=== PATIENT | male | born 1945 | race African-American/Black ===

== ENCOUNTER 2017-06-04 23:36 | Emergency (ER) | payer OTHER ==
[2017-06-04 23:49] VITALS: BP 114/83; PULSE 78; TEMP 97.5; BMI 23.3
--- NOTE | 2017-06-04 23:53 | PDOC ---
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 Hurts with certain movements especially lying down. No associated symptoms whatsoever. No Injury or trauma. Timing/Duration: intermittent, other (over the past week) Severity: moderate Modifying Factors: improves with: other (has not taken anything for pain) Past History - Past Medical History Allergies/Adverse Reactions: Allergies Allergy/AdvReac Type Severity Reaction Status Date / Time No Known Allergies Allergy Verified 06/04/17 23:38 Home Medications: Ambulatory Orders Aspirin 81 mg PO DAILY 09/02/13 Atorvastatin Ca [Lipitor] 20 mg PO HS 09/02/13 Methylprednisolone [Medrol Dose Jose] 4 mg PO ASDIR #21 tablet 06/05/17 Tramadol HCl 50 mg PO QID #40 tablet MDD 4 06/05/17 Cancer: Yes (prostate) Cardiac Disorders: Yes (stent placement X 1) Hypercholesterolemia: Yes Kidney Stones: Yes - Immunization History Immunization Up to Date: Yes - Psycho/Social/Smoking Cessation Hx Anxiety: No Suicidal Ideation: No Smoking History: Former smoker Have you smoked in the past 12 months: Yes Number of Cigarettes Smoked Daily: 0 If you are a former smoker, when did you quit?: 6MTHS 'Breaking Loose' booklet given: 03/11/16 Hx Alcohol Use: Yes Drug/Substance Use Hx: No Substance Use Type: Alcohol Hx Substance Use Treatment: No Review of Systems - Review of Systems Able to Perform ROS?: Yes Is the patient limited Monegasque proficient: No Constitutional: No: Symptoms Reported HEENTM: No: Symptoms Reported Respiratory: No: Symptoms reported Cardiac (ROS): No: Symptoms Reported ABD/GI: No: Symptoms Reported : No: Symptoms Reported Musculoskeletal: Yes: See HPI Integumentary: No: Symptoms Reported Neurological: No: Symptoms reported Psychiatric: No: Anxiety, Depression Endocrine: No: Symptoms Reported Hematologic/Lymphatic: No: Symptoms Reported All Other Systems: Reviewed and Negative *Physical Exam - Physical Exam General Appearance: Yes: Nourished, Appropriately Dressed. No: Apparent Distress HEENT: positive: EOMI, JOLYNN, Normal ENT Inspection, Normal Voice Neck: positive: Trachea midline, Normal Thyroid, Supple Respiratory/Chest: positive: Lungs Clear, Normal Breath Sounds. negative: Chest Tender Cardiovascular: positive: Regular Rhythm, Regular Rate. negative: Murmur Gastrointestinal/Abdominal: positive: Normal Bowel Sounds, Flat, Soft. negative : Tender Lymphatic: negative: Adenopathy, Tenderness Musculoskeletal: positive: Other (tender at siatic notch, neg stright leg raising bilaterally, femoral pulses equal side to side no pulsitile mass in abdomen, no abdominal bruits, distal pulses equal side to side.). negative: Vertebral Tenderness Extremity: positive: Normal Capillary Refill Integumentary: positive: Normal Color, Dry, Warm Neurologic: positive: inside sales executive II-XII NML intact, Fully Oriented, Alert, Normal Mood/ Affect ED Treatment Course - RADIOLOGY Radiology Studies Ordered: Category Date Time Status LUMBAR SPINE CT W/O CONTRAST [CT] Stat CT Scan 06/04/17 23:38 Ordered *DC/Admit/Observation/Transfer Diagnosis at time of Disposition: Lumbar radicular syndrome - Discharge Dispostion Disposition: HOME Condition at time of disposition: Improved Admit: No - Prescriptions Prescriptions: Methylprednisolone [Medrol Dose Jose] 4 mg PO ASDIR #21 tablet Tramadol HCl 50 mg PO QID #40 tablet MDD 4 - Referrals Referrals: Frantz De La Cruz MD, FAANS [Staff Physician] - - Patient Instructions Printed Discharge Instructions: DI for Lumbar Radiculopathy Additional Instructions: Mr Anna - You have several ruptured discs in your low back and you need to follow up with Dr. Figueroa (Neurosurgery). Take the medrol dose pack as prescribed and use the tramadol for pain. You may need surgery. Best- Dr. Alex Morales - Post Discharge Activity Work/School Note: Back to Work Activity Comments: 06/05/17 00:43 No Heavy Lifting
== END 2017-06-05 01:00 | disposition home or self-care (01) ==
LOC: FER 23:36
DX: M54.16 Radiculopathy, lumbar region (principal); E78.5 Hyperlipidemia, unspecified; I25.10 Atherosclerotic heart disease of native coronary artery without angina pectoris; Z95.5 Presence of coronary angioplasty implant and graft; Z79.82 Long term (current) use of aspirin; Z85.46 Personal history of malignant neoplasm of prostate; Z87.442 Personal history of urinary calculi
CPT/HCPCS: 72131-TC; 99281-25

== ENCOUNTER 2017-06-18 04:57 | Emergency (ER) | payer OTHER ==
[2017-06-18 05:09] VITALS: TEMP 98; BMI 22.8
--- NOTE | 2017-06-18 05:21 | PDOC ---
History of Present Illness - General Chief Complaint: Respiratory Stated Complaint: CONGESTION, I HAVE PNUEMONIA Time Seen by Provider: 06/18/17 05:14 History Source: Patient Exam Limitations: No Limitations - History of Present Illness Initial Comments: 06/18/17 05:29 This is a 71-year-old male who comes in complaining of cough congestion and feeling very poorly. Patient said that he is short of breath and saw his primary care doctor and was diagnosed with pneumonia left side. Patient was started on an antibiotic but he doesn't remember the name. Since this started on the antibiotic patient said he has not gotten better and is getting worse. Patient said his chest feels very tight. Patient denies any nausea and is noted to be slightly diaphoretic here in the emergency room. Patient O2 sat on arrival was 94%. Patient is unable to recall the antibiotic that he is on. PAST MEDICAL HISTORY: no significant history PAST SURGICAL HISTORY: no significant history FAMILY HISTORY: no pertinant history SOCIAL HISTORY: Pt lives with family and is employed. MEDICATIONS: reviewed ALLERGIES: As per nursing notes Review of Systems General: No fevers or chills, no weakness, no weight loss HEENT: No change in vision. No sore throat,. No ear pain CardioVascular: No chest pain or shortness of breath Respiratory:No cough, or wheezing. Gastrointestinal: no nausea, vomitting, diarrhea or constipation, No rectal bleeding Genitourinary: No dysuria, hematuria, or frequency Musculoskeletal: No joint or muscle pain or swelling Neurologic: No headache, vertigo, dizziness or loss of consciousness Psychiatric: nor depression Skin: No rashes or easy bruising Endocrine: no increased thirst or abnormal weight change Allergic: no skin or latex allergy All other systems reviewed and normal Exam: General: Well-nourished well-developed individual, no acute distress HEENT: Throat: Normal, tonsils normal, no erythema or exudate Neck: Supple, no meningeal signs, no lymphadenopathy Eyes::Pupils equal reactive and round, extraocular motion intact Chest: Nontender to palpation Cardiac: S1-S2 normal, regular rate and rhythm, no murmurs rubs or gallops Respiratory: There is some decreased breath sounds on the left upper area with a few coarse breath sounds. Abdomen: Soft, nondistended, normal bowel sounds, nontender to palpation diffusely Extremities: Warm, dry, no cyanosis, clubbing, or edema Skin: No rashes Neuro: Alert and oriented x3, nonfocal exam, grossly intact, normal gait Psych: Normal mood and affect Chest x-ray large left upper lobe mass. 07:00 Care of this patient was transferred to Dr. Beckman at 7 AM. Patient had a CT of his chest that is still pending otherwise rest of his lab work shows a mildly elevated white count but no left shift. Otherwise is initially normal. EKG shows normal sinus rhythm at a rate of 70, normal intervals no acute ST-T wave changes normal EKG Case discussed in detail with oncoming Emergency Physician including history, physical exam and ancillary studies. [facility] care for the patient and will complete the evaluation and treatment. Patient is aware of the plan. Pt is clinically unchanged and stable. Past History - Past Medical History Allergies/Adverse Reactions: Allergies Allergy/AdvReac Type Severity Reaction Status Date / Time No Known Allergies Allergy Verified 06/18/17 05:00 Home Medications: Ambulatory Orders Unobtainable [Unobtainable] 06/18/17 Cancer: Yes (prostate) Cardiac Disorders: Yes (stent placement X 1) Hypercholesterolemia: Yes Kidney Stones: Yes Other medical history: STATES HE HAS PNUEMONIA - Immunization History Immunization Up to Date: Yes - Suicide/Smoking/Psychosocial Hx Smoking History: Former smoker Have you smoked in the past 12 months: Yes Number of Cigarettes Smoked Daily: 0 If you are a former smoker, when did you quit?: 6MTHS Information on smoking cessation initiated: No 'Breaking Loose' booklet given: 03/11/16 Hx Alcohol Use: No Drug/Substance Use Hx: No Substance Use Type: Alcohol Hx Substance Use Treatment: No *Physical Exam - Vital Signs Last Vital Signs Temp Pulse Resp BP Pulse Ox 98 F 80 18 128/93 94 L 06/18/17 05:05 06/18/17 05:05 06/18/17 05:05 06/18/17 05:05 06/18/17 05:05 ED Treatment Course - LABORATORY CBC & Chemistry Diagram: 06/18/17 05:40 06/18/17 05:40 *DC/Admit/Observation/Transfer Diagnosis at time of Disposition: Sensation of chest tightness - Discharge Dispostion Condition at time of disposition: Stable
[2017-06-18] MEDS ORDERED: PIPERACILLIN/TAZOB 4.5 GM/100 ML PRE-DOCKED IVPB ONE (05:48)
[2017-06-18 06:10] LABS: BASOPHIL 0.7 % (0-2.0); EOSINOPHIL 2.1 % (0-4.5); MCH 29.3 pg (25.7-33.7); MCHC 32.8 g/dl (32.0-35.9); MEAN CELL VOLUME 89.2 fl (80-96); MEAN PLT VOLUME 8.6 fl (7.5-11.1); PLATELET COUNT 197 K/MM3 (134-434); RDW 14.6 % (11.9-15.9); WHITE BLOOD COUNT 10.4 K/mm3 (4.0-10.0)
[2017-06-18 06:33] LABS: ALBUMIN 3.4 g/dl (3.4-5.0); ALK PHOS 84 U/L (45-117); ANION GAP 9 (8-16); BILIRUBIN,TOTAL 0.3 mg/dL (0.2-1.0); CALCIUM 9.1 mg/dL (8.5-10.1); CO2 27 mmol/L (21-32); CREATININE 1.1 mg/dL (0.7-1.3); GLUCOSE,RANDOM 98 mg/dL (74-106); SGOT/AST 21 U/L (15-37); SGPT/ALT 25 U/L (12-78); TOT PROT 6.8 g/dl (6.4-8.2)
[2017-06-18 06:35] LABS: TROPONIN I < 0.02 ng/ml (0.00-0.05)
[2017-06-18 07:58] LABS: CPK 68 IU/L (39-308)
--- NOTE | 2017-06-18 08:06 | PDOC ---
*Physical Exam - Vital Signs Last Vital Signs Temp Pulse Resp BP Pulse Ox 98 F 80 18 128/93 94 L 06/18/17 05:05 06/18/17 05:05 06/18/17 05:05 06/18/17 05:05 06/18/17 05:05 ED Treatment Course - LABORATORY CBC & Chemistry Diagram: 06/18/17 05:40 06/18/17 05:40 - ADDITIONAL ORDERS Additional order review: Laboratory Results 06/18/17 06/18/17 06/18/17 06:25 05:40 05:40 Sodium Potassium Chloride Carbon Dioxide Anion Gap BUN Creatinine Creat Clearance w eGFR Random Glucose Lactic Acid 0.8 Calcium Total Bilirubin AST ALT Alkaline Phosphatase Creatine Kinase 68 Troponin I < 0.02 B-Natriuretic Peptide 22.19 Total Protein Albumin 06/18/17 05:40 Sodium 140 Potassium 4.1 Chloride 104 Carbon Dioxide 27 Anion Gap 9 BUN 16 Creatinine 1.1 Creat Clearance w eGFR > 60 Random Glucose 98 D Lactic Acid Calcium 9.1 Total Bilirubin 0.3 AST 21 D ALT 25 Alkaline Phosphatase 84 D Creatine Kinase Troponin I B-Natriuretic Peptide Total Protein 6.8 Albumin 3.4 06/18/17 05:40 RBC 4.82 MCV 89.2 MCHC 32.8 RDW 14.6 MPV 8.6 Neutrophils % 69.0 Lymphocytes % 16.7 D Monocytes % 11.5 H Eosinophils % 2.1 Basophils % 0.7 - Medications Given in the ED: ED Medications Discontinued Medications Generic Name Dose Route Start Last Admin Trade Name Freq PRN Reason Stop Dose Admin Piperacillin Sod/Tazobactam Sod 4.5 gm 06/18/17 05:48 06/18/17 06:30 Zosyn 4.5gm Ivpb (Pre-Docked) IVPB 06/18/17 05:49 Not Given ONCE ONE Medical Decision Making - Medical Decision Making 06/18/17 08:[address] concerning for new lung mass. I spoke with pt's PMD, Dr. Bella, who states that pt had XR and CT chest 2 weeks ago, which revealed similar results. Pt has seen pulmonology and was started on Augmentin and Levaquin for presumed PNA. Pt was to f/u with Dr. Bella to have PET CT scheduled. I informed Dr. Bella of persistent lung mass on today's imaging. We agreed that pt needs immediate follow up and PET CT as soon as possible for malignancy work up. Dr. Bella will see pt in clinic today. Results discussed with patient, who understands need for immediate f/u. Pt is awake, alert, resting comfortably. No acute distress. Pt has normal vitals and is clinically stable for DC at this time. Pt to be DC'ed and will go straight to Dr. Bella's office. *DC/Admit/Observation/Transfer Diagnosis at time of Disposition: Feeling of chest tightness - Discharge Dispostion Disposition: HOME Condition at time of disposition: Stable - Referrals Referrals: Markell Bella MD [Primary Care Provider] - - Patient Instructions Additional Instructions: Please follow up with Dr. Bella TODAY. He is expecting you in clinic. Your X ray and CAT scan results show a mass that may represent pneumonia, but there is a chance it could also be cancer. You will need a special study called a PET CT to further evaluate the mass. Continue taking your antibiotics as prescribed. If you experience any chest pain, shortness of breath, or any other concerning symptoms, return to the ER immediately. - Post Discharge Activity - Attestations Physician Attestion: 06/18/17 08:08 I, Dr. Mane Beckman MD, attest that this document has been prepared under my direction and personally reviewed by me in its entirety. I further attest, that it accurately reflects all work, treatment, procedures and medical decision -making performed by me.
[2017-06-18 08:18] VITALS: BP 124/86; PULSE 82
--- NOTE | 2017-06-19 20:42 | EKG ---
Test Reason : Blood Pressure : / mmHG Vent. Rate : 070 BPM Atrial Rate : 070 BPM P-R Int : 130 ms QRS Dur : 084 ms QT Int : 384 ms P-R-T Axes : 071 056 058 degrees QTc Int : 414 ms NORMAL SINUS RHYTHM RSR' IN V1-V2 WHEN COMPARED WITH ECG OF 03-SEP-2013 01:46, PREMATURE VENTRICULAR COMPLEXES ARE NO LONGER PRESENT APPEARANCE OF INCOMPLETE RBBB NO CLINICAL INFORMATION IS AVAILABLE REPEAT EKG IF CLINICALLY INDICATED Confirmed by TOVA PETIT MD ([id number]) on 06/19/2017 8:42:08 PM Referred By: MD WHITE Confirmed By:TOVA PETIT MD
== END 2017-06-18 08:32 | disposition home or self-care (01) ==
LOC: FER 04:57
DX: R07.89 Other chest pain (principal); Z87.891 Personal history of nicotine dependence; Z95.5 Presence of coronary angioplasty implant and graft; Z85.46 Personal history of malignant neoplasm of prostate
CPT/HCPCS: 36415; 71010-TC; 71250-TC; 80053; 83605; 83880; 84484; 85025; 87040; 93005; 99281-25

== ENCOUNTER 2017-06-20 11:31 | Inpatient (IN) | payer OTHER ==
[2017-06-20] MEDS ORDERED: SODIUM CHLORIDE 0.9% 1000 ML INFUS.BAG IV ONE (11:38)
[2017-06-20] MEDS ORDERED: LIDOCAINE VISCOUS 2% ORAL/TOP 20 ML UNIT-DOSE CUP MM ONE (11:59)
[2017-06-20] MEDS ORDERED: ALBUTEROL SO4 2.5/IPRATROPIUM 0.5 INH SOL 3 ML VIAL.NEB. NEB ONE ×2 (11:59→12:16)
[2017-06-20 12:01] LABS: MCH 29.3 pg (25.7-33.7); MCHC 33.2 g/dl (32.0-35.9); MEAN CELL VOLUME 88.1 fl (80-96); MEAN PLT VOLUME 8.7 fl (7.5-11.1); PLATELET COUNT 205 K/MM3 (134-434); RDW 13.7 % (11.9-15.9); WHITE BLOOD COUNT 10.6 K/mm3 (4.0-10.8)
[2017-06-20 12:16] LABS: ALBUMIN 3.6 g/dl (3.5-5.0); ALK PHOS 63 U/L (32-92); ANION GAP 5 (8-16); BILIRUBIN,TOTAL 1.5 mg/dl (0.2-1.0); CALCIUM 9.1 mg/dl (8.4-10.2); CO2 23 mmol/L (22-28); CREATININE 1.2 mg/dl (0.6-1.3); GLUCOSE,RANDOM 118 mg/dl (74-106); SGOT/AST 51 U/L (10-42); SGPT/ALT 20 U/L (10-40); TOT PROT 6.6 g/dl (6.4-8.3)
[2017-06-20] MEDS ORDERED: NYSTATIN 500,000 UNITS/5 ML SUSPENSION PO ONE (12:18)
--- NOTE | 2017-06-20 12:18 | PDOC ---
History of Present Illness <Breanna Michael - Last Filed: 06/20/17 15:11> - General History Source: Patient Exam Limitations: No Limitations, Other (hoarseness) - History of Present Illness Initial Comments: 06/20/17 12:12 71 o male with h/o CAD, HLD, ( stents ) recently diagnosed lung mass left upper lobe, seen in ED one week ago, here today c/o feeling worsening sore throat, hoarseness. unable to tolerate po. no f/c does get sob. has lost weight 4 - 5 lbs in a week. was scheduled for a pet scan next week and followup with technical services rep he can not remember the name [facility] next week also. no f/c no oxygen at home. 06/20/17 12:13 <Arina Bah - Last Filed: 06/20/17 16:16> - General Chief Complaint: Sore Throat Stated Complaint: SORE THROAT Time Seen by Provider: 06/20/17 11:33 Past History <Breanna Michael - Last Filed: 06/20/17 15:11> - Past Medical History Cancer: Yes (prostate) Cardiac Disorders: Yes (stent placement X 1) Hypercholesterolemia: Yes Kidney Stones: Yes - Immunization History Immunization Up to Date: Yes - Suicide/Smoking/Psychosocial Hx Smoking History: Former smoker Have you smoked in the past 12 months: Yes Number of Cigarettes Smoked Daily: 0 If you are a former smoker, when did you quit?: 2YRSW Information on smoking cessation initiated: No 'Breaking Loose' booklet given: 03/11/16 Hx Alcohol Use: Yes Drug/Substance Use Hx: No Substance Use Type: Alcohol Hx Substance Use Treatment: No <Arina Bah - Last Filed: 06/20/17 16:16> - Past Medical History Allergies/Adverse Reactions: Allergies Allergy/AdvReac Type Severity Reaction Status Date / Time No Known Allergies Allergy Verified 06/20/17 11:33 Home Medications: Ambulatory Orders Amox-Tr/K Cl [Augmentin - 875Mg Tablet] 1 tab PO BID 06/18/17 Levofloxacin [Levaquin] 750 mg PO DAILY 06/18/17 Tramadol HCl 50 mg PO DAILY 06/18/17 Review of Systems - Review of Systems Constitutional: No: Chills, Diaphoresis HEENTM: Yes: Throat Pain, Difficulty Swallowing Respiratory: Yes: Shortness of Breath. No: Cough Cardiac (ROS): No: Chest Pain ABD/GI: Yes: Nausea, Poor Fluid Intake. No: Blood Streaked Bowels Musculoskeletal: Yes: Muscle Weakness Integumentary: No: Bruising Neurological: No: Headache Psychiatric: Yes: Frequent Crying All Other Systems: Reviewed and Negative <Arina Bah - Last Filed: 06/20/17 16:16> *Physical Exam - Vital Signs Last Vital Signs Temp Pulse Resp BP Pulse Ox 99.3 F 66 18 129/81 93 L 06/20/17 11:32 06/20/17 11:32 06/20/17 11:32 06/20/17 11:49 06/20/17 11:32 <Breanna Michael - Last Filed: 06/20/17 15:11> - Vital Signs Last Vital Signs Temp Pulse Resp BP Pulse Ox 99.3 F 66 18 129/81 93 L 06/20/17 11:32 06/20/17 11:32 06/20/17 11:32 06/20/17 11:49 06/20/17 11:32 - Physical Exam HEENT: positive: Thrush, Other (no stridor). negative: Pharyngeal Erythema, Tonsillar Exudate Respiratory/Chest: positive: Lungs Clear, Normal Breath Sounds Cardiovascular: positive: Regular Rhythm, Regular Rate, S1, S2 Gastrointestinal/Abdominal: positive: Normal Bowel Sounds, Flat, Soft Musculoskeletal: positive: Normal Inspection Extremity: positive: Normal Capillary Refill, Normal Inspection Integumentary: positive: Normal Color, Dry, Warm Neurologic: positive: Fully Oriented, Alert, Normal Mood/Affect <Arina Bah - Last Filed: 06/20/17 16:16> Heart Score/ECG Review #1 ECG reviewed & interpreted by me at: 12:33 General ECG Interpretation: Sinus Rhythm, Normal Rate (61), Normal Intervals, No acute ischemic changes <Arina Bah - Last Filed: 06/20/17 16:16> ED Treatment Course - LABORATORY CBC & Chemistry Diagram: 06/20/17 11:44 06/20/17 11:44 - ADDITIONAL ORDERS Additional order review: Laboratory Results 06/20/17 06/20/17 12:18 11:44 Sodium 130 L Potassium 5.3 H D Chloride 102 Carbon Dioxide 23 Anion Gap 5 L BUN 13 D Creatinine 1.2 Creat Clearance w eGFR 59.68 Random Glucose 118 H Calcium 9.1 Total Bilirubin 1.5 H D AST 51 H D ALT 20 D Alkaline Phosphatase 63 Total Protein 6.6 Albumin 3.6 Urine Color Yellow Urine Appearance Clear Urine pH 7.0 Ur Specific Cadet 1.020 Urine Protein Negative Urine Glucose (UA) Negative Urine Ketones Negative Urine Blood Negative Urine Nitrite Negative Urine Bilirubin Negative Urine Urobilinogen 0.2 06/20/17 11:44 RBC 4.78 MCV 88.1 MCHC 33.2 RDW 13.7 MPV 8.7 Neutrophils % 75.0 Lymphocytes % 13.5 D Monocytes % 7.5 Eosinophils % 1.0 Basophils % 3.0 H D - Medications Given in the ED: ED Medications Discontinued Medications Generic Name Dose Route Start Last Admin Trade Name Freq PRN Reason Stop Dose Admin Albuterol/Ipratropium 1 amp 06/20/17 11:59 06/20/17 12:42 Duoneb - NEB 06/20/17 12:00 1 amp ONCE ONE Administration Lidocaine HCl 20 ml 06/20/17 11:59 06/20/17 12:52 Xylocaine 2% Viscous Oral - MM 06/20/17 12:00 20 ml ONCE ONE Administration Nystatin 500,000 units 06/20/17 12:18 06/20/17 12:52 Nystatin Oral Suspension - PO 06/20/17 12:19 500,000 units ONCE ONE Administration Sodium Chloride 1,000 ml 06/20/17 11:38 06/20/17 11:49 Normal Saline - IV 06/20/17 11:39 1,000 ml ONCE ONE Administration <Breanna Michael - Last Filed: 06/20/17 15:11> - LABORATORY CBC & Chemistry Diagram: 06/20/17 11:44 06/20/17 11:44 - ADDITIONAL ORDERS Additional order review: 06/20/17 11:44 RBC 4.78 MCV 88.1 MCHC 33.2 RDW 13.7 MPV 8.7 Neutrophils % 75.0 Lymphocytes % 13.5 D Monocytes % 7.5 Eosinophils % 1.0 Basophils % 3.0 H D - RADIOLOGY Radiology Studies Ordered: Category Date Time Status SOFT TISSUE NECK CT W/O CONTR [CT] Stat CT Scan 06/20/17 11:58 Ordered CHEST PA & LAT [RAD] Stat Radiology 06/20/17 12:00 Ordered - Medications Given in the ED: ED Medications Discontinued Medications Generic Name Dose Route Start Last Admin Trade Name Kurt PRN Reason Stop Dose Admin Sodium Chloride 1,000 ml 06/20/17 11:38 06/20/17 11:49 Normal Saline - IV 06/20/17 11:39 1,000 ml ONCE ONE Administration <Arina Bah - Last Filed: 06/20/17 16:16> Medical Decision Making - Medical Decision Making 06/20/17 14:35 Dr. Catherine Aguilera was paged at the office requesting a call back for doctor to doctor consult. At 15:11, Dr. Catherine Aguilera was paged a second time at the office requesting a call back to discuss admission of this patient to [facility]. <Breanna Michael - Last Filed: 06/20/17 15:11> - Medical Decision Making 06/20/17 12:16 71 yo male with h/o CAD HLD, here with c/o inability to swallow throat pain. on exam appearance of thrush, hypoxic when resting at room air 89. plan to admit for ftt, dehydration thrush and hypoxia. d/w dr aguilera ( covers for dr farr) would like pt to be admitted to oncall/ hospitalist as does not come to [facility]. plan labs ct neck. cxr neb, visous lidocaine with nystatin, and admit. 06/20/17 16:15 pt thuan require ENT consult, therefore will be transferred to [facility]. d/w dr. araujo. and phlebotomist medical lab assistant. d/w dr aguilera, would like pt to stay under hospitalist service despite transfer to [facility]. <Arina Bah - Last Filed: 06/20/17 16:16> *DC/Admit/Observation/Transfer <Breanna Michael - Last Filed: 06/20/17 15:11> - Discharge Dispostion Admit: Yes <Arina Bah - Last Filed: 06/20/17 16:16> Diagnosis at time of Disposition: Thrush, Lung mass, Hypoxia - Discharge Dispostion Condition at time of disposition: Stable
[2017-06-20 13:47] LABS: URINE APPEARANCE Clear; URINE BILIRUBIN Negative (NEGATIVE); URINE BLOOD Negative (NEGATIVE); URINE COLOR YELLOW; URINE GLUCOSE (UA) Negative (NEGATIVE); URINE KETONE Negative (NEGATIVE); URINE LEUK ESTERASE Negative (NEGATIVE); URINE NITRITE Negative (NEGATIVE); URINE PROTEIN Negative (NEGATIVE); URINE UROBILINOGEN 0.2 (0.2-1.0)
[2017-06-20] MEDS ORDERED: KETOROLAC TROMETHAMINE 30 MG/1 ML VIAL ONE (15:09)
[2017-06-20] MEDS ORDERED: morphine CARPU-JECT 2 MG/1 ML DISP.SYRIN ONE (17:05)
[2017-06-20] MEDS ORDERED: ONDANSETRON 4 MG/2 ML VIAL ONE (17:07)
[2017-06-20] MEDS ORDERED: morphine CARPU-JECT 2 MG/1 ML DISP.SYRIN IVPUSH ONE (17:13)
[2017-06-20] MEDS ORDERED: ONDANSETRON 4 MG/2 ML VIAL IVPUSH ONE (17:13)
--- NOTE | 2017-06-20 19:36 | EKG ---
Test Reason : Blood Pressure : / mmHG Vent. Rate : 061 BPM Atrial Rate : 061 BPM P-R Int : 136 ms QRS Dur : 080 ms QT Int : 392 ms P-R-T Axes : 069 061 055 degrees QTc Int : 394 ms SINUS RHYTHM RSR' OR QR PATTERN IN V1 SUGGESTS RIGHT VENTRICULAR CONDUCTION DELAY BORDERLINE ECG WHEN COMPARED WITH ECG OF 18-JUN-2017 05:45, NO SIGNIFICANT CHANGE WAS FOUND Confirmed by STEVE ARIAS, AMEE ([id number]) on 06/20/2017 7:36:27 PM Referred By: BENJAMIN HAQUE Confirmed By:AMEE WILSON MD
[2017-06-20] MEDS ORDERED: morphine CARPU-JECT 2 MG/1 ML DISP.SYRIN IVPUSH PRN (19:54)
[2017-06-20] MEDS ORDERED: cefTRIAXone SODIUM 1 GM VIAL ONE (20:40)
[2017-06-20] MEDS ORDERED: DEXTROSE 5%-WATER - 50 ML IVPB ONE (20:40)
[2017-06-20] MEDS: DEXTROSE 5%-0.45% SALINE 1,000 ML IV SCH (21:05)
[2017-06-20] MEDS: CEFTRIAXONE 1 GM in DEXTROSE 5%-WATER - 50 ML IVPB SCH (21:06)
[2017-06-20] MEDS: methylPREDNISolone NA SUCC 40 MG/1 ML VIAL IVPB SCH (21:07)
[2017-06-20] MEDS: HEPARIN NA (PORCINE) 5,000 UNITS/ML 1ML VIAL SQ SCH (21:09)
--- NOTE | 2017-06-20 22:08 | HP ---
Admitting History and Physical - Admission History of Present Illness: Pt is a 71 y/o male w/ PMH significant for HTN, HLD, CAD(s/p cardiac stents), GERD, nephroliathisis and prostate cancer. Pt recently dx'ed in the past few weeks w/ MARICARMEN lung mass wc he was scheduled to have PET scan. However pt not presented to the ER bc of sore throat x 2 weeks associated w/ hoarseness. Pt states that he has been unable to tolerate PO bc of pain. Pt has some SOB but denies any fever/chills. In the ER pt had ct scan throat wc showed suprglottic soft tissue thickening w/ ? narrowing of airway and consolidative masslike opacity of MARICARMEN. Pt is not in any respiratory distress. 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[employer] History of Recent Travel: No Home Medications - Allergies Allergies/Adverse Reactions: Allergies Allergy/AdvReac Type Severity Reaction Status Date / Time No Known Allergies Allergy Verified 06/20/17 11:33 - Home Medications Home Medications: Ambulatory Orders Amox-Tr/K Cl [Augmentin - 875Mg Tablet] 1 tab PO BID 06/18/17 Levofloxacin [Levaquin] 750 mg PO DAILY 06/18/17 Tramadol HCl 50 mg PO DAILY 06/18/17 Family Disease History - Family Disease History Family History: Unremarkable Family Disease History: Other: Mother (stroke) Review of Systems - Review of Systems HENT: reports: Difficult Swallowing, Throat Pain Cardiovascular: reports: Shortness of Breath Respiratory: reports: Cough, SOB Gastrointestinal: reports: No Symptoms Genitourinary: reports: No Symptoms Physical Examination Vital Signs: Vital Signs Temperature 98.1 F 06/20/17 18:53 Pulse Rate 61 06/20/17 18:53 Respiratory Rate 20 06/20/17 18:53 Blood Pressure 125/66 06/20/17 18:53 O2 Sat by Pulse Oximetry (%) 97 06/20/17 17:30 Constitutional: Yes: No Distress HENT: Yes: WNL, Atraumatic Neck: Yes: WNL, Supple Cardiovascular: Yes: WNL, Regular Rate and Rhythm Respiratory: Yes: WNL, Regular, CTA Bilaterally Gastrointestinal: Yes: WNL, Normal Bowel Sounds, Soft Musculoskeletal: Yes: WNL Extremities: Yes: WNL Edema: No Neurological: Yes: WNL, Alert, Oriented ...Motor Strength: WNL Problem List - Problems (1) Dysphagia Assessment/Plan: Will start IV steroids/IV ceftriaxone ENT consult Puree diet ?Thrush Nystatin oral suspension Code(s): R13.10 - DYSPHAGIA, UNSPECIFIED (2) Lung mass Assessment/Plan: Pulmonary/onco consult Duoneb nebulizer Code(s): R91.8 - OTHER NONSPECIFIC ABNORMAL FINDING OF LUNG FIELD (3) CAD (coronary artery disease) Code(s): I25.10 - ATHSCL HEART DISEASE OF [place] CORONARY ARTERY W/O ANG PCTRS Qualifiers: Coronary Disease-Associated Artery/Lesion type: [place] artery [place] vs. transplanted heart: [place] heart Associated angina: without angina Qualified Code(s): I25.10 - Atherosclerotic heart disease of [place] coronary artery without angina pectoris (4) Lipidemia Code(s): E78.5 - HYPERLIPIDEMIA, UNSPECIFIED Qualifiers: Hyperlipidemia type: unspecified Qualified Code(s): E78.5 - Hyperlipidemia, unspecified
[2017-06-20 23:53] VITALS: BMI 22.4
[2017-06-21] MEDS: ARFORMOTEROL TARTRATE 15 MCG/2 ML VIAL NEB SCH ×2 (01:20→22:25)
[2017-06-21] MEDS ORDERED: ALBUTEROL SO4 2.5/IPRATROPIUM 0.5 INH SOL 3 ML VIAL.NEB. NEB PRN (01:53)
[2017-06-21] MEDS: methylPREDNISolone NA SUCC 40 MG/1 ML VIAL IVPB SCH ×4 (03:26→21:54)
[2017-06-21] MEDS ORDERED: traMADol HCL 50 MG TABLET PO PRN (05:47)
[2017-06-21] MEDS: MAG HYDROX/AL HYDROX/SIMETH 30 ML UNIT-DOSE CUP PO SCH (06:03)
[2017-06-21] MEDS: NYSTATIN 500,000 UNITS/5 ML SUSPENSION PO SCH ×3 (06:03→17:10)
[2017-06-21 08:32] LABS: BASOPHIL 0.1 % (0-2.0); MCHC 32.5 g/dl (32.0-35.9); MEAN CELL VOLUME 89.3 fl (80-96); MEAN PLT VOLUME 8.9 fl (7.5-11.1); NEUTROPHILS 89.5 % (42.8-82.8); PLATELET COUNT 169 K/MM3 (134-434); RDW 14.7 % (11.9-15.9)
[2017-06-21 09:14] LABS: ALBUMIN 3.2 g/dl (3.4-5.0); ALK PHOS 73 U/L (45-117); ANION GAP 10 (8-16); BILIRUBIN,TOTAL 0.3 mg/dL (0.2-1.0); CALCIUM 8.6 mg/dL (8.5-10.1); CO2 25 mmol/L (21-32); CREATININE 0.9 mg/dL (0.7-1.3); GLUCOSE,RANDOM 156 mg/dL (74-106); SGOT/AST 21 U/L (15-37); SGPT/ALT 21 U/L (12-78); TOT PROT 6.6 g/dl (6.4-8.2)
[2017-06-21] MEDS ORDERED: cefTRIAXone SODIUM 1 GM VIAL ONE (10:11)
[2017-06-21] MEDS ORDERED: DEXTROSE 5%-WATER - 50 ML IVPB ONE (10:11)
[2017-06-21] MEDS: CEFTRIAXONE 1 GM in DEXTROSE 5%-WATER - 50 ML IVPB SCH (10:17)
[2017-06-21] MEDS: HEPARIN NA (PORCINE) 5,000 UNITS/ML 1ML VIAL SQ SCH ×2 (10:18→21:52)
[2017-06-21] MEDS: PANTOPRAZOLE 40 MG TABLET (FP) PO SCH (10:18)
--- NOTE | 2017-06-21 10:41 | CONSULT ---
Consultation: PULMONARY CONSULT REQUESTING PROVIDER: Dr Aguilera CONSULT REQUEST: We have been asked to medically evaluate this patient for ( LUNG MASS) HISTORY OF PRESENT ILLNESS: Mr. Castillo is a 71yo M with PMhx of Prostate CA (s/p radiation 10 years ago), and +50 pack year smoking history who presented to the ER w/ gradual onset hoarseness and dysphagia over the past 2 weeks. His dysphagia lead to decreased PO intake, was only able to tolerate soft foods + liquids, had associated 4-5lb wt loss. He denies any difficulty breathing. Denies fevers, chills, CP. Denies sick contacts. Pt has been seen recently by PCP who obtained CT chest which revealed Left Upper Lobe biopsy w/ concern for malignancy. He was scheduled for PET/CT tomorrow. Currently, patient states his dysphagia and hoarseness have improved since he received treatment. States he has new onset productive cough w/ brown colored sputum. Still no complaints of CP, SOB. 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 , was in [employer] (no war, thus no exposure) REVIEW OF SYSTEMS: CONSTITUTIONAL: Absent: fever, chills, diaphoresis, generalized weakness, malaise, loss of appetite, weight change HEENT: Absent: rhinorrhea, nasal congestion, throat pain, mouth swelling, ear pain, eye pain, visual changes Present: hoarseness, difficulty swallowing CARDIOVASCULAR: Absent: chest pain, syncope, palpitations, irregular heart rate, lightheadedness , peripheral edema RESPIRATORY: Absent: cough, shortness of breath, dyspnea with exertion, orthopnea, wheezing, stridor, hemoptysis GASTROINTESTINAL: Absent: abdominal pain, abdominal distension, nausea, vomiting, diarrhea, constipation, melena, hematochezia GENITOURINARY: Absent: dysuria, frequency, urgency, hesitancy, hematuria, flank pain, genital pain MUSCULOSKELETAL: Absent: myalgia, arthralgia, joint swelling, back pain, neck pain SKIN: Absent: rash, itching, pallor HEMATOLOGIC/IMMUNOLOGIC: Absent: easy bleeding, easy bruising, lymphadenopathy, frequent infections ENDOCRINE: Absent: unexplained weight gain, unexplained weight loss, heat intolerance, cold intolerance NEUROLOGIC: Absent: headache, focal weakness or paresthesias, dizziness, unsteady gait, seizure, mental status changes, bladder or bowel incontinence PSYCHIATRIC: Absent: anxiety, depression, suicidal or homicidal ideation, hallucinations. PHYSICAL EXAMINATION Vital Signs Temperature 98.0 F 06/21/17 05:56 Pulse Rate 64 06/21/17 05:56 Respiratory Rate 18 06/21/17 05:56 Blood Pressure 107/68 06/21/17 05:56 O2 Sat by Pulse Oximetry (%) 93 L 06/20/17 21:00 GEN: AAOx3, NAD, Lying comfortably, sounds hoarse, no audible stridor HEENT: PERRLA, EOMI, Thrush along tongue CV: S1, S2, RRR LUNG: Minimal bibasilar crackles, otherwise clear to auscultation ABD: Soft, NT, ND, normoactive BS MSK: NO edema, no erythema NEURO: CN 2-12 intact, no sensation or MSK deficits. Laboratory Last Values WBC 7.0 K/mm3 (4.0-10.0) D 06/21/17 06:45 RBC 4.66 M/mm3 (4.00-5.60) 06/21/17 06:45 Hgb 13.5 GM/dL (11.7-16.9) 06/21/17 06:45 Hct 41.6 % (35.4-49) 06/21/17 06:45 MCV 89.3 fl (80-96) 06/21/17 06:45 MCH 29.0 pg (25.7-33.7) 06/21/17 06:45 MCHC 32.5 g/dl (32.0-35.9) 06/21/17 06:45 RDW 14.7 % (11.9-15.9) 06/21/17 06:45 Plt Count 169 K/MM3 (134-434) 06/21/17 06:45 MPV 8.9 fl (7.5-11.1) 06/21/17 06:45 Neutrophils % 89.5 % (42.8-82.8) H D 06/21/17 06:45 Lymphocytes % 9.1 % (8-40) D 06/21/17 06:45 Monocytes % 1.3 % (3.8-10.2) L D 06/21/17 06:45 Eosinophils % 0.0 % (0-4.5) D 06/21/17 06:45 Basophils % 0.1 % (0-2.0) 06/21/17 06:45 Sodium 136 mmol/L (136-145) 06/21/17 06:45 Potassium 5.0 mmol/L (3.5-5.1) D 06/21/17 06:45 Chloride 101 mmol/L (98-107) 06/21/17 06:45 Carbon Dioxide 25 mmol/L (21-32) 06/21/17 06:45 Anion Gap 10 (8-16) 06/21/17 06:45 BUN 15 mg/dL (7-18) 06/21/17 06:45 Creatinine 0.9 mg/dL (0.7-1.3) 06/21/17 06:45 Creat Clearance w eGFR > 60 (>60) 06/21/17 06:45 Random Glucose 156 mg/dL (74-106) H D 06/21/17 06:45 Calcium 8.6 mg/dL (8.5-10.1) 06/21/17 06:45 Total Bilirubin 0.3 mg/dL (0.2-1.0) 06/21/17 06:45 AST 21 U/L (15-37) 06/21/17 06:45 ALT 21 U/L (12-78) 06/21/17 06:45 Alkaline Phosphatase 73 U/L (45-117) 06/21/17 06:45 Total Protein 6.6 g/dl (6.4-8.2) 06/21/17 06:45 Albumin 3.2 g/dl (3.4-5.0) L 06/21/17 06:45 Urine Color Yellow 06/20/17 12:18 Urine Appearance Clear 06/20/17 12:18 Urine pH 7.0 (4.5-8) 06/20/17 12:18 Ur Specific [place] 1.020 (1.005-1.025) 06/20/17 12:18 Urine Protein Negative (NEGATIVE) 06/20/17 12:18 Urine Glucose (UA) Negative (NEGATIVE) 06/20/17 12:18 Urine Ketones Negative (NEGATIVE) 06/20/17 12:18 Urine Blood Negative (NEGATIVE) 06/20/17 12:18 Urine Nitrite Negative (NEGATIVE) 06/20/17 12:18 Urine Bilirubin Negative (NEGATIVE) 06/20/17 12:18 Urine Urobilinogen 0.2 (0.2-1.0) 06/20/17 12:18 Active Medications Generic Name Dose Route Start Last Admin Trade Name Freq PRN Reason Stop Dose Admin Al Hydroxide/Mg Hydroxide 30 ml 06/21/17 06:00 06/21/17 06:03 Mylanta Oral Suspension - PO 30 ml DAILY JAYDON Administration Albuterol/Ipratropium 1 amp 06/21/17 01:53 Duoneb - NEB Q6H PRN SHORTNESS OF BREATH Heparin Sodium (Porcine) 5,000 unit 06/20/17 22:00 06/21/17 10:18 Heparin - SQ 5,000 unit BID JAYDON Administration Ceftriaxone Sodium 1 gm/ 50 mls @ 100 mls/hr 06/20/17 20:00 06/21/17 10:17 Dextrose IVPB 100 mls/hr DAILY JAYDON Administration Dextrose/Sodium Chloride 1,000 mls @ 75 mls/hr 06/20/17 20:00 06/20/17 21:05 D5-1/2ns - IV 75 mls/hr ASDIR JAYDON Administration Methylprednisolone Sodium Succinate 40 mg 06/20/17 21:00 06/21/17 09:25 Solu-Medrol - IVPB 40 mg Q6H-IV JAYDON Administration Nystatin 500,000 units 06/21/17 06:00 06/21/17 06:03 Nystatin Oral Suspension - PO 500,000 units Q6HPO JAYDON Administration Pantoprazole Sodium 40 mg 06/21/17 10:00 06/21/17 10:18 Protonix - PO 40 mg DAILY JAYDON Administration Tramadol HCl 50 mg 06/21/17 05:47 Ultram - PO Q6H PRN PAIN IMAGING: CT Soft Tissue Neck - Limited evaluation w/o IV contrast. Circumferential soft tissue thickening surrounding supraglottic larynx resulting in severe narrowing of the airway, leading to vocal cord abduction. Trachea WNL. CT Chest - Large central MARICARMEN mass (2.0 x 1.6 x 1.7cm) + Adjacent peripheral opacity (5.0 x 4.3 x 4.0cm) + Mediastinal LAD + Left liver lobe lesion. 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/ soft tissue mass, no respiratory compromise - DDx: Malignancy, Edema from mediastinal LAD compression and denervation of RLN, Inflammatory, Vascular ring - No respiratory compromise, monitor closely - Hoarseness + Dysphagia is improving slowly - Continue IV Solumedrol Q6H - Await ENT eval, scope # Left Liver Lobe Lesion - 3.3cm isolated hypodense mass in L liver lobe - No elevation in liver enzymes - Consider triple phase scan # Thrush - Was recently on antibiotics, not on chemotx, no H&N radiation, unknown HIV status - If malignancy is proven, could be 2/2 immunocompromised state - Patient initially agreed to HIV testing, but told another provider he would discuss with family first - Continue Nystatin We will continue to follow the patient. Thank you. Mariel Cancino MD - PGY1 Visit type - Emergency Visit Emergency Visit: No - New Patient This patient is new to me today: Yes Date on this admission: 06/21/17 - Critical Care Critical Care patient: No
--- NOTE | 2017-06-21 12:31 | PN ---
Teaching Attending Note Name of Resident: Mariel Cancino ATTENDING PHYSICIAN STATEMENT I saw and evaluated the patient. I reviewed the resident's note and discussed the case with the resident. I agree with the resident's findings and plan as documented. SUBJECTIVE: 71 M, Prostate CA (s/p radiation 10 years ago), greater 50 pack year smoking history, CAD, HPL. Admitted via the ER due to gradual onset hoarseness and dysphagia over the past 2 weeks. (+) decreased PO intake, hoarseness, and dysphagia. PMD obtained a CT chest which revealed a Left Upper Lobe Mass. He was also placed on ABX by his PMD. He was scheduled for outpatient PET/CT tomorrow. No travel history or sick contacts. No hemoptysis. Intake & Output 06/18/17 06/19/17 06/20/17 06/21/17 23:59 23:59 23:59 23:59 Intake Total 0 450 Output Total 400 Balance 0 50 Weight 139 lb 3.2 oz Last Vital Signs Temp Pulse Resp BP Pulse Ox 98.3 F 76 18 119/75 93 L 06/21/17 09:00 06/21/17 11:45 06/21/17 09:00 06/21/17 09:00 06/21/17 11:45 Active Medications Al Hydroxide/Mg Hydroxide (Mylanta Oral Suspension -) 30 ml PO DAILY JAYDON Last Admin: 06/21/17 06:03 Dose: 30 ml Albuterol/Ipratropium (Duoneb -) 1 amp NEB Q6H PRN PRN Reason: SHORTNESS OF BREATH Heparin Sodium (Porcine) (Heparin -) 5,000 unit SQ BID JAYDON Last Admin: 06/21/17 10:18 Dose: 5,000 unit Ceftriaxone Sodium 1 gm/ (Dextrose) 50 mls @ 100 mls/hr IVPB DAILY JAYDON Last Admin: 06/21/17 10:17 Dose: 100 mls/hr Dextrose/Sodium Chloride (D5-1/2ns -) 1,000 mls @ 75 mls/hr IV ASDIR JAYDON Last Admin: 06/20/17 21:05 Dose: 75 mls/hr Methylprednisolone Sodium Succinate (Solu-Medrol -) 40 mg IVPB Q6H-IV JAYDON Last Admin: 06/21/17 09:25 Dose: 40 mg Nystatin (Nystatin Oral Suspension -) 500,000 units PO Q6HPO JAYDON Last Admin: 06/21/17 06:03 Dose: 500,000 units Pantoprazole Sodium (Protonix -) 40 mg PO DAILY [facility] Last Admin: 06/21/17 10:18 Dose: 40 mg Tramadol HCl (Ultram -) 50 mg PO Q6H PRN PRN Reason: PAIN GEN: AAOx3, NAD, hoarseness of voice, no audible stridor HEENT: PERRLA, EOMI, Thrush along tongue CV: S1, S2, RRR LUNG: Minimal bibasilar crackles, otherwise clear to auscultation ABD: Soft, NT, ND, normoactive BS MSK: No edema, no erythema NEURO: Non-focal Laboratory Last Values WBC 7.0 K/mm3 (4.0-10.0) D 06/21/17 06:45 RBC 4.66 M/mm3 (4.00-5.60) 06/21/17 06:45 Hgb 13.5 GM/dL (11.7-16.9) 06/21/17 06:45 Hct 41.6 % (35.4-49) 06/21/17 06:45 MCV 89.3 fl (80-96) 06/21/17 06:45 MCH 29.0 pg (25.7-33.7) 06/21/17 06:45 MCHC 32.5 g/dl (32.0-35.9) 06/21/17 06:45 RDW 14.7 % (11.9-15.9) 06/21/17 06:45 Plt Count 169 K/MM3 (134-434) 06/21/17 06:45 MPV 8.9 fl (7.5-11.1) 06/21/17 06:45 Neutrophils % 89.5 % (42.8-82.8) H D 06/21/17 06:45 Lymphocytes % 9.1 % (8-40) D 06/21/17 06:45 Monocytes % 1.3 % (3.8-10.2) L D 06/21/17 06:45 Eosinophils % 0.0 % (0-4.5) D 06/21/17 06:45 Basophils % 0.1 % (0-2.0) 06/21/17 06:45 Sodium 136 mmol/L (136-145) 06/21/17 06:45 Potassium 5.0 mmol/L (3.5-5.1) D 06/21/17 06:45 Chloride 101 mmol/L (98-107) 06/21/17 06:45 Carbon Dioxide 25 mmol/L (21-32) 06/21/17 06:45 Anion Gap 10 (8-16) 06/21/17 06:45 BUN 15 mg/dL (7-18) 06/21/17 06:45 Creatinine 0.9 mg/dL (0.7-1.3) 06/21/17 06:45 Creat Clearance w eGFR > 60 (>60) 06/21/17 06:45 Random Glucose 156 mg/dL (74-106) H D 06/21/17 06:45 Calcium 8.6 mg/dL (8.5-10.1) 06/21/17 06:45 Total Bilirubin 0.3 mg/dL (0.2-1.0) 06/21/17 06:45 AST 21 U/L (15-37) 06/21/17 06:45 ALT 21 U/L (12-78) 06/21/17 06:45 Alkaline Phosphatase 73 U/L (45-117) 06/21/17 06:45 Total Protein 6.6 g/dl (6.4-8.2) 06/21/17 06:45 Albumin 3.2 g/dl (3.4-5.0) L 06/21/17 06:45 Urine Color Yellow 06/20/17 12:18 Urine Appearance Clear 06/20/17 12:18 Urine pH 7.0 (4.5-8) 06/20/17 12:18 Ur Specific [place] 1.020 (1.005-1.025) 06/20/17 12:18 Urine Protein Negative (NEGATIVE) 06/20/17 12:18 Urine Glucose (UA) Negative (NEGATIVE) 06/20/17 12:18 Urine Ketones Negative (NEGATIVE) 06/20/17 12:18 Urine Blood Negative (NEGATIVE) 06/20/17 12:18 Urine Nitrite Negative (NEGATIVE) 06/20/17 12:18 Urine Bilirubin Negative (NEGATIVE) 06/20/17 12:18 Urine Urobilinogen 0.2 (0.2-1.0) 06/20/17 12:18 IMAGING: CT Soft Tissue Neck - Limited evaluation w/o IV contrast. Circumferential soft tissue thickening surrounding supraglottic larynx resulting in severe narrowing of the airway, leading to vocal cord abduction. Trachea WNL. CT Chest - Large central MARICARMEN mass (2.0 x 1.6 x 1.7cm) + Adjacent peripheral opacity (5.0 x 4.3 x 4.0cm) + Mediastinal LAD + Left liver lobe lesion. ASSESSMENT/PLAN: MARICARMEN mass suspicious for Malignancy Possible post-obstructive PNA Previous significant smoking history Laryngeal stenosis : (?) Inflammatory versus Malignancy Liver lesion (?) Thrush ABX ENT evaluation has been called as there is significant narrowing on CT O2 needed Check sputum ID evaluation Medrol BD TX Check HIV status Will Follow Thank you. Dr Zheng
[2017-06-21] MEDS: DEXTROSE 5%-0.45% SALINE 1,000 ML IV SCH ×2 (13:19→21:53)
--- NOTE | 2017-06-21 14:08 | CONSULT ---
Consult Consult Specialty:: Oncology - History of Present Illness History of Present Illness: Mr. Castillo is a 71yo M with PMhx of Prostate CA (s/p radiation 10 years ago), and +50 pack year smoking history who presented to the ER w/ gradual onset hoarseness and dysphagia over the past 2 weeks. His dysphagia lead to decreased PO intake, was only able to tolerate soft foods + liquids, had associated 4-5lb wt loss. He denies any difficulty breathing. Denies fevers, chills, CP. Denies sick contacts. Pt has been seen recently by PCP who obtained CT chest which revealed Left Upper Lobe biopsy w/ concern for malignancy. He was scheduled for PET/CT tomorrow. Currently, patient states his dysphagia and hoarseness have improved since he received treatment. States he has new onset productive cough w/ brown colored sputum. Still no complaints of CP, SOB. - History Source History Provided By: Patient, Medical Record Limitations to Obtaining History: No Limitations 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[employer] History of Recent Travel: No Home Medications - Allergies Allergies/Adverse Reactions: Allergies Allergy/AdvReac Type Severity Reaction Status Date / Time No Known Allergies Allergy Verified 06/20/17 11:33 - Home Medications Home Medications: Ambulatory Orders Amox-Tr/K Cl [Augmentin - 875Mg Tablet] 1 tab PO BID 06/18/17 Levofloxacin [Levaquin] 750 mg PO DAILY 06/18/17 Tramadol HCl 50 mg PO DAILY 06/18/17 Family Disease History - Family Disease History Family History: Denies Family Disease History: Other: Mother (stroke) Review of Systems - Review of Systems Constitutional: reports: Unintentional Wgt. Loss HENT: reports: Difficult Swallowing Physical Exam Vital Signs: Vital Signs Temperature 98.3 F 06/21/17 09:00 Pulse Rate 76 06/21/17 11:45 Respiratory Rate 18 06/21/17 09:00 Blood Pressure 119/75 06/21/17 09:00 O2 Sat by Pulse Oximetry (%) 93 L 06/21/17 11:45 Constitutional: Yes: Well Nourished, No Distress, Calm HENT: Yes: Atraumatic, Normocephalic Neck: Yes: Supple Cardiovascular: Yes: Regular Rate and Rhythm Respiratory: Yes: Regular, CTA Bilaterally Gastrointestinal: Yes: WNL Extremities: Yes: WNL Labs: CBC, BMP 06/21/17 06:45 06/21/17 06:45 Imaging - Results Cat Scan: Report Reviewed Problem List - Problems (1) Dysphagia Code(s): R13.10 - DYSPHAGIA, UNSPECIFIED Qualifiers: Dysphagia type: pharyngoesophageal phase Qualified Code(s): R13.14 - Dysphagia, pharyngoesophageal phase (2) Lung mass Code(s): R91.8 - OTHER NONSPECIFIC ABNORMAL FINDING OF LUNG FIELD (3) Thrush Code(s): B37.0 - CANDIDAL STOMATITIS Assessment/Plan Likely a Primary lung malignancy in a ex-smoker ( 55pack year) 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 -ENT consult noted -Pulm consult noted, d/w -Complete staging w/u, CT a/p ordered ?liver met -PET CT as an out patient -would need definitive pathology , would need to be off asa/plavix -will follow -discussed with pt.
--- NOTE | 2017-06-21 16:02 | PN ---
Teaching Attending Note Name of Resident: Kvng Vigil ATTENDING PHYSICIAN STATEMENT I saw and evaluated the patient. I reviewed the resident's note and discussed the case with the resident. I agree with the resident's findings and plan as documented. SUBJECTIVE: hoarseness for 3 weeks, worsening dysphagia no fever augmentin for 10 days, then levaquin for 10 days OBJECTIVE: well appearing +thrush, ?left axillary node CBC, BMP 06/21/17 06:45 06/21/17 06:45 ASSESSMENT AND PLAN: lung mass with mediastinal adenopathy- ?postobstructive pneumonia-on rocephin laryngeal narrowing or unclear etiology- no fevers to suggest infection-ENT evaluation pending thrush- probably secondary to the prior antibioitcs he declines hiv and hep c testing at this time
--- NOTE | 2017-06-21 16:46 | CON.ID ---
Consult Consult Specialty:: Infectious Disease Reason for Consultation:: Possible epiglottitis - History of Present Illness History of Present Illness: 71yo M with significant history of prior prostate cancer (10 years ago), known recent history of a left upper lobe lung mass who initially presented to the ED due to 3 weeks worsening of hoarseness and inability to eat solid foods. Pt states he was seen twice prior and was given Augmentin for 10 days followed by Levaquin for 10 days upon re-evaluation. At this time, pt was also found to have his L Upper lobe mass on CT and a post-obstructive consolidiation. Pt reports being worried about not being able to eat food and came back to get re- evaluated. Pt denies any fever/chills, diarrhea, abdominal pain, rhinorrhea, and SOB. He states he hasn't been taking any steroids prior to this admission. He denies any use of chemotherapy. Denies any recent travel SoHx: 50pack year smoker; quit 2 years ago Lives with renetta in [place]; originally from [facility] PCP: Dr. Leoncio CRAFT - History Source History Provided By: Patient Limitations to Obtaining History: No Limitations 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 Travel: No Home Medications - Allergies Allergies/Adverse Reactions: Allergies Allergy/AdvReac Type Severity Reaction Status Date / Time No Known Allergies Allergy Verified 06/20/17 11:33 - Home Medications Home Medications: Ambulatory Orders Amox-Tr/K Cl [Augmentin - 875Mg Tablet] 1 tab PO BID 06/18/17 Levofloxacin [Levaquin] 750 mg PO DAILY 06/18/17 Tramadol HCl 50 mg PO DAILY 06/18/17 Family Disease History - Family Disease History Family Disease History: Other: Mother (stroke) Physical Exam Vital Signs: Vital Signs Temperature 98.5 F 06/21/17 14:16 Pulse Rate 90 06/21/17 14:16 Respiratory Rate 18 06/21/17 09:00 Blood Pressure 127/77 06/21/17 14:16 O2 Sat by Pulse Oximetry (%) 93 L 06/21/17 11:45 Constitutional: Yes: No Distress, Calm Eyes: Yes: Conjunctiva Clear, EOM Intact Neck: No: Lymphadenopathy Cardiovascular: Yes: Regular Rate and Rhythm Respiratory: Yes: Regular, Other (Decreased air entry in L upper lobe, No wheezes noted. no rhonchi noted) Gastrointestinal: Yes: Normal Bowel Sounds, Soft. No: Tenderness Extremities: Yes: Other (Slight left axillary lymph node enlargement; no lymphadenopathy in right axillary region appreciated) Edema: No Neurological: Yes: Alert, Oriented Psychiatric: Yes: Alert, Oriented Labs: CBC, BMP 06/21/17 06:45 06/21/17 06:45 Imaging - Results X-ray: Report Reviewed, Image Reviewed Cat Scan: Report Reviewed (CT Soft Tissue Neck - Limited evaluation w/o IV contrast. Circumferential soft tissue thickening surrounding supraglottic larynx resulting in severe narrowing of the airway, leading to vocal cord abduction. CT Chest - Large central MARICARMEN mass (2.0 x 1.6 x 1.7cm)l; Adjacent peripheral opacity (5.0 x 4.3 x 4.0cm); Mediastinal LAD; Left liver lobe lesion) , Image Reviewed Assessment/Plan Assessment: Differential for soft tissue swelling is infectious v inflammatory v compression and dennervation of recurrent laryngeal nerves due to mediastinal lymph node enlarged Left upper lobe mass Oral Thrush Plan: --Pt has been referred to ENT for visualization for better diagnosis --Pt currently on Rocephin, agree with medication for now to cover for possibility of infectious etiology --Nystatin swish and swallow for patient's oral thrush --HIV testing offered to patient to which patient initially agreed; Currently patient would like to delay testing until discussion with family --HIV order cancelled for this reason
--- NOTE | 2017-06-21 19:00 | CON.ENT ---
Consult Consult Specialty:: ENT Referred by:: Dr. Aguilera Reason for Consultation:: supraglottic swelling - History of Present Illness Chief Complaint: throat pain and trouble swallowing, hoarseness History of Present Illness: 71 yo M with long hx smokign, recently dx left upper lobe lung mass, workup in progress had progressive throat pain hoarseness and trouble swallowing for the past one week presented to ER because he could not longer swallow solids able to drink fluids, states lost 9 pounds in the past 1-2 weeks. denies prior throat problems of any type including recurrent infections on oxygen by nasal cannulae, reports some nasal irritation, no bleeding - History Source History Provided By: Patient, Family Member, Medical Record 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[employer] History of Recent Travel: No Home Medications - Allergies Allergies/Adverse Reactions: Allergies Allergy/AdvReac Type Severity Reaction Status Date / Time No Known Allergies Allergy Verified 06/20/17 11:33 - Home Medications Home Medications: Ambulatory Orders Amox-Tr/K Cl [Augmentin - 875Mg Tablet] 1 tab PO BID 06/18/17 Levofloxacin [Levaquin] 750 mg PO DAILY 06/18/17 Tramadol HCl 50 mg PO DAILY 06/18/17 Family Disease History - Family Disease History Family Disease History: Other: Mother (stroke) Physical Exam-ENT Vital Signs: Vital Signs Temperature 98.5 F 06/21/17 14:16 Pulse Rate 90 06/21/17 14:16 Respiratory Rate 18 06/21/17 09:00 Blood Pressure 127/77 06/21/17 14:16 O2 Sat by Pulse Oximetry (%) 93 L 06/21/17 11:45 Constitutional: Yes: Well Nourished, No Distress Head: Yes: WNL Face: Yes: WNL Eyes: Yes: WNL Nose: Yes: Other (mild turbinate swelling, no pus or polyp, no bleeding, nasopharynx WNL) Nasal Passage: Yes: WNL Oral/Pharynx: Yes: Other (mouth no lesions tongue slight white coat, position 3 , small varix right tonsil fossa, uvula elongated. Flexible laryngoscopy performed: base of tongue WNL, no visible lesion, vallecula normal, epiglottis normal, aryepiglottic folds normal arytenoids mild edema, mild postcricoid edema false vocal cords normal, ventricles WNL, vocal cords no lesions, right vocal cord normal mobility, left vocal cord PARALYSIS, sl paramedian position voice sl hoarse, no stridor or respiratory distress NO supraglottic lesion or swelling, supraglottic airway patent no obstruction) Outer Ear: Yes: WNL Ear Canal: Yes: WNL Tympanic Membrane: Yes: WNL Neck: Yes: WNL Imaging - Results X-ray: Report Reviewed, Image Reviewed (MARICARMEN mass) Cat Scan: Report Reviewed, Image Reviewed (supraglottic airway narrowed) Problem List - Problems (1) Dysphagia Assessment/Plan: hypopharynx and larynx normal on exam except for left vocal cord paralysis no obstruction rule out esohageal pathology Recommend: modified barium swallow consider GI evaluaiton Code(s): R13.10 - DYSPHAGIA, UNSPECIFIED Qualifiers: Dysphagia type: pharyngoesophageal phase Qualified Code(s): R13.14 - Dysphagia, pharyngoesophageal phase (2) Throat swelling Assessment/Plan: progressive throat pain, hoarseness and dysphagia for one week unable to swalllow solids CT scan of neck showed significant narrowing of supraglottic airway, though patient had no respiratory distress per progress notew flexible laryngoscopy shows good hypopharyngeal and laryngeal airway NO swelling visible and NO mass or lesion of hypopharynx or larynx BUT left laryngeal paralysis present suspect left upper lobe mass/neoplasm is affecting left recurrent laryngeal nerve function voice is hoarse but there is no stridor or respiratory distress speech pathology consultation for swallowing and voice Further pulmonary evaluation for evaluation and management of left upper lobe mass. Thank you for consultation, Kvng Curtis MD FACS Code(s): R22.1 - LOCALIZED SWELLING, MASS AND LUMP, NECK
--- NOTE | 2017-06-21 23:27 | PN ---
Progress Note, Physician History of Present Illness: No new complaints - Current Medication List Current Medications: Active Medications Al Hydroxide/Mg Hydroxide (Mylanta Oral Suspension -) 30 ml PO DAILY [facility] Last Admin: 06/21/17 06:03 Dose: 30 ml Albuterol/Ipratropium (Duoneb -) 1 amp NEB Q6H PRN PRN Reason: SHORTNESS OF BREATH Arformoterol Tartrate (Brovana (Restricted To Pulmonology/Resp) -) 1 amp NEB BID [facility] Last Admin: 06/21/17 22:25 Dose: 1 amp Heparin Sodium (Porcine) (Heparin -) 5,000 unit SQ BID [facility] Last Admin: 06/21/17 21:52 Dose: 5,000 unit Ceftriaxone Sodium 1 gm/ (Dextrose) 50 mls @ 100 mls/hr IVPB DAILY [facility] Last Admin: 06/21/17 10:17 Dose: 100 mls/hr Dextrose/Sodium Chloride (D5-1/2ns -) 1,000 mls @ 75 mls/hr IV ASDIR [facility] Last Admin: 06/21/17 21:53 Dose: 75 mls/hr Methylprednisolone Sodium Succinate (Solu-Medrol -) 40 mg IVPB Q6H-IV [facility] Last Admin: 06/21/17 21:54 Dose: 40 mg Nystatin (Nystatin Oral Suspension -) 500,000 units PO Q6HPO [facility] Last Admin: 06/21/17 17:10 Dose: 500,000 units Pantoprazole Sodium (Protonix -) 40 mg PO DAILY [facility] Last Admin: 06/21/17 10:18 Dose: 40 mg Tramadol HCl (Ultram -) 50 mg PO Q6H PRN PRN Reason: PAIN Last Admin: 06/21/17 19:47 Dose: 50 mg - Objective Vital Signs: Vital Signs Temperature 98.5 F 06/21/17 14:16 Pulse Rate 90 06/21/17 14:16 Respiratory Rate 18 06/21/17 09:00 Blood Pressure 127/77 06/21/17 14:16 O2 Sat by Pulse Oximetry (%) 93 L 06/21/17 11:45 Constitutional: Yes: No Distress HENT: Yes: WNL Neck: Yes: WNL, Supple Cardiovascular: Yes: WNL, Regular Rate and Rhythm Respiratory: Yes: WNL, Regular, CTA Bilaterally Gastrointestinal: Yes: WNL, Normal Bowel Sounds, Soft Labs: CBC, BMP 06/21/17 06:45 06/21/17 06:45 Problem List - Problems (1) Dysphagia Assessment/Plan: Cont IV steroids/IV ceftriaxone ENT consult/pulmonary/ID consults noted ?Lt laryngeal paralysis Puree diet ?Thrush Nystatin oral suspension Barium swallow Code(s): R13.10 - DYSPHAGIA, UNSPECIFIED Qualifiers: Dysphagia type: pharyngoesophageal phase Qualified Code(s): R13.14 - Dysphagia, pharyngoesophageal phase (2) Lung mass Assessment/Plan: Pulmonary/onco consult Duoneb nebulizer Code(s): R91.8 - OTHER NONSPECIFIC ABNORMAL FINDING OF LUNG FIELD (3) CAD (coronary artery disease) Code(s): I25.10 - ATHSCL HEART DISEASE OF [place] CORONARY ARTERY W/O ANG PCTRS Qualifiers: Coronary Disease-Associated Artery/Lesion type: [place] artery [place] vs. transplanted heart: [place] heart Associated angina: without angina Qualified Code(s): I25.10 - Atherosclerotic heart disease of [place] coronary artery without angina pectoris (4) Lipidemia Code(s): E78.5 - HYPERLIPIDEMIA, UNSPECIFIED Qualifiers: Hyperlipidemia type: unspecified Qualified Code(s): E78.5 - Hyperlipidemia, unspecified
[2017-06-22] MEDS: methylPREDNISolone NA SUCC 40 MG/1 ML VIAL IVPB SCH ×4 (02:50→21:57)
[2017-06-22] MEDS: NYSTATIN 500,000 UNITS/5 ML SUSPENSION PO SCH ×4 (06:30→17:02)
[2017-06-22] MEDS ORDERED: DEXTROSE 5%-WATER - 50 ML IVPB ONE (09:27)
[2017-06-22] MEDS ORDERED: cefTRIAXone SODIUM 1 GM VIAL ONE (09:27)
[2017-06-22] MEDS: PANTOPRAZOLE 40 MG TABLET (FP) PO SCH (09:42)
[2017-06-22] MEDS: HEPARIN NA (PORCINE) 5,000 UNITS/ML 1ML VIAL SQ SCH ×2 (09:42→21:58)
[2017-06-22] MEDS: MAG HYDROX/AL HYDROX/SIMETH 30 ML UNIT-DOSE CUP PO SCH (09:42)
[2017-06-22] MEDS: ARFORMOTEROL TARTRATE 15 MCG/2 ML VIAL NEB SCH ×2 (10:22→22:18)
[2017-06-22] MEDS: CEFTRIAXONE 1 GM in DEXTROSE 5%-WATER - 50 ML IVPB SCH (10:56)
--- NOTE | 2017-06-22 11:37 | PN ---
Physical Exam: Consulting Specialty: Infectious Disease SUBJECTIVE: Pt resting comfortably in bed. Pt reports laryngoscopy being performed last night by Dr. Curtis. He states that it was explained to him that his left vocal cord is paralyzed and may be due to his lung mass. Pt denies any SOB. Pt has no new complaints He states he had talked with his fiancee and is okay with receiving his HIV and and Hep C testing previously discussed OBJECTIVE: Vital Signs Period Temp Pulse Resp BP Sys/Rogers Pulse Ox Last 24 Hr 97.6 F-98.5 F 72-97 18-18 122-127/58-80 92-93 GENERAL: The patient is awake, alert, and fully oriented, in no acute distress. HEENT: Moist mucosa, white plaques still present, however less are apparent at base of tongue. LUNGS: CTA bilaterally, no wheezes, no crackles, no accessory muscle use. HEART: RRR, S1, S2 without murmur, rub or gallop. ABDOMEN: Soft, nontender, nondistended, normoactive bowel sounds EXTREMITIES: No edema. Left axillary enlarged LN still appreciated; none on right axillary NEUROLOGICAL: Alert and oriented PSYCH: Normal mood, normal affect. SKIN: No rashes noted Active Medications Generic Name Dose Route Start Last Admin Trade Name Freq PRN Reason Stop Dose Admin Al Hydroxide/Mg Hydroxide 30 ml 06/21/17 06:00 06/22/17 09:42 Mylanta Oral Suspension - PO 30 ml DAILY JAYDON Administration Albuterol/Ipratropium 1 amp 06/21/17 01:53 Duoneb - NEB Q6H PRN SHORTNESS OF BREATH Arformoterol Tartrate 1 amp 06/21/17 12:45 06/22/17 10:22 Brovana (Restricted To Pulmonology/Resp) - NEB 1 amp BID JAYDON Administration Heparin Sodium (Porcine) 5,000 unit 06/20/17 22:00 06/22/17 09:42 Heparin - SQ 5,000 unit BID JAYDON Administration Ceftriaxone Sodium 1 gm/ 50 mls @ 100 mls/hr 06/20/17 20:00 06/22/17 10:56 Dextrose IVPB 100 mls/hr DAILY [facility]AYDON Administration Dextrose/Sodium Chloride 1,000 mls @ 75 mls/hr 06/20/17 20:00 06/21/17 21:53 D5-1/2ns - IV 75 mls/hr ASDIR JAYDON Administration Methylprednisolone Sodium Succinate 40 mg 06/20/17 21:00 06/22/17 09:42 Solu-Medrol - IVPB 40 mg Q6H-IV JAYDON Administration Nystatin 500,000 units 06/21/17 06:00 06/22/17 06:30 Nystatin Oral Suspension - PO 500,000 units Q6HPO JAYDON Administration Pantoprazole Sodium 40 mg 06/21/17 10:00 06/22/17 09:42 Protonix - PO 40 mg DAILY [facility]DON Administration Tramadol HCl 50 mg 06/21/17 05:47 06/21/17 19:47 Ultram - PO 50 mg Q6H PRN Administration PAIN ASSESSMENT Left Lung mass Oral Thrush PLAN: D/C Ceftriaxone; pt's situation most likely due to left recurrent laryngeal nerve compression from mediastinal lymphadenopathy --Will follow ENT and Pulm Patient discussed with renetta: is okay with HIV 4th gen test and HCV test; ordered for today Continue oral Nystatin for thrush Visit type - Emergency Visit Emergency Visit: No - New Patient This patient is new to me today: No - Critical Care Critical Care patient: No
--- NOTE | 2017-06-22 11:45 | EKG ---
Test Reason : Blood Pressure : / mmHG Vent. Rate : 061 BPM Atrial Rate : 061 BPM P-R Int : 140 ms QRS Dur : 084 ms QT Int : 402 ms P-R-T Axes : 066 058 051 degrees QTc Int : 404 ms SINUS RHYTHM VOLTAGE CRITERIA FOR LEFT VENTRICULAR HYPERTROPHY ABNORMAL ECG WHEN COMPARED WITH ECG OF 20-JUN-2017 12:31, Criteria for LVH is now present Confirmed by AMEE WILSON MD ([id number]) on 06/22/2017 11:45:44 AM Referred By: DR HAQUE Confirmed By:AMEE WILSON MD
--- NOTE | 2017-06-22 12:00 | PN ---
Teaching Attending Note Name of Resident: Kvng Vigil ATTENDING PHYSICIAN STATEMENT I saw and evaluated the patient. I reviewed the resident's note and discussed the case with the resident. I agree with the resident's findings and plan as documented. 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
--- NOTE | 2017-06-22 12:03 | CONSULT ---
Admitting History and Physical - Primary Care Physician PCP: Catherine Aguilera - Admission History of Present Illness: Per ENT:"progressive throat pain, hoarseness and dysphagia for one week unable to swalllow solids CT scan of neck showed significant narrowing of supraglottic airway, though patient had no respiratory distress per progress noted flexible laryngoscopy shows good hypopharyngeal and laryngeal airway NO swelling visible and NO mass or lesion of hypopharynx or larynx BUT left laryngeal paralysis present suspect left upper lobe mass/neoplasm is affecting left recurrent laryngeal nerve function voice is hoarse but there is no stridor or respiratory distress" Pt reports vocal deficits started 3 weeks ago with difficulty with solids a week ago. He denies difficulty with puree/chopped and thin liquids. History Source: Patient Limitations to Obtaining History: No Limitations 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 Circumferential soft tissue thickening surrounding supraglottic larynx resulting in severe narrowing of the airway, leading to vocal cord abduction. CT Chest - Large central MARICARMEN mass (2.0 x 1.6 x 1.7cm)l; Adjacent peripheral opacity (5.0 x 4.3 x 4.0cm); Mediastinal LAD; Left liver lobe lesion)) - General Mental Status: Alert and Oriented, Awake and Alert, Able to Follow Commands Attention: Intact Ability to Follow Directions: Excellent Head/Neck Control: WFL - Hearing Hearing: Normal, Both Speech Evaluation - Communication Primary Language: TURKISH - Speech Production Able to Make Needs Known: Yes: WNL Intelligibility: Yes: Mildly Impaired - Speech Characteristics Voice Loudness: Mildly Soft/Quiet Voice Pitch: Yes: Moderately High Voice Phonatory-based Quality: Yes: Breathy, Weak, Dysphonia Speech Pattern: Impaired Speech Clarity: < 75% Nasal Resonance: Normal Articulation: Yes: Precise - Language/Auditory Comprehension Follows: Yes: 2 Stage Simple Commands - Language/Verbal Expression Able to Respond to Simple Queries: Yes: WNL Able to Communicate Wants and Needs: Yes: WNL Functional Communication Status: Yes: WNL - 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 Nystatin ordered 06/21.) Dentition: Yes: Missing Teeth Facial Symmetry at Rest: Symmetrical Facial Symmetry on Retraction: Symmetrical Facial Movement: Controlled Against Resistance Opening: Normal Against Resistance Closing: Normal Pucker Lips: Normal Smile: Normal Lingual Movement: Normal, Symmetric Lingual Speed of Movement: Normal Lingual Movement Strgth Against Opposition: Normal Lingual Movement Characteristics: Normal Velopharyngeal Movement: Normal Laryngeal Elevation: WFL Laryngeal Movement: Able to Palpate Rate of Intake: WFL Oral Prep Time: WFL A-P Transit: WFL Pocketing: None Timing of Swallow: WFL Coughing/Throat Clear: No Change in Voice: No Recommendations - Speech Evaluation, Impression/Plan Impression: Left vocal cord paralysis. Moderate to severe breathy vocal quality.c/o dysphagia with solids.Candidiasis. - Dysphagia Impressions/Plan Swallowing Skills: Impaired Dysphagia Impressions: Ongoing Evaluation *Silent aspiration: cannot be R/O at bedside Recommendations: ZOE Crane
--- NOTE | 2017-06-22 14:41 | PN ---
Physical Exam: PULMONARY CONSULT SUBJECTIVE: Patient seen and examined. States hoarseness is not getting worse or better. Still has no respiratory complaints: no CP, no SOB. OBJECTIVE: Vital Signs Period Temp Pulse Resp BP Sys/Rogers Pulse Ox Last 24 Hr 97.6 F-98.3 F 72-97 18-18 118-125/58-80 92-94 GEN: AAOx3, NAD, Lying comfortably HEENT: PERRLA, EOMi, +oral thrush CV: S1, S2, RRR LUNG: CTABL ABD: Soft, NT, ND, normoactive BS MSK: No edema, no erythema Active Medications Generic Name Dose Route Start Last Admin Trade Name Freq PRN Reason Stop Dose Admin Al Hydroxide/Mg Hydroxide 30 ml 06/21/17 06:00 06/22/17 09:42 Mylanta Oral Suspension - PO 30 ml DAILY JAYDON Administration Albuterol/Ipratropium 1 amp 06/21/17 01:53 Duoneb - NEB Q6H PRN SHORTNESS OF BREATH Arformoterol Tartrate 1 amp 06/21/17 12:45 06/22/17 10:22 Brovana (Restricted To Pulmonology/Resp) - NEB 1 amp BID JAYDON Administration Heparin Sodium (Porcine) 5,000 unit 06/20/17 22:00 06/22/17 09:42 Heparin - SQ 5,000 unit BID JAYDON Administration Dextrose/Sodium Chloride 1,000 mls @ 75 mls/hr 06/20/17 20:00 06/21/17 21:53 D5-1/2ns - IV 75 mls/hr ASDIR JAYDON Administration Methylprednisolone Sodium Succinate 40 mg 06/20/17 21:00 06/22/17 14:21 Solu-Medrol - IVPB 40 mg Q6H-IV JAYDON Administration Nystatin 500,000 units 06/21/17 06:00 06/22/17 11:53 Nystatin Oral Suspension - PO 500,000 units Q6HPO JAYDON Administration Pantoprazole Sodium 40 mg 06/21/17 10:00 06/22/17 09:42 Protonix - PO 40 mg DAILY JAYDON Administration Tramadol HCl 50 mg 06/21/17 05:47 06/21/17 19:47 Ultram - PO 50 mg Q6H PRN Administration PAIN IMAGING: CT Soft Tissue Neck - Limited evaluation w/o IV contrast. Circumferential soft tissue thickening surrounding supraglottic larynx resulting in severe narrowing of the airway, leading to vocal cord abduction. Trachea WNL. CT Chest - Large central MARICARMEN mass (2.0 x 1.6 x 1.7cm) + Adjacent peripheral opacity (5.0 x 4.3 x 4.0cm) + Mediastinal LAD + Left liver lobe lesion. CT Abd - At least three solid liver masses (about 2cm) which are most likely metastatic. Mildly enlarged aortocaval lymph node measuring 1.0 x 1.0 cm ( previously measured 0.5 x 0.5 cm on 03/11/2016 CT), may be metastatic. ASSESSMENT/PLAN: Pt is a 71yo M with PMhx of Prostate CA (s/p radiation 10 years ago), and +50 pack year smoking history who presented to the ER w/ gradual onset hoarseness and dysphagia over the past 2 weeks, incidental lung mass was found on CT scan. # MARICARMEN Central Lung Mass - DDx: Primary or metastatic malignancy, Inflammatory - Due to smoking hx, pt is high risk - Along with multiple liver lesions, ?mets, could be small oat cell CA, but would need biopsy confirmation - Adjacent peripheral lung lesion could be another mass vs post-obstructive process - Spoke to IR about biopsy consideration, who states that higher yield would likely be obtained by biopsying central lesion, would reccomend bronchscopy biopsy first, and if unable to do so, would move to IR guided peripheral biopsy (though difficult since lesion is central). 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 and denervation of RLN, no mass compression - S/p ENT eval, scope w/ results above - No respiratory compromise, monitor closely, minimal threshold to intubate if pt has respiratory complaints - Hoarseness + Dysphagia is stable - Continue IV Solumedrol 40mg Q6H # Left Liver Lobe Lesions - 3.3cm isolated hypodense mass in L liver lobe - 3 liver lobe lesions seen on new Abd CT with enlarging aortocaval LN 0.5cm --> 1.0cm within 1 year - Could be metastatic # Thrush - Was recently on antibiotics, not on chemotx, no H&N radiation, unknown HIV status - If malignancy is proven, could be 2/2 immunocompromised state - Patient initially agreed to HIV testing, but told another provider he would discuss with family first - Continue Nystatin Discussed w/ Dr Ochoa. Will continue to follow. Thank you. Mariel Cancino MD - PGY1 Visit type - Emergency Visit Emergency Visit: No - New Patient This patient is new to me today: No - Critical Care Critical Care patient: No - Discharge Referral Referred to [facility] Med P.C.: No
--- NOTE | 2017-06-22 14:56 | PN ---
Progress Note (short form) - Note Progress Note: PULMONARY HOARSENESS VOICE X 3 WEEKS/WEIGHT LOSS/DIFFICULTY SWALLOWING VSS/AFEBRILE ANICTERIC BIBASILAR CRACKLES S1S2 BS+ NO EDEMA LABS/MEDS/NOTES/IMAGING REVIEWED MARICARMEN MASS/LIVER LESIONS/VC PARALYSIS WILL NEED DIAGNOSTIC PROCEDURE/WILL SPEAK WITH IR TO DETERMINE FAVORABLE SITE HAVE ORDERED INR/ WILL FOLLOW CLOSELY Kj PLAZA MD
--- NOTE | 2017-06-22 16:06 | PN ---
Progress Note (short form) - Note Progress Note: Patient seen and examined. Feels better. O/E General; NAD no LAD heart-rrr lungs clear abd soft,nt ext no edema Current Medications Generic Name Dose Route Start Last Admin Trade Name Freq PRN Reason Stop Dose Admin Al Hydroxide/Mg Hydroxide 30 ml 06/21/17 06:00 06/22/17 09:42 Mylanta Oral Suspension - PO 30 ml DAILY JAYDON Administration Albuterol/Ipratropium 1 amp 06/21/17 01:53 Duoneb - NEB Q6H PRN SHORTNESS OF BREATH Arformoterol Tartrate 1 amp 06/21/17 12:45 06/22/17 10:22 Brovana (Restricted To Pulmonology/Resp) - NEB 1 amp BID JAYDON Administration Heparin Sodium (Porcine) 5,000 unit 06/20/17 22:00 06/22/17 09:42 Heparin - SQ 5,000 unit BID JAYDON Administration Dextrose/Sodium Chloride 1,000 mls @ 75 mls/hr 06/20/17 20:00 06/21/17 21:53 D5-1/2ns - IV 75 mls/hr ASDIR JAYDON Administration Methylprednisolone Sodium Succinate 40 mg 06/20/17 21:00 06/22/17 14:21 Solu-Medrol - IVPB 40 mg Q6H-IV JAYDON Administration Nystatin 500,000 units 06/21/17 06:00 06/22/17 11:53 Nystatin Oral Suspension - PO 500,000 units Q6HPO JAYDON Administration Pantoprazole Sodium 40 mg 06/21/17 10:00 06/22/17 09:42 Protonix - PO 40 mg DAILY JAYDON Administration Tramadol HCl 50 mg 06/21/17 05:47 06/21/17 19:47 Ultram - PO 50 mg Q6H PRN Administration PAIN Last Vital Signs Temp Pulse Resp BP Pulse Ox 98.2 F 83 20 108/68 92 L 06/22/17 15:20 06/22/17 15:20 06/22/17 15:20 06/22/17 15:20 06/22/17 10:21 CBC, BMP 06/21/17 06:45 06/21/17 06:45 Assessment/Plan: Likely a Primary lung malignancy in a ex-smoker ( 55pack year) Hoarseness of voice ( due to Laryngeal nerve palsy) Liver mets/Liver mass. Thrush Dysphagia in the above. -CT a/p with most likely mets in the liver. -would need definitive pathology , also would need liver mass biopsy too , to confirm metastatic deposit -pt mentioned that he is on asa/plavix at home , not receiving here. He says his last dose was on Sunday this week. 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 would need to be off of them prior to biopsy -PET CT as an out patient -will follow Problem List - Problems (1) Dysphagia Code(s): R13.10 - DYSPHAGIA, UNSPECIFIED Qualifiers: Dysphagia type: pharyngoesophageal phase Qualified Code(s): R13.14 - Dysphagia, pharyngoesophageal phase (2) Lung mass Code(s): R91.8 - OTHER NONSPECIFIC ABNORMAL FINDING OF LUNG FIELD (3) Thrush Code(s): B37.0 - CANDIDAL STOMATITIS
[2017-06-22 16:16] LABS: INR 0.97 (0.82-1.09); PROTHROMBIN TIME (PATIENT) 10.7 SEC (9.98-11.88)
[2017-06-22] MEDS: DEXTROSE 5%-0.45% SALINE 1,000 ML IV SCH (21:57)
--- NOTE | 2017-06-22 22:01 | PN ---
Progress Note, Physician History of Present Illness: No new complaints - Current Medication List Current Medications: Active Medications Al Hydroxide/Mg Hydroxide (Mylanta Oral Suspension -) 30 ml PO DAILY [facility] Last Admin: 06/22/17 09:42 Dose: 30 ml Albuterol/Ipratropium (Duoneb -) 1 amp NEB Q6H PRN PRN Reason: SHORTNESS OF BREATH Arformoterol Tartrate (Brovana (Restricted To Pulmonology/Resp) -) 1 amp NEB BID [facility] Last Admin: 06/22/17 10:22 Dose: 1 amp Heparin Sodium (Porcine) (Heparin -) 5,000 unit SQ BID [facility] Last Admin: 06/22/17 09:42 Dose: 5,000 unit Dextrose/Sodium Chloride (D5-1/2ns -) 1,000 mls @ 75 mls/hr IV ASDIR [facility] Last Admin: 06/21/17 21:53 Dose: 75 mls/hr Methylprednisolone Sodium Succinate (Solu-Medrol -) 40 mg IVPB Q6H-IV [facility] Last Admin: 06/22/17 14:21 Dose: 40 mg Nystatin (Nystatin Oral Suspension -) 500,000 units PO Q6HPO [facility] Last Admin: 06/22/17 17:02 Dose: 500,000 units Pantoprazole Sodium (Protonix -) 40 mg PO DAILY [facility] Last Admin: 06/22/17 09:42 Dose: 40 mg Tramadol HCl (Ultram -) 50 mg PO Q6H PRN PRN Reason: PAIN Last Admin: 06/21/17 19:47 Dose: 50 mg - Objective Vital Signs: Vital Signs Temperature 97.9 F 06/22/17 18:00 Pulse Rate 81 06/22/17 18:00 Respiratory Rate 18 06/22/17 18:00 Blood Pressure 127/91 06/22/17 18:00 O2 Sat by Pulse Oximetry (%) 92 L 06/22/17 10:21 Constitutional: Yes: No Distress Neck: Yes: WNL, Supple Cardiovascular: Yes: WNL, Regular Rate and Rhythm Respiratory: Yes: Diminished Gastrointestinal: Yes: WNL, Normal Bowel Sounds, Soft Labs: CBC, BMP 06/21/17 06:45 06/21/17 06:45 INR, PTT INR 0.97 (0.82-1.09) 06/22/17 15:00 Problem List - Problems (1) Dysphagia Assessment/Plan: Cont IV steroids Lt laryngeal paralysis Puree diet ?Thrush Nystatin oral suspension IR for lung bx Code(s): R13.10 - DYSPHAGIA, UNSPECIFIED Qualifiers: Dysphagia type: pharyngoesophageal phase Qualified Code(s): R13.14 - Dysphagia, pharyngoesophageal phase; R13.14 - Dysphagia, pharyngoesophageal phase (2) Lung mass Assessment/Plan: Will need bx by IR Cont duoneb nebulizer Code(s): R91.8 - OTHER NONSPECIFIC ABNORMAL FINDING OF LUNG FIELD (3) CAD (coronary artery disease) Assessment/Plan: Asa on hold for bx Code(s): I25.10 - ATHSCL HEART DISEASE OF [place] CORONARY ARTERY W/O ANG PCTRS Qualifiers: Coronary Disease-Associated Artery/Lesion type: [place] artery [place] vs. transplanted heart: [place] heart Associated angina: without angina Qualified Code(s): I25.10 - Atherosclerotic heart disease of [place] coronary artery without angina pectoris; I25.10 - Atherosclerotic heart disease of [place] coronary artery without angina pectoris; I25.10 - Atherosclerotic heart disease of [place] coronary artery without angina pectoris (4) Lipidemia Code(s): E78.5 - HYPERLIPIDEMIA, UNSPECIFIED Qualifiers: Hyperlipidemia type: unspecified Qualified Code(s): E78.5 - Hyperlipidemia, unspecified; E78.5 - Hyperlipidemia, unspecified; E78.5 - Hyperlipidemia, unspecified
[2017-06-23] MEDS: methylPREDNISolone NA SUCC 40 MG/1 ML VIAL IVPB SCH ×4 (02:38→21:59)
[2017-06-23] MEDS: NYSTATIN 500,000 UNITS/5 ML SUSPENSION PO SCH ×5 (06:34→23:20)
--- NOTE | 2017-06-23 08:37 | PN ---
Progress Note, Physician Chief Complaint: ID Afebrile off antibiotics NAD - Current Medication List Current Medications: Active Medications Al Hydroxide/Mg Hydroxide (Mylanta Oral Suspension -) 30 ml PO DAILY [facility] Last Admin: 06/22/17 09:42 Dose: 30 ml Albuterol/Ipratropium (Duoneb -) 1 amp NEB Q6H PRN PRN Reason: SHORTNESS OF BREATH Arformoterol Tartrate (Brovana (Restricted To Pulmonology/Resp) -) 1 amp NEB BID [facility] Last Admin: 06/22/17 22:18 Dose: 1 amp Atorvastatin Calcium (Lipitor -) 20 mg PO HS [facility] Heparin Sodium (Porcine) (Heparin -) 5,000 unit SQ BID [facility] Last Admin: 06/22/17 21:58 Dose: 5,000 unit Dextrose/Sodium Chloride (D5-1/2ns -) 1,000 mls @ 75 mls/hr IV ASDIR [facility] Last Admin: 06/22/17 21:57 Dose: 75 mls/hr Methylprednisolone Sodium Succinate (Solu-Medrol -) 40 mg IVPB Q6H-IV [facility] Last Admin: 06/23/17 02:38 Dose: 40 mg Nystatin (Nystatin Oral Suspension -) 500,000 units PO Q6HPO [facility] Last Admin: 06/23/17 06:34 Dose: 500,000 units Pantoprazole Sodium (Protonix -) 40 mg PO DAILY [facility] Last Admin: 06/22/17 09:42 Dose: 40 mg Tramadol HCl (Ultram -) 50 mg PO Q6H PRN PRN Reason: PAIN Last Admin: 06/21/17 19:47 Dose: 50 mg - Objective Vital Signs: Vital Signs Temperature 97.9 F 06/23/17 06:00 Pulse Rate 71 06/23/17 06:00 Respiratory Rate 18 06/23/17 06:00 Blood Pressure 144/83 06/23/17 06:00 O2 Sat by Pulse Oximetry (%) 93 L 06/22/17 21:00 Constitutional: Yes: Well Nourished, No Distress HENT: Yes: WNL, Atraumatic Neck: Yes: WNL, Supple Cardiovascular: Yes: Regular Rate and Rhythm, S1, S2. No: Murmur Respiratory: Yes: WNL, Regular, CTA Bilaterally Gastrointestinal: Yes: WNL, Normal Bowel Sounds, Soft. No: Tenderness, Tenderness, Epigastrium Labs: CBC, BMP 06/21/17 06:45 06/21/17 06:45 INR, PTT INR 0.97 (0.82-1.09) 06/22/17 15:00 Assessment/Plan Laboratory Tests 06/21/17 06:45 WBC 7.0 D Hgb 13.5 Plt Count 169 Assessment Work up for lung mass ? metastatic disease in progress Plan As per oncology & Pulmonary Sam ARIAS
[2017-06-23] MEDS: HEPARIN NA (PORCINE) 5,000 UNITS/ML 1ML VIAL SQ SCH ×2 (10:05→22:02)
[2017-06-23] MEDS: MAG HYDROX/AL HYDROX/SIMETH 30 ML UNIT-DOSE CUP PO SCH (10:05)
[2017-06-23] MEDS: PANTOPRAZOLE 40 MG TABLET (FP) PO SCH (10:05)
[2017-06-23] MEDS: ARFORMOTEROL TARTRATE 15 MCG/2 ML VIAL NEB SCH ×2 (11:17→22:58)
[2017-06-23] MEDS: DEXTROSE 5%-0.45% SALINE 1,000 ML IV SCH ×2 (15:27→23:19)
--- NOTE | 2017-06-23 21:38 | PN ---
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 Dysphagia -CT a/p with most likely mets in the liver --3lesions will cosider possible biopsy Last dose of ASA 06/19 will discuss with IR
[2017-06-23] MEDS: ATORVASTATIN CA 20 MG TABLET (FP) PO SCH (22:00)
--- NOTE | 2017-06-23 23:47 | PN ---
Progress Note, Physician History of Present Illness: No new complaints - Current Medication List Current Medications: Active Medications Al Hydroxide/Mg Hydroxide (Mylanta Oral Suspension -) 30 ml PO DAILY [facility] Last Admin: 06/23/17 10:05 Dose: 30 ml Albuterol/Ipratropium (Duoneb -) 1 amp NEB Q6H PRN PRN Reason: SHORTNESS OF BREATH Arformoterol Tartrate (Brovana (Restricted To Pulmonology/Resp) -) 1 amp NEB BID [facility] Last Admin: 06/23/17 22:58 Dose: 1 amp Atorvastatin Calcium (Lipitor -) 20 mg PO HS [facility] Last Admin: 06/23/17 22:00 Dose: 20 mg Heparin Sodium (Porcine) (Heparin -) 5,000 unit SQ BID [facility] Last Admin: 06/23/17 22:02 Dose: 5,000 unit Dextrose/Sodium Chloride (D5-1/2ns -) 1,000 mls @ 75 mls/hr IV ASDIR [facility] Last Admin: 06/23/17 23:19 Dose: Not Given Methylprednisolone Sodium Succinate (Solu-Medrol -) 40 mg IVPB Q6H-IV [facility] Last Admin: 06/23/17 21:59 Dose: 40 mg Nystatin (Nystatin Oral Suspension -) 500,000 units PO Q6HPO [facility] Last Admin: 06/23/17 23:20 Dose: 500,000 units Pantoprazole Sodium (Protonix -) 40 mg PO DAILY [facility] Last Admin: 06/23/17 10:05 Dose: 40 mg Tramadol HCl (Ultram -) 50 mg PO Q6H PRN PRN Reason: PAIN Last Admin: 06/21/17 19:47 Dose: 50 mg - Objective Vital Signs: Vital Signs Temperature 98.1 F 06/23/17 18:00 Pulse Rate 74 06/23/17 18:00 Respiratory Rate 18 06/23/17 18:00 Blood Pressure 126/76 06/23/17 18:00 O2 Sat by Pulse Oximetry (%) 94 L 06/23/17 09:00 Constitutional: Yes: No Distress Neck: Yes: WNL, Supple Cardiovascular: Yes: WNL, Regular Rate and Rhythm Respiratory: Yes: WNL, Regular, CTA Bilaterally Gastrointestinal: Yes: WNL, Normal Bowel Sounds, Soft Labs: CBC, BMP 06/21/17 06:45 06/21/17 06:45 INR, PTT INR 0.97 (0.82-1.09) 06/22/17 15:00 Problem List - Problems (1) Dysphagia Assessment/Plan: Cont IV steroids Lt laryngeal paralysis Puree diet ?Thrush Nystatin oral suspension Code(s): R13.10 - DYSPHAGIA, UNSPECIFIED Qualifiers: Dysphagia type: pharyngoesophageal phase Qualified Code(s): R13.14 - Dysphagia, pharyngoesophageal phase; R13.14 - Dysphagia, pharyngoesophageal phase (2) Lung mass Assessment/Plan: Will need bx by IR Cont duoneb nebulizer Code(s): R91.8 - OTHER NONSPECIFIC ABNORMAL FINDING OF LUNG FIELD (3) CAD (coronary artery disease) Code(s): I25.10 - ATHSCL HEART DISEASE OF [place] CORONARY ARTERY W/O ANG PCTRS Qualifiers: Coronary Disease-Associated Artery/Lesion type: [place] artery [place] vs. transplanted heart: [place] heart Associated angina: without angina Qualified Code(s): I25.10 - Atherosclerotic heart disease of [place] coronary artery without angina pectoris; I25.10 - Atherosclerotic heart disease of [place] coronary artery without angina pectoris; I25.10 - Atherosclerotic heart disease of [place] coronary artery without angina pectoris (4) Lipidemia Assessment/Plan: Cont lipitor Code(s): E78.5 - HYPERLIPIDEMIA, UNSPECIFIED Qualifiers: Hyperlipidemia type: unspecified Qualified Code(s): E78.5 - Hyperlipidemia, unspecified; E78.5 - Hyperlipidemia, unspecified; E78.5 - Hyperlipidemia, unspecified
[2017-06-24] MEDS: methylPREDNISolone NA SUCC 40 MG/1 ML VIAL IVPB SCH ×5 (02:42→23:39)
[2017-06-24] MEDS: NYSTATIN 500,000 UNITS/5 ML SUSPENSION PO SCH ×3 (06:19→18:02)
--- NOTE | 2017-06-24 07:01 | CON.CARD ---
Cardiology Consult (text) - Consultation Consultation Note: Cardiology Consult requested by Dr. Aguilera prior to biopsy, h/o CAD 71M w/ CAD s/p BMS LAD 2011, repeat cath '13 non-obstx, recently dxd w/ MARICARMEN mass and liver lesions on CT. Admitted for failure to thrive. Prior to admission, several weeks of cough and LOZANO. No CP or anginal sx, no edema or PND/orthopnea. IMP Echo done in office last week showed nl biV fxn and no sig valve disease. Denies fever, chills cough. He is scheduled for IR eval for biopsy of lesions for tissue diagnosis. PMH: As above, former smoker. HTN HL ALL: NKDA MEDS: reviewed in EMR -states he hasn't taken ASA since 06/19 -Plavix may have been given this admission, will need to review MEDEX FH: Non-contrib SH: Former smoker EXAM: Anicteric S1, 2. RRR. No murmurs Chest CTA, no wheezing. Slight decrease b/l breath sounds c/w COPD Abd soft, NT Ext no edema Selected Entries 06/23/17 06/24/17 21:00 06:00 Temperature 98.8 F Pulse Rate 67 Blood Pressure 138/72 O2 Sat by Pulse 95 Oximetry (%) Oxygen Delivery Room Air Method DATA: Scans reviewed in EMR ECG: NSR, LVH Recent office echo early May 2017: nl biV Fxn, no sig valve dz Recent office carotid US early May 207: intimal thickening, no stenosis Laboratory Tests 06/22/17 06/24/17 06/24/17 12:35 07:30 07:30 WBC 15.2 H D Hgb 12.3 Plt Count 163 INR 1.01 Sodium Potassium BUN Creatinine AST ALT Alkaline Phosphatase Total Protein Albumin Hepatitis C Antibody 0.1 06/24/17 07:30 WBC Hgb Plt Count INR Sodium 139 Potassium 4.2 BUN 19 H D Creatinine 0.9 AST 18 ALT 24 Alkaline Phosphatase 78 Total Protein 5.9 L Albumin 3.0 L Hepatitis C Antibody IMP: MARICARMEN Mass, liver lesions concerning for metastatic dz scheduled for IR biopsy. Former smoker CAD s/p PCI LAD 2011, BMS. Normal LV fxn with no valvular heart dz. REC: From CV perspective, the risk of holding antiplatelet therapy is extremely low now 5 years s/p BMS. Would resume single therapy with ASA 81mg daily as soon as feasible after biopsy. There are no CV contraindications to proceeding with no indication for further diagnostic testing.
[2017-06-24 08:06] LABS: BASOPHIL 0.1 % (0-2.0); MCHC 32.7 g/dl (32.0-35.9); MEAN CELL VOLUME 88.8 fl (80-96); MEAN PLT VOLUME 9.3 fl (7.5-11.1); NEUTROPHILS 88.5 % (42.8-82.8); PLATELET COUNT 163 K/MM3 (134-434); RDW 15.1 % (11.9-15.9); WHITE BLOOD COUNT 15.2 K/mm3 (4.0-10.0)
[2017-06-24 08:29] LABS: INR 1.01 (0.82-1.09); PROTHROMBIN TIME (PATIENT) 11.1 SEC (9.98-11.88)
[2017-06-24 08:32] LABS: ACTIVATED PTT 31.6 SECONDS (26.9-34.4)
[2017-06-24 08:40] LABS: ANION GAP 9 (8-16); BILIRUBIN,TOTAL 0.3 mg/dL (0.2-1.0); CALCIUM 8.5 mg/dL (8.5-10.1); CO2 27 mmol/L (21-32); CREATININE 0.9 mg/dL (0.7-1.3); GLUCOSE,RANDOM 128 mg/dL (74-106); SGOT/AST 18 U/L (15-37); SGPT/ALT 24 U/L (12-78); TOT PROT 5.9 g/dl (6.4-8.2)
[2017-06-24 08:41] LABS: ALK PHOS 78 U/L (45-117)
[2017-06-24] MEDS: DEXTROSE 5%-0.45% SALINE 1,000 ML IV SCH ×2 (09:18→21:28)
[2017-06-24] MEDS: MAG HYDROX/AL HYDROX/SIMETH 30 ML UNIT-DOSE CUP PO SCH (09:19)
[2017-06-24] MEDS: PANTOPRAZOLE 40 MG TABLET (FP) PO SCH (09:19)
[2017-06-24] MEDS: HEPARIN NA (PORCINE) 5,000 UNITS/ML 1ML VIAL SQ SCH ×2 (09:19→21:29)
[2017-06-24] MEDS: ARFORMOTEROL TARTRATE 15 MCG/2 ML VIAL NEB SCH ×2 (10:50→21:33)
--- NOTE | 2017-06-24 13:10 | PN ---
Progress Note (short form) - Note Progress Note: PULMONARY HOARSENESS VOICE X 3 WEEKS/WEIGHT LOSS/DIFFICULTY SWALLOWING NOW COMPLAINING OF NUMBNESS IN LOWER LEG VSS/AFEBRILE ANICTERIC BIBASILAR CRACKLES S1S2 BS+ NO EDEMA LABS/MEDS/NOTES/IMAGING REVIEWED MARICARMEN MASS/LIVER LESIONS/VC PARALYSIS WILL NEED DIAGNOSTIC PROCEDURE/WILL SPEAK WITH IR TO DETERMINE FAVORABLE SITE WILL FOLLOW CLOSELY Kj PLAZA MD
[2017-06-24] MEDS ORDERED: PT OWN MED DRAWER 7, Y5N ONE (21:20)
[2017-06-24] MEDS: ATORVASTATIN CA 20 MG TABLET (FP) PO SCH (21:29)
--- NOTE | 2017-06-24 21:36 | PN ---
Progress Note, Physician History of Present Illness: No new complaints - Current Medication List Current Medications: Active Medications Al Hydroxide/Mg Hydroxide (Mylanta Oral Suspension -) 30 ml PO DAILY [facility] Last Admin: 06/24/17 09:19 Dose: 30 ml Albuterol/Ipratropium (Duoneb -) 1 amp NEB Q6H PRN PRN Reason: SHORTNESS OF BREATH Arformoterol Tartrate (Brovana (Restricted To Pulmonology/Resp) -) 1 amp NEB BID [facility] Last Admin: 06/24/17 21:33 Dose: 1 amp Atorvastatin Calcium (Lipitor -) 20 mg PO HS [facility] Last Admin: 06/24/17 21:29 Dose: 20 mg Heparin Sodium (Porcine) (Heparin -) 5,000 unit SQ BID [facility] Last Admin: 06/24/17 21:29 Dose: 5,000 unit Dextrose/Sodium Chloride (D5-1/2ns -) 1,000 mls @ 75 mls/hr IV ASDIR [facility] Last Admin: 06/24/17 21:28 Dose: 75 mls/hr Methylprednisolone Sodium Succinate (Solu-Medrol -) 40 mg IVPB Q6H-IV [facility] Last Admin: 06/24/17 21:29 Dose: 40 mg Nystatin (Nystatin Oral Suspension -) 500,000 units PO Q6HPO [facility] Last Admin: 06/24/17 18:02 Dose: 500,000 units Pantoprazole Sodium (Protonix -) 40 mg PO DAILY [facility] Last Admin: 06/24/17 09:19 Dose: 40 mg - Objective Vital Signs: Vital Signs Temperature 98.2 F 06/24/17 18:00 Pulse Rate 80 06/24/17 18:00 Respiratory Rate 18 06/24/17 18:00 Blood Pressure 140/75 06/24/17 18:00 O2 Sat by Pulse Oximetry (%) 95 06/24/17 09:00 Constitutional: Yes: No Distress HENT: Yes: WNL Neck: Yes: WNL, Supple Cardiovascular: Yes: WNL, Regular Rate and Rhythm Respiratory: Yes: WNL, Regular, CTA Bilaterally Gastrointestinal: Yes: WNL, Normal Bowel Sounds, Soft Labs: CBC, BMP 06/24/17 07:30 06/24/17 07:30 INR, PTT INR 1.01 (0.82-1.09) 06/24/17 07:30 Fibrinogen 341.0 mg/dL (238-498) 06/24/17 07:30 Problem List - Problems (1) Dysphagia Assessment/Plan: Start to taper IV steroids Lt laryngeal paralysis Puree diet ?Thrush Nystatin oral suspension IR for lung bx Code(s): R13.10 - DYSPHAGIA, UNSPECIFIED Qualifiers: Dysphagia type: pharyngoesophageal phase Qualified Code(s): R13.14 - Dysphagia, pharyngoesophageal phase; R13.14 - Dysphagia, pharyngoesophageal phase (2) Lung mass Assessment/Plan: Will need bx by IR Cont duoneb nebulizer Code(s): R91.8 - OTHER NONSPECIFIC ABNORMAL FINDING OF LUNG FIELD (3) CAD (coronary artery disease) Assessment/Plan: Asa on hold for bx Code(s): I25.10 - ATHSCL HEART DISEASE OF [place] CORONARY ARTERY W/O ANG PCTRS Qualifiers: Coronary Disease-Associated Artery/Lesion type: [place] artery [place] vs. transplanted heart: [place] heart Associated angina: without angina Qualified Code(s): I25.10 - Atherosclerotic heart disease of [place] coronary artery without angina pectoris; I25.10 - Atherosclerotic heart disease of [place] coronary artery without angina pectoris; I25.10 - Atherosclerotic heart disease of [place] coronary artery without angina pectoris (4) Lipidemia Assessment/Plan: Cont lipitor Code(s): E78.5 - HYPERLIPIDEMIA, UNSPECIFIED Qualifiers: Hyperlipidemia type: unspecified Qualified Code(s): E78.5 - Hyperlipidemia, unspecified; E78.5 - Hyperlipidemia, unspecified; E78.5 - Hyperlipidemia, unspecified
--- NOTE | 2017-06-24 22:39 | PN ---
Progress Note (short form) - Note Progress Note: Patient seen and examined c/o rt. 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 Dysphagia -CT a/p with most likely mets in the liver --3lesions will cosider possible biopsy Last dose of ASA 06/19 will discuss with IR check bone scan
[2017-06-25] MEDS: NYSTATIN 500,000 UNITS/5 ML SUSPENSION PO SCH ×5 (00:34→23:06)
[2017-06-25] MEDS: methylPREDNISolone NA SUCC 40 MG/1 ML VIAL IVPB SCH ×2 (09:10→22:11)
[2017-06-25] MEDS: HEPARIN NA (PORCINE) 5,000 UNITS/ML 1ML VIAL SQ SCH ×2 (09:10→22:10)
[2017-06-25] MEDS: MAG HYDROX/AL HYDROX/SIMETH 30 ML UNIT-DOSE CUP PO SCH (09:11)
[2017-06-25] MEDS: PANTOPRAZOLE 40 MG TABLET (FP) PO SCH (09:11)
--- NOTE | 2017-06-25 10:05 | PN ---
Physical Exam: PULMONARY CONSULT SUBJECTIVE: Patient seen and examined. Only complains of MSK pain near L lateral lower ribs assoc with paresthesias down left leg. Endorses history of disc herniation. Aware of scheduled bone scan. No CP, no SOB. Hoarseness and dysphagia are stable. OBJECTIVE: Vital Signs Period Temp Pulse Resp BP Sys/Rogers Pulse Ox Last 24 Hr 97.9 F-98.2 F 73-89 18-18 124-140/72-88 98-98 GEN: AAOx3, NAD, Sitting comfortably in solarium with HEENT: PERRLA, EOMi, no oral thrush visible CV: S1, S2, RRR LUNG: CTABL ABD: Soft, NT, ND, normoactive BS MSK: No edema, no erythema, TTP near L lateral lower ribs NEURO: CN 2-12 intact, no sensation deficits, no MSK deficits Laboratory Last Values WBC 15.2 K/mm3 (4.0-10.0) H D 06/24/17 07:30 RBC 4.23 M/mm3 (4.00-5.60) 06/24/17 07:30 Hgb 12.3 GM/dL (11.7-16.9) 06/24/17 07:30 Hct 37.5 % (35.4-49) 06/24/17 07:30 MCV 88.8 fl (80-96) 06/24/17 07:30 MCH 29.0 pg (25.7-33.7) 06/24/17 07:30 MCHC 32.7 g/dl (32.0-35.9) 06/24/17 07:30 RDW 15.1 % (11.9-15.9) 06/24/17 07:30 Plt Count 163 K/MM3 (134-434) 06/24/17 07:30 MPV 9.3 fl (7.5-11.1) 06/24/17 07:30 Neutrophils % 88.5 % (42.8-82.8) H 06/24/17 07:30 Lymphocytes % 5.6 % (8-40) L D 06/24/17 07:30 Monocytes % 5.8 % (3.8-10.2) D 06/24/17 07:30 Eosinophils % 0.0 % (0-4.5) 06/24/17 07:30 Basophils % 0.1 % (0-2.0) 06/24/17 07:30 PT with INR 11.10 SEC (9.98-11.88) 06/24/17 07:30 INR 1.01 (0.82-1.09) 06/24/17 07:30 PTT (Actin FS) 31.6 SECONDS (26.9-34.4) 06/24/17 07:30 Fibrinogen 341.0 mg/dL (238-498) 06/24/17 07:30 Sodium 139 mmol/L (136-145) 06/24/17 07:30 Potassium 4.2 mmol/L (3.5-5.1) 06/24/17 07:30 Chloride 103 mmol/L (98-107) 06/24/17 07:30 Carbon Dioxide 27 mmol/L (21-32) 06/24/17 07:30 Anion Gap 9 (8-16) 06/24/17 07:30 BUN 19 mg/dL (7-18) H D 06/24/17 07:30 Creatinine 0.9 mg/dL (0.7-1.3) 06/24/17 07:30 Creat Clearance w eGFR > 60 (>60) 06/24/17 07:30 Random Glucose 128 mg/dL (74-106) H 06/24/17 07:30 Calcium 8.5 mg/dL (8.5-10.1) 06/24/17 07:30 Total Bilirubin 0.3 mg/dL (0.2-1.0) 06/24/17 07:30 AST 18 U/L (15-37) 06/24/17 07:30 ALT 24 U/L (12-78) 06/24/17 07:30 Alkaline Phosphatase 78 U/L (45-117) 06/24/17 07:30 Total Protein 5.9 g/dl (6.4-8.2) L 06/24/17 07:30 Albumin 3.0 g/dl (3.4-5.0) L 06/24/17 07:30 Urine Color Yellow 06/20/17 12:18 Urine Appearance Clear 06/20/17 12:18 Urine pH 7.0 (4.5-8) 06/20/17 12:18 Ur Specific [place] 1.020 (1.005-1.025) 06/20/17 12:18 Urine Protein Negative (NEGATIVE) 06/20/17 12:18 Urine Glucose (UA) Negative (NEGATIVE) 06/20/17 12:18 Urine Ketones Negative (NEGATIVE) 06/20/17 12:18 Urine Blood Negative (NEGATIVE) 06/20/17 12:18 Urine Nitrite Negative (NEGATIVE) 06/20/17 12:18 Urine Bilirubin Negative (NEGATIVE) 06/20/17 12:18 Urine Urobilinogen 0.2 (0.2-1.0) 06/20/17 12:18 Hepatitis C Antibody 0.1 s/co ratio (0.0-0.9) 06/22/17 12:35 HIV 1&2 Ag/Ab, 4th Gen Non reactive (Non Reactive) 06/22/17 12:35 Active Medications Generic Name Dose Route Start Last Admin Trade Name Freq PRN Reason Stop Dose Admin Al Hydroxide/Mg Hydroxide 30 ml 06/21/17 06:00 06/25/17 09:11 Mylanta Oral Suspension - PO 30 ml DAILY JAYDON Administration Albuterol/Ipratropium 1 amp 06/21/17 01:53 Duoneb - NEB Q6H PRN SHORTNESS OF BREATH Arformoterol Tartrate 1 amp 06/21/17 12:45 06/24/17 21:33 Brovana (Restricted To Pulmonology/Resp) - NEB 1 amp BID JAYDON Administration Atorvastatin Calcium 20 mg 06/23/17 22:00 06/24/17 21:29 Lipitor - PO 20 mg HS JAYDON Administration Heparin Sodium (Porcine) 5,000 unit 06/20/17 22:00 06/25/17 09:10 Heparin - SQ 5,000 unit BID JAYDON Administration Methylprednisolone Sodium Succinate 40 mg 06/24/17 22:00 06/25/17 09:10 Solu-Medrol - IVPB 40 mg BID JAYDON Administration Nystatin 500,000 units 06/21/17 06:00 06/25/17 06:36 Nystatin Oral Suspension - PO 500,000 units Q6HPO JAYDON Administration Pantoprazole Sodium 40 mg 06/21/17 10:00 06/25/17 09:11 Protonix - PO 40 mg DAILY JAYDON Administration ASSESSMENT/PLAN: Pt is a 71yo M with PMhx of Prostate CA (s/p radiation 10 years ago), and +50 pack year smoking history who presented to the ER w/ gradual onset hoarseness and dysphagia over the past 2 weeks, incidental lung mass was found on CT scan. 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, no local mass compression - S/p ENT eval + scope - No respiratory compromise, monitor closely, minimal threshold to intubate if pt has respiratory complaints - Hoarseness + Dysphagia is stable - Continue IV Solumedrol 40mg Q12H # Left Liver Lobe Lesions - Three lesions - 3 liver lobe lesions seen on new Abd CT with enlarging aortocaval LN 0.5cm --> 1.0cm within 1 year - Could be metastatic # Thrush - resolved - Was recently on antibiotics, not on chemotx, no H&N radiation, unknown HIV status - If malignancy is proven, could be 2/2 immunocompromised state - Recommend addressing HIV status testing again - Continue Nystatin Discussed w/ Dr Ochoa. Will continue to follow. Thank you. Mariel Cancino MD - PGY1 Visit type - Emergency Visit Emergency Visit: No - New Patient This patient is new to me today: No - Critical Care Critical Care patient: No - Discharge Referral Referred to [facility] Med P.C.: No
[2017-06-25] MEDS: ARFORMOTEROL TARTRATE 15 MCG/2 ML VIAL NEB SCH ×2 (10:15→22:29)
--- NOTE | 2017-06-25 10:36 | PN ---
Progress Note, Physician History of Present Illness: seen and examined today in [facility]. no overnight events. no new complaints. - Current Medication List Current Medications: Active Medications Al Hydroxide/Mg Hydroxide (Mylanta Oral Suspension -) 30 ml PO DAILY [facility] Last Admin: 06/25/17 09:11 Dose: 30 ml Albuterol/Ipratropium (Duoneb -) 1 amp NEB Q6H PRN PRN Reason: SHORTNESS OF BREATH Arformoterol Tartrate (Brovana (Restricted To Pulmonology/Resp) -) 1 amp NEB BID [facility] Last Admin: 06/24/17 21:33 Dose: 1 amp Atorvastatin Calcium (Lipitor -) 20 mg PO HS [facility] Last Admin: 06/24/17 21:29 Dose: 20 mg Heparin Sodium (Porcine) (Heparin -) 5,000 unit SQ BID [facility] Last Admin: 06/25/17 09:10 Dose: 5,000 unit Methylprednisolone Sodium Succinate (Solu-Medrol -) 40 mg IVPB BID [facility] Last Admin: 06/25/17 09:10 Dose: 40 mg Nystatin (Nystatin Oral Suspension -) 500,000 units PO Q6HPO [facility] Last Admin: 06/25/17 06:36 Dose: 500,000 units Pantoprazole Sodium (Protonix -) 40 mg PO DAILY [facility] Last Admin: 06/25/17 09:11 Dose: 40 mg - Objective Vital Signs: Vital Signs Temperature 98.2 F 06/25/17 06:00 Pulse Rate 73 06/25/17 06:00 Respiratory Rate 18 06/25/17 08:21 Blood Pressure 134/88 06/25/17 06:00 O2 Sat by Pulse Oximetry (%) 98 06/25/17 08:21 Constitutional: Yes: Well Nourished, No Distress, Calm Eyes: Yes: WNL, Conjunctiva Clear, EOM Intact, PERRL HENT: Yes: WNL, Atraumatic, Normocephalic Neck: Yes: WNL, Supple, Trachea Midline Cardiovascular: Yes: Regular Rate and Rhythm, S1, S2. No: Bradycardia, Tachycardia, Pulse Irregular, Bruit, JVD, Gallop, Murmur, Rub, S3, S4, Varicosities Respiratory: Yes: Regular, CTA Bilaterally. No: Rales, Rhonchi, Wheezes Gastrointestinal: Yes: Normal Bowel Sounds, Soft. No: Distention, Tenderness Extremities: Yes: WNL Edema: No Peripheral Pulses: Left Doralis Pedis: 2+, Right Dorsalis Pedis: 2+ Neurological: Yes: Alert, Oriented Psychiatric: Yes: Alert, Oriented Labs: CBC, BMP 06/24/17 07:30 06/24/17 07:30 INR, PTT INR 1.01 (0.82-1.09) 06/24/17 07:30 Fibrinogen 341.0 mg/dL (238-498) 06/24/17 07:30 - ....Imaging Chest X-ray: Report Reviewed, Image Reviewed EKG: Report Reviewed, Image Reviewed Other: Report Reviewed, Image Reviewed Assessment/Plan MARICARMEN Mass, liver lesions concerning for metastatic dz scheduled for IR biopsy. Former smoker CAD s/p PCI LAD 2011, BMS. Normal LV fxn with no valvular heart dz. REC: Holding ASA for biopsy, last dose reported as 06/19 Pt states he has never taken Plavix Would resume ASA 81mg daily (no plavix) when possible after procedure Cont statin Will follow
--- NOTE | 2017-06-25 11:39 | PN ---
Physical Exam: Consulting Specialty: Infectious Disease SUBJECTIVE: Patient seen OOB to chair eating breakfast. Pt states he had no problems over the weekend. Denies any SOB, dysphagia, fever/chills. Pt to have biopsy per IR and is states it might be performed tomorrow. Otherwise doing well with no new complaints. OBJECTIVE: Vital Signs Period Temp Pulse Resp BP Sys/Rogers Pulse Ox Last 24 Hr 97.8 F-98.2 F 73-96 18-18 124-140/72-88 93-98 GENERAL: The patient is awake, alert, and fully oriented, in no acute distress. HEENT: No plaques seen in mouth. Moist mucosa, no structural abnormalities appreciated LUNGS: Decreased air-entry on L upper lobe. All other lung hopkins with no wheezes, no crackles, no rhonchi. No accessory muscle use. HEART: RRR, S1, S2 without murmur, rub or gallop. ABDOMEN: Soft, nontender, nondistended, normoactive bowel sound EXTREMITIES: No edema. No rashes or skin lesions seen NEUROLOGICAL: Alert and oriented x3 PSYCH: Normal mood, normal affect. Active Medications Generic Name Dose Route Start Last Admin Trade Name Freq PRN Reason Stop Dose Admin Al Hydroxide/Mg Hydroxide 30 ml 06/21/17 06:00 06/25/17 09:11 Mylanta Oral Suspension - PO 30 ml DAILY JAYDON Administration Albuterol/Ipratropium 1 amp 06/21/17 01:53 Duoneb - NEB Q6H PRN SHORTNESS OF BREATH Arformoterol Tartrate 1 amp 06/21/17 12:45 06/25/17 10:15 Brovana (Restricted To Pulmonology/Resp) - NEB 1 amp BID JAYDON Administration Atorvastatin Calcium 20 mg 06/23/17 22:00 06/24/17 21:29 Lipitor - PO 20 mg HS JAYDON Administration Heparin Sodium (Porcine) 5,000 unit 06/20/17 22:00 06/25/17 09:10 Heparin - SQ 5,000 unit BID JAYDON Administration Methylprednisolone Sodium Succinate 40 mg 06/24/17 22:00 06/25/17 09:10 Solu-Medrol - IVPB 40 mg BID JAYDON Administration Nystatin 500,000 units 06/21/17 06:00 06/25/17 06:36 Nystatin Oral Suspension - PO 500,000 units Q6HPO JAYDON Administration Pantoprazole Sodium 40 mg 06/21/17 10:00 06/25/17 09:11 Protonix - PO 40 mg DAILY JAYDON Administration ASSESSMENT: L upper lobe mass Hoarseness Oral Thrush; resolved Mild Leukocytosis PLAN: HIV and Hep C tests non-reactive and <0.1 respectively Oral thrush has resolved on nystatin oral suspension Leukocytosis most likely related to steroids being used causing a false elevation --No antibiotics needed currently Rest per pulm and oncology Thanks Kvng Vigil, PGY-1 Visit type - Emergency Visit Emergency Visit: No - New Patient This patient is new to me today: No - Critical Care Critical Care patient: No
--- NOTE | 2017-06-25 12:41 | PN ---
Teaching Attending Note Name of Resident: Kvng Vigil ATTENDING PHYSICIAN STATEMENT I saw and evaluated the patient. I reviewed the resident's note and discussed the case with the resident. I agree with the resident's findings and plan as documented. SUBJECTIVE:Awake, alert No complaints No c/o chest pain/ dyspnea/ cough No fever/ chills WBC elevated today on steroids OBJECTIVE: Hoarse Cor S1S2 Lungs clear ASSESSMENT AND PLAN: Lung mass Leukocytosis ? steroid-induced For Bx Observe off antibiotics
--- NOTE | 2017-06-25 17:34 | PN ---
Teaching Attending Note Name of Resident: Mariel Cancino ATTENDING PHYSICIAN STATEMENT I saw and evaluated the patient. I reviewed the resident's note and discussed the case with the resident. I agree with the resident's findings and plan as documented. PULMONARY ALERT,NAD,-SOB SUBJECTIVE:ASSESSMENT/PLAN: MARICARMEN mass suspicious for Malignancy Possible post-obstructive PNA Previous significant smoking history Laryngeal stenosis : (?) Inflammatory versus Malignancy Liver lesion (?) Thrush O2 needed Medrol BD TX ? LIVER BX DR GUERRERO Problem List - Problems (1) Hypoxia Code(s): R09.02 - HYPOXEMIA (2) Lung mass Code(s): R91.8 - OTHER NONSPECIFIC ABNORMAL FINDING OF LUNG FIELD (3) CAD (coronary artery disease) Code(s): I25.10 - ATHSCL HEART DISEASE OF [place] CORONARY ARTERY W/O ANG PCTRS Qualifiers: Coronary Disease-Associated Artery/Lesion type: [place] artery [place] vs. transplanted heart: [place] heart Associated angina: without angina Qualified Code(s): I25.10 - Atherosclerotic heart disease of [place] coronary artery without angina pectoris; I25.10 - Atherosclerotic heart disease of [place] coronary artery without angina pectoris; I25.10 - Atherosclerotic heart disease of [place] coronary artery without angina pectoris
--- NOTE | 2017-06-25 19:59 | PN ---
Progress Note, Physician History of Present Illness: No new complaints - Current Medication List Current Medications: Active Medications Al Hydroxide/Mg Hydroxide (Mylanta Oral Suspension -) 30 ml PO DAILY [facility] Last Admin: 06/25/17 09:11 Dose: 30 ml Albuterol/Ipratropium (Duoneb -) 1 amp NEB Q6H PRN PRN Reason: SHORTNESS OF BREATH Arformoterol Tartrate (Brovana (Restricted To Pulmonology/Resp) -) 1 amp NEB BID [facility] Last Admin: 06/25/17 10:15 Dose: 1 amp Atorvastatin Calcium (Lipitor -) 20 mg PO HS [facility] Last Admin: 06/24/17 21:29 Dose: 20 mg Heparin Sodium (Porcine) (Heparin -) 5,000 unit SQ BID [facility] Last Admin: 06/25/17 09:10 Dose: 5,000 unit Methylprednisolone Sodium Succinate (Solu-Medrol -) 40 mg IVPB BID [facility] Last Admin: 06/25/17 09:10 Dose: 40 mg Nystatin (Nystatin Oral Suspension -) 500,000 units PO Q6HPO [facility] Last Admin: 06/25/17 17:18 Dose: 500,000 units Pantoprazole Sodium (Protonix -) 40 mg PO DAILY [facility] Last Admin: 06/25/17 09:11 Dose: 40 mg - Objective Vital Signs: Vital Signs Temperature 98.3 F 06/25/17 19:11 Pulse Rate 75 06/25/17 19:11 Respiratory Rate 20 06/25/17 19:11 Blood Pressure 134/81 06/25/17 19:11 O2 Sat by Pulse Oximetry (%) 93 L 06/25/17 10:15 Constitutional: Yes: No Distress Neck: Yes: WNL, Supple Cardiovascular: Yes: WNL, Regular Rate and Rhythm Respiratory: Yes: WNL, Regular, CTA Bilaterally Gastrointestinal: Yes: WNL, Normal Bowel Sounds, Soft Extremities: Yes: WNL Edema: No Labs: CBC, BMP 06/24/17 07:30 06/24/17 07:30 INR, PTT INR 1.01 (0.82-1.09) 06/24/17 07:30 Fibrinogen 341.0 mg/dL (238-498) 06/24/17 07:30 Problem List - Problems (1) Lung mass Assessment/Plan: Pt w/ liver masses/Lung mass on ct scan ?primary lung mass w/ mets to liver? Liver bx by IR in am Cont duoneb nebulizer Bone scan pending Code(s): R91.8 - OTHER NONSPECIFIC ABNORMAL FINDING OF LUNG FIELD (2) Dysphagia Assessment/Plan: Cont IV steroids Lt laryngeal paralysis Puree diet Code(s): R13.10 - DYSPHAGIA, UNSPECIFIED Qualifiers: Dysphagia type: pharyngoesophageal phase Qualified Code(s): R13.14 - Dysphagia, pharyngoesophageal phase; R13.14 - Dysphagia, pharyngoesophageal phase (3) CAD (coronary artery disease) Assessment/Plan: Asa on hold for bx Code(s): I25.10 - ATHSCL HEART DISEASE OF [place] CORONARY ARTERY W/O ANG PCTRS Qualifiers: Coronary Disease-Associated Artery/Lesion type: [place] artery [place] vs. transplanted heart: [place] heart Associated angina: without angina Qualified Code(s): I25.10 - Atherosclerotic heart disease of [place] coronary artery without angina pectoris; I25.10 - Atherosclerotic heart disease of [place] coronary artery without angina pectoris; I25.10 - Atherosclerotic heart disease of [place] coronary artery without angina pectoris (4) Lipidemia Assessment/Plan: Cont lipitor Code(s): E78.5 - HYPERLIPIDEMIA, UNSPECIFIED Qualifiers: Hyperlipidemia type: unspecified Qualified Code(s): E78.5 - Hyperlipidemia, unspecified; E78.5 - Hyperlipidemia, unspecified; E78.5 - Hyperlipidemia, unspecified
[2017-06-25] MEDS: ATORVASTATIN CA 20 MG TABLET (FP) PO SCH (22:11)
--- NOTE | 2017-06-25 22:18 | PN ---
Progress Note (short form) - Note Progress Note: Patient seen and examined c/o rt. 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 Dysphagia -CT a/p with most likely mets in the liver --3lesions will cosider possible biopsy Last dose of ASA 06/19 discussed with IR team f/u bone scan
[2017-06-26] MEDS: NYSTATIN 500,000 UNITS/5 ML SUSPENSION PO SCH ×4 (05:56→23:41)
--- NOTE | 2017-06-26 09:32 | PN ---
Progress Note, Physician Chief Complaint: denies chest pain or SOB beyond baseline for biopsy today History of Present Illness: c/o "tingling" of left leg for last two days - Current Medication List Current Medications: Active Medications Al Hydroxide/Mg Hydroxide (Mylanta Oral Suspension -) 30 ml PO DAILY [facility] Last Admin: 06/25/17 09:11 Dose: 30 ml Arformoterol Tartrate (Brovana (Restricted To Pulmonology/Resp) -) 1 amp NEB BID [facility] Last Admin: 06/25/17 22:29 Dose: 1 amp Atorvastatin Calcium (Lipitor -) 20 mg PO HS [facility] Last Admin: 06/25/17 22:11 Dose: 20 mg Heparin Sodium (Porcine) (Heparin -) 5,000 unit SQ BID [facility] Last Admin: 06/25/17 22:10 Dose: 5,000 unit Methylprednisolone Sodium Succinate (Solu-Medrol -) 40 mg IVPB BID [facility] Last Admin: 06/25/17 22:11 Dose: 40 mg Nystatin (Nystatin Oral Suspension -) 500,000 units PO Q6HPO [facility] Last Admin: 06/26/17 05:56 Dose: Not Given Pantoprazole Sodium (Protonix -) 40 mg PO DAILY [facility] Last Admin: 06/25/17 09:11 Dose: 40 mg - Objective Vital Signs: Vital Signs Temperature 98.9 F 06/26/17 06:00 Pulse Rate 72 06/26/17 06:00 Respiratory Rate 18 06/26/17 06:00 Blood Pressure 112/71 06/26/17 06:00 O2 Sat by Pulse Oximetry (%) 93 L 06/25/17 20:50 Constitutional: Yes: No Distress Cardiovascular: Yes: Regular Rate and Rhythm Respiratory: Yes: Other (bilateral rhoncho) Gastrointestinal: Yes: Soft Edema: No Neurological: Yes: Alert Labs: CBC, BMP 06/24/17 07:30 06/24/17 07:30 INR, PTT INR 1.01 (0.82-1.09) 06/24/17 07:30 Fibrinogen 341.0 mg/dL (238-498) 06/24/17 07:30 - ....Imaging EKG: Image Reviewed Assessment/Plan Assessment/Plan MARICARMEN Mass, liver lesions concerning for metastatic dz scheduled for IR biopsy. Former smoker CAD s/p PCI LAD 2011, BMS. Normal LV fxn with no valvular heart dz. REC: Holding ASA for biopsy, last dose reported as 06/19 Would resume ASA 81mg daily (no plavix) when possible after procedure Neuro consult for tingling/parasthesia left leg (for last 48 hours), check labs
[2017-06-26] MEDS: MAG HYDROX/AL HYDROX/SIMETH 30 ML UNIT-DOSE CUP PO SCH ×2 (09:37→11:52)
[2017-06-26] MEDS: PANTOPRAZOLE 40 MG TABLET (FP) PO SCH ×2 (09:37→11:53)
[2017-06-26] MEDS: HEPARIN NA (PORCINE) 5,000 UNITS/ML 1ML VIAL SQ SCH ×2 (09:37→21:44)
[2017-06-26] MEDS: methylPREDNISolone NA SUCC 40 MG/1 ML VIAL IVPB SCH ×3 (09:39→21:45)
--- NOTE | 2017-06-26 09:58 | PN ---
Physical Exam: PULMONARY CONSULT SUBJECTIVE: Patient seen and examined. No CP, no SOB. Continues to complain of MSK pain near L lateral lower ribs assoc with paresthesias down left leg. Endorses history of disc herniation. Neuro consult ordered. Going for liver biopsy today. NPO OBJECTIVE: Vital Signs Period Temp Pulse Resp BP Sys/Rogers Pulse Ox Last 24 Hr 97.8 F-99 F 69-96 18-20 103-138/60-83 93-93 N: AAOx3, NAD, lying comfortably in bed HEENT: PERRLA, EOMi, no oral thrush visible CV: S1, S2, RRR LUNG: CTABL ABD: Soft, NT, ND, normoactive BS MSK: No edema, no erythema, TTP near L lateral lower ribs NEURO: CN 2-12 intact, no sensation deficits, no MSK deficits Laboratory Last Values WBC 15.2 K/mm3 (4.0-10.0) H D 06/24/17 07:30 RBC 4.23 M/mm3 (4.00-5.60) 06/24/17 07:30 Hgb 12.3 GM/dL (11.7-16.9) 06/24/17 07:30 Hct 37.5 % (35.4-49) 06/24/17 07:30 MCV 88.8 fl (80-96) 06/24/17 07:30 MCH 29.0 pg (25.7-33.7) 06/24/17 07:30 MCHC 32.7 g/dl (32.0-35.9) 06/24/17 07:30 RDW 15.1 % (11.9-15.9) 06/24/17 07:30 Plt Count 163 K/MM3 (134-434) 06/24/17 07:30 MPV 9.3 fl (7.5-11.1) 06/24/17 07:30 Neutrophils % 88.5 % (42.8-82.8) H 06/24/17 07:30 Lymphocytes % 5.6 % (8-40) L D 06/24/17 07:30 Monocytes % 5.8 % (3.8-10.2) D 06/24/17 07:30 Eosinophils % 0.0 % (0-4.5) 06/24/17 07:30 Basophils % 0.1 % (0-2.0) 06/24/17 07:30 PT with INR 11.10 SEC (9.98-11.88) 06/24/17 07:30 INR 1.01 (0.82-1.09) 06/24/17 07:30 PTT (Actin FS) 31.6 SECONDS (26.9-34.4) 06/24/17 07:30 Fibrinogen 341.0 mg/dL (238-498) 06/24/17 07:30 Sodium 139 mmol/L (136-145) 06/24/17 07:30 Potassium 4.2 mmol/L (3.5-5.1) 06/24/17 07:30 Chloride 103 mmol/L (98-107) 06/24/17 07:30 Carbon Dioxide 27 mmol/L (21-32) 06/24/17 07:30 Anion Gap 9 (8-16) 06/24/17 07:30 BUN 19 mg/dL (7-18) H D 06/24/17 07:30 Creatinine 0.9 mg/dL (0.7-1.3) 06/24/17 07:30 Creat Clearance w eGFR > 60 (>60) 06/24/17 07:30 Random Glucose 128 mg/dL (74-106) H 06/24/17 07:30 Calcium 8.5 mg/dL (8.5-10.1) 06/24/17 07:30 Total Bilirubin 0.3 mg/dL (0.2-1.0) 06/24/17 07:30 AST 18 U/L (15-37) 06/24/17 07:30 ALT 24 U/L (12-78) 06/24/17 07:30 Alkaline Phosphatase 78 U/L (45-117) 06/24/17 07:30 Total Protein 5.9 g/dl (6.4-8.2) L 06/24/17 07:30 Albumin 3.0 g/dl (3.4-5.0) L 06/24/17 07:30 Urine Color Yellow 06/20/17 12:18 Urine Appearance Clear 06/20/17 12:18 Urine pH 7.0 (4.5-8) 06/20/17 12:18 Ur Specific [place] 1.020 (1.005-1.025) 06/20/17 12:18 Urine Protein Negative (NEGATIVE) 06/20/17 12:18 Urine Glucose (UA) Negative (NEGATIVE) 06/20/17 12:18 Urine Ketones Negative (NEGATIVE) 06/20/17 12:18 Urine Blood Negative (NEGATIVE) 06/20/17 12:18 Urine Nitrite Negative (NEGATIVE) 06/20/17 12:18 Urine Bilirubin Negative (NEGATIVE) 06/20/17 12:18 Urine Urobilinogen 0.2 (0.2-1.0) 06/20/17 12:18 Hepatitis C Antibody 0.1 s/co ratio (0.0-0.9) 06/22/17 12:35 HIV 1&2 Ag/Ab, 4th Gen Non reactive (Non Reactive) 06/22/17 12:35 Active Medications Generic Name Dose Route Start Last Admin Trade Name Freq PRN Reason Stop Dose Admin Al Hydroxide/Mg Hydroxide 30 ml 06/21/17 06:00 06/26/17 09:37 Mylanta Oral Suspension - PO Not Given DAILY JAYDON Arformoterol Tartrate 1 amp 06/21/17 12:45 06/25/17 22:29 Brovana (Restricted To Pulmonology/Resp) - NEB 1 amp BID JAYDON Administration Atorvastatin Calcium 20 mg 06/23/17 22:00 06/25/17 22:11 Lipitor - PO 20 mg HS JAYDON Administration Heparin Sodium (Porcine) 5,000 unit 06/20/17 22:00 06/26/17 09:37 Heparin - SQ Not Given BID JAYDON Methylprednisolone Sodium Succinate 40 mg 06/24/17 22:00 06/26/17 09:39 Solu-Medrol - IVPB Not Given BID JAYDON Nystatin 500,000 units 06/21/17 06:00 06/26/17 05:56 Nystatin Oral Suspension - PO Not Given Q6HPO JAYDON Pantoprazole Sodium 40 mg 06/21/17 10:00 06/26/17 09:37 Protonix - PO Not Given DAILY JAYDON ASSESSMENT/PLAN: Pt is a 71yo M with PMhx of Prostate CA (s/p radiation 10 years ago), and +50 pack year smoking history who presented to the ER w/ gradual onset hoarseness and dysphagia over the past 2 weeks, incidental lung mass was found on CT scan. 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 Will follow. Mariel Cancino MD - PGY1 Visit type - Emergency Visit Emergency Visit: No - New Patient This patient is new to me today: No - Critical Care Critical Care patient: No - Discharge Referral Referred to [facility] Med P.C.: No
[2017-06-26] MEDS: ARFORMOTEROL TARTRATE 15 MCG/2 ML VIAL NEB SCH ×3 (10:00→22:40)
--- NOTE | 2017-06-26 12:16 | PN ---
Progress Note (short form) - Note Progress Note: PULMONARY s/p liver biopsy today. Denies shortness of breath, cough or fevers. Wants to go home. Last Vital Signs Temp Pulse Resp BP Pulse Ox 98.6 F 62 20 127/74 94 L 06/26/17 12:04 06/26/17 12:04 06/26/17 12:04 06/26/17 12:04 06/26/17 11:28 Gen: NAD at rest Heart: RRR Lung: distant breath sounds, no wheezes Abd: soft, nontender Ext: no edema CBC, BMP 06/24/17 07:30 06/24/17 07:30 Active Medications Al Hydroxide/Mg Hydroxide (Mylanta Oral Suspension -) 30 ml PO DAILY [facility] Last Admin: 06/26/17 11:52 Dose: 30 ml Arformoterol Tartrate (Brovana (Restricted To Pulmonology/Resp) -) 1 amp NEB BID [facility] Last Admin: 06/26/17 12:02 Dose: 1 amp Atorvastatin Calcium (Lipitor -) 20 mg PO HS [facility] Last Admin: 06/25/17 22:11 Dose: 20 mg Heparin Sodium (Porcine) (Heparin -) 5,000 unit SQ BID [facility] Last Admin: 06/26/17 09:37 Dose: Not Given Methylprednisolone Sodium Succinate (Solu-Medrol -) 40 mg IVPB BID [facility] Last Admin: 06/26/17 11:53 Dose: 40 mg Nystatin (Nystatin Oral Suspension -) 500,000 units PO Q6HPO [facility] Last Admin: 06/26/17 11:52 Dose: 500,000 units Pantoprazole Sodium (Protonix -) 40 mg PO DAILY [facility] Last Admin: 06/26/17 11:53 Dose: 40 mg A/P MARICARMEN Mass suspicious for Malignancy Possible post-obstructive PNA Previous significant smoking history Laryngeal stenosis r/o COPD Liver lesion - can change steroids to PO and taper as outpt - inhaled bronchodilators - outpt PFTs - f/u pathology - can discharge from pulmonary standpoint with close outpt f/u
--- NOTE | 2017-06-26 14:59 | PN ---
Progress Note, SCOOP DRIVER - Note Progress Note: Thrush and swallowing difficulty resolved, tolerating 100 % SOFT/Thin liquids, Na controlled diet meals and Glucerna supplement Selected Entries 06/23/17 06/23/17 06/23/17 06:00 10:48 13:55 Breakfast 100% Lunch 100% Supper Temperature 97.9 F 98.2 F 06/23/17 06/24/17 06/24/17 18:00 06:00 10:00 Breakfast Lunch Supper Temperature 98.1 F 98.8 F 98.1 F 06/24/17 06/24/17 06/24/17 10:20 14:48 18:00 Breakfast 100% Lunch 100% Supper Temperature 98.2 F 98.2 F 06/24/17 06/24/17 06/25/17 22:40 23:59 06:00 Breakfast Lunch Supper 100% Temperature 97.9 F 98.2 F 06/25/17 06/25/17 06/25/17 10:00 11:27 14:12 Breakfast 100% Lunch 100% Supper Temperature 97.8 F 98.0 F 06/25/17 06/25/17 06/25/17 19:11 20:33 22:00 Breakfast Lunch Supper 100% Temperature 98.3 F 98.5 F 06/26/17 06/26/17 06/26/17 06:00 09:35 11:28 Breakfast Lunch Supper Temperature 98.9 F 99 F 98.5 F 06/26/17 06/26/17 06/26/17 11:45 12:04 12:22 Breakfast Lunch Supper Temperature 98.4 F 98.6 F 99.1 F 06/26/17 06/26/17 06/26/17 12:51 13:20 14:18 Breakfast Lunch 100% Supper Temperature 98.4 F 98.2 F 99.0 F Laboratory Tests 06/21/17 06/24/17 06:45 07:30 WBC 7.0 D 15.2 H D No overt signs of aspiration. Monitor tolerance. No further f/u indicated at this time.
--- NOTE | 2017-06-26 21:28 | PN ---
Progress Note (short form) - Note Progress Note: Patient seen and examined. Feels better. O/E General; NAD no LAD heart-rrr lungs clear abd soft,nt ext no edema Current Medications Generic Name Dose Route Start Last Admin Trade Name Freq PRN Reason Stop Dose Admin Al Hydroxide/Mg Hydroxide 30 ml 06/21/17 06:00 06/22/17 09:42 Mylanta Oral Suspension - PO 30 ml DAILY JAYDON Administration Albuterol/Ipratropium 1 amp 06/21/17 01:53 Duoneb - NEB Q6H PRN SHORTNESS OF BREATH Arformoterol Tartrate 1 amp 06/21/17 12:45 06/22/17 10:22 Brovana (Restricted To Pulmonology/Resp) - NEB 1 amp BID JAYDON Administration Heparin Sodium (Porcine) 5,000 unit 06/20/17 22:00 06/22/17 09:42 Heparin - SQ 5,000 unit BID JAYDON Administration Dextrose/Sodium Chloride 1,000 mls @ 75 mls/hr 06/20/17 20:00 06/21/17 21:53 D5-1/2ns - IV 75 mls/hr ASDIR JAYDON Administration Methylprednisolone Sodium Succinate 40 mg 06/20/17 21:00 06/22/17 14:21 Solu-Medrol - IVPB 40 mg Q6H-IV JAYDON Administration Nystatin 500,000 units 06/21/17 06:00 06/22/17 11:53 Nystatin Oral Suspension - PO 500,000 units Q6HPO JAYDON Administration Pantoprazole Sodium 40 mg 06/21/17 10:00 06/22/17 09:42 Protonix - PO 40 mg DAILY JAYDON Administration Tramadol HCl 50 mg 06/21/17 05:47 06/21/17 19:47 Ultram - PO 50 mg Q6H PRN Administration PAIN Last Vital Signs Temp Pulse Resp BP Pulse Ox 98.2 F 83 20 108/68 92 L 06/22/17 15:20 06/22/17 15:20 06/22/17 15:20 06/22/17 15:20 06/22/17 10:21 CBC, BMP 06/21/17 06:45 06/21/17 06:45 Assessment/Plan: likely lung ca w/ mets to liver -s/p liver biopsy -f.u as an out pt. information given to the pt. -PET CT as an out patient -will follow Problem List - Problems (1) Dysphagia Code(s): R13.10 - DYSPHAGIA, UNSPECIFIED Qualifiers: Qualified Code(s): R13.14 - Dysphagia, pharyngoesophageal phase; R13.14 - Dysphagia, pharyngoesophageal phase (2) Lung mass Code(s): R91.8 - OTHER NONSPECIFIC ABNORMAL FINDING OF LUNG FIELD (3) Thrush Code(s): B37.0 - CANDIDAL STOMATITIS
--- NOTE | 2017-06-26 21:28 | CON.NEURO ---
Consult Consult Specialty:: NEUROLOGY-DALI ARIAS Reason for Consultation:: Left leg tingling - History of Present Illness History of Present Illness: Pt is a 71 y/o male w/ PMH significant for HTN, HLD, CAD(s/p cardiac stents), GERD, nephroliathisis and prostate cancer. Pt recently dx'ed in the past few weeks w/ MARICARMEN lung mass wc he was scheduled to have PET scan. However pt not presented to the ER bc of sore throat x 2 weeks associated w/ hoarseness. Pt states that he has been unable to tolerate PO bc of pain. Pt has some SOB but denies any fever/chills. In the ER pt had ct scan throat wc showed suprglottic soft tissue thickening w/ ? narrowing of airway and consolidative masslike opacity of MARICARMEN. Pt is not in any respiratory distress. S/P liver bx. today., Pt. reports x 3 days has had tingling(paresthesias) in his left buttock/ post.thigh region that radiate along lat aspect of foreleg to ankle. He denies pain but reports"discomfort" when he lies on his left side, prefers to lie on his right side. Denies back pain/bladder/bowel symptoms/weakness and all other neurologic symptoms. 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[employer] History of Recent Travel: No Home Medications - Allergies Allergies/Adverse Reactions: Allergies Allergy/AdvReac Type Severity Reaction Status Date / Time No Known Allergies Allergy Verified 06/20/17 11:33 - Home Medications Home Medications: Ambulatory Orders Amox-Tr/K Cl [Augmentin - 875Mg Tablet] 1 tab PO BID 06/18/17 Levofloxacin [Levaquin] 750 mg PO DAILY 06/18/17 Tramadol HCl 50 mg PO DAILY 06/18/17 Aspirin [Aspirin EC] 81 mg PO DAILY 06/22/17 Atorvastatin Ca [Lipitor] 20 mg PO HS 06/22/17 Family Disease History - Family Disease History Family Disease History: Other: Mother (stroke) Physical Exam-Neuro Vital Signs: Vital Signs Temperature 98.8 F 06/26/17 18:00 Pulse Rate 89 06/26/17 18:00 Respiratory Rate 20 06/26/17 18:00 Blood Pressure 115/74 06/26/17 18:00 O2 Sat by Pulse Oximetry (%) 94 L 06/26/17 11:55 Labs: CBC, BMP 06/24/17 07:30 06/24/17 07:30 INR, PTT INR 1.01 (0.82-1.09) 06/24/17 07:30 Fibrinogen 341.0 mg/dL (238-498) 06/24/17 07:30 - Neuro Exam DTR's: 1+ Left Achilles, 2+ Left Bicep, 2+ Right Bicep, 2+ Left Tricep, 2+ Right Tricep, 2+ Left Brachioradialis, 2+ Right Brachioradialis, 2+ Right Achilles (Left knee jerk 1+, right 2+) Babinski: Absent Motor Strength: 5/5: Left Arm, Right Arm, Left Leg, Right Leg Assessment/Plan Pt. with paresthesias in left L5-S1 distribution. Given patients hax. of lung/ liver masses need to consider spinal metastases causing pure sensory symptoms and diminished reflexes in left leg. Suggest: MRI L/S spine Will follow. Thank you, Abdiaziz Perez MD
[2017-06-26] MEDS: ATORVASTATIN CA 20 MG TABLET (FP) PO SCH (21:45)
--- NOTE | 2017-06-26 23:24 | PN ---
Progress Note, Physician History of Present Illness: Pt tolerated liver bx Pt did c/o of some tingling down lt leg but is now feeling better - Current Medication List Current Medications: Active Medications Al Hydroxide/Mg Hydroxide (Mylanta Oral Suspension -) 30 ml PO DAILY [facility] Last Admin: 06/26/17 11:52 Dose: 30 ml Arformoterol Tartrate (Brovana (Restricted To Pulmonology/Resp) -) 1 amp NEB BID [facility] Last Admin: 06/26/17 22:40 Dose: 1 amp Atorvastatin Calcium (Lipitor -) 20 mg PO HS [facility] Last Admin: 06/26/17 21:45 Dose: 20 mg Heparin Sodium (Porcine) (Heparin -) 5,000 unit SQ BID [facility] Last Admin: 06/26/17 21:44 Dose: 5,000 unit Methylprednisolone Sodium Succinate (Solu-Medrol -) 40 mg IVPB BID [facility] Last Admin: 06/26/17 21:45 Dose: 40 mg Nystatin (Nystatin Oral Suspension -) 500,000 units PO Q6HPO [facility] Last Admin: 06/26/17 17:58 Dose: 500,000 units Pantoprazole Sodium (Protonix -) 40 mg PO DAILY [facility] Last Admin: 06/26/17 11:53 Dose: 40 mg - Objective Vital Signs: Vital Signs Temperature 98.8 F 06/26/17 18:00 Pulse Rate 89 06/26/17 18:00 Respiratory Rate 20 06/26/17 18:00 Blood Pressure 115/74 06/26/17 18:00 O2 Sat by Pulse Oximetry (%) 94 L 06/26/17 11:55 Constitutional: Yes: No Distress Neck: Yes: WNL, Supple Cardiovascular: Yes: WNL, Regular Rate and Rhythm Respiratory: Yes: WNL, Regular, CTA Bilaterally Gastrointestinal: Yes: WNL, Normal Bowel Sounds, Soft Extremities: Yes: WNL Edema: No Labs: CBC, BMP 06/24/17 07:30 06/24/17 07:30 INR, PTT INR 1.01 (0.82-1.09) 06/24/17 07:30 Fibrinogen 341.0 mg/dL (238-498) 06/24/17 07:30 Problem List - Problems (1) Lung mass Assessment/Plan: Pt w/ liver masses/Lung mass on ct scan ?primary lung mass w/ mets to liver? Liver bx by IR done today Spoke to pt at length and will need to f/u as outpt for path results DC planning in am Change to prednisone in am Code(s): R91.8 - OTHER NONSPECIFIC ABNORMAL FINDING OF LUNG FIELD (2) Dysphagia Assessment/Plan: Cont IV steroids Lt laryngeal paralysis Puree diet Speech therapy as outpt Code(s): R13.10 - DYSPHAGIA, UNSPECIFIED Qualifiers: Dysphagia type: pharyngoesophageal phase Qualified Code(s): R13.14 - Dysphagia, pharyngoesophageal phase; R13.14 - Dysphagia, pharyngoesophageal phase (3) CAD (coronary artery disease) Assessment/Plan: Restart asa in am Code(s): I25.10 - ATHSCL HEART DISEASE OF [place] CORONARY ARTERY W/O ANG PCTRS Qualifiers: Coronary Disease-Associated Artery/Lesion type: [place] artery [place] vs. transplanted heart: [place] heart Associated angina: without angina Qualified Code(s): I25.10 - Atherosclerotic heart disease of [place] coronary artery without angina pectoris; I25.10 - Atherosclerotic heart disease of [place] coronary artery without angina pectoris; I25.10 - Atherosclerotic heart disease of [place] coronary artery without angina pectoris (4) Lipidemia Assessment/Plan: Cont lipitor Code(s): E78.5 - HYPERLIPIDEMIA, UNSPECIFIED Qualifiers: Hyperlipidemia type: unspecified Qualified Code(s): E78.5 - Hyperlipidemia, unspecified; E78.5 - Hyperlipidemia, unspecified; E78.5 - Hyperlipidemia, unspecified
[2017-06-27] MEDS: NYSTATIN 500,000 UNITS/5 ML SUSPENSION PO SCH ×2 (06:13→13:02)
--- NOTE | 2017-06-27 07:17 | PN ---
Progress Note, Physician Chief Complaint: alert in no distress s/p bx Appreciate neuro consult, MRI LS spine planned - Current Medication List Current Medications: Active Medications Al Hydroxide/Mg Hydroxide (Mylanta Oral Suspension -) 30 ml PO DAILY [facility] Last Admin: 06/26/17 11:52 Dose: 30 ml Arformoterol Tartrate (Brovana (Restricted To Pulmonology/Resp) -) 1 amp NEB BID [facility] Last Admin: 06/26/17 22:40 Dose: 1 amp Aspirin (Ecotrin -) 81 mg PO DAILY [facility] Atorvastatin Calcium (Lipitor -) 20 mg PO HS [facility] Last Admin: 06/26/17 21:45 Dose: 20 mg Heparin Sodium (Porcine) (Heparin -) 5,000 unit SQ BID [facility] Last Admin: 06/26/17 21:44 Dose: 5,000 unit Nystatin (Nystatin Oral Suspension -) 500,000 units PO Q6HPO [facility] Last Admin: 06/27/17 06:13 Dose: 500,000 units Pantoprazole Sodium (Protonix -) 40 mg PO DAILY [facility] Last Admin: 06/26/17 11:53 Dose: 40 mg Prednisone (Deltasone -) 20 mg PO DAILY [facility] - Objective Vital Signs: Vital Signs Temperature 98.2 F 06/26/17 20:30 Pulse Rate 71 06/26/17 20:30 Respiratory Rate 20 06/26/17 20:30 Blood Pressure 106/68 06/26/17 20:30 O2 Sat by Pulse Oximetry (%) 94 L 06/26/17 21:00 Constitutional: Yes: No Distress Cardiovascular: Yes: Regular Rate and Rhythm Respiratory: Yes: CTA Bilaterally Gastrointestinal: Yes: Soft Edema: No Neurological: Yes: Alert, Oriented ...Motor Strength: WNL Labs: CBC, BMP 06/24/17 07:30 INR, PTT INR 1.01 (0.82-1.09) 06/24/17 07:30 Fibrinogen 341.0 mg/dL (238-498) 06/24/17 07:30 Assessment/Plan Assessment/Plan MARICARMEN Mass, liver lesions concerning for metastatic dz scheduled for IR biopsy. Former smoker CAD s/p PCI LAD 2011, BMS. Normal LV fxn with no valvular heart dz. REC: MRI L-S spine as per neuro to evaluate L. leg parasthesia, r/o met. dz to spine. F/u bx results. ASA resumed.
[2017-06-27 07:31] LABS: ANION GAP 12 (8-16); CALCIUM 8.6 mg/dL (8.5-10.1); CO2 24 mmol/L (21-32); GLUCOSE,RANDOM 132 mg/dL (74-106); MAGNESIUM 2.5 mg/dL (1.8-2.4)
--- NOTE | 2017-06-27 09:38 | PN ---
Progress Note (short form) - Note Progress Note: 71 y/o male w/ PMH significant for HTN, HLD, CAD(s/p cardiac stents), GERD, nephroliathisis and prostate cancer. Pt recently dx'ed in the past few weeks w / MARICARMEN lung mass wc he was scheduled to have PET scan. However pt not presented to the ER bc of sore throat x 2 weeks associated w/ hoarseness. Pt states that he has been unable to tolerate PO bc of pain. Pt has some SOB but denies any fever/chills. In the ER pt had ct scan throat wc showed suprglottic soft tissue thickening w/ ? narrowing of airway and consolidative masslike opacity of MARICARMEN. Pt is not in any respiratory distress. S/P liver bx. today., Pt. reports x 3 days has had tingling(paresthesias) in his left buttock/ post.thigh region that radiate along lat aspect of foreleg to ankle. He denies pain but reports"discomfort" when he lies on his left side, prefers to lie on his right side. Denies back pain/bladder/bowel symptoms/weakness and all other neurologic symptoms. 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[employer] History of Recent Travel: No Home Medications - Allergies Allergies/Adverse Reactions: Allergies Allergy/AdvReac Type Severity Reaction Status Date / Time No Known Allergies Allergy Verified 06/20/17 11:33 - Home Medications Home Medications: Ambulatory Orders Amox-Tr/K Cl [Augmentin - 875Mg Tablet] 1 tab PO BID 06/18/17 Levofloxacin [Levaquin] 750 mg PO DAILY 06/18/17 Tramadol HCl 50 mg PO DAILY 06/18/17 Aspirin [Aspirin EC] 81 mg PO DAILY 06/22/17 Atorvastatin Ca [Lipitor] 20 mg PO HS 06/22/17 Family Disease History - Family Disease History Family Disease History: Other: Mother (stroke) Physical Exam-Neuro Vital Signs: Vital Signs Period Temp Pulse Resp BP Sys/Rogers Pulse Ox Last 24 Hr 97.4 F-99.1 F 62-100 18-29 91-140/56-85 94-96 Labs: CBC, BMP 06/24/17 07:30 06/24/17 07:30 INR, PTT INR 1.01 (0.82-1.09) 06/24/17 07:30 Fibrinogen 341.0 mg/dL (238-498) 06/24/17 07:30 - Neuro Exam DTR's: 1+ Left Achilles, 2+ Left Bicep, 2+ Right Bicep, 2+ Left Tricep, 2+ Right Tricep, 2+ Left Brachioradialis, 2+ Right Brachioradialis, 2+ Right Achilles (Left knee jerk 1+, right 2+) Babinski: Absent Motor Strength: 5/5: Left Arm, Right Arm, Left Leg, Right Leg Assessment/Plan Pt. with paresthesias in left L5-S1 distribution. Given patients hax. of lung/ liver masses need to consider spinal metastases causing pure sensory symptoms and diminished reflexes in left leg. MRI L/S spine Dr Garay
[2017-06-27] MEDS: HEPARIN NA (PORCINE) 5,000 UNITS/ML 1ML VIAL SQ SCH (09:59)
[2017-06-27] MEDS: MAG HYDROX/AL HYDROX/SIMETH 30 ML UNIT-DOSE CUP PO SCH (09:59)
[2017-06-27] MEDS: PANTOPRAZOLE 40 MG TABLET (FP) PO SCH (09:59)
[2017-06-27] MEDS ORDERED: predniSONE 20 MG TABLET (UD) PO SCH (10:00)
[2017-06-27] MEDS ORDERED: ASPIRIN COATED 81 MG TABLET.EC PO SCH (10:00)
[2017-06-27] MEDS: ARFORMOTEROL TARTRATE 15 MCG/2 ML VIAL NEB SCH (10:16)
--- NOTE | 2017-06-27 14:06 | PN ---
Physical Exam: PULMONARY CONSULT SUBJECTIVE: Patient seen and examined. No CP, no SOB. Dysphagia and hoarsness have mildly improved. No fevers, no chills. LEYLA overnight. Going for MRI today. OBJECTIVE: Vital Signs Period Temp Pulse Resp BP Sys/Rogers Pulse Ox Last 24 Hr 97.4 F-99.0 F 64-89 18-22 102-128/59-85 94-98 GEN: AAOx3, NAD, lying comfortably in bed HEENT: PERRLA, EOMi, no oral thrush visible CV: S1, S2, RRR LUNG: CTABL ABD: Soft, NT, ND, normoactive BS MSK: No edema, no erythema, TTP near L lateral lower ribs NEURO: CN 2-12 intact, no sensation deficits, no MSK deficits Laboratory Results - last 24 hr 06/27/17 06:10 Sodium 135 L Potassium 4.7 Chloride 99 Carbon Dioxide 24 Anion Gap 12 BUN 22 H Creatinine 1.0 Random Glucose 132 H Calcium 8.6 Magnesium 2.5 H Active Medications Generic Name Dose Route Start Last Admin Trade Name Bowenq PRN Reason Stop Dose Admin Al Hydroxide/Mg Hydroxide 30 ml 06/21/17 06:00 06/27/17 09:59 Mylanta Oral Suspension - PO 30 ml DAILY JAYDON Administration Arformoterol Tartrate 1 amp 06/21/17 12:45 06/27/17 10:16 Brovana (Restricted To Pulmonology/Resp) - NEB 1 amp BID JAYDON Administration Aspirin 81 mg 06/27/17 10:00 06/27/17 09:59 Ecotrin - PO 81 mg DAILY JAYDON Administration Atorvastatin Calcium 20 mg 06/23/17 22:00 06/26/17 21:45 Lipitor - PO 20 mg HS JAYDON Administration Heparin Sodium (Porcine) 5,000 unit 06/20/17 22:00 06/27/17 09:59 Heparin - SQ 5,000 unit BID JAYDON Administration Nystatin 500,000 units 06/21/17 06:00 06/27/17 13:02 Nystatin Oral Suspension - PO 500,000 units Q6HPO JAYDON Administration Pantoprazole Sodium 40 mg 06/21/17 10:00 06/27/17 09:59 Protonix - PO 40 mg DAILY JAYDON Administration Prednisone 20 mg 06/27/17 10:00 06/27/17 09:59 Deltasone - PO 20 mg DAILY JAYDON Administration ASSESSMENT/PLAN: Pt is a 71yo M with PMhx of Prostate CA (s/p radiation 10 years ago), and +50 pack year smoking history who presented to the ER w/ gradual onset hoarseness and dysphagia over the past 2 weeks, incidental lung mass was found on CT scan. 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 Discussed w/ Dr. Ochoa. Will follow. Mariel Cancino MD - PGY1 Visit type - Emergency Visit Emergency Visit: No - New Patient This patient is new to me today: No - Critical Care Critical Care patient: No - Discharge Referral Referred to [facility] Med P.C.: No
--- NOTE | 2017-06-27 14:47 | DS ---
Physical Examination Vital Signs: Vital Signs Temperature 98.1 F 06/27/17 08:16 Pulse Rate 76 06/27/17 10:17 Respiratory Rate 18 06/27/17 08:16 Blood Pressure 107/85 06/27/17 08:16 O2 Sat by Pulse Oximetry (%) 96 06/27/17 12:05 Constitutional: Yes: No Distress Neck: Yes: WNL, Supple Cardiovascular: Yes: WNL, Regular Rate and Rhythm Respiratory: Yes: WNL, Regular, CTA Bilaterally Gastrointestinal: Yes: WNL, Normal Bowel Sounds, Soft Labs: CBC, BMP 06/24/17 07:30 06/27/17 06:10 Discharge Summary Reason For Visit: THUSH LUNG MASS,HYPOXIA Current Active Problems Dysphagia (Acute) Hypoxia (Acute) Lung mass (Acute) Throat swelling (Acute) Thrush (Acute) Small Cell Lung Hospital Course: Pt is a 71 y/o male w/ PMH significant for HTN, HLD, CAD(s/p cardiac stents), GERD, nephroliathisis and prostate cancer. Pt recently dx'ed in the past few weeks w/ MARICARMEN lung mass. Pt not presented to the ER bc of sore throat x 2 weeks associated w/ hoarseness. In the ER pt had ct scan throat wc showed suprglottic soft tissue thickening w/ ? narrowing of airway and consolidative masslike opacity of MARICARMEN. Pt followed by pulmonary/ENT and onco. t started on IV ceftriaxone/steroids. Pt found to have laryngeal paralysis. Pt also subseguently underwent liver bx by IR and pathology showed small cell CA lung Condition: Good - Instructions Diet, Activity, Other Instructions: 2 gram sodium diet See Dr Bella in 1 week to follow up on pathology results and further management Disposition: HOME - Home Medications Comprehensive Discharge Medication List: Ambulatory Orders Tramadol HCl 50 mg PO DAILY 06/18/17 Aspirin [Aspirin EC] 81 mg PO DAILY 06/22/17 Atorvastatin Ca [Lipitor] 20 mg PO HS 06/22/17 Arformoterol Tartrate [Brovana -] 1 amp NEB BID #1 amp 06/27/17 Atorvastatin Ca [Lipitor] 20 mg PO HS #30 tablet 06/27/17 Pantoprazole Sodium [Protonix -] 40 mg PO DAILY #30 tab 06/27/17 Prednisone [Deltasone -] 20 mg PO DAILY #20 tablet 06/27/17
[2017-06-27 15:39] VITALS: BP 121/66; PULSE 107; TEMP 97.9
--- NOTE | 2017-06-28 12:20 | PN ---
Progress Note (short form) - Note Progress Note: Oncology Brief Event Note: This am, reviewed the MRI report. The report stated " highly suspicious for leptomeningeal disease". Called pt/ advised him to come back to the ER. He continues to have symptoms he says. -he would need MRI spine/brain with Contrast as early as we could (the prior one was done with out contrast) -Will f/u with pathology -neurology consult -radiation oncology consult -will likely need dexame -I called 's office, gave my information for a call back Patient verbalized understanding. Problem List - Problems (1) Dysphagia Code(s): R13.10 - DYSPHAGIA, UNSPECIFIED Qualifiers: Dysphagia type: pharyngoesophageal phase Qualified Code(s): R13.14 - Dysphagia, pharyngoesophageal phase; R13.14 - Dysphagia, pharyngoesophageal phase (2) Lung mass Code(s): R91.8 - OTHER NONSPECIFIC ABNORMAL FINDING OF LUNG FIELD (3) Thrush Code(s): B37.0 - CANDIDAL STOMATITIS
--- NOTE | 2017-06-28 14:01 | PATH ---
Surgical Pathology Report Patient Name: SERGE RENDON [facility]. Rec. #: [id number] /Age/Gender: 1945 (Age: 71) / M Account: [id number] Location: [address] [place] [address] Taken: 06/26/2017 Received: 06/26/2017 Reported: 06/28/2017 Physicians: Martin Cavanaugh M.D. Amara Nandikolla, M.D. 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 Comment: The biopsy shows involvement of liver by a high grade malignant neoplasm composed of intermediate size cells with irregular hyperchromatic nuclei with moderate chromatin and inconspicuous nucleoli, and a very small amount of amphophilic cytoplasm. Nuclear molding is present. Frequent mitotic and apoptotic figures are present. Immunohistochemical stains performed and interpreted at [facility] show the tumor cells are positive for Ae1/Ae3 keratin, negative for CK7, CK20, TTF1, chromogranin, and synaptophysin immunostains; p63 shows weak background staining. Additional immunohistochemical stains performed at [place], [place] ([id number]) and interpreted at [facility] shows that tumor cells are positive for CD56 immunostain, and are negative for CDX2 and p40 immunostains. Ki67 proliferation index is >40% (high). Overall, the morphologic findings and the immunoprofile are of involvement by high-grade neuroendocrine carcinoma most consistent small carcinoma. Clinical and imaging correlations are suggested to establish the site of this tumor origin. The case was discussed with Dr. Waddell on 06/28/17. Electronically Signed Joaquin Crouch M.D. Gross Description Received in formalin labeled "liver biopsy" are 8 nickerson, cylindrical soft tissue fragments ranging from 0.2-1.0 cm in length and averaging 0.1 cm in diameter. The specimens are submitted in toto in one cassette. /06/26/201706/26/2017
== END 2017-06-27 17:07 | disposition home or self-care (01) | DRG 181 ==
LOC: FER 11:31 → J5S 18:00
PROVIDERS: ADMIT Internal Medicine; ATTEND Internal Medicine
PROC: 0FB23ZX Excision of Left Lobe Liver, Percutaneous Approach, Diagnostic (ICD-10-PCS; principal; 2017-06-26)
DX: C34.90 Malignant neoplasm of unspecified part of unspecified bronchus or lung (principal); B37.0 Candidal stomatitis; G12.23 Primary lateral sclerosis; C78.7 Secondary malignant neoplasm of liver and intrahepatic bile duct; R13.10 Dysphagia, unspecified; I25.10 Atherosclerotic heart disease of native coronary artery without angina pectoris; E78.5 Hyperlipidemia, unspecified; R62.7 Adult failure to thrive; E86.0 Dehydration; R09.02 Hypoxemia; K21.9 Gastro-esophageal reflux disease without esophagitis; C61 Malignant neoplasm of prostate; Z87.891 Personal history of nicotine dependence; J38.6 Stenosis of larynx; R91.8 Other nonspecific abnormal finding of lung field; K76.9 Liver disease, unspecified; R59.0 Localized enlarged lymph nodes; J38.00 Paralysis of vocal cords and larynx, unspecified; Z98.61 Coronary angioplasty status; R20.2 Paresthesia of skin
CPT/HCPCS: 36415; 47000; 70490-TC; 71020-TC; 72148-TC; 74178-TC; 74230-TC; 76098-TC; 76998-TC; 78306-TC; 80048; 80053; 81003; 83735; 85025; 85384; 85610; 85730; 86803; 87899; 88307-TC; 88341-TC; 92611-GN; 93005; 93010; 94640; 99283-25; A9503; J1644

== ENCOUNTER 2017-06-28 13:23 | Inpatient (IN) | payer OTHER ==
--- NOTE | 2017-06-28 15:17 | PDOC ---
History of Present Illness - General Chief Complaint: Revisit,Radiology Variance Stated Complaint: Abnormal Ct scan results Time Seen by Provider: 06/28/17 15:16 - History of Present Illness Initial Comments: 06/28/17 15:17 Mr. Foy is a 71 yo male with a significant past medical history of CAD, HLD ( stents) recently diagnosed left upper lobe lung mass, discharged yesterday after workup for sore throat and hoarseness which revealed supraglottic soft tissue thickening and narrowing of airway. 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 Patient was then told to represent to the ER. Mr. Foy currently endorses hoarseness and pelvic pain with left leg parasthesias. He denies chest pain, shortness of breath, headache and dizziness. Denies fever, chills, nausea, vomit, diarrhea and constipation. Denies dysuria, frequency, urgency and hematuria. Past History - Past Medical History Allergies/Adverse Reactions: Allergies Allergy/AdvReac Type Severity Reaction Status Date / Time No Known Allergies Allergy Verified 06/28/17 13:28 Home Medications: Ambulatory Orders Tramadol HCl 50 mg PO DAILY 06/18/17 Aspirin [Aspirin EC] 81 mg PO DAILY 06/22/17 Arformoterol Tartrate [Brovana -] 1 amp NEB BID #1 amp 06/27/17 Atorvastatin Ca [Lipitor] 20 mg PO HS #30 tablet 06/27/17 Pantoprazole Sodium [Protonix -] 40 mg PO DAILY #30 tab 06/27/17 Prednisone [Deltasone -] 20 mg PO DAILY #20 tablet 06/27/17 Cancer: Yes (prostate) Cardiac Disorders: Yes (stent placement X 1) Hypercholesterolemia: Yes Kidney Stones: Yes - Immunization History Immunization Up to Date: Yes - Suicide/Smoking/Psychosocial Hx Smoking History: Former smoker Have you smoked in the past 12 months: No Number of Cigarettes Smoked Daily: 0 If you are a former smoker, when did you quit?: unk Information on smoking cessation initiated: No 'Breaking Loose' booklet given: 03/11/16 Hx Alcohol Use: No Drug/Substance Use Hx: No Substance Use Type: None Hx Substance Use Treatment: No Review of Systems - Review of Systems Comments:: 06/28/17 15:17 GENERAL/CONSTITUTIONAL: No fever or chills. HEAD, EYES, EARS, NOSE AND THROAT: +Hoarseness when speaking. No change in vision. No ear pain or discharge. No sore throat. CARDIOVASCULAR: No chest pain or shortness of breath RESPIRATORY: No cough, wheezing, or hemoptysis. GASTROINTESTINAL: No nausea, vomiting, diarrhea or constipation. GENITOURINARY: No dysuria, frequency, or change in urination. MUSCULOSKELETAL: +Pelvic numbness with tingling down left leg and perceived weakness. No joint or muscle swelling or pain. No neck or back pain. SKIN: No rash NEUROLOGIC: No headache, vertigo, loss of consciousness, or change in strength/ sensation. ENDOCRINE: No increased thirst. No abnormal weight change HEMATOLOGIC/LYMPHATIC: No anemia, easy bleeding, or history of blood clots. ALLERGIC/IMMUNOLOGIC: No hives or skin allergy. *Physical Exam - Vital Signs Last Vital Signs Temp Pulse Resp BP Pulse Ox 97.9 F 97 H 18 134/64 97 06/28/17 13:26 06/28/17 13:26 06/28/17 13:26 06/28/17 13:26 06/28/17 13:26 - Physical Exam Comments: 06/28/17 15:17 GENERAL: Awake, alert, and fully oriented, in no acute distress HEAD: No signs of trauma, normocephalic, atraumatic EYES: PERRLA, EOMI, sclera anicteric, conjunctiva clear ENT: +Voice is hoarse. Auricles normal inspection, hearing grossly normal, nares patent, oropharynx clear without exudates. Moist mucosa NECK: Normal ROM, supple, no lymphadenopathy, JVD, or masses LUNGS: No distress, speaks full sentences, clear to auscultation bilaterally HEART: Regular rate and rhythm, normal S1 and S2, no murmurs, rubs or gallops, peripheral pulses normal and equal bilaterally. ABDOMEN: Soft, nontender, normoactive bowel sounds. No guarding, no rebound. No masses EXTREMITIES: Normal inspection, Normal range of motion, no edema. No clubbing or cyanosis. NEUROLOGICAL: Cranial nerves II through XII grossly intact. Normal speech, normal gait, no focal sensorimotor deficits SKIN: Warm, Dry, normal turgor, no rashes or lesions noted. ED Treatment Course - LABORATORY CBC & Chemistry Diagram: 06/28/17 16:04 06/28/17 16:04 Medical Decision Making - Medical Decision Making 06/28/17 16:00 Patient represents after callback as instructed for evaluation. Upon reviewing chart and speaking with Dr. Aguilera, patient able to be seen outpatient tomorrow in clinic for follow-up. *DC/Admit/Observation/Transfer Diagnosis at time of Disposition: Mass of left lung - Discharge Dispostion Admit: Yes - Referrals Referrals: Markell Bella MD [Primary Care Provider] -
--- NOTE | 2017-06-28 15:52 | PDOC ---
Attending Attestation - Resident Resident Name: Abhishek Lieberman - ED Attending Attestation I have performed the following: I have examined & evaluated the patient, The case was reviewed & discussed with the resident, I agree w/resident's findings & plan, Exceptions are as noted - HPI HPI: 06/28/17 15:52 71yo M recently admitted for hoarseness, found to have lung mass presents to the ED after a call back from the oncologist. Pt was called by Dr. Davenport to return to the ED for admission due to possible leptomeningeal disease. Pt reports continued LLE numbness that he has had for a week. Denies fevers, chills, chest pain, shortness of breath, focal weakness. Denies headache. Denies dizziness, rashes. - Physicial Exam PE: 06/28/17 16:18 GENERAL: Awake, alert, and fully oriented, in no acute distress HEAD: No signs of trauma EYES: PERRLA, EOMI, sclera anicteric, conjunctiva clear ENT: Auricles normal inspection, hearing grossly normal, nares patent, oropharynx clear without exudates. Moist mucosa NECK: Normal ROM, supple, no lymphadenopathy, JVD, or masses LUNGS: Breath sounds equal, clear to auscultation bilaterally. No wheezes, and no crackles HEART: Regular rate and rhythm, normal S1 and S2, no murmurs, rubs or gallops ABDOMEN: Soft, nontender, normoactive bowel sounds. No guarding, no rebound. No masses EXTREMITIES: Normal range of motion, no edema. No clubbing or cyanosis. No cords, erythema, or tenderness NEUROLOGICAL: Normal speech, cranial nerves intact, negative pronator drift, 5/ 5 strength in all 4 extremities, decreased sensation to light touch of LLE, normal sensation to light touch in remainder of extremities, normal cerebellar exam, normal gait, normal reflexes and tone SKIN: Warm, Dry, normal turgor, no rashes or lesions noted. - Medical Decision Making 06/28/17 16:18 71-year-old male presents for readmission for workup of leptomeningeal disease given left lower extremity numbness. I spoke with Dr. Davenport who recommends 10mg of dexamethasone IV and MRI brain, cervical, lumbar, and thoracic spine with and without contrast. Dex and MRIs ordered. Will admit patient to Dr. Aguilera. Case discussed in detail with admitting physician including history, physical exam and ancillary studies. Admitting physician has assumed care for the patient, will follow all pending diagnostics and will complete the evaluation and treatment.
[2017-06-28 16:17] LABS: BASOPHIL 0.3 % (0-2.0); EOSINOPHIL 1.6 % (0-4.5); MCH 30.1 pg (25.7-33.7); MEAN CELL VOLUME 88.4 fl (80-96); MEAN PLT VOLUME 8.4 fl (7.5-11.1); NEUTROPHILS 73.7 % (42.8-82.8); PLATELET COUNT 172 K/MM3 (134-434); RDW 14.7 % (11.9-15.9); WHITE BLOOD COUNT 11.7 K/mm3 (4.0-10.0)
[2017-06-28] MEDS ORDERED: DEXAMETHASONE SOD PHOSPHATE 10 MG/1 ML VIAL IVPUSH ONE (16:17)
[2017-06-28] MEDS ORDERED: DEXAMETHASONE SOD PHOSPHATE 10 MG/1 ML VIAL ONE (16:20)
[2017-06-28 17:32] LABS: ALBUMIN 2.9 g/dl (3.4-5.0); ANION GAP 5 (8-16); CALCIUM 8.3 mg/dL (8.5-10.1); CO2 28 mmol/L (21-32); CREATININE 1.1 mg/dL (0.7-1.3); GLUCOSE,RANDOM 88 mg/dL (74-106); SGOT/AST 34 U/L (15-37); SGPT/ALT 49 U/L (12-78)
[2017-06-28 17:34] LABS: ALK PHOS 101 U/L (45-117); BILIRUBIN,TOTAL 0.6 mg/dL (0.2-1.0); TOT PROT 5.9 g/dl (6.4-8.2)
[2017-06-28] MEDS ORDERED: ALPRAZolam 0.25 MG TABLET PO ONE (18:15)
[2017-06-28 20:27] VITALS: BMI 21.9
[2017-06-28] MEDS ORDERED: ARFORMOTEROL TARTRATE 15 MCG/2 ML VIAL NEB SCH (22:00)
[2017-06-28] MEDS: ATORVASTATIN CA 20 MG TABLET (FP) PO SCH (22:18)
--- NOTE | 2017-06-29 08:05 | CON.NEURO ---
Consult - History of Present Illness History of Present Illness: 71 yo male with a significant past medical history of CAD, HLD (stents) recently diagnosed left upper lobe lung mass, discharged yesterday after workup for sore throat and hoarseness which revealed supraglottic soft tissue thickening and narrowing of airway. 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 MRI IMPRESSION: 1. Intradural nodularity at the level of the T12 inferior endplate measuring 0.5 cm in AP dimension and 1.2 cm in craniocaudal length, which contacts and flattens the ventral surface of the conus. This is extremely suspicious for leptomeningeal metastasis. Further evaluation with contrast- enhanced MRI is recommended. A 1.2 x 1.1 cm osseous lesion in the right half of the L1 vertebral body as described above, highly suspicious for osteoblastic metastasis. No evidence of epidural extension. Please note that lack of uptake on the bone scan without SPECT does not exclude an osteoblastic metastasis. This will be reassessed on the follow-up contrast-enhanced MRI. 3. Chronic L5 spondylolysis with grade 1 anterolisthesis of L5 on S1. 4. Degenerative changes in the lumbar spine as described above with mild canal stenosis at L2-L3 and L3- L4, and moderate narrowing of the left L3-L4 neural foramen. 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[employer] History of Recent Travel: No Home Medications - Allergies Allergies/Adverse Reactions: Allergies Allergy/AdvReac Type Severity Reaction Status Date / Time No Known Allergies Allergy Verified 06/28/17 13:28 - Home Medications Home Medications: Ambulatory Orders Tramadol HCl 50 mg PO DAILY 06/18/17 Aspirin [Aspirin EC] 81 mg PO DAILY 06/22/17 Arformoterol Tartrate [Brovana -] 1 amp NEB BID #1 amp 06/27/17 Atorvastatin Ca [Lipitor] 20 mg PO HS #30 tablet 06/27/17 Pantoprazole Sodium [Protonix -] 40 mg PO DAILY #30 tab 06/27/17 Prednisone [Deltasone -] 20 mg PO DAILY #20 tablet 06/27/17 Family Disease History - Family Disease History Family Disease History: Other: Mother (stroke) Physical Exam-Neuro Vital Signs: Vital Signs Temperature 98 F 06/28/17 16:04 Pulse Rate 70 06/28/17 22:17 Respiratory Rate 18 06/29/17 04:08 Blood Pressure 100/54 06/28/17 22:17 O2 Sat by Pulse Oximetry (%) 95 06/29/17 04:08 Labs: CBC, BMP 06/28/17 16:40 - Neuro Exam Level Of Consciousness: Yes: Alert, Oriented to Person (awake and alert, hoarse voice, EOMI, ? tongue deviation to R, no focal weakness UE, though EHL weakness on L, absnet L patellar , achilles and R 1+ , plantars down ) Imaging - Results MRI: Report Reviewed, Image Reviewed Problem List - Problems (1) Mass of left lung Code(s): R91.8 - OTHER NONSPECIFIC ABNORMAL FINDING OF LUNG FIELD (2) Leptomeningeal metastases Code(s): C79.49 - SECONDARY MALIGNANT NEOPLASM OF OTH PARTS OF NERVOUS SYSTEM (3) Lung cancer Code(s): C34.90 - MALIGNANT NEOPLASM OF UNSP PART OF UNSP BRONCHUS OR LUNG Assessment/Plan 71 yo male with a significant past medical history of CAD, HLD (stents) recently diagnosed left upper lobe lung mass, discharged yesterday after workup for sore throat and hoarseness which revealed supraglottic soft tissue thickening and narrowing of airway. 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 exam shows weakness and involvement of the left L4/5 and S1 nerve roots and possible skull base cranial nerve involvement FU MRI BRAIN and will discuss utility of LP with ONC team Dr Garay [phone]
[2017-06-29] MEDS: PANTOPRAZOLE 40 MG TABLET (FP) PO SCH (09:25)
[2017-06-29] MEDS: predniSONE 20 MG TABLET (UD) PO SCH (09:25)
[2017-06-29] MEDS: ASPIRIN COATED 81 MG TABLET.EC PO SCH (09:25)
[2017-06-29] MEDS: traMADol HCL 50 MG TABLET PO SCH (09:58)
--- NOTE | 2017-06-29 11:20 | HP ---
Admitting History and Physical - Admission History of Present Illness: Pt is a 71 y/o male exsmoker w/ PMH significant for HTN, HLD, CAD (s/p cardiac stents), GERD and prostate cancer. Pt was recently dc'ed from [facility] after having a liver bx(due to Lung mass and liver dz) and was dc'ed w/ small cell lung cancer. Pt has been having lower extremity radiculopathy and had MRI LS spine and found to have leptomenigealm dz and was sent to the ER. 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 Prostate cancer), Renal Calculi - Past Surgical History Past Surgical History: Yes: Hernia Repair, Stent Additional Past Surgical History: Liver bx - Smoking History Smoking history: Former smoker Have you smoked in the past 12 months: No Aproximately how many cigarettes per day: 0 If you are a former smoker, when did you quit?: unk - Alcohol/Substance Use Hx Alcohol Use: No History of Substance Use: reports: None - Social History ADL: Independent 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[employer] 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 of 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 Travel: No Home Medications - Allergies Allergies/Adverse Reactions: Allergies Allergy/AdvReac Type Severity Reaction Status Date / Time No Known Allergies Allergy Verified 06/28/17 13:28 - Home Medications Home Medications: Ambulatory Orders Tramadol HCl 50 mg PO DAILY 06/18/17 Aspirin [Aspirin EC] 81 mg PO DAILY 06/22/17 Arformoterol Tartrate [Brovana -] 1 amp NEB BID #1 amp 06/27/17 Atorvastatin Ca [Lipitor] 20 mg PO HS #30 tablet 06/27/17 Pantoprazole Sodium [Protonix -] 40 mg PO DAILY #30 tab 06/27/17 Prednisone [Deltasone -] 20 mg PO DAILY #20 tablet 06/27/17 Family Disease History - Family Disease History Family History: Unremarkable Family Disease History: Other: Mother (stroke) Review of Systems - Review of Systems Constitutional: reports: Loss of Appetite, Unintentional Wgt. Loss, Weakness Eyes: reports: No Symptoms HENT: reports: Other (Hoarseness) Cardiovascular: reports: No Symptoms Respiratory: reports: No Symptoms Gastrointestinal: reports: No Symptoms Musculoskeletal: reports: Other (lower extremity tingling) Physical Examination Vital Signs: Vital Signs Temperature 98 F 06/28/17 16:04 Pulse Rate 70 06/28/17 22:17 Respiratory Rate 18 06/29/17 04:08 Blood Pressure 100/54 06/28/17 22:17 O2 Sat by Pulse Oximetry (%) 95 06/29/17 04:08 Constitutional: Yes: No Distress Eyes: Yes: WNL HENT: Yes: WNL Neck: Yes: WNL, Supple Cardiovascular: Yes: WNL, Regular Rate and Rhythm Respiratory: Yes: WNL, Regular, CTA Bilaterally Gastrointestinal: Yes: WNL, Normal Bowel Sounds, Soft Musculoskeletal: Yes: WNL Extremities: Yes: WNL Neurological: Yes: WNL, Alert, Oriented ...Motor Strength: WNL Labs: CBC, BMP 06/28/17 16:40 Problem List - Problems (1) Leptomeningeal metastases Assessment/Plan: Onco/neuro consults Cont steroids Will need MRI thoracic spine Code(s): C79.49 - SECONDARY MALIGNANT NEOPLASM OF OTH PARTS OF NERVOUS SYSTEM (2) Lung cancer Assessment/Plan: Small cell CA w/ mets Code(s): C34.90 - MALIGNANT NEOPLASM OF UNSP PART OF UNSP BRONCHUS OR LUNG (3) Lipidemia Assessment/Plan: Cont lipitor Code(s): E78.5 - HYPERLIPIDEMIA, UNSPECIFIED Qualifiers: Hyperlipidemia type: unspecified Qualified Code(s): E78.5 - Hyperlipidemia, unspecified; E78.5 - Hyperlipidemia, unspecified; E78.5 - Hyperlipidemia, unspecified
--- NOTE | 2017-06-29 12:55 | PN ---
Progress Note (short form) - Note Progress Note: Radiation Oncology (full consult dictated) Pt seen this AM. He is ambulating but has focal sensory deficit in RLE and difficulty moving bowels. Agree with continuing steroids and will follow up MRI (+) spine to confirm LMD and/or cord compression. Will likely benefit from palliative RT to symptomatic areas of the spine/cord. Bowel regimen. Neuology and Oncology f/u.
--- NOTE | 2017-06-29 15:53 | PN ---
Progress Note (short form) - Note Progress Note: PULMONARY CONSULTATION DICTATED 06/29/17 IMP METASTATIC LUNG CA SMALL CELL LEPTOMENINGEAL METS ASHD DM PLAN RT/CHEMO BRAIN MRI O2 PRN DECADRON DR GUERRERO Problem List - Problems (1) Leptomeningeal metastases Code(s): C79.49 - SECONDARY MALIGNANT NEOPLASM OF OTH PARTS OF NERVOUS SYSTEM (2) Lung cancer Code(s): C34.90 - MALIGNANT NEOPLASM OF UNSP PART OF UNSP BRONCHUS OR LUNG (3) Mass of left lung Code(s): R91.8 - OTHER NONSPECIFIC ABNORMAL FINDING OF LUNG FIELD (4) CAD (coronary artery disease) Code(s): I25.10 - ATHSCL HEART DISEASE OF [place] CORONARY ARTERY W/O ANG PCTRS Qualifiers: Coronary Disease-Associated Artery/Lesion type: [place] artery [place] vs. transplanted heart: [place] heart Associated angina: without angina Qualified Code(s): I25.10 - Atherosclerotic heart disease of [place] coronary artery without angina pectoris; I25.10 - Atherosclerotic heart disease of [place] coronary artery without angina pectoris; I25.10 - Atherosclerotic heart disease of [place] coronary artery without angina pectoris (5) Hyperglycemia due to type 2 diabetes mellitus Code(s): E11.65 - TYPE 2 DIABETES MELLITUS WITH HYPERGLYCEMIA Qualifiers: Diabetes mellitus jail insulin use: without jail use Qualified Code(s): E11.65 - Type 2 diabetes mellitus with hyperglycemia; E11.65 - Type 2 diabetes mellitus with hyperglycemia; E11.65 - Type 2 diabetes mellitus with hyperglycemia; E11.65 - Type 2 diabetes mellitus with hyperglycemia
[2017-06-29] MEDS ORDERED: ALPRAZolam 0.25 MG TABLET PO ONE ×2 (15:55→20:00)
[2017-06-29] MEDS ORDERED: ALBUTEROL SO4 2.5/IPRATROPIUM 0.5 INH SOL 3 ML VIAL.NEB. NEB PRN (15:58)
--- NOTE | 2017-06-29 15:59 | CONSULT ---
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 During the prior hospitalization, the patient had a lung mass with 3 liver lesions. Biopsy was taken from one of the lesions which demonstrated High Grade Small Cell CA. Prior to discharge the patient also complained of LLE paresthesias and was seen by Neurology. A Lumbar spine MRI noted an oseous metastasis along with signs of leptomeningeal metastasis. The patient was called back to the ER because of the findings. The patient continues to have hoarseness but denies CP, SOB, difficulty breathing. The discomfort in his LLE has improved after IV decadron given in the ER. He is being followed by Oncology, Rad Onc, and Neurology. REVIEW OF SYSTEMS: CONSTITUTIONAL: Absent: fever, chills, diaphoresis, generalized weakness, malaise, loss of appetite, weight change HEENT: Absent: rhinorrhea, nasal congestion, throat pain, throat swelling, difficulty swallowing, mouth swelling, ear pain, eye pain, visual changes Present: hoarseness CARDIOVASCULAR: Absent: chest pain, syncope, palpitations, irregular heart rate, lightheadedness , peripheral edema RESPIRATORY: Absent: cough, shortness of breath, dyspnea with exertion, orthopnea, wheezing, stridor, hemoptysis GASTROINTESTINAL: Absent: abdominal pain, abdominal distension, nausea, vomiting, diarrhea, constipation, melena, hematochezia GENITOURINARY: Absent: dysuria, frequency, urgency, hesitancy, hematuria, flank pain, genital pain MUSCULOSKELETAL: Absent: myalgia, arthralgia, joint swelling, back pain, neck pain SKIN: Absent: rash, itching, pallor HEMATOLOGIC/IMMUNOLOGIC: Absent: easy bleeding, easy bruising, lymphadenopathy, frequent infections ENDOCRINE: Absent: unexplained weight gain, unexplained weight loss, heat intolerance, cold intolerance NEUROLOGIC: Absent: headache, focal weakness or paresthesias, dizziness, unsteady gait, seizure, mental status changes, bladder or bowel incontinence PSYCHIATRIC: Absent: anxiety, depression, suicidal or homicidal ideation, hallucinations. PHYSICAL EXAMINATION Vital Signs Temperature 98.1 F 06/29/17 14:50 Pulse Rate 91 H 06/29/17 14:50 Respiratory Rate 18 06/29/17 14:50 Blood Pressure 134/83 06/29/17 14:50 O2 Sat by Pulse Oximetry (%) 95 06/29/17 12:00 GEN: AAOx3, NAD, Lying comfortably, audibly hoarse HEENT: PERRLA, EOMi CV: S1, S2, RRR LUNG: CTABL ABD: Soft, NT, ND NEURO: CN 2-12 intact, decreased sensation in LLE, 1+ patellar reflexes in LLE, 2+ reflexes in RLE Laboratory Results - last 24 hr 06/28/17 16:40 Sodium 137 Potassium 4.3 Chloride 104 Carbon Dioxide 28 Anion Gap 5 L BUN 29 H D Creatinine 1.1 Creat Clearance w eGFR > 60 Random Glucose 88 D Calcium 8.3 L Total Bilirubin 0.6 D AST 34 D ALT 49 D Alkaline Phosphatase 101 D Total Protein 5.9 L Albumin 2.9 L Active Medications Generic Name Dose Route Start Last Admin Trade Name Freq PRN Reason Stop Dose Admin Aspirin 81 mg 06/29/17 10:00 06/29/17 09:25 Ecotrin - PO 81 mg DAILY JAYDON Administration Atorvastatin Calcium 20 mg 06/28/17 22:00 06/28/17 22:18 Lipitor - PO 20 mg HS JAYDON Administration Pantoprazole Sodium 40 mg 06/29/17 10:00 06/29/17 09:25 Protonix - PO 40 mg DAILY JAYDON Administration Prednisone 20 mg 06/29/17 10:00 06/29/17 09:25 Deltasone - PO 20 mg DAILY JAYDON Administration Tramadol HCl 50 mg 06/29/17 10:00 06/29/17 09:58 Ultram - PO Not Given DAILY JAYDON ASSESSMENT/PLAN: Mr Foy is a 71yo M with a PMHx of Prostate CA (s/p radiation 10 years ago), + 50 pack year smoking, newly diagnosed with high grade small cell lung CA with mets to the liver, and likely leptomeninges. # High Grade Small Cell Lung CA - w/ mets to liver and likely leptomeninges - No respiratory compromise at the moment - Inhaled bronchodilators PRN - O2 PRN - F/u Brain MRI to check for brain mets - Continue steroids Discussed w/ Dr Ochoa. Will follow. Thank you Mariel Cancino MD - PGY1 Visit type - Emergency Visit Emergency Visit: No - New Patient This patient is new to me today: Yes Date on this admission: 06/29/17 - Critical Care Critical Care patient: No
--- NOTE | 2017-06-29 16:07 | PN ---
Teaching Attending Note Name of Resident: Mariel Cancino ATTENDING PHYSICIAN STATEMENT I saw and evaluated the patient. I reviewed the resident's note and discussed the case with the resident. I agree with the resident's findings and plan as documented. DR GUERRERO Problem List - Problems (1) Leptomeningeal metastases Code(s): C79.49 - SECONDARY MALIGNANT NEOPLASM OF OTH PARTS OF NERVOUS SYSTEM (2) Lung cancer Code(s): C34.90 - MALIGNANT NEOPLASM OF UNSP PART OF UNSP BRONCHUS OR LUNG (3) Mass of left lung Code(s): R91.8 - OTHER NONSPECIFIC ABNORMAL FINDING OF LUNG FIELD (4) CAD (coronary artery disease) Code(s): I25.10 - ATHSCL HEART DISEASE OF [place] CORONARY ARTERY W/O ANG PCTRS Qualifiers: Coronary Disease-Associated Artery/Lesion type: [place] artery [place] vs. transplanted heart: [place] heart Associated angina: without angina Qualified Code(s): I25.10 - Atherosclerotic heart disease of [place] coronary artery without angina pectoris; I25.10 - Atherosclerotic heart disease of [place] coronary artery without angina pectoris; I25.10 - Atherosclerotic heart disease of [place] coronary artery without angina pectoris (5) Hyperglycemia due to type 2 diabetes mellitus Code(s): E11.65 - TYPE 2 DIABETES MELLITUS WITH HYPERGLYCEMIA Qualifiers: Diabetes mellitus care home insulin use: without care home use Qualified Code(s): E11.65 - Type 2 diabetes mellitus with hyperglycemia; E11.65 - Type 2 diabetes mellitus with hyperglycemia; E11.65 - Type 2 diabetes mellitus with hyperglycemia; E11.65 - Type 2 diabetes mellitus with hyperglycemia
--- NOTE | 2017-06-29 16:30 | PN ---
Progress Note (short form) - Note Progress Note: Recalled pt to come back to the ER for the MRI non-con results. Patient seen and examined. Family at bedside. General: sitting in chair, anxious HEENT: No LAD Cardiac: RRR Lungs: CTA b/l LE: no CCE Neuro: AAOX3. Imaging : MRI reports ( Thoracic/lumbar) reviewed. Last Vital Signs Temp Pulse Resp BP Pulse Ox 98.1 F 91 H 18 134/83 95 06/29/17 14:50 06/29/17 14:50 06/29/17 14:50 06/29/17 14:50 06/29/17 12:00 CBC, BMP 06/28/17 16:04 06/28/17 16:40 Current Medications Generic Name Dose Route Start Last Admin Trade Name Freq PRN Reason Stop Dose Admin Albuterol/Ipratropium 1 amp 06/29/17 15:58 Duoneb - NEB Q4H PRN SHORTNESS OF BREATH Aspirin 81 mg 06/29/17 10:00 06/29/17 09:25 Ecotrin - PO 81 mg DAILY JAYDON Administration Atorvastatin Calcium 20 mg 06/28/17 22:00 06/28/17 22:18 Lipitor - PO 20 mg HS JAYDON Administration Sodium Chloride 1,000 mls @ 83 mls/hr 06/29/17 16:00 Normal Saline - IV ASDIR JAYDON Pantoprazole Sodium 40 mg 06/29/17 10:00 06/29/17 09:25 Protonix - PO 40 mg DAILY JAYDON Administration Prednisone 20 mg 06/29/17 10:00 06/29/17 09:25 Deltasone - PO 20 mg DAILY JAYDON Administration Tramadol HCl 50 mg 06/29/17 10:00 06/29/17 09:58 Ultram - PO Not Given DAILY JAYDON 71 year old pat (55 pack year smoking hx) now with new diagnosis of Extensive stage small cell lung ( liver mets, liver biopsy consistent with high grade neuro-endocrine tumor small cell ca, Leptomeningeal disease, intra-medullary lesion/mets at the level of T7-T8). -completed the rest of the imaging, MR brain and MR cervical -Pre-hydration -c/w steroids -No CSF for cytology needed after reviewing the MR imaging results available thus far, do not think he would benefit from IT chemotherapy. Would need XRT/ systemic chemo eg: Carbo/etoposide. -Radonc/Neuro consults appreciated -dispo to be determined IP vs OP Tx. I have discussed the pathology, stage , treatment options, prognosis, involved areas of disease and have written the information as per family's (son and daughter's) request. I have spent 45minutes in going over the above. All questions answered. communicated w/ RN. will follow closely
--- NOTE | 2017-06-29 17:16 | CONS ---
DATE OF CONSULTATION: 06/29/2017 REFERRING PHYSICIAN: Stacie Waddell M.D. REASON FOR CONSULTATION: Suspicion of leptomeningeal disease secondary to lung cancer. HISTORY OF PRESENT ILLNESS: The patient is a 71-year-old gentleman who was recently admitted for swallowing difficulty and throat pain. 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 CT scans showed a 2-cm left upper lobe mass, 5-cm opacity probably post obstructive consolidation/atelectasis, mediastinal lymphadenopathy up to 2.2 cm including the AP window, and multiple liver lesions up to 3.3 cm as well as aortocaval lymph nodes. Bone scan was negative. Liver biopsy showed high-grade neuroendocrine carcinoma consistent with small cell carcinoma. Prior to discharge he was complaining of pelvic pain and right leg numbness. An MRI of the lumbar spine without contrast suggested leptomeningeal metastases at T12. He was readmitted for further evaluation and management. He has undergone a contrast MRI of the thoracic and lumbar spine and results are pending. MRI brain and cervical spine are pending. He is being seen by the neurology service. He reports numbness primarily in the right thigh, increasing difficulty moving his bowels and band-like pain across the suprapubic abdominal region. He denies history of radiation therapy, collagen vascular disease, or inflammatory bowel disease. He has no urinary incontinence or weakness in the legs or arms. PAST MEDICAL HISTORY: Coronary artery disease status post stent. GERD. Hyperlipidemia. Nephrolithiasis. Hernia repair. ALLERGIES; No known drug allergies. CURRENT MEDICATIONS: Status post dexamethasone 10 mg, prednisone, Lipitor, Ecotrin 81 mg, Ultram, Protonix. SOCIAL HISTORY: He lives with his fiance. He is an ex-smoker, 50 pack-year history and quit a few years ago. He worked for a [employer]. He lives in [place]. He was born in [facility]. FAMILY HISTORY: Denies. REVIEW OF SYSTEMS: He states that his pelvic pain and numbness have improved since he received the Decadron. No recent weight loss or change in appetite, headaches, fevers, chills, chest pain, cough, shortness of breath, or hemoptysis. PHYSICAL EXAMINATION: General: Well appearing, in no acute distress. His son and daughter are at the bedside. Vital Signs: Temperature 97.6, blood pressure 123/62, pulse 75, respiratory rate 18, Sao2 95% room air. HEENT: Normocephalic. Atraumatic. Clear oral cavity. Neck: No thyromegaly or adenopathy. . Chest: Diminished breath sounds in the left lung. No wheezing, rhonchi, rales. Cardiovascular: Regular. Abdomen: Soft, nontender. Nondistended. Extremities: No edema. Musculoskeletal: No spine or CVA tenderness. Neurologic: Alert and oriented. Cranial nerves 2-12 are intact. Sensation to light touch is decreased in the proximal right lower extremity. Motor, no pronator drift, 5/5 x4. Coordination and gait are normal. PATHOLOGIC DATA: See HPI. RADIOLOGIC DATA: See HPI. LABORATORY DATA: WBC 11.7, hemoglobin 12.8, platelets 172,000. Electrolytes within normal limits. BUN 29, creatinine 1.1. 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 We will await the contrast MRI for further evaluation and to identify areas to target with palliative radiation therapy, which was discussed with the patient and his children. We discussed the palliative role of radiation to prevent further neurologic injury that could cause more pain, numbness, bowel or bladder incontinence or urinary retention. Depending on the level involved, there could be compromise of the spinal cord and neurologic function resulting in weakness, and even paralysis. I recommend continuing Decadron and we will await the results of the contast MRI studies. I would prefer to start therapy while he is inpatient on steroids, so that he can be closely monitored neurologically. I have discussed the plan with Dr. Waddell. I appreciate the opportunity to participate in the care of this patient. MARIA FERNANDA GREY M.D. [id number] MTDD
[2017-06-29] MEDS: SODIUM CHLORIDE 1,000 ML IV SCH (17:48)
[2017-06-29] MEDS: ATORVASTATIN CA 20 MG TABLET (FP) PO SCH (21:45)
[2017-06-30] MEDS: SODIUM CHLORIDE 1,000 ML IV SCH ×3 (05:15→18:32)
[2017-06-30] MEDS: traMADol HCL 50 MG TABLET PO SCH (09:59)
[2017-06-30] MEDS: ASPIRIN COATED 81 MG TABLET.EC PO SCH (09:59)
[2017-06-30] MEDS: predniSONE 20 MG TABLET (UD) PO SCH (09:59)
[2017-06-30] MEDS: PANTOPRAZOLE 40 MG TABLET (FP) PO SCH (10:01)
--- NOTE | 2017-06-30 11:39 | PN ---
Progress Note, Physician History of Present Illness: 71 yo male with a significant past medical history of CAD, HLD (stents) recently diagnosed left upper lobe lung mass, recently discharged after workup for sore throat and hoarseness which revealed supraglottic soft tissue thickening and narrowing of airway. 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 The symptoms have been going on for about 3-4 weeks and have also included perineal numbness , involving his penus and anus, though bowel and bladder function are intact. MRI IMPRESSION: 1. Intradural nodularity at the level of the T12 inferior endplate measuring 0.5 cm in AP dimension and 1.2 cm in craniocaudal length, which contacts and flattens the ventral surface of the conus. This is extremely suspicious for leptomeningeal metastasis. Further evaluation with contrast- enhanced MRI is recommended. A 1.2 x 1.1 cm osseous lesion in the right half of the L1 vertebral body as described above, highly suspicious for osteoblastic metastasis. No evidence of epidural extension. Please note that lack of uptake on the bone scan without SPECT does not exclude an osteoblastic metastasis. This will be reassessed on the follow-up contrast-enhanced MRI. 3. Chronic L5 spondylolysis with grade 1 anterolisthesis of L5 on S1. 4. Degenerative changes in the lumbar spine as described above with mild canal stenosis at L2-L3 and L3- L4, and moderate narrowing of the left L3-L4 neural foramen. - Current Medication List Current Medications: Active Medications Albuterol/Ipratropium (Duoneb -) 1 amp NEB Q4H PRN PRN Reason: SHORTNESS OF BREATH Aspirin (Ecotrin -) 81 mg PO DAILY [facility] Last Admin: 06/30/17 09:59 Dose: 81 mg Atorvastatin Calcium (Lipitor -) 20 mg PO HS [facility] Last Admin: 06/29/17 21:45 Dose: 20 mg Dexamethasone (Decadron -) 8 mg PO Q6H [facility] Sodium Chloride (Normal Saline -) 1,000 mls @ 83 mls/hr IV ASDIR [facility] Last Admin: 06/30/17 05:15 Dose: 83 mls/hr Pantoprazole Sodium (Protonix -) 40 mg PO DAILY [facility] Last Admin: 06/30/17 10:01 Dose: 40 mg Tramadol HCl (Ultram -) 50 mg PO DAILY [facility] Last Admin: 06/30/17 09:59 Dose: 50 mg - Objective Vital Signs: Vital Signs Temperature 98.1 F 06/30/17 10:00 Pulse Rate 94 H 06/30/17 10:00 Respiratory Rate 18 06/30/17 10:00 Blood Pressure 112/46 06/30/17 10:00 O2 Sat by Pulse Oximetry (%) 98 06/30/17 11:23 Neurological: Yes: Other (Level Of Consciousness: Yes: Alert, Oriented to Person (awake and alert, hoarse voice, EOMI, ? 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 Depending on oncology plan, may need LP to confirm cytology for intrathecal administration of chemo if that is the route to be pursued. Thanks.
--- NOTE | 2017-06-30 12:22 | PN ---
Progress Note (short form) - Note Progress Note: Patient seen and examined. Walking in the [place] way Had a BM General: sitting in chair, anxious HEENT: No LAD Cardiac: RRR Lungs: CTA b/l LE: no CCE Neuro: AAOX3. Imaging : MRI reports ( Thoracic/lumbar) reviewed. Last Vital Signs Temp Pulse Resp BP Pulse Ox 98.1 F 91 H 18 134/83 95 06/29/17 14:50 06/29/17 14:50 06/29/17 14:50 06/29/17 14:50 06/29/17 12:00 CBC, BMP 06/28/17 16:04 06/28/17 16:40 Current Medications Generic Name Dose Route Start Last Admin Trade Name Freq PRN Reason Stop Dose Admin Albuterol/Ipratropium 1 amp 06/29/17 15:58 Duoneb - NEB Q4H PRN SHORTNESS OF BREATH Aspirin 81 mg 06/29/17 10:00 06/29/17 09:25 Ecotrin - PO 81 mg DAILY JAYDON Administration Atorvastatin Calcium 20 mg 06/28/17 22:00 06/28/17 22:18 Lipitor - PO 20 mg HS JAYDON Administration Sodium Chloride 1,000 mls @ 83 mls/hr 06/29/17 16:00 Normal Saline - IV ASDIR JAYDON Pantoprazole Sodium 40 mg 06/29/17 10:00 06/29/17 09:25 Protonix - PO 40 mg DAILY JAYDON Administration Prednisone 20 mg 06/29/17 10:00 06/29/17 09:25 Deltasone - PO 20 mg DAILY JAYDON Administration Tramadol HCl 50 mg 06/29/17 10:00 06/29/17 09:58 Ultram - PO Not Given DAILY JAYDON 71 year old pat (55 pack year smoking hx) now with new diagnosis of Extensive stage small cell lung origin ( liver mets, 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
[2017-06-30] MEDS: DEXAMETHASONE 4 MG TABLET (FP) PO SCH ×3 (13:01→23:24)
--- NOTE | 2017-06-30 13:19 | PN ---
Progress Note, Physician History of Present Illness: pulmonary alert,-resp distress,-cp - Current Medication List Current Medications: Active Medications Albuterol/Ipratropium (Duoneb -) 1 amp NEB Q4H PRN PRN Reason: SHORTNESS OF BREATH Aspirin (Ecotrin -) 81 mg PO DAILY [facility] Last Admin: 06/30/17 09:59 Dose: 81 mg Atorvastatin Calcium (Lipitor -) 20 mg PO HS [facility] Last Admin: 06/29/17 21:45 Dose: 20 mg Dexamethasone (Decadron -) 8 mg PO Q6H [facility] Last Admin: 06/30/17 13:01 Dose: 8 mg Sodium Chloride (Normal Saline -) 1,000 mls @ 83 mls/hr IV ASDIR [facility] Last Admin: 06/30/17 05:15 Dose: 83 mls/hr Pantoprazole Sodium (Protonix -) 40 mg PO DAILY [facility] Last Admin: 06/30/17 10:01 Dose: 40 mg Tramadol HCl (Ultram -) 50 mg PO DAILY [facility] Last Admin: 06/30/17 09:59 Dose: 50 mg - Objective Vital Signs: Vital Signs Temperature 98.1 F 06/30/17 10:00 Pulse Rate 94 H 06/30/17 10:00 Respiratory Rate 18 06/30/17 10:00 Blood Pressure 112/46 06/30/17 10:00 O2 Sat by Pulse Oximetry (%) 98 06/30/17 11:23 Constitutional: Yes: Well Nourished, Calm Eyes: Yes: WNL HENT: Yes: WNL Neck: Yes: WNL Cardiovascular: Yes: Regular Rate and Rhythm, S1, S2 Respiratory: Yes: CTA Bilaterally Gastrointestinal: Yes: Normal Bowel Sounds, Soft Extremities: Yes: WNL Edema: No Labs: CBC, BMP Problem List - Problems (1) Leptomeningeal metastases Code(s): 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 transplanted heart: [place] heart Associated angina: without angina Qualified Code(s): I25.10 - Atherosclerotic heart disease of [place] coronary artery without angina pectoris; I25.10 - Atherosclerotic heart disease of [place] coronary artery without angina pectoris; I25.10 - Atherosclerotic heart disease of [place] coronary artery without angina pectoris (5) Hyperglycemia due to type 2 diabetes mellitus Code(s): E11.65 - TYPE 2 DIABETES MELLITUS WITH HYPERGLYCEMIA Qualifiers: Diabetes mellitus terminal block assembler insulin use: without penitentiary use Qualified Code(s): E11.65 - Type 2 diabetes mellitus with hyperglycemia; E11.65 - Type 2 diabetes mellitus with hyperglycemia; E11.65 - Type 2 diabetes mellitus with hyperglycemia; E11.65 - Type 2 diabetes mellitus with hyperglycemia Assessment/Plan IMP METASTATIC LUNG CA SMALL CELL, LEPTOMENINGEAL METS/ BRAIN METS ASHD DM PLAN RT/CHEMO O2 PRN DEC[address]RON [address] GUERRERO Problem List - Problems (1) Leptomeningeal metastases Code(s): 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 transplanted heart: [place] heart Associated angina: without angina Qualified Code(s): I25.10 - Atherosclerotic heart disease of [place] coronary artery without angina pectoris; I25.10 - Atherosclerotic heart disease of [place] coronary artery without angina pectoris; I25.10 - Atherosclerotic heart disease of [place] coronary artery without angina pectoris (5) Hyperglycemia due to type 2 diabetes mellitus Code(s): E11.65 - TYPE 2 DIABETES MELLITUS WITH HYPERGLYCEMIA Qualifiers: Diabetes mellitus penitentiary insulin use: without penitentiary use Qualified Code(s): E11.65 - Type 2 diabetes mellitus with hyperglycemia; E11.65 - Type 2 diabetes mellitus with hyperglycemia; E11.65 - Type 2 diabetes mellitus with hyperglycemia; E11.65 - Type 2 diabetes mellitus with hyperglycemia
--- NOTE | 2017-06-30 15:04 | PN ---
Progress Note (short form) - Note Progress Note: Radiation Oncology Clinically stable on decadron. MRI (+) C-T-L spine and brain reviewed. Numerous bilateral supra and infratentorial brain mets w edema, intramedullary cord met w edema @ T7-8, LMD @ L4-5 nerve roots. Will need WBRT and RT to T-L spine. Discussed with pt and family. Systemic tx to follow as per med onc. Cont decadron and neuro monitoring. Will plan to start on Sunday pending approval.
--- NOTE | 2017-06-30 18:16 | PN ---
Progress Note, Physician History of Present Illness: No new complaints - Current Medication List Current Medications: Active Medications Albuterol/Ipratropium (Duoneb -) 1 amp NEB Q4H PRN PRN Reason: SHORTNESS OF BREATH Aspirin (Ecotrin -) 81 mg PO DAILY [facility] Last Admin: 06/30/17 09:59 Dose: 81 mg Atorvastatin Calcium (Lipitor -) 20 mg PO HS [facility] Last Admin: 06/29/17 21:45 Dose: 20 mg Dexamethasone (Decadron -) 8 mg PO Q6H [facility] Last Admin: 06/30/17 16:58 Dose: 8 mg Sodium Chloride (Normal Saline -) 1,000 mls @ 83 mls/hr IV ASDIR [facility] Last Admin: 06/30/17 17:47 Dose: Not Given Pantoprazole Sodium (Protonix -) 40 mg PO DAILY [facility] Last Admin: 06/30/17 10:01 Dose: 40 mg Tramadol HCl (Ultram -) 50 mg PO DAILY [facility] Last Admin: 06/30/17 09:59 Dose: 50 mg - Objective Vital Signs: Vital Signs Temperature 97.8 F 06/30/17 17:46 Pulse Rate 71 06/30/17 17:46 Respiratory Rate 18 06/30/17 17:46 Blood Pressure 117/71 06/30/17 17:46 O2 Sat by Pulse Oximetry (%) 98 06/30/17 11:23 Constitutional: Yes: No Distress Neck: Yes: WNL, Supple Cardiovascular: Yes: WNL, Regular Rate and Rhythm Respiratory: Yes: WNL, Regular, CTA Bilaterally Gastrointestinal: Yes: WNL, Normal Bowel Sounds, Soft Labs: CBC, BMP 06/28/17 16:40 Problem List - Problems (1) Lung cancer Assessment/Plan: Small cell CA w/ mets MRI brain showed extensive metastatic dz w/ edema MRI spine: intramedullary cord met/edema and Code(s): C34.90 - MALIGNANT NEOPLASM OF UNSP PART OF UNSP BRONCHUS OR LUNG (2) Leptomeningeal metastases Assessment/Plan: Pt scheduled for radiation Cont decadron Code(s): C79.49 - SECONDARY MALIG[place] NEOPLASM OF OTH PARTS OF NERVOUS SYSTEM (3) Lipidemia Assessment/Plan: Cont lipitor Code(s): E78.5 - HYPERLIPIDEMIA, UNSPECIFIED Qualifiers: Hyperlipidemia type: unspecified Qualified Code(s): E78.5 - Hyperlipidemia, unspecified; E78.5 - Hyperlipidemia, unspecified; E78.5 - Hyperlipidemia, unspecified
[2017-06-30] MEDS: ATORVASTATIN CA 20 MG TABLET (FP) PO SCH (21:00)
[2017-07-01] MEDS: DEXAMETHASONE 4 MG TABLET (FP) PO SCH ×4 (06:09→22:56)
[2017-07-01] MEDS: PANTOPRAZOLE 40 MG TABLET (FP) PO SCH (09:02)
[2017-07-01] MEDS: ASPIRIN COATED 81 MG TABLET.EC PO SCH (09:03)
[2017-07-01] MEDS: traMADol HCL 50 MG TABLET PO SCH (09:03)
--- NOTE | 2017-07-01 12:59 | PN ---
Progress Note (short form) - Note Progress Note: Patient seen and examined. condition unchanged, no change in symptoms [place] neurologically as per pt. General: sitting in chair, anxious HEENT: No LAD Cardiac: RRR Lungs: CTA b/l LE: no CCE Neuro: AAOX3. Imaging : MRI reports ( Thoracic/lumbar) reviewed, MR brain and cervical reports reviewed Last Vital Signs Temp Pulse Resp BP Pulse Ox 98.0 F 82 18 147/4 90 L 07/01/17 08:42 07/01/17 11:20 07/01/17 08:42 07/01/17 08:42 07/01/17 11:20 CBC, BMP 06/28/17 16:04 06/28/17 16:40 Current Medications Generic Name Dose Route Start Last Admin Trade Name Freq PRN Reason Stop Dose Admin Albuterol/Ipratropium 1 amp 06/29/17 15:58 Duoneb - NEB Q4H PRN SHORTNESS OF BREATH Aspirin 81 mg 06/29/17 10:00 07/01/17 09:03 Ecotrin - PO 81 mg DAILY [facility]DON Administration Atorvastatin Calcium 20 mg 06/28/17 22:00 06/30/17 21:00 Lipitor - PO 20 mg HS JAYDON Administration Dexamethasone 8 mg 06/30/17 11:30 07/01/17 12:08 Decadron - PO 8 mg Q6H [facility]DON Administration Sodium Chloride 1,000 mls @ 83 mls/hr 06/29/17 16:00 06/30/17 18:32 Normal Saline - IV 83 mls/hr ASDIR JAYDON Administration Pantoprazole Sodium 40 mg 06/29/17 10:00 07/01/17 09:02 Protonix - PO 40 mg DAILY [facility]DON Administration Tramadol HCl 50 mg 06/29/17 10:00 07/01/17 09:03 Ultram - PO Not Given DAILY JAYDON 71 year old pat (55 pack year smoking hx) now with new diagnosis of Extensive stage small cell lung origin ( liver mets, 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
--- NOTE | 2017-07-01 19:53 | PN ---
Progress Note, Physician History of Present Illness: No new complaints - Current Medication List Current Medications: Active Medications Albuterol/Ipratropium (Duoneb -) 1 amp NEB Q4H PRN PRN Reason: SHORTNESS OF BREATH Aspirin (Ecotrin -) 81 mg PO DAILY [facility] Last Admin: 07/01/17 09:03 Dose: 81 mg Atorvastatin Calcium (Lipitor -) 20 mg PO HS [facility] Last Admin: 06/30/17 21:00 Dose: 20 mg Dexamethasone (Decadron -) 8 mg PO Q6H [facility] Last Admin: 07/01/17 16:52 Dose: 8 mg Sodium Chloride (Normal Saline -) 1,000 mls @ 83 mls/hr IV ASDIR [facility] Last Admin: 06/30/17 18:32 Dose: 83 mls/hr Pantoprazole Sodium (Protonix -) 40 mg PO DAILY [facility] Last Admin: 07/01/17 09:02 Dose: 40 mg Tramadol HCl (Ultram -) 50 mg PO DAILY [facility] Last Admin: 07/01/17 09:03 Dose: Not Given - Objective Vital Signs: Vital Signs Temperature 98.3 F 07/01/17 19:37 Pulse Rate 68 07/01/17 19:37 Respiratory Rate 20 07/01/17 19:37 Blood Pressure 130/63 07/01/17 19:37 O2 Sat by Pulse Oximetry (%) 90 L 07/01/17 11:20 Constitutional: Yes: No Distress HENT: Yes: WNL Neck: Yes: WNL, Supple Cardiovascular: Yes: WNL, Regular Rate and Rhythm Respiratory: Yes: WNL, Regular, CTA Bilaterally Gastrointestinal: Yes: WNL, Normal Bowel Sounds, Soft Musculoskeletal: Yes: WNL Extremities: Yes: WNL Edema: No Labs: CBC, BMP 06/28/17 16:40 Problem List - Problems (1) Lung cancer Code(s): C34.90 - MALIGNANT NEOPLASM OF UNSP PART OF UNSP BRONCHUS OR LUNG (2) 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 Leptomenigeal dz/mets Pt scheduled for radiation 2. Small cell lung cancer As per onco 3. HLD Cont lipitor
[2017-07-01] MEDS: ATORVASTATIN CA 20 MG TABLET (FP) PO SCH (22:56)
[2017-07-01] MEDS: SODIUM CHLORIDE 1,000 ML IV SCH (22:56)
[2017-07-02] MEDS: DEXAMETHASONE 4 MG TABLET (FP) PO SCH ×4 (05:08→22:34)
[2017-07-02] MEDS ORDERED: PT OWN MED DRAWER 7, Y5N ONE (09:10)
[2017-07-02] MEDS: ASPIRIN COATED 81 MG TABLET.EC PO SCH (09:40)
[2017-07-02] MEDS: traMADol HCL 50 MG TABLET PO SCH (09:40)
[2017-07-02] MEDS: PANTOPRAZOLE 40 MG TABLET (FP) PO SCH (09:40)
[2017-07-02] MEDS: SODIUM CHLORIDE 1,000 ML IV SCH ×2 (12:34→18:57)
--- NOTE | 2017-07-02 12:35 | PN ---
Progress Note (short form) - Note Progress Note: Resting in NAD. No acute events overnight. No CP or SOB. Intake & Output 06/29/17 06/30/17 07/01/17 07/02/17 23:59 23:59 23:59 23:59 Intake Total 900 2645 2426 881 Output Total 1700 800 Balance 900 2645 726 81 Last Vital Signs Temp Pulse Resp BP Pulse Ox 98.9 F 94 H 18 126/94 96 07/02/17 09:44 07/02/17 09:44 07/02/17 12:00 07/02/17 09:44 07/02/17 04:00 Active Medications Albuterol/Ipratropium (Duoneb -) 1 amp NEB Q4H PRN PRN Reason: SHORTNESS OF BREATH Aspirin (Ecotrin -) 81 mg PO DAILY [facility] Last Admin: 07/02/17 09:40 Dose: 81 mg Atorvastatin Calcium (Lipitor -) 20 mg PO HS [facility] Last Admin: 07/01/17 22:56 Dose: 20 mg Dexamethasone (Decadron -) 8 mg PO Q6H [facility] Last Admin: 07/02/17 12:30 Dose: 8 mg Sodium Chloride (Normal Saline -) 1,000 mls @ 83 mls/hr IV ASDIR [facility] Last Admin: 07/02/17 12:34 Dose: Not Given Pantoprazole Sodium (Protonix -) 40 mg PO DAILY [facility] Last Admin: 07/02/17 09:40 Dose: 40 mg Tramadol HCl (Ultram -) 50 mg PO DAILY [facility] Last Admin: 07/02/17 09:40 Dose: 50 mg Constitutional: Yes: Well Nourished, Calm Eyes: Yes: WNL HENT: Yes: WNL Neck: Yes: WNL Cardiovascular: Yes: Regular Rate and Rhythm, S1, S2 Respiratory: Yes: CTA Bilaterally Gastrointestinal: Yes: Normal Bowel Sounds, Soft Extremities: Yes: WNL Edema: No Labs: Problem List - Problems (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 transplanted heart: [place] heart Associated angina: without angina Qualified Code(s): I25.10 - Atherosclerotic heart disease of [place] coronary artery without angina pectoris; I25.10 - Atherosclerotic heart disease of [place] coronary artery without angina pectoris; I25.10 - Atherosclerotic heart disease of [place] coronary artery without angina pectoris (5) Hyperglycemia due to type 2 diabetes mellitus Code(s): E11.65 - TYPE 2 DIABETES MELLITUS WITH HYPERGLYCEMIA Qualifiers: Diabetes mellitus alf insulin use: without terminal press operator use Qualified Code(s): E11.65 - Type 2 diabetes mellitus with hyperglycemia; E11.65 - Type 2 diabetes mellitus with hyperglycemia; E11.65 - Type 2 diabetes mellitus with hyperglycemia; E11.65 - Type 2 diabetes mellitus with hyperglycemia Assessment/Plan IMP METASTATIC LUNG CA SMALL CELL, LEPTOMENINGEAL METS/ BRAIN METS ASHD DM PLAN RT/CHEMO O2 NEEDED JASVIR Zheng
--- NOTE | 2017-07-02 14:41 | PN ---
Progress Note (short form) - Note Progress Note: Patient getting RT at this time. He is found to have mets to both spine and brain. LP deferred. Will follow up with you. 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
--- NOTE | 2017-07-02 17:37 | PN ---
Progress Note, Physician History of Present Illness: No new complaints - Current Medication List Current Medications: Active Medications Albuterol/Ipratropium (Duoneb -) 1 amp NEB Q4H PRN PRN Reason: SHORTNESS OF BREATH Aspirin (Ecotrin -) 81 mg PO DAILY [facility] Last Admin: 07/02/17 09:40 Dose: 81 mg Atorvastatin Calcium (Lipitor -) 20 mg PO HS [facility] Last Admin: 07/01/17 22:56 Dose: 20 mg Dexamethasone (Decadron -) 8 mg PO Q6H [facility] Last Admin: 07/02/17 17:31 Dose: 8 mg Sodium Chloride (Normal Saline -) 1,000 mls @ 83 mls/hr IV ASDIR [facility] Last Admin: 07/02/17 12:34 Dose: Not Given Pantoprazole Sodium (Protonix -) 40 mg PO DAILY [facility] Last Admin: 07/02/17 09:40 Dose: 40 mg Tramadol HCl (Ultram -) 50 mg PO DAILY [facility] Last Admin: 07/02/17 09:40 Dose: 50 mg - Objective Vital Signs: Vital Signs Temperature 98.9 F 07/02/17 09:44 Pulse Rate 94 H 07/02/17 09:44 Respiratory Rate 18 07/02/17 12:00 Blood Pressure 126/94 07/02/17 09:44 O2 Sat by Pulse Oximetry (%) 96 07/02/17 04:00 HENT: Yes: WNL Neck: Yes: WNL, Supple Cardiovascular: Yes: WNL, Regular Rate and Rhythm Respiratory: Yes: WNL, Regular, CTA Bilaterally Gastrointestinal: Yes: WNL, Normal Bowel Sounds, Soft Labs: CBC, BMP 06/28/17 16:40 Problem List - Problems (1) Leptomeningeal metastases Assessment/Plan: Pt scheduled for radiation Cont decadron Code(s): C79.49 - SECONDARY MALIGNANT NEOPLASM OF OTH PARTS OF NERVOUS SYSTEM (2) Lung cancer Assessment/Plan: Small cell CA w/ mets to liver/spine/brain MRI brain showed extensive metastatic dz w/ edema MRI spine: intramedullary cord met/edema Cont decadron Pt getting radiation Code(s): C34.90 - MALIGNANT NEOPLASM OF UNSP PART OF UNSP BRONCHUS OR LUNG (3) Lipidemia Assessment/Plan: Cont lipitor Code(s): E78.5 - HYPERLIPIDEMIA, UNSPECIFIED Qualifiers: Hyperlipidemia type: unspecified Qualified Code(s): E78.5 - Hyperlipidemia, unspecified; E78.5 - Hyperlipidemia, unspecified; E78.5 - Hyperlipidemia, unspecified
--- NOTE | 2017-07-02 19:48 | PN ---
Progress Note (short form) - Note Progress Note: Radiation Oncology Commenced WBRT today. Simulated for T and L spine RT to begin tomorrow. Cont RT and decadron. Monitor neurologic function closely.
[2017-07-02] MEDS ORDERED: ZOLPIDEM TARTRATE 5 MG TABLET PO PRN ×2 (21:55→22:28)
[2017-07-02] MEDS: ATORVASTATIN CA 20 MG TABLET (FP) PO SCH (22:34)
--- NOTE | 2017-07-02 23:19 | PN ---
Progress Note (short form) - Note Progress Note: PAtient seen and examined still with nimo pain/leg tingling' c/o insomnia Last Vital Signs Temp Pulse Resp BP Pulse Ox 97.7 F 80 18 137/75 96 07/02/17 18:30 07/02/17 18:30 07/02/17 18:30 07/02/17 18:30 07/02/17 04:00 Cor: RSR, No murmurs, No gallops Lungs: Clear to P&A Abd: Soft, Normal bowel sounds, No organomegaly Ext:No significant edema Skin: No rashes, Integument intact Labs/Meds reviewed A/P 71 y/o patient with back pain/leg tingling , high grade neuroendocrine cancer with mets to liver, spinal cord, brain getting RT to brain/cord on decadron ambien prn for sleep
[2017-07-03] MEDS: DEXAMETHASONE 4 MG TABLET (FP) PO SCH ×5 (01:14→22:33)
[2017-07-03] MEDS: SODIUM CHLORIDE 1,000 ML IV SCH ×2 (05:42→23:01)
[2017-07-03 07:30] LABS: BASOPHIL 0.1 % (0-2.0); MCH 29.2 pg (25.7-33.7); MCHC 32.5 g/dl (32.0-35.9); MEAN CELL VOLUME 89.7 fl (80-96); MEAN PLT VOLUME 8.4 fl (7.5-11.1); NEUTROPHILS 90.8 % (42.8-82.8); PLATELET COUNT 197 K/MM3 (134-434); RDW 15.1 % (11.9-15.9); WHITE BLOOD COUNT 17.1 K/mm3 (4.0-10.0)
[2017-07-03 07:51] LABS: ALBUMIN 2.6 g/dl (3.4-5.0); ANION GAP 8 (8-16); BILIRUBIN,TOTAL 0.5 mg/dL (0.2-1.0); CALCIUM 8.6 mg/dL (8.5-10.1); CO2 29 mmol/L (21-32); CREATININE 0.9 mg/dL (0.7-1.3); GLUCOSE,RANDOM 106 mg/dL (74-106); SGOT/AST 24 U/L (15-37); SGPT/ALT 45 U/L (12-78); TOT PROT 5.6 g/dl (6.4-8.2)
[2017-07-03 07:52] LABS: ALK PHOS 103 U/L (45-117)
[2017-07-03] MEDS: traMADol HCL 50 MG TABLET PO SCH (09:07)
[2017-07-03] MEDS: PANTOPRAZOLE 40 MG TABLET (FP) PO SCH (09:07)
[2017-07-03] MEDS: ASPIRIN COATED 81 MG TABLET.EC PO SCH (09:07)
--- NOTE | 2017-07-03 11:14 | PN ---
Progress Note (short form) - Note Progress Note: Patient seen and examined. condition unchanged, Continues to have the tingling numbness/back pain, no changes from before He tolerated the first session of WBRT on 07/02. General: sitting in chair HEENT: No LAD Cardiac: RRR Lungs: CTA b/l LE: no CCE Neuro: AAOX3. Imaging : MRI reports ( Thoracic/lumbar) reviewed, MR brain and cervical reports reviewed CBC, BMP 07/03/17 06:00 07/03/17 06:00 Current Medications Generic Name Dose Route Start Last Admin Trade Name Freq PRN Reason Stop Dose Admin Albuterol/Ipratropium 1 amp 06/29/17 15:58 Duoneb - NEB Q4H PRN SHORTNESS OF BREATH Aspirin 81 mg 06/29/17 10:00 07/03/17 09:07 Ecotrin - PO 81 mg DAILY [facility] Administration Atorvastatin Calcium 20 mg 06/28/17 22:00 07/02/17 22:34 Lipitor - PO 20 mg HS [facility] Administration Dexamethasone 6 mg 07/02/17 23:19 07/03/17 05:40 Decadron - PO 6 mg Q6H [facility] Administration Sodium Chloride 1,000 mls @ 83 mls/hr 06/29/17 16:00 07/03/17 05:42 Normal Saline - IV 83 mls/hr ASDIR [facility] Administration Pantoprazole Sodium 40 mg 06/29/17 10:00 07/03/17 09:07 Protonix - PO 40 mg DAILY [facility] Administration Tramadol HCl 50 mg 06/29/17 10:00 07/03/17 09:07 Ultram - PO 50 mg DAILY [facility] Administration Zolpidem Tartrate 5 mg 07/02/17 22:28 Ambien - PO HS PRN INSOMNIA Last Vital Signs Temp Pulse Resp BP Pulse Ox 97.9 F 99 H 18 108/70 96 07/03/17 09:44 07/03/17 09:44 07/03/17 09:44 07/03/17 09:44 07/03/17 04:00 71 year old pat (55 pack year smoking hx) now with new diagnosis of Extensive stage small cell lung origin ( liver mets, 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
--- NOTE | 2017-07-03 11:22 | PN ---
Progress Note (short form) - Note Progress Note: 71 yo male with a significant past medical history of CAD, HLD (stents) recently diagnosed left upper lobe lung mass, discharged yesterday after workup for sore throat and hoarseness which revealed supraglottic soft tissue thickening and narrowing of airway. 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 I saw and examined the pt , no new complaints ; LP is deferred. Pt comfortably sitting at the bedside , no new complaints ; denies headache, visual symptoms. 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 C/w decadron iv neuro check q4 hours fall precautions Health maintenance per primary physician. Thank you for allowing us to participate in the care of this patient. ROSSANA Lema MD [phone]
--- NOTE | 2017-07-03 12:07 | PN ---
Progress Note (short form) - Note Progress Note: Resting in NAD. Still with tingling/numbness. No acute events overnight. No CP or SOB. Intake & Output 06/30/17 07/01/17 07/02/17 07/03/17 23:59 23:59 23:59 23:59 Intake Total 2645 2426 1513 731 Output Total 1700 800 Balance 2645 726 713 731 Last Vital Signs Temp Pulse Resp BP Pulse Ox 97.9 F 99 H 18 108/70 94 L 07/03/17 09:44 07/03/17 09:44 07/03/17 09:44 07/03/17 09:44 07/03/17 09:13 Active Medications Albuterol/Ipratropium (Duoneb -) 1 amp NEB Q4H PRN PRN Reason: SHORTNESS OF BREATH Aspirin (Ecotrin -) 81 mg PO DAILY [facility] Last Admin: 07/03/17 09:07 Dose: 81 mg Atorvastatin Calcium (Lipitor -) 20 mg PO HS [facility] Last Admin: 07/02/17 22:34 Dose: 20 mg Dexamethasone (Decadron -) 6 mg PO Q6H [facility] Last Admin: 07/03/17 05:40 Dose: 6 mg Sodium Chloride (Normal Saline -) 1,000 mls @ 83 mls/hr IV ASDIR [facility] Last Admin: 07/03/17 05:42 Dose: 83 mls/hr Pantoprazole Sodium (Protonix -) 40 mg PO DAILY [facility] Last Admin: 07/03/17 09:07 Dose: 40 mg Tramadol HCl (Ultram -) 50 mg PO DAILY [facility] Last Admin: 07/03/17 09:07 Dose: 50 mg Zolpidem Tartrate (Ambien -) 5 mg PO HS PRN PRN Reason: INSOMNIA Constitutional: Yes: thin, NAD Eyes: Yes: WNL HENT: Yes: WNL Neck: Yes: WNL Cardiovascular: Yes: Regular Rate and Rhythm, S1, S2 Respiratory: Yes: CTA Bilaterally Gastrointestinal: Yes: Normal Bowel Sounds, Soft Extremities: Yes: WNL Edema: No Labs: Laboratory Results - last 24 hr 07/03/17 07/03/17 06:00 06:00 WBC 17.1 H D RBC 4.16 Hgb 12.1 Hct 37.3 MCV 89.7 MCH 29.2 MCHC 32.5 RDW 15.1 Plt Count 197 MPV 8.4 Neutrophils % 90.8 H D Lymphocytes % 3.5 L D Monocytes % 5.6 Eosinophils % 0.0 D Basophils % 0.1 Sodium 137 Potassium 4.5 Chloride 100 Carbon Dioxide 29 Anion Gap 8 BUN 25 H Creatinine 0.9 Creat Clearance w eGFR > 60 Random Glucose 106 D Calcium 8.6 Total Bilirubin 0.5 AST 24 D ALT 45 Alkaline Phosphatase 103 Total Protein 5.6 L Albumin 2.6 L Problem List - Problems (1) Leptomeningeal metastases Code(s): C79.49 - SECONDARY MALIGNANT NEOPLASM OF OTH PARTS OF NERVOUS SYSTEM (2) Lung cancer Code(s): C34.90 - MALIGNANT NEOPLASM OF UNSP PART OF UNSP BRONCHUS OR LUNG (3) Mass of left lung Code(s): R91.8 - OTHER NONSPECIFIC ABNORMAL FINDING OF LUNG FIELD (4) CAD (coronary artery disease) Code(s): I25.10 - ATHSCL HEART DISEASE OF [place] CORONARY ARTERY W/O ANG PCTRS Qualifiers: Coronary Disease-Associated Artery/Lesion type: [place] artery [place] vs. transplanted heart: [place] heart Associated angina: without angina Qualified Code(s): I25.10 - Atherosclerotic heart disease of [place] coronary artery without angina pectoris; I25.10 - Atherosclerotic heart disease of [place] coronary artery without angina pectoris; I25.10 - Atherosclerotic heart disease of [place] coronary artery without angina pectoris (5) Hyperglycemia due to type 2 diabetes mellitus Code(s): E11.65 - TYPE 2 DIABETES MELLITUS WITH HYPERGLYCEMIA Qualifiers: Diabetes mellitus [facility] insulin use: without [facility] use Qualified Code(s): E11.65 - Type 2 diabetes mellitus with hyperglycemia; E11.65 - Type 2 diabetes mellitus with hyperglycemia; E11.65 - Type 2 diabetes mellitus with hyperglycemia; E11.65 - Type 2 diabetes mellitus with hyperglycemia Assessment/Plan IMP METASTATIC LUNG CA SMALL CELL, LEPTOMENINGEAL METS/ BRAIN METS ASHD DM PLAN RT/CHEMO O2 NEEDED JASVIR Zheng
--- NOTE | 2017-07-03 16:01 | PN ---
Progress Note (short form) - Note Progress Note: Radiation Oncology RT to T-L spine started today. WBRT continued today. Tolerated both well. Cont decadron. Monitor CBC as he is receiving multiple RT hopkins which can be associated with cytopenias. Monitor neurologic function closely. Will cont RT as tolerated.
--- NOTE | 2017-07-03 20:18 | PN ---
Progress Note, Physician History of Present Illness: Pt c/o intermittent numbness on penis - Current Medication List Current Medications: Active Medications Albuterol/Ipratropium (Duoneb -) 1 amp NEB Q4H PRN PRN Reason: SHORTNESS OF BREATH Aspirin (Ecotrin -) 81 mg PO DAILY [facility] Last Admin: 07/03/17 09:07 Dose: 81 mg Atorvastatin Calcium (Lipitor -) 20 mg PO HS [facility] Last Admin: 07/02/17 22:34 Dose: 20 mg Dexamethasone (Decadron -) 6 mg PO Q6H [facility] Last Admin: 07/03/17 17:02 Dose: 6 mg Sodium Chloride (Normal Saline -) 1,000 mls @ 83 mls/hr IV ASDIR [facility] Last Admin: 07/03/17 05:42 Dose: 83 mls/hr Pantoprazole Sodium (Protonix -) 40 mg PO DAILY [facility] Last Admin: 07/03/17 09:07 Dose: 40 mg Tramadol HCl (Ultram -) 50 mg PO DAILY [facility] Last Admin: 07/03/17 09:07 Dose: 50 mg Zolpidem Tartrate (Ambien -) 5 mg PO HS PRN PRN Reason: INSOMNIA - Objective Vital Signs: Vital Signs Temperature 97.2 F L 07/03/17 19:50 Pulse Rate 77 07/03/17 19:50 Respiratory Rate 20 07/03/17 19:50 Blood Pressure 128/72 07/03/17 19:50 O2 Sat by Pulse Oximetry (%) 94 L 07/03/17 09:13 Constitutional: Yes: No Distress Neck: Yes: WNL, Supple Cardiovascular: Yes: WNL, Regular Rate and Rhythm Respiratory: Yes: WNL, Regular, CTA Bilaterally Gastrointestinal: Yes: WNL, Normal Bowel Sounds, Soft Labs: CBC, BMP 07/03/17 06:00 07/03/17 06:00 Problem List - Problems (1) Lung cancer Assessment/Plan: Small cell CA w/ mets to liver/spine/brain MRI brain showed extensive metastatic dz w/ edema MRI spine: intramedullary cord met/edema/leptomenigeal mets Cont decadron Elevated WBC due to steroids Pt receiving radiation Chemotx as per onco Code(s): C34.90 - MALIGNANT NEOPLASM OF UNSP PART OF UNSP BRONCHUS OR LUNG (2) Leptomeningeal metastases Assessment/Plan: RT Cont decadron Code(s): C79.49 - SECONDARY MALIGNANT NEOPLASM OF OTH PARTS OF NERVOUS SYSTEM (3) Lipidemia Assessment/Plan: Cont lipitor Code(s): E78.5 - HYPERLIPIDEMIA, UNSPECIFIED Qualifiers: Hyperlipidemia type: unspecified Qualified Code(s): E78.5 - Hyperlipidemia, unspecified; E78.5 - Hyperlipidemia, unspecified; E78.5 - Hyperlipidemia, unspecified
[2017-07-03] MEDS: traMADol HCL 50 MG TABLET PO PRN (22:28)
[2017-07-03] MEDS: ATORVASTATIN CA 20 MG TABLET (FP) PO SCH (22:33)
[2017-07-04] MEDS: DEXAMETHASONE 4 MG TABLET (FP) PO SCH ×4 (06:20→22:25)
[2017-07-04 07:15] LABS: MCH 28.8 pg (25.7-33.7); MCHC 32.4 g/dl (32.0-35.9); MEAN PLT VOLUME 7.8 fl (7.5-11.1); PLATELET COUNT 190 K/MM3 (134-434); RDW 15.1 % (11.9-15.9); WHITE BLOOD COUNT 15.8 K/mm3 (4.0-10.0)
[2017-07-04 08:21] LABS: ALBUMIN 2.5 g/dl (3.4-5.0); ANION GAP 8 (8-16); CALCIUM 8.3 mg/dL (8.5-10.1); CO2 28 mmol/L (21-32); GLUCOSE,RANDOM 103 mg/dL (74-106)
[2017-07-04 08:27] LABS: ALK PHOS 100 U/L (45-117); BILIRUBIN,TOTAL 0.5 mg/dL (0.2-1.0); CREATININE 0.9 mg/dL (0.7-1.3); SGOT/AST 25 U/L (15-37); SGPT/ALT 43 U/L (12-78); TOT PROT 5.2 g/dl (6.4-8.2)
[2017-07-04] MEDS: PANTOPRAZOLE 40 MG TABLET (FP) PO SCH (11:04)
[2017-07-04] MEDS: ASPIRIN COATED 81 MG TABLET.EC PO SCH (11:04)
--- NOTE | 2017-07-04 11:40 | PN ---
Progress Note (short form) - Note Progress Note: Patient seen and examined. condition unchanged, neurologically stable , feels that his voice is ?better. Tolerated the spine RT well yesterday General: sitting in chair HEENT: No LAD Cardiac: RRR Lungs: CTA b/l LE: no CCE Neuro: AAOX3. Imaging : MRI reports ( Thoracic/lumbar) reviewed, MR brain and cervical reports reviewed CBC, BMP 07/03/17 06:00 07/03/17 06:00 Current Medications Generic Name Dose Route Start Last Admin Trade Name Freq PRN Reason Stop Dose Admin Albuterol/Ipratropium 1 amp 06/29/17 15:58 Duoneb - NEB Q4H PRN SHORTNESS OF BREATH Aspirin 81 mg 06/29/17 10:00 07/03/17 09:07 Ecotrin - PO 81 mg DAILY [facility] Administration Atorvastatin Calcium 20 mg 06/28/17 22:00 07/02/17 22:34 Lipitor - PO 20 mg HS [facility] Administration Dexamethasone 6 mg 07/02/17 23:19 07/03/17 05:40 Decadron - PO 6 mg Q6H [facility] Administration Sodium Chloride 1,000 mls @ 83 mls/hr 06/29/17 16:00 07/03/17 05:42 Normal Saline - IV 83 mls/hr ASDIR [facility] Administration Pantoprazole Sodium 40 mg 06/29/17 10:00 07/03/17 09:07 Protonix - PO 40 mg DAILY [facility] Administration Tramadol HCl 50 mg 06/29/17 10:00 07/03/17 09:07 Ultram - PO 50 mg DAILY [facility] Administration Zolpidem Tartrate 5 mg 07/02/17 22:28 Ambien - PO HS PRN INSOMNIA Last Vital Signs Temp Pulse Resp BP Pulse Ox 97.9 F 99 H 18 108/70 96 07/03/17 09:44 07/03/17 09:44 07/03/17 09:44 07/03/17 09:44 07/03/17 04:00 71 year old pat (55 pack year smoking hx) now with new diagnosis of Extensive stage small cell lung origin ( liver mets, 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
--- NOTE | 2017-07-04 12:19 | PN ---
Progress Note (short form) - Note Progress Note: PULMONARY VSS/AFEBRILE LESS BACK PAIN ANICTERIC DIMINISHED BREATH SOUNDS S1S2 BS+ NO EDEMA LABS/MEDS/NOTES/IMAGES REVIEWED Assessment/Plan IMP METASTATIC LUNG CA SMALL CELL, LEPTOMENINGEAL METS/ BRAIN METS ASHD DM PLAN RT/CHEMO O2 NEEDED JASVIR PLAZA MD
--- NOTE | 2017-07-04 14:18 | PN ---
Progress Note (short form) - Note Progress Note: Radiation Oncology RT to T-L spine and whole brain received today, 8 and 7 fx remaining respectively. Tolerating RT. Cont decadron. Monitor CBC. Monitor neurologic function closely. Will cont RT as tolerated.
[2017-07-04] MEDS: traMADol HCL 50 MG TABLET PO PRN (18:46)
[2017-07-04] MEDS: ATORVASTATIN CA 20 MG TABLET (FP) PO SCH (21:00)
--- NOTE | 2017-07-04 22:42 | PN ---
Progress Note, Physician - Current Medication List Current Medications: Active Medications Aspirin (Ecotrin -) 81 mg PO DAILY [facility] Last Admin: 07/04/17 11:04 Dose: 81 mg Atorvastatin Calcium (Lipitor -) 20 mg PO HS [facility] Last Admin: 07/04/17 21:00 Dose: 20 mg Dexamethasone (Decadron -) 6 mg PO Q6H [facility] Last Admin: 07/04/17 22:25 Dose: 6 mg Pantoprazole Sodium (Protonix -) 40 mg PO DAILY [facility] Last Admin: 07/04/17 11:04 Dose: 40 mg Tramadol HCl (Ultram -) 50 mg PO Q12H [facility] Last Admin: 07/04/17 18:46 Dose: 50 mg Zolpidem Tartrate (Ambien -) 5 mg PO HS PRN PRN Reason: INSOMNIA Last Admin: 07/04/17 20:57 Dose: 5 mg - Objective Vital Signs: Vital Signs Temperature 98 F 07/04/17 17:00 Pulse Rate 64 07/04/17 17:00 Respiratory Rate 20 07/04/17 17:00 Blood Pressure 115/64 07/04/17 17:00 O2 Sat by Pulse Oximetry (%) 96 07/04/17 11:37 HENT: Yes: WNL Neck: Yes: WNL, Supple Cardiovascular: Yes: WNL, Regular Rate and Rhythm Respiratory: Yes: WNL, Regular, CTA Bilaterally Labs: CBC, BMP 07/04/17 06:00 07/04/17 06:00 Problem List - Problems (1) Lung cancer Assessment/Plan: Small cell CA w/ mets to liver/spine/brain MRI brain showed extensive metastatic dz w/ edema MRI spine: intramedullary cord met/edema/leptomenigeal mets Cont decadron Elevated WBC due to steroids Pt receiving radiation Chemotx as per onco Code(s): C34.90 - MALIGNANT NEOPLASM OF UNSP PART OF UNSP BRONCHUS OR LUNG (2) Leptomeningeal metastases Assessment/Plan: RT Cont decadron Code(s): C79.49 - SECONDARY MALIGNANT NEOPLASM OF OTH PARTS OF NERVOUS SYSTEM (3) Lipidemia Assessment/Plan: Cont lipitor Code(s): E78.5 - HYPERLIPIDEMIA, UNSPECIFIED Qualifiers: Hyperlipidemia type: unspecified Qualified Code(s): E78.5 - Hyperlipidemia, unspecified; E78.5 - Hyperlipidemia, unspecified; E78.5 - Hyperlipidemia, unspecified
[2017-07-05] MEDS: DEXAMETHASONE 4 MG TABLET (FP) PO SCH ×3 (05:39→18:06)
[2017-07-05 07:31] LABS: BASOPHIL 0.2 % (0-2.0); MCH 28.8 pg (25.7-33.7); MCHC 32.4 g/dl (32.0-35.9); MEAN CELL VOLUME 88.8 fl (80-96); MEAN PLT VOLUME 7.7 fl (7.5-11.1); NEUTROPHILS 93.2 % (42.8-82.8); PLATELET COUNT 202 K/MM3 (134-434); RDW 14.9 % (11.9-15.9); WHITE BLOOD COUNT 15.6 K/mm3 (4.0-10.0)
[2017-07-05 07:53] LABS: ALBUMIN 2.7 g/dl (3.4-5.0); ANION GAP 10 (8-16); CALCIUM 8.4 mg/dL (8.5-10.1); CO2 27 mmol/L (21-32); CREATININE 0.9 mg/dL (0.7-1.3); GLUCOSE,RANDOM 99 mg/dL (74-106); SGOT/AST 30 U/L (15-37); SGPT/ALT 48 U/L (12-78)
[2017-07-05 07:55] LABS: ALK PHOS 105 U/L (45-117); BILIRUBIN,TOTAL 0.5 mg/dL (0.2-1.0); TOT PROT 5.7 g/dl (6.4-8.2)
[2017-07-05] MEDS: ASPIRIN COATED 81 MG TABLET.EC PO SCH (09:19)
[2017-07-05] MEDS: PANTOPRAZOLE 40 MG TABLET (FP) PO SCH (09:19)
--- NOTE | 2017-07-05 09:32 | PN ---
Progress Note (short form) - Note Progress Note: Tolerating RT. No acute events overnight. No CP or SOB. Intake & Output 07/02/17 07/03/17 07/04/17 07/05/17 23:59 23:59 23:59 23:59 Intake Total 1513 1396 2032 400 Output Total 800 1400 Balance 713 1396 632 400 Last Vital Signs Temp Pulse Resp BP Pulse Ox 97.8 F 87 20 122/69 96 07/05/17 09:05 07/05/17 09:05 07/05/17 09:05 07/05/17 09:05 07/05/17 04:00 Active Medications Aspirin (Ecotrin -) 81 mg PO DAILY JAYDON Last Admin: 07/05/17 09:19 Dose: 81 mg Atorvastatin Calcium (Lipitor -) 20 mg PO HS [facility] Last Admin: 07/04/17 21:00 Dose: 20 mg Dexamethasone (Decadron -) 6 mg PO Q6H JAYDON Last Admin: 07/05/17 05:39 Dose: 6 mg Pantoprazole Sodium (Protonix -) 40 mg PO DAILY JAYDON Last Admin: 07/05/17 09:19 Dose: 40 mg Tramadol HCl (Ultram -) 50 mg PO Q12H PRN Last Admin: 07/04/17 18:46 Dose: 50 mg Zolpidem Tartrate (Ambien -) 5 mg PO HS PRN PRN Reason: INSOMNIA Last Admin: 07/04/17 20:57 Dose: 5 mg Constitutional: Yes: thin, NAD Eyes: Yes: WNL HENT: Yes: WNL Neck: Yes: WNL Cardiovascular: Yes: Regular Rate and Rhythm, S1, S2 Respiratory: Yes: CTA Bilaterally Gastrointestinal: Yes: Normal Bowel Sounds, Soft Extremities: Yes: WNL Edema: No Labs: Laboratory Results - last 24 hr 07/05/17 07/05/17 06:00 06:00 WBC 15.6 H RBC 4.45 Hgb 12.8 Hct 39.5 MCV 88.8 MCH 28.8 MCHC 32.4 RDW 14.9 Plt Count 202 MPV 7.7 Neutrophils % 93.2 H Lymphocytes % 1.7 L D Monocytes % 4.9 Eosinophils % 0.0 Basophils % 0.2 Sodium 134 L Potassium 4.3 Chloride 97 L Carbon Dioxide 27 Anion Gap 10 BUN 25 H D Creatinine 0.9 Creat Clearance w eGFR > 60 Random Glucose 99 Calcium 8.4 L Total Bilirubin 0.5 AST 30 ALT 48 Alkaline Phosphatase 105 Total Protein 5.7 L Albumin 2.7 L Problem List - Problems (1) Leptomeningeal metastases Code(s): C79.49 - SECONDARY MALIGNANT NEOPLASM OF OTH PARTS OF NERVOUS SYSTEM (2) Lung cancer Code(s): C34.90 - MALIGNANT NEOPLASM OF UNSP PART OF UNSP BRONCHUS OR LUNG (3) Mass of left lung Code(s): R91.8 - OTHER NONSPECIFIC ABNORMAL FINDING OF LUNG FIELD (4) CAD (coronary artery disease) Code(s): I25.10 - ATHSCL HEART DISEASE OF [place] CORONARY ARTERY W/O ANG PCTRS Qualifiers: Coronary Disease-Associated Artery/Lesion type: [place] artery [place] vs. 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
--- NOTE | 2017-07-05 13:05 | PN ---
Progress Note (short form) - Note Progress Note: Patient seen and examined. condition unchanged, neurologically stable , feels well. Denies any complains About to leave for RT General: sitting in chair HEENT: No LAD Cardiac: RRR Lungs: CTA b/l LE: no CCE Neuro: AAOX3. Imaging : MRI reports ( Thoracic/lumbar) reviewed, MR brain and cervical reports reviewed CBC, BMP 07/03/17 06:00 07/03/17 06:00 Current Medications Generic Name Dose Route Start Last Admin Trade Name Freq PRN Reason Stop Dose Admin Albuterol/Ipratropium 1 amp 06/29/17 15:58 Duoneb - NEB Q4H PRN SHORTNESS OF BREATH Aspirin 81 mg 06/29/17 10:00 07/03/17 09:07 Ecotrin - PO 81 mg DAILY JAYDON Administration Atorvastatin Calcium 20 mg 06/28/17 22:00 07/02/17 22:34 Lipitor - PO 20 mg HS JAYDON Administration Dexamethasone 6 mg 07/02/17 23:19 07/03/17 05:40 Decadron - PO 6 mg Q6H JAYDON Administration Sodium Chloride 1,000 mls @ 83 mls/hr 06/29/17 16:00 07/03/17 05:42 Normal Saline - IV 83 mls/hr ASDIR JAYDON Administration Pantoprazole Sodium 40 mg 06/29/17 10:00 07/03/17 09:07 Protonix - PO 40 mg DAILY JAYDON Administration Tramadol HCl 50 mg 06/29/17 10:00 07/03/17 09:07 Ultram - PO 50 mg DAILY JAYDON Administration Zolpidem Tartrate 5 mg 07/02/17 22:28 Ambien - PO HS PRN INSOMNIA Last Vital Signs Temp Pulse Resp BP Pulse Ox 97.9 F 99 H 18 108/70 96 07/03/17 09:44 07/03/17 09:44 07/03/17 09:44 07/03/17 09:44 07/03/17 04:00 71 year old pat (55 pack year smoking hx) now with new diagnosis of Extensive stage small cell lung origin ( liver mets, 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
--- NOTE | 2017-07-05 13:14 | PN ---
Progress Note (short form) - Note Progress Note: Radiation Oncology Denies h/a, nausea, GI or changes. Tolerating RT to T-L spine and whole brain, 7 and 6 fx remaining respectively. CBC stable. Cont decadron. Will cont RT.
[2017-07-05 14:07] VITALS: BP 109/69; PULSE 70; TEMP 97.5
== END 2017-07-05 18:59 | disposition home or self-care (01) | DRG 54 ==
LOC: JER 13:23 → INTOOBSV 16:04 → JERBED 16:04 → J7W 17:04 → OBSVTOIN 07-03 03:11
PROVIDERS: ADMIT Internal Medicine; ATTEND Internal Medicine
DX: C79.49 Secondary malignant neoplasm of other parts of nervous system (principal); G93.6 Cerebral edema; G95.19 Other vascular myelopathies; C34.92 Malignant neoplasm of unspecified part of left bronchus or lung; C79.31 Secondary malignant neoplasm of brain; C78.7 Secondary malignant neoplasm of liver and intrahepatic bile duct; C79.51 Secondary malignant neoplasm of bone; I25.10 Atherosclerotic heart disease of native coronary artery without angina pectoris; E78.5 Hyperlipidemia, unspecified; Z95.5 Presence of coronary angioplasty implant and graft; Z85.46 Personal history of malignant neoplasm of prostate; Z87.891 Personal history of nicotine dependence; R63.4 Abnormal weight loss; Z68.21 Body mass index [BMI] 21.0-21.9, adult; R13.19 Other dysphagia; G47.00 Insomnia, unspecified
CPT/HCPCS: 36415; 70553-TC; 72156-TC; 72157-TC; 72158-TC; 80053; 84153; 85025; 85027; 99283-25; G0378

== ENCOUNTER 2017-07-16 23:39 | Emergency (ER) | payer OTHER ==
[2017-07-17 01:04] VITALS: BP 111/65; PULSE 79; TEMP 98.7; BMI 26.6
[2017-07-17] MEDS ORDERED: SODIUM CHLORIDE 1,000 ML IV STA (01:43)
[2017-07-17] MEDS ORDERED: PANTOPRAZOLE SODIUM 40 MG VIAL IVPB ONE (01:43)
--- NOTE | 2017-07-17 01:43 | PDOC ---
History of Present Illness - General History Source: Patient Exam Limitations: No Limitations - History of Present Illness Initial Comments: 07/17/17 01:56 The patient is a 71 year old male, with a significant past medical history of HTN, HLD, CAD (s/p cardiac stents), GERD and prostate cancer, Small Cell CA lung w/ metastasis to liver prostate cancer, Kidney stones who presents to the emergency department with generalized weakness. Patient reports radiation therapy today and since then has been feeling increasingly weak. Patient also reports burning, epigastric discomfort. Patient was sent into the ED by his Oncologist for further evaluation. He denies headache or dizziness. He denies fever, chills, nausea, vomit, diarrhea or constipation. He denies dysuria, frequency, urgency or hematuria. Patient denies sick contacts or recent travel. <Xochitl Alonzo - Last Filed: 07/17/17 02:06> <Esthela Live - Last Filed: 07/18/17 01:45> - General Chief Complaint: Weakness Stated Complaint: WEAKNESS Time Seen by Provider: 07/16/17 23:54 Past History <Xochitl Alonzo - Last Filed: 07/17/17 02:06> - Past Medical History Cancer: Yes (prostate) Cardiac Disorders: Yes (stent placement X 1) Hypercholesterolemia: Yes Kidney Stones: Yes - Immunization History Immunization Up to Date: Yes - Suicide/Smoking/Psychosocial Hx Smoking History: Unknown if ever smoked Have you smoked in the past 12 months: No Number of Cigarettes Smoked Daily: 0 If you are a former smoker, when did you quit?: unk Information on smoking cessation initiated: No 'Breaking Loose' booklet given: 03/11/16 Hx Alcohol Use: No Drug/Substance Use Hx: No Substance Use Type: None Hx Substance Use Treatment: No <Esthela Live - Last Filed: 07/18/17 01:45> - Past Medical History Allergies/Adverse Reactions: Allergies Allergy/AdvReac Type Severity Reaction Status Date / Time No Known Allergies Allergy Verified 07/17/17 01:01 Home Medications: Ambulatory Orders Tramadol HCl 50 mg PO Q8H PRN 06/18/17 Aspirin [Aspirin EC] 81 mg PO DAILY 06/22/17 Pantoprazole Sodium [Protonix -] 40 mg PO DAILY #30 tab 06/27/17 Dexamethasone [Decadron -] 4 mg PO Q6H 07/17/17 Fluconazole [Diflucan -] 10 mg PO DAILY 07/17/17 Review of Systems - Review of Systems Able to Perform ROS?: Yes Comments:: 07/17/17 01:56 CONSTITUTIONAL: +generalized weakness. Absent: fever, chills, diaphoresis, malaise, loss of appetite HEENT: Absent: rhinorrhea, nasal congestion, throat pain, throat swelling, difficulty swallowing, mouth swelling, ear pain, eye pain, visual Changes CARDIOVASCULAR: Absent: chest pain, syncope, palpitations, irregular heart rate, lightheadedness , peripheral edema RESPIRATORY: Absent: cough, shortness of breath, dyspnea with exertion, orthopnea, wheezing, stridor, hemoptysis GASTROINTESTINAL: +epigastric abdominal pain. Absent: abdominal distension, nausea, vomiting, diarrhea, constipation, melena, hematochezia GENITOURINARY: Absent: dysuria, frequency, urgency, hesitancy, hematuria, flank pain, genital pain MUSCULOSKELETAL: Absent: myalgia, arthralgia, joint swelling SKIN: Absent: rash, itching, pallor HEMATOLOGIC/IMMUNOLOGIC: Absent: easy bleeding, easy bruising, lymphadenopathy, frequent infections ENDOCRINE: Absent: unexplained weight gain, unexplained weight loss, heat intolerance, cold intolerance NEUROLOGIC: Absent: headache, focal weakness or paresthesias, dizziness, unsteady gait, seizure, mental status changes, bladder or bowel incontinence PSYCHIATRIC: Absent: anxiety, depression, suicidal or homicidal ideation, hallucinations. <Xochitl Alonzo - Last Filed: 07/17/17 02:06> *Physical Exam - Vital Signs Last Vital Signs Temp Pulse Resp BP Pulse Ox 98.7 F 79 16 111/65 92 L 07/17/17 01:01 07/17/17 01:01 07/17/17 01:01 07/17/17 01:01 07/17/17 01:01 - Physical Exam Comments: 07/17/17 01:56 GENERAL: Well developed, well nourished. Awake and alert. No acute distress. +slightly anxious. +Hyperventilating upon evaluation. HEENT: Normocephalic, atraumatic. PERRLA, EOMI. No conjunctival pallor. Sclera are non- icteric. +Dry mucous membranes. Oropharynx is clear. NECK: Supple. Full ROM. No JVD. Carotid pulses 2+ and symmetric, without bruits. No thyromegaly. No lymphadenopathy. CARDIOVASCULAR: Regular rate and rhythm. No murmurs, rubs, or gallops. Distal pulses are 2+ and symmetric. PULMONARY: No evidence of respiratory distress. Lungs clear to auscultation bilaterally. No wheezing, rales or rhonchi. ABDOMINAL: Soft. Non-tender. Non-distended. No rebound or guarding. No organomegaly. Normoactive bowel sounds. MUSCULOSKELETAL Normal range of motion at all joints. No bony deformities or tenderness. No CVA tenderness. EXTREMITIES: No cyanosis. No clubbing. No edema. No calf tenderness. SKIN: Warm and dry. Normal capillary refill. No rashes. No jaundice. NEUROLOGICAL: Alert, awake, appropriate. Cranial nerves 2-12 intact. No deficits to light touch and temperature in face, upper extremities and lower extremities. No motor deficits in the in face, upper extremities and lower extremities. Normoreflexic in the upper and lower extremities. Normal speech. Toes are down-going bilaterally. Gait deferred. PSYCHIATRIC: Cooperative. Good eye contact. Appropriate mood and affect. <Xochitl Alonzo - Last Filed: 07/17/17 02:06> - Vital Signs Last Vital Signs Temp Pulse Resp BP Pulse Ox 98.7 F 79 16 111/65 92 L 07/17/17 01:01 07/17/17 01:01 07/17/17 01:01 07/17/17 01:01 07/17/17 01:01 <Esthela Live - Last Filed: 07/18/17 01:45> ED Treatment Course - LABORATORY CBC & Chemistry Diagram: 07/17/17 01:56 07/17/17 01:56 <Xochitl Alonzo - Last Filed: 07/17/17 02:06> - LABORATORY CBC & Chemistry Diagram: 07/17/17 03:55 07/17/17 01:56 <Esthela Live - Last Filed: 07/18/17 01:45> *DC/Admit/Observation/Transfer - Attestations Scribe Attestion: 07/17/17 01:56 Documentation prepared by Xochitl Alonzo, acting as medical cost consultant for Esthela Live MD. <Xochitl Alonzo - Last Filed: 07/17/17 02:06> <Esthela Live - Last Filed: 07/18/17 01:45> Diagnosis at time of Disposition: Epigastric abdominal pain - Discharge Dispostion Disposition: HOME Condition at time of disposition: Stable - Referrals Referrals: Markell Bella MD [Primary Care Provider] - - Patient Instructions Printed Discharge Instructions: DI for Epigastric Pain Additional Instructions: Please see Dr. Aguilera within 1 week. Return to the emergency department immediately for any new or concerning symptoms or if your symptoms get worse. Thank you for coming to the Emergency Department today for your care. It was a pleasure to see you today. Please note that your evaluation is INCOMPLETE until you follow-up with your doctor.
[2017-07-17] MEDS ORDERED: MAG HYDROX/AL HYDROX/SIMETH 355 ML ORAL.SUSP PO ONE (02:03)
[2017-07-17] MEDS ORDERED: MAG HYDROX/AL HYDROX/SIMETH 30 ML UNIT-DOSE CUP ONE (02:10)
[2017-07-17] MEDS ORDERED: PANTOPRAZOLE SODIUM 100 ML IVPB ONE (02:10)
[2017-07-17 02:28] LABS: ALBUMIN 2.5 g/dl (3.4-5.0); ALK PHOS 69 U/L (45-117); ANION GAP 13 (8-16); BILIRUBIN,TOTAL 0.8 mg/dL (0.2-1.0); CALCIUM 7.8 mg/dL (8.5-10.1); CO2 20 mmol/L (21-32); CREATININE 0.7 mg/dL (0.7-1.3); GLUCOSE,RANDOM 124 mg/dL (74-106); SGOT/AST 24 U/L (15-37); SGPT/ALT 38 U/L (12-78); TOT PROT 5.3 g/dl (6.4-8.2)
[2017-07-17 02:37] LABS: TROPONIN I 0.04 ng/ml (0.00-0.05)
[2017-07-17 04:07] LABS: BASOPHIL 0.7 % (0-2.0); EOSINOPHIL 0.1 % (0-4.5); MCH 29.7 pg (25.7-33.7); MCHC 34.2 g/dl (32.0-35.9); MEAN CELL VOLUME 86.8 fl (80-96); WHITE BLOOD COUNT 3.7 K/mm3 (4.0-10.0)
[2017-07-17 05:19] LABS: MEAN PLT VOLUME 7.3 fl (7.5-11.1)
[2017-07-17 05:20] LABS: PLATELET COUNT 78 K/MM3 (134-434)
--- NOTE | 2017-07-17 06:01 | PDOC ---
*Physical Exam - Vital Signs Last Vital Signs Temp Pulse Resp BP Pulse Ox 98.7 F 79 16 111/65 92 L 07/17/17 01:01 07/17/17 01:01 07/17/17 01:01 07/17/17 01:01 07/17/17 01:01 ED Treatment Course - LABORATORY CBC & Chemistry Diagram: 07/17/17 03:55 07/17/17 01:56 - ADDITIONAL ORDERS Additional order review: Laboratory Results 07/17/17 07/17/17 01:56 01:56 Sodium 131 L Potassium 4.4 Chloride 98 Carbon Dioxide 20 L D Anion Gap 13 BUN 22 H Creatinine 0.7 D Creat Clearance w eGFR > 60 Random Glucose 124 H D Calcium 7.8 L Total Bilirubin 0.8 D AST 24 ALT 38 D Alkaline Phosphatase 69 D Creatine Kinase 72 Troponin I 0.04 D Total Protein 5.3 L Albumin 2.5 L Lipase 123 07/17/17 07/17/17 03:55 01:56 RBC 4.37 Cancelled MCV 86.8 Cancelled MCHC 34.2 Cancelled RDW 15.0 Cancelled MPV 7.3 L Cancelled Neutrophils % 98.0 H Cancelled Lymphocytes % 0.9 L Cancelled Monocytes % 0.3 L D Cancelled Eosinophils % 0.1 D Cancelled Basophils % 0.7 D Cancelled - Medications Given in the ED: ED Medications Discontinued Medications Generic Name Dose Route Start Last Admin Trade Name Freq PRN Reason Stop Dose Admin Al Hydroxide/Mg Hydroxide 30 ml 07/17/17 02:03 07/17/17 02:18 Mylanta Suspension - PO 07/17/17 02:04 30 ml ONCE ONE Administration Sodium Chloride 1,000 mls @ 1,000 mls/hr 07/17/17 01:43 07/17/17 02:18 Normal Saline - IV 07/17/17 02:42 1,000 mls/hr ASDIR STA Administration Pantoprazole Sodium 40 mg 07/17/17 01:43 07/17/17 02:18 Protonix Iv IVPB 07/17/17 01:44 40 mg ONCE ONE Administration Medical Decision Making - Medical Decision Making 07/17/17 06:00 Patient signed out to me by Dr. Live, pending follow-up of labs and UA to evaluate for generalized weakness. Labs and UA unremarkable. Pt feels improved, requests to go home. Partner will call Dr. Aguilera today for follow up. I discussed the physical exam findings, ancillary test results and final diagnoses with the patient. I answered all of the patient's questions. The patient was satisfied with the care received and felt comfortable with the discharge plan and treatment plan. The patient will call their primary care physician within 24 hours to arrange follow-up and will return to the Emergency Department with any new, persistent or worsening symptoms. *DC/Admit/Observation/Transfer Diagnosis at time of Disposition: Epigastric pain - Discharge Dispostion Disposition: HOME Condition at time of disposition: Stable Admit: No - Referrals Referrals: Markell Bella MD [Primary Care Provider] - - Patient Instructions - Post Discharge Activity - Attestations Physician Attestion: 07/17/17 06:20 I, Dr. Lisa Pantoja MD, attest that this document has been prepared under my direction and personally reviewed by me in its entirety. I further attest, that it accurately reflects all work, treatment, procedures and medical decision -making performed by me.
[2017-07-17 06:23] LABS: URINE APPEARANCE CLEAR; URINE BILIRUBIN NEGATIVE (NEGATIVE); URINE BLOOD NEGATIVE (NEGATIVE); URINE COLOR LTYELLOW; URINE GLUCOSE (UA) NEGATIVE (NEGATIVE); URINE KETONE NEGATIVE (NEGATIVE); URINE NITRITE NEGATIVE (NEGATIVE); URINE PROTEIN NEGATIVE (NEGATIVE); URINE UROBILINOGEN NEGATIVE mg/dL (0.2-1.0)
[2017-07-17 11:47] LABS: URINE LEUK ESTERASE Negative (NEGATIVE)
--- NOTE | 2017-07-17 20:05 | EKG ---
Test Reason : Blood Pressure : / mmHG Vent. Rate : 077 BPM Atrial Rate : 077 BPM P-R Int : 108 ms QRS Dur : 088 ms QT Int : 360 ms P-R-T Axes : 061 058 065 degrees QTc Int : 407 ms SINUS RHYTHM WITH SHORT MS WITH SINUS ARRTHYMIA AND RARE APCS ATRIAL ABNORMALITY MODERATE VOLTAGE CRITERIA FOR LVH, MAY BE NORMAL VARIANT BORDERLINE ECG WHEN COMPARED WITH ECG OF 20-JUN-2017 16:23, PREMATURE ATRIAL COMPLEXES ARE NOW PRESENT MS INTERVAL HAS DECREASED REPEAT EKG IF CLINICALLY INDICATED Confirmed by TOVA PETIT MD ([id number]) on 07/17/2017 8:04:48 PM Referred By: Confirmed By:TOVA PETIT MD
== END 2017-07-17 06:59 | disposition home or self-care (01) ==
LOC: JER 23:39
PROC: 3E033GC Introduction of Other Therapeutic Substance into Peripheral Vein, Percutaneous Approach (ICD-10-PCS; principal; 2017-07-16)
DX: R10.13 Epigastric pain (principal); I25.10 Atherosclerotic heart disease of native coronary artery without angina pectoris; I10 Essential (primary) hypertension; Z95.5 Presence of coronary angioplasty implant and graft; K21.9 Gastro-esophageal reflux disease without esophagitis; Z85.46 Personal history of malignant neoplasm of prostate; Z85.110 Personal history of malignant carcinoid tumor of bronchus and lung; Z85.05 Personal history of malignant neoplasm of liver; Z87.442 Personal history of urinary calculi
CPT/HCPCS: 36415; 71010-TC; 80053; 81003; 82550; 83690; 84484; 85025; 93005; 93010; 96374; 99283-25

== ENCOUNTER 2017-07-29 22:41 | Inpatient (IN) | payer OTHER ==
[2017-07-29 23:34] LABS: VENOUS PH 7.41 (7.32-7.42)
[2017-07-29 23:35] LABS: VENOUS BLOOD GAS HCO3 22.2 meq/L (19-25)
[2017-07-29 23:45] LABS: INR 1.12 (0.82-1.09); MCH 29.5 pg (25.7-33.7); MCHC 33.6 g/dl (32.0-35.9); MEAN CELL VOLUME 87.9 fl (80-96); MEAN PLT VOLUME 8.8 fl (7.5-11.1); PLATELET COUNT 103 K/MM3 (134-434); PROTHROMBIN TIME (PATIENT) 12.7 SEC (9.98-11.88); RDW 16.2 % (11.9-15.9)
[2017-07-29 23:56] LABS: WHITE BLOOD COUNT 0.6 K/mm3 (4.0-10.0)
[2017-07-30 00:14] LABS: ALBUMIN 2.1 g/dl (3.4-5.0); ANION GAP 16 (8-16); BILIRUBIN,TOTAL 0.4 mg/dL (0.2-1.0); CALCIUM 7.9 mg/dL (8.5-10.1); CO2 19 mmol/L (21-32); GLUCOSE,RANDOM 206 mg/dL (74-106); SGPT/ALT 44 U/L (12-78)
--- NOTE | 2017-07-30 00:15 | PDOC ---
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 She denies any fever at home but does report that he has chills and that he did lose a lot of weight starting after "the first half of his radiation therapy." PAST MEDICAL HISTORY: as per HPI FAMILY HISTORY: mother-stroke SOCIAL HISTORY: 1 pack daily smoking hx x 50+ years SURGICAL HISTORY: hernia repair, cardiac stents ALLERGIES: No known drug allergies REVIEW OF SYSTEMS (per girlfriend @ bedside) General/Constitutional: Chills, denies fever. Significant weight loss over the past month. HEENT: Denies change in vision. Denies ear pain or discharge. Denies sore throat. Cardiovascular: Denies chest pain. Respiratory: Cough x "a few days", shortness of breath. Gastrointestinal: Denies nausea, vomiting, diarrhea or constipation. Denies rectal bleeding. Genitourinary: Denies dysuria, frequency, or change in urination. Musculoskeletal: Denies joint or muscle swelling or pain. Denies neck or back pain. Skin: "He has this redness to his lower back." Neurologic: Denies headache, vertigo, loss of consciousness, or loss of sensation. PHYSICAL EXAM General Appearance: Cachectic, pale, weak-appearing. HEENT: EOMI, PERRLA. Neck: Supple. Trachea midline. No tenderness, rigidity, carotid bruit, stridor , lymphadenopathy, or thyromegaly. Respiratory/Chest: Crackles to R upper lobe, diminished lung sounds to left lobe. Shortness of breath, increased work of breathing. Cardiovascular: Tachycardic to 150s. RRR. S1, S2. Gastrointestinal/Abdominal: Normal bowel sounds. Abdomen soft, non-distended. No tenderness or rebound tenderness. No organomegaly, pulsatile mass, guarding, hernia, hepatomegaly, splenomegaly. Musculoskeletal/Extremities: Normal inspection. FROM of all extremities, normal capillary refill. Pelvis Stable. No CVA tenderness. No tenderness to extremities, pedal edema, swelling, erythema or deformity. Integumentary: Erythematous patches of desquamation secondary to radiation to lower back/sacrum. Neurologic: Alert and oriented but verbally unresponsive secondary to resp distress. Appropriate mood/affect. Decreased strength to upper and lower extremities. No appreciable EOM palsy, facial droop or sensory deficit. Past History - Past Medical History Allergies/Adverse Reactions: Allergies Allergy/AdvReac Type Severity Reaction Status Date / Time No Known Allergies Allergy Verified 07/29/17 22:50 Home Medications: Ambulatory Orders Tramadol HCl 50 mg PO Q8H PRN 06/18/17 Dexamethasone [Decadron -] 4 mg PO Q6H 07/17/17 Lorazepam 0.5 mg PO DAILY 07/30/17 Cancer: Yes (prostate) Cardiac Disorders: Yes (stent placement X 1) COPD: No Hypercholesterolemia: Yes Kidney Stones: Yes - Immunization History Immunization Up to Date: Yes - Suicide/Smoking/Psychosocial Hx Smoking History: Unknown if ever smoked Have you smoked in the past 12 months: No Number of Cigarettes Smoked Daily: 0 If you are a former smoker, when did you quit?: unk Information on smoking cessation initiated: No 'Breaking Loose' booklet given: 03/11/16 Hx Alcohol Use: No Drug/Substance Use Hx: No Substance Use Type: None Hx Substance Use Treatment: No *Physical Exam - Vital Signs Last Vital Signs Temp Pulse Resp BP Pulse Ox 102.0 F H 153 H 26 H 155/61 89 L 07/29/17 23:52 07/30/17 00:03 07/29/17 23:52 07/29/17 23:52 07/29/17 23:52 ED Treatment Course - LABORATORY CBC & Chemistry Diagram: 07/30/17 07:56 07/30/17 20:00 - ADDITIONAL ORDERS Additional order review: Laboratory Results 07/29/17 07/29/17 07/29/17 23:25 23:25 23:12 WBC 0.6 L* D RBC 4.51 Hgb 13.3 Hct 39.7 MCV 87.9 MCH 29.5 MCHC 33.6 RDW 16.2 H Plt Count 103 L D MPV 8.8 D Neutrophils % No Result Required. Lymphocytes % No Result Required. VBG pH 7.41 POC VBG pCO2 35.9 L POC VBG pO2 38.9 Mixed VBG HCO3 22.2 Creatine Kinase Cancelled Troponin I Cancelled 07/29/17 23:12 RBC 4.51 MCV 87.9 MCHC 33.6 RDW 16.2 H MPV 8.8 D Neutrophils % No Result Required. Lymphocytes % No Result Required. - RADIOLOGY Radiology Studies Ordered: Category Date Time Status CHEST - PA [RAD] Stat Radiology 07/29/17 22:57 Taken Medical Decision Making - Medical Decision Making 07/30/17 00:21 72 yo M with significant PMH of HTN, HLD, CAD (s/p cardiac stents), GERD and prostate cancer, kidney stones, and recently diagnosed small cell lung cancer w / metastasis to liver, who presents to the emergency department with cough x "a few days" and shortness of breath since "around 4-5 hours ago, this evening." VS on arrival remarkable for pulse of 152, O2 sat 77%, RR 26. O2 with NC placed on arrival. -CBC, CMP, lactic acid, PT/INR, blood cx, BNP, card profile, T&S -UA, Ucx -CXR -Tylenol IVPB Patient O2 sat still 80% after 6L O2 on NC, placed on non rebreather. Patient O2 sat unable to improve past mid-80s on nonrebreather. Bipap ordered. Rectal temp 102.2F, patient continues to be tach to 150s. CXR unchanged from prior of 07/17/17, left upper lobe mass unchanged. 07/30/17 01:18 Laboratory Tests 07/29/17 07/29/17 07/29/17 23:12 23:12 23:15 WBC 0.6 L* D RDW 16.2 H Plt Count 103 L D PT with INR 12.70 H POC VBG pCO2 Sodium Chloride Carbon Dioxide Lactic Acid 4.6 H* B-Natriuretic Peptide 07/29/17 07/29/17 07/29/17 23:25 23:25 23:25 WBC RDW Plt Count PT with INR POC VBG pCO2 35.9 L Sodium 132 L Chloride 97 L Carbon Dioxide 19 L Lactic Acid B-Natriuretic Peptide 521.88 H Patient septic with WBC of 0.6, lactic acid 4.6. Will order IVF, Vanc + Zosyn for broad spectrum coverage. Patient still febrile to 101.8F s/p administration of Tylenol. Ibuprofen IV ordered. Ulcers to sacrum redressed with allevyn and Telfa dressing. Discussed case with admitting PCP Willy who agrees to admit patient to ICU for for inpatient services. Consults placed for pulm, radiation onc. Patient is full code. Discussed case with ICU OUTPATIENT INTERVIEWING CLERK Rafat, who accepts patient to ICU admission. *DC/Admit/Observation/Transfer Diagnosis at time of Disposition: Leptomeningeal metastases, Sepsis, Lung cancer - Discharge Dispostion Admit: Yes
[2017-07-30 00:17] LABS: ALK PHOS 81 U/L (45-117); TOT PROT 6.1 g/dl (6.4-8.2); TROPONIN I 0.04 ng/ml (0.00-0.05)
[2017-07-30 00:19] LABS: CPK 157 IU/L (39-308); SGOT/AST 46 U/L (15-37)
[2017-07-30] MEDS ORDERED: ACETAMINOPHEN 1000 MG/100 ML VIAL (NON FORMULARY) IVPB ONE (00:25)
[2017-07-30 00:55] LABS: ACTIVATED PTT 17.6 SECONDS (26.9-34.4)
[2017-07-30 00:57] LABS: URINE APPEARANCE CLEAR; URINE BILIRUBIN NEGATIVE (NEGATIVE); URINE BLOOD NEGATIVE (NEGATIVE); URINE COLOR AMBER; URINE GLUCOSE (UA) NEGATIVE (NEGATIVE); URINE KETONE NEGATIVE (NEGATIVE); URINE NITRITE NEGATIVE (NEGATIVE); URINE PROTEIN NEGATIVE (NEGATIVE); URINE UROBILINOGEN 4.0 E.U/dl mg/dL (0.2-1.0)
[2017-07-30] MEDS ORDERED: VANCOMYCIN 1,000 MG in DEXTROSE 5%-WATER - 250 ML IVPB ONE (01:12)
[2017-07-30] MEDS ORDERED: PIPERACILLIN/TAZOB 3.375 GM/50 ML PRE-DOCKED IVPB ONE (01:14)
[2017-07-30] MEDS ORDERED: VANCOMYCIN 1 GRAM (PRE-DOCKED) 250 ML IVPB ONE (01:17)
[2017-07-30] MEDS ORDERED: PIPERACILLIN/TAZOB 3.375 GM 50 ML IVPB ONE (01:18)
[2017-07-30] MEDS ORDERED: SODIUM CHLORIDE 0.9% 1000 ML INFUS.BAG IV ONE ×2 (01:34→20:26)
[2017-07-30] MEDS ORDERED: IBUPROFEN 800 MG/8 ML IJ IVPB ONE ×2 (01:52→02:51)
[2017-07-30 02:45] LABS: METAMYELOCYTE 5 % (0-2); NUCLEATED RED BLOOD CELL 9 % (0-0); PLATELET COMMENT2 NO CLOTTING DETECTED; PLATELET COMMENT3 FEW LARGE PLTS; PLATELET ESTIMATE DECREASED (NORMAL)
[2017-07-30 02:47] LABS: TOXIC GRANULATION 1+
[2017-07-30] MEDS ORDERED: traMADol HCL 50 MG TABLET PO PRN (04:41)
[2017-07-30] MEDS ORDERED: DEXTROSE 5%-0.45% SALINE 1,000 ML IV SCH (04:45)
[2017-07-30] MEDS ORDERED: ALBUTEROL SO4 2.5/IPRATROPIUM 0.5 INH SOL 3 ML VIAL.NEB. NEB PRN (04:47)
[2017-07-30] MEDS: DEXAMETHASONE 4 MG TABLET (FP) PO SCH ×3 (06:11→20:41)
[2017-07-30] MEDS ORDERED: DEXAMETHASONE SOD PHOSPHATE 4 MG/1 ML VIAL IVPUSH ONE (06:11)
[2017-07-30] MEDS ORDERED: DEXAMETHASONE SOD PHOSPHATE 4 MG/1 ML VIAL ONE ×2 (06:12→12:26)
[2017-07-30 08:26] LABS: MCH 29.4 pg (25.7-33.7); MCHC 33.2 g/dl (32.0-35.9); MEAN CELL VOLUME 88.5 fl (80-96); MEAN PLT VOLUME 7.9 fl (7.5-11.1); PLATELET COUNT 65 K/MM3 (134-434); RDW 15.9 % (11.9-15.9)
[2017-07-30] MEDS ORDERED: ALPRAZolam 0.25 MG TABLET PO ONE (08:44)
[2017-07-30] MEDS ORDERED: LORazepam 0.5 MG TABLET PO ONE (08:59)
[2017-07-30] MEDS ORDERED: LORazepam 0.5 MG TABLET ONE (09:00)
[2017-07-30 09:30] LABS: ALBUMIN 1.8 g/dl (3.4-5.0); ANION GAP 11 (8-16); CALCIUM 7.6 mg/dL (8.5-10.1); CO2 22 mmol/L (21-32); GLUCOSE,RANDOM 164 mg/dL (74-106)
[2017-07-30 09:31] LABS: SGPT/ALT 38 U/L (12-78)
[2017-07-30 09:34] LABS: ALK PHOS 70 U/L (45-117); BILIRUBIN,TOTAL 0.3 mg/dL (0.2-1.0); SGOT/AST 41 U/L (15-37); TOT PROT 5.1 g/dl (6.4-8.2)
[2017-07-30] MEDS ORDERED: PIPERACILLIN/TAZOB 3.375 GM 3.375 GM in DEXTROSE 5%-WATER - 50 ML IVPB ONE (10:00)
[2017-07-30] MEDS ORDERED: PANTOPRAZOLE 40 MG TABLET (FP) ONE (10:17)
[2017-07-30] MEDS ORDERED: ASPIRIN COATED 81 MG TABLET.EC ONE (10:18)
[2017-07-30] MEDS: PANTOPRAZOLE 40 MG TABLET (FP) PO SCH (10:23)
[2017-07-30] MEDS: ASPIRIN COATED 81 MG TABLET.EC PO SCH (10:23)
--- NOTE | 2017-07-30 10:45 | CONSULT ---
Consultation: REQUESTING PROVIDER: CONSULT REQUEST: We have been asked to medically evaluate this patient for ( specify). HISTORY OF PRESENT ILLNESS: 72 yo M with significant PMH of HTN, HLD, CAD (s/p cardiac stents), GERD and prostate cancer, kidney stones, and recently diagnosed small cell lung cancer w / metastasis to liver,bone and brain who presents to the emergency department with cough for "a few days" and shortness of breath since "around 4-5 hours ago , this evening." Patient's girlfriend is at bedside and states that his last radiation therapy was "two weeks ago tomorrow." Girlfriend reports that patient was prescribed "some medicine to make him cough up stuff, and his coughing has gotten worse since." Patient is alert and awake but not answering questions secondary to shortness of breath and weakness; girlfriend is answering questions for him. She denies any fever at home but does report that he has chills and that he did lose a lot of weight starting after "the first half of his radiation therapy." Patient denies any N/V/D/C, he denies abdominal pain or urinary symptoms. Patient has a history of smoking one Pack/55 years. he denies alcohol or illicit drug use. He has been to [facility] 2 months ago. he denies sick contact. 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 REVIEW OF SYSTEMS: CONSTITUTIONAL: Absent: fever, +chills, diaphoresis, generalized weakness Lower Ext > upper ext , malaise, loss of appetite, weight change HEENT: Absent: rhinorrhea, nasal congestion, throat pain, throat swelling, difficulty swallowing, mouth swelling, ear pain, eye pain, visual changes CARDIOVASCULAR: Absent: chest pain, syncope, palpitations, irregular heart rate, lightheadedness , peripheral edema RESPIRATORY: Absent: +Cough,shortness of breath , dyspnea with exertion, orthopnea, wheezing , stridor, hemoptysis GASTROINTESTINAL: Absent: abdominal pain, abdominal distension, nausea, vomiting, diarrhea, constipation, melena, hematochezia GENITOURINARY: Absent: dysuria, frequency, urgency, hesitancy, hematuria, flank pain, genital pain MUSCULOSKELETAL: Absent: myalgia, arthralgia, joint swelling, back pain, neck pain SKIN: Absent: rash, itching, pallor HEMATOLOGIC/IMMUNOLOGIC: Absent: easy bleeding, easy bruising, lymphadenopathy, frequent infections ENDOCRINE: Absent: unexplained weight gain, +unexplained weight loss, heat intolerance, cold intolerance NEUROLOGIC: Absent: headache, focal weakness or paresthesias, dizziness, unsteady gait, seizure, mental status changes, bladder or bowel incontinence PSYCHIATRIC: Absent: anxiety, depression, suicidal or homicidal ideation, hallucinations. PHYSICAL EXAMINATION Vital Signs - 24 hr 07/30/17 07/30/17 07/30/17 01:30 02:49 03:30 Temperature 101.8 F H Pulse Rate [ 137 H 122 H 83 Left Radial] Respiratory 34 H 32 H 32 H Rate Blood Pressure 85/66 109/69 109/69 [Left Arm] O2 Sat by Pulse 98 94 L 98 Oximetry (%) 07/30/17 07/30/17 07/30/17 04:05 05:00 06:17 Temperature Pulse Rate [ 127 H 79 117 H Left Radial] Respiratory 30 H 34 H 34 H Rate Blood Pressure 102/73 92/71 89/77 [Left Arm] O2 Sat by Pulse 95 92 L 94 L Oximetry (%) 07/30/17 07/30/17 07/30/17 06:52 07:00 07:05 Temperature 99.2 F Pulse Rate [ 125 H Left Radial] Respiratory 32 H Rate Blood Pressure 93/72 [Left Arm] O2 Sat by Pulse 92 L 92 L Oximetry (%) 07/30/17 07/30/17 08:37 09:57 Temperature 99.0 F Pulse Rate [ 130 H 135 H Left Radial] Respiratory 40 H 40 H Rate Blood Pressure 99/84 118/82 [Left Arm] O2 Sat by Pulse 91 L 85 L Oximetry (%) GENERAL: Awake, alert, and fully oriented, in sever respiratory distress, catchetic, poor appearing. HEAD: Normal with no signs of trauma. EYES: conjunctiva clear. EARS, NOSE, THROAT: dry mucous membranes. LUNGS: Diminished breath. No wheezes, and no crackles. No accessory muscle use. HEART:Distant heart sound, without murmur, rub or gallop. ABDOMEN: Soft, nontender, not distended, normoactive bowel sounds, LOWER EXTREMITIES: warm, well-perfused. No calf tenderness. No peripheral edema. NEUROLOGICAL: No focal deficit, Normal speech. gait not observed. Laboratory Results - last 24 hr 07/30/17 07/30/1707/30/17 03:50 07:56 07:56 WBC 0.2 L* D RBC 4.37 Hgb 12.9 Hct 38.7 MCV 88.5 MCH 29.4 MCHC 33.2 RDW 15.9 Plt Count 65 L D MPV 7.9 D Neutrophils % No Result Required. Lymphocytes % No Result Required. Sodium 135 L Potassium 3.7 D Chloride 102 Carbon Dioxide 22 Anion Gap 11 BUN 20 H Creatinine 1.0 Creat Clearance w eGFR > 60 Random Glucose 164 H D Lactic Acid 3.3 H* Calcium 7.6 L Total Bilirubin 0.3 D AST 41 H ALT 38 Alkaline Phosphatase 70 Total Protein 5.1 L Albumin 1.8 L 07/30/17 07:56 WBC RBC Hgb Hct MCV MCH MCHC RDW Plt Count MPV Neutrophils % Lymphocytes % Sodium Potassium Chloride Carbon Dioxide Anion Gap BUN Creatinine Creat Clearance w eGFR Random Glucose Lactic Acid 3.8 H* Calcium Total Bilirubin AST ALT Alkaline Phosphatase Total Protein Albumin Active Medications Generic Name Dose Route Start Last Admin Trade Name Freq PRN Reason Stop Dose Admin Acetaminophen 650 mg 07/30/17 04:43 Tylenol - PO Q6H PRN FEVER OR PAIN Albuterol/Ipratropium 1 amp 07/30/17 04:47 Duoneb - NEB Q6H PRN SHORTNESS OF BREATH Aspirin 81 mg 07/30/17 10:00 07/30/17 10:23 Ecotrin - PO 81 mg DAILY JAYDON Administration Dexamethasone 4 mg 07/30/17 06:00 07/30/17 06:11 Decadron - PO Not Given Q6HPO JAYDON Fluconazole 10 mg 07/30/17 10:00 Diflucan - PO DAILY JAYDON Dextrose/Sodium Chloride 1,000 mls @ 75 mls/hr 07/30/17 04:45 07/30/17 05:26 D5-1/2ns - IV 75 mls/hr ASDIR JAYDON Administration Vancomycin HCl 1,000 mg/ 250 mls @ 166.667 mls/hr 07/30/17 13:00 Dextrose IVPB Q12H JAYDON Protocol Piperacillin Sod/Tazobactam 50 mls @ 100 mls/hr 07/30/17 18:00 Sod 3.375 gm/ Dextrose IVPB Q8H-IV JAYDON Protocol Pantoprazole Sodium 40 mg 07/30/17 10:00 07/30/17 10:23 Protonix - PO 40 mg DAILY JAYDON Administration Tramadol HCl 50 mg 07/30/17 04:41 Ultram - PO Q8H PRN PAIN CBC, BMP 07/30/17 07:56 07/30/17 07:56 ASSESSMENT/PLAN: # Acute Hypoxic hypercabniec respiratory failure # Metastatic small cell lung Cancer Left upper lob S/P RT , spread to liver, bone # possible obstructive Pneumonia LLL # Sepsis with leukopenia and neutropenia likely 2/2 obstructive pneumonia # HTN # HLD Plan : * ABx Cefepime per ID * O2 on BIPAP * Admit to ICU * Intubate if patient develop sever respiratory distress * IV fluids * F/U ABGs * Repeat Chest x-ray * F/u blood cx and Urine cx * Repeat CBC, BMP * Very poor prognosis * Abdominal X ray to R/O colitis * Duoneb Dispo: We will continue to follow the patient. Thank you for this consultative opportunity. Visit type - Emergency Visit Emergency Visit: Yes ED Registration Date: 07/30/17 Care time: The patient presented to the Emergency Department on the above date and was hospitalized for further evaluation of their emergent condition. - New Patient This patient is new to me today: Yes Date on this admission: 07/30/17 - Critical Care Critical Care patient: Yes Total Critical Care Time (in minutes): 40 Critical Care Statement: The care of this patient involved high complexity decision making to prevent further life threatening deterioration of the patient 's condition and/or to evaluate & treat vital organ system(s) failure or risk of failure.
[2017-07-30 11:33] LABS: URINE LEUK ESTERASE Negative (NEGATIVE)
[2017-07-30 12:32] LABS: ARTERIAL BLD GAS O2 SATURATION 86.4 % (90-98.9); ARTERIAL BLOOD GAS BASE EXCESS -4.6 meq/l (-2-2); ARTERIAL BLOOD GAS HCO3 19.3 meq/L (22-26); ARTERIAL BLOOD GAS PO2 55.2 mmHg (70-100); ARTERIAL BLOOD GAS pH 7.37 (7.35-7.45)
[2017-07-30 12:34] LABS: ALLENS TEST POSITIVE; ART PUNCT SITE LEFT RADIAL; LPM/O2% 45%; PT. ON O2? YES; TYPE OF O2 BIPAP
[2017-07-30 12:35] LABS: MECH. VENT. BIPAP
[2017-07-30 12:36] LABS: VENT RATE 14; VT/PRESS IPAP16/EPAP6
[2017-07-30 12:44] LABS: PLATELET ESTIMATE DECREASED (NORMAL); TOTAL CELLS COUNTED 20; WHITE BLOOD COUNT 0.3 K/mm3 (4.0-10.0)
[2017-07-30 12:45] LABS: METAMYELOCYTE 15 % (0-2); NUCLEATED RED BLOOD CELL 30 % (0-0)
[2017-07-30] MEDS ORDERED: VANCOMYCIN 1,000 MG in DEXTROSE 5%-WATER - 250 ML IVPB SCH (13:00)
--- NOTE | 2017-07-30 14:11 | CON.ID ---
Consult Consult Specialty:: infectious diseases Reason for Consultation:: sepsis,sob,lethargy,neutropenia - History of Present Illness Chief Complaint: lethargy History of Present Illness: 72 yo M with significant PMH of HTN, HLD, CAD (s/p cardiac stents), GERD and prostate cancer, kidney stones, and recently diagnosed small cell lung cancer w / metastasis to liver, who presents to the emergency department with cough x "a few days" and shortness of breath since "around 4-5 hours ago, this evening." Patient's girlfriend is at bedside and states that his last radiation therapy was "two weeks ago tomorrow." Girlfriend reports that patient was prescribed "some medicine to make him cough up stuff, and his coughing has gotten worse since." Patient is alert and awake but not answering questions secondary to shortness of breath and weakness; girlfriend is answering questions for him. She denies any fever at home but does report that he has chills and that he did lose a lot of weight starting after "the first half of his radiation therapy." the above history was taken from the charts and the the girlfriend aa the patient is on bipap patients is lethargic but awake and according to him and his girlfreind last 3 days have been bad after coming to the er patient spiked a fever and patient is neutropenic also of note patient has discomfort in his abdomen currently he is on bipap - History Source History Provided By: Family Member (julee), Medical Record - Past Medical History Cardio/Vascular: Yes: CAD (s/p stenting), HTN, Hyperlipdemia Gastrointestinal: Yes: GERD Renal/: Yes: Cancer (Small Cell CA lung w/ mets to liver Prostate cancer), Renal Calculi - Past Surgical History Past Surgical History: Yes: Hernia Repair, Stent - Alcohol/Substance Use Hx Alcohol Use: No History of Substance Use: reports: None - Smoking History Smoking history: Unknown if ever smoked Have you smoked in the past 12 months: No Aproximately how many cigarettes per day: 0 If you are a former smoker, when did you quit?: unk - Social History ADL: Independent 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[employer] History of Recent Travel: No Home Medications - Allergies Allergies/Adverse Reactions: Allergies Allergy/AdvReac Type Severity Reaction Status Date / Time No Known Allergies Allergy Verified 07/29/17 22:50 - Home Medications Home Medications: Ambulatory Orders Tramadol HCl 50 mg PO Q8H PRN 06/18/17 Dexamethasone [Decadron -] 4 mg PO Q6H 07/17/17 Lorazepam 0.5 mg PO DAILY 07/30/17 Family Disease History - Family Disease History Family Disease History: Other: Mother (stroke) Review of Systems - Review of Systems Constitutional: reports: Fever Eyes: reports: No Symptoms HENT: reports: No Symptoms Neck: reports: No Symptoms Cardiovascular: reports: No Symptoms Respiratory: reports: SOB, SOB on Exertion Gastrointestinal: reports: Other (abd discomfort) Genitourinary: reports: No Symptoms Musculoskeletal: reports: No Symptoms Integumentary: reports: No Symptoms Neurological: reports: No Symptoms, Other Endocrine: reports: No Symptoms Hematology/Lymphatic: reports: No Symptoms Psychiatric: reports: No Symptoms Physical Exam Vital Signs: Vital Signs Temperature 99.3 F 07/30/17 12:09 Pulse Rate 125 H 07/30/17 12:09 Respiratory Rate 44 H 07/30/17 12:09 Blood Pressure 94/62 07/30/17 12:09 O2 Sat by Pulse Oximetry (%) 90 L 07/30/17 12:09 Constitutional: Yes: Calm, Mild Distress Eyes: Yes: Conjunctiva Clear HENT: Yes: Atraumatic Neck: Yes: Supple, Trachea Midline Cardiovascular: Yes: Regular Rate and Rhythm, Other Respiratory: Yes: On BiPap, Poor Air Entry Gastrointestinal: Yes: Distention, Hypoactive Bowel Sounds, Tenderness Musculoskeletal: Yes: WNL Extremities: Yes: WNL Neurological: Yes: Alert, Lethargy Psychiatric: Yes: Other Labs: CBC, BMP 07/30/17 07:56 07/30/17 07:56 Imaging - Results Chest X-ray: Report Reviewed, Image Reviewed Assessment/Plan 72 yo M with significant PMH of HTN, HLD, CAD (s/p cardiac stents), GERD and prostate cancer, kidney stones, and recently diagnosed small cell lung cancer w / metastasis to liver, who presents to the emergency department with cough x "a few days" and shortness of breath since "around 4-5 hours ago, this evening." after looking at the patient the patient is septic and lethargic,very close watch on the patient worried about his belly if he has colitis r/o colitis lethargy abd distension resp failure plan will start patient on cefepime ordered a abd xray--will see what it shows continue resp support if patient detoriates icu rest as per primary cc time 40 min
[2017-07-30] MEDS ORDERED: CEFEPIME HCL 1 GM VIAL (RESTRICTED TO ID) IVPB SCH (14:15)
[2017-07-30] MEDS ORDERED: CEFEPIME 100 ML IVPB ONE (14:41)
--- NOTE | 2017-07-30 16:03 | PN ---
Teaching Attending Note Name of Resident: Christopher August ATTENDING PHYSICIAN STATEMENT I saw and evaluated the patient. I reviewed the resident's note and discussed the case with the resident. I agree with the resident's findings and plan as documented. PULMONARY IMP ACUTE HYPOXEMIC RESPIRATORY FAILURE LEUKOPENIA/NEUTROPENIA SECONDARY TO SEPSIS , LIKELY PNEUMONIA LLL METASTATIC SMALL CELL CA S/P RT. PT HAS NOT RECEIVED CHEMOTHERAPY ASHD S/P STENTS PROSTATE CA HLD PLAN BROAD SPECTRUM ANTIBIOTICS O2,NIPPV INTUBATE IF PTS DEVELOPES INCREASING RESPIRATORY DISTRESS ANTIBIOTICS IVF NEUPOGEN MONITOR LYTES, CBC F/U CHEST X-RAYS CULTURES F/U ABGS PROGNOSIS POOR DR GUERRERO Problem List - Problems (1) Leptomeningeal metastases Code(s): C79.49 - SECONDARY MALIGNANT NEOPLASM OF OTH PARTS OF NERVOUS SYSTEM (2) Lung cancer Code(s): C34.90 - MALIGNANT NEOPLASM OF UNSP PART OF UNSP BRONCHUS OR LUNG (3) Mass of left lung Code(s): R91.8 - OTHER NONSPECIFIC ABNORMAL FINDING OF LUNG FIELD (4) Sepsis Code(s): A41.9 - SEPSIS, UNSPECIFIED ORGANISM (5) CAD (coronary artery disease) Code(s): I25.10 - ATHSCL HEART DISEASE OF [place] CORONARY ARTERY W/O ANG PCTRS Qualifiers: Coronary Disease-Associated Artery/Lesion type: [place] artery [place] vs. transplanted heart: [place] heart Associated angina: without angina Qualified Code(s): I25.10 - Atherosclerotic heart disease of [place] coronary artery without angina pectoris; I25.10 - Atherosclerotic heart disease of [place] coronary artery without angina pectoris; I25.10 - Atherosclerotic heart disease of [place] coronary artery without angina pectoris (6) Acute hypoxemic respiratory failure Code(s): J96.01 - ACUTE RESPIRATORY FAILURE WITH HYPOXIA (7) Pneumonia Code(s): J18.9 - PNEUMONIA, UNSPECIFIED ORGANISM
[2017-07-30] MEDS ORDERED: traMADol HCL 50 MG TABLET ONE (16:31)
[2017-07-30] MEDS ORDERED: RAPID SEQUENCE INTUBATION KIT NR ONE (17:40)
[2017-07-30] MEDS ORDERED: PIPERACILLIN/TAZOB 3.375 GM 3.375 GM in DEXTROSE 5%-WATER - 50 ML IVPB SCH (18:00)
[2017-07-30] MEDS ORDERED: TBO-FILGRASTIM 300 MCG/0.5 ML DISP.SYRINGE SQ ONE (18:03)
[2017-07-30] MEDS ORDERED: ETOMIDATE 40 MG/20 ML VIAL IVPUSH STA (18:30)
[2017-07-30] MEDS ORDERED: SUCCINYLCHOLINE CHLORIDE 200 MG/10 ML VIAL IVPUSH STA (18:31)
--- NOTE | 2017-07-30 19:26 | CONSULT ---
Consultation: REQUESTING PROVIDER: CONSULT REQUEST: We have been asked to medically evaluate this patient for ICU. HISTORY OF PRESENT ILLNESS: Pt is intubated and sedated. Hx from chart. 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 Pt was in respiratory distress in ED and unable to give hist so hist was taken from pt's girlfriend. Pt was placed on NIPPV, which helped but did not resolve resp distress, so pt was intubated in ED and admitted to ICU. In ICU, pt is intubated and sedated. Pt is in sinus tachycardia at 125 w/ PVCs. BP 96/58. REVIEW OF SYSTEMS: CONSTITUTIONAL: chills, weight loss Absent: fever, , diaphoresis, generalized weakness, malaise, loss of appetite, HEENT: Absent: rhinorrhea, nasal congestion, throat pain, throat swelling, difficulty swallowing, mouth swelling, ear pain, eye pain, visual changes CARDIOVASCULAR: Absent: chest pain, syncope, palpitations, irregular heart rate, lightheadedness , peripheral edema RESPIRATORY: cough, shortness of breath Absent: , dyspnea with exertion, orthopnea, wheezing, stridor, hemoptysis GASTROINTESTINAL: Absent: abdominal pain, abdominal distension, nausea, vomiting, diarrhea, constipation, melena, hematochezia GENITOURINARY: Absent: dysuria, frequency, urgency, hesitancy, hematuria, flank pain, genital pain MUSCULOSKELETAL: Absent: myalgia, arthralgia, joint swelling, back pain, neck pain SKIN: Absent: rash, itching, pallor HEMATOLOGIC/IMMUNOLOGIC: Absent: easy bleeding, easy bruising, lymphadenopathy, frequent infections ENDOCRINE: Absent: unexplained weight gain, unexplained weight loss, heat intolerance, cold intolerance NEUROLOGIC: Absent: headache, focal weakness or paresthesias, dizziness, unsteady gait, seizure, mental status changes, bladder or bowel incontinence PSYCHIATRIC: Absent: anxiety, depression, suicidal or homicidal ideation, hallucinations. PHYSICAL EXAMINATION Vital Signs - 24 hr 07/30/17 07/30/17 07/30/17 01:30 02:49 03:30 Temperature 101.8 F H Pulse Rate Pulse Rate [ 137 H 122 H 83 Left Radial] Respiratory 34 H 32 H 32 H Rate Blood Pressure Blood Pressure 85/66 109/69 109/69 [Left Arm] O2 Sat by Pulse 98 94 L 98 Oximetry (%) 07/30/17 07/30/17 07/30/17 04:05 05:00 06:17 Temperature Pulse Rate Pulse Rate [ 127 H 79 117 H Left Radial] Respiratory 30 H 34 H 34 H Rate Blood Pressure Blood Pressure 102/73 92/71 89/77 [Left Arm] O2 Sat by Pulse 95 92 L 94 L Oximetry (%) 07/30/17 07/30/17 07/30/17 06:52 07:00 07:05 Temperature 99.2 F Pulse Rate Pulse Rate [ 125 H Left Radial] Respiratory 32 H Rate Blood Pressure Blood Pressure 93/72 [Left Arm] O2 Sat by Pulse 92 L 92 L Oximetry (%) 07/30/17 07/30/17 07/30/17 08:37 09:10 09:57 Temperature 99.0 F Pulse Rate 131 H Pulse Rate [ 130 H 135 H Left Radial] Respiratory 40 H 40 H Rate Blood Pressure Blood Pressure 99/84 118/82 [Left Arm] O2 Sat by Pulse 91 L 91 L 85 L Oximetry (%) 07/30/17 07/30/17 07/30/17 10:54 12:09 14:17 Temperature 99.3 F 99.3 F Pulse Rate Pulse Rate [ 135 H 125 H Left Radial] Respiratory 40 H 44 H Rate Blood Pressure Blood Pressure 89/70 94/62 [Left Arm] O2 Sat by Pulse 89 L 90 L 89 L Oximetry (%) 07/30/17 07/30/17 07/30/17 14:52 16:28 17:57 Temperature 98.9 F Pulse Rate Pulse Rate [ 130 H 135 H 128 H Left Radial] Respiratory 40 H 45 H 40 H Rate Blood Pressure Blood Pressure 90/74 116/65 83/42 [Left Arm] O2 Sat by Pulse 91 L 89 L 77 L Oximetry (%) 07/30/17 07/30/17 07/30/17 18:00 18:10 18:19 Temperature Pulse Rate Pulse Rate [ 122 H Left Radial] Respiratory 14 14 14 Rate Blood Pressure Blood Pressure 112/88 [Left Arm] O2 Sat by Pulse 98 Oximetry (%) 07/30/17 18:57 Temperature 98.7 F Pulse Rate 125 H Pulse Rate [ Left Radial] Respiratory 22 Rate Blood Pressure 88/58 Blood Pressure [Left Arm] O2 Sat by Pulse Oximetry (%) GENERAL: Intubated, sedated in no apparent distress. HEAD: Normal with no signs of trauma. EYES: Pupils equal, round and poorly reactive to light, sclera anicteric, conjunctiva clear. EARS, NOSE, THROAT: Moist mucous membranes. NECK: Normal range of motion, supple without lymphadenopathy, JVD, or masses. LUNGS:Intubated. Good air entry bilaterally HEART: distant heart sounds. tachycardic, mostly regular rhythm with irregular beats, normal S1 and S2 without murmur, rub or gallop. ABDOMEN: Soft, not distended, decreased bowel sounds, no guarding, no rebound, no masses. No hepatomegaly or splenomegaly. superficial sacral ulceration extending to lumbar region UPPER EXTREMITIES: 2+ pulses, warm, well-perfused. No cyanosis. No clubbing. Cap refill <2 seconds. No peripheral edema. LOWER EXTREMITIES: 2+ pulses, warm, well-perfused. No calf tenderness. No peripheral edema. NEUROLOGICAL: Intubated sedated PSYCHIATRIC: Intubated sedated SKIN: Warm, dry, normal turgor, no rashes or lesions noted. Laboratory Results - last 24 hr 07/30/17 07/30/17 07/30/17 03:50 07:56 07:56 WBC 0.3 L* D Corrected WBC (auto) 0.23 RBC 4.37 Hgb 12.9 Hct 38.7 MCV 88.5 MCH 29.4 MCHC 33.2 RDW 15.9 Plt Count 65 L D MPV 7.9 D Total Counted 20 Neutrophils % No Result Required. Neutrophils % (Manual) 35 L D Band Neuts % (Manual) 10 D Lymphocytes % No Result Required. Lymphocytes % (Manual) 20 D Monocytes % (Manual) 20 H* D Nucleated RBC % 30 H* D Platelet Estimate Decreased Puncture Site ABG pH ABG pCO2 at Pt Temp ABG pO2 at Pt Temp ABG HCO3 ABG O2 Sat (Measured) ABG O2 Content ABG Base Excess Richard Test O2 Delivery Device Oxygen Flow Rate Vent Mode Vent Rate Mechanical Rate PEEP Pressure Support Vent Sodium 135 L Potassium 3.7 D Chloride 102 Carbon Dioxide 22 Anion Gap 11 BUN 20 H Creatinine 1.0 Creat Clearance w eGFR > 60 Random Glucose 164 H D Lactic Acid 3.3 H* Calcium 7.6 L Total Bilirubin 0.3 D AST 41 H ALT 38 Alkaline Phosphatase 70 Total Protein 5.1 L Albumin 1.8 L 07/30/17 07/30/17 07:56 10:21 WBC Corrected WBC (auto) RBC Hgb Hct MCV MCH MCHC RDW Plt Count MPV Total Counted Neutrophils % Neutrophils % (Manual) Band Neuts % (Manual) Lymphocytes % Lymphocytes % (Manual) Monocytes % (Manual) Nucleated RBC % Platelet Estimate Puncture Site Left radial ABG pH 7.37 ABG pCO2 at Pt Temp 33.9 L ABG pO2 at Pt Temp 55.2 L ABG HCO3 19.3 L ABG O2 Sat (Measured) 86.4 L ABG O2 Content 17.3 ABG Base Excess -4.6 L Richard Test Positive O2 Delivery Device Bipap Oxygen Flow Rate 45% Vent Mode S/t Vent Rate 14 Mechanical Rate Bipap PEEP 0.0 Pressure Support Vent [id number] Sodium Potassium Chloride Carbon Dioxide Anion Gap BUN Creatinine Creat Clearance w eGFR Random Glucose Lactic Acid 3.8 H* Calcium Total Bilirubin AST ALT Alkaline Phosphatase Total Protein Albumin Active Medications Generic Name Dose Route Start Last Admin Trade Name Freq PRN Reason Stop Dose Admin Acetaminophen 650 mg 07/30/17 04:43 Tylenol - PO Q6H PRN FEVER OR PAIN Albuterol/Ipratropium 1 amp 07/30/17 04:47 Duoneb - NEB Q6H PRN SHORTNESS OF BREATH Aspirin 81 mg 07/30/17 10:00 07/30/17 10:23 Ecotrin - PO 81 mg DAILY JAYDON Administration Cefepime HCl 1 gm 07/31/17 02:00 Maxipime 1gm Ivpb Pre-Docked IVPB Q8H-IV JAYDON Chlorhexidine Gluconate 1 applic 07/30/17 22:00 Hibiclens For Decolonization - TP HS JAYDON Dexamethasone 4 mg 07/30/17 06:00 07/30/17 12:29 Decadron - PO 4 mg Q6HPO JAYDON Administration Fluconazole 10 mg 07/30/17 10:00 Diflucan - PO DAILY JAYDON Heparin Sodium (Porcine) 5,000 unit 07/30/17 19:00 Heparin - SQ Q8H-IV JAYDON Hydrocortisone Sodium Succinate 100 mg 07/30/17 18:00 Solu-Cortef - IVPB Q8H-IV JAYDON Dextrose/Sodium Chloride 1,000 mls @ 75 mls/hr 07/30/17 04:45 07/30/17 05:26 D5-1/2ns - IV 75 mls/hr ASDIR JAYDON Administration Propofol 100 mls @ 1.647 mls/hr 07/30/17 19:00 Diprivan - IVPB TITR JAYDON Protocol 5 MCG/KG/MIN Mupirocin 1 applic 07/30/17 22:00 Bactroban Ointment (For Decolonization) - NS 08/04/17 21:59 BID JAYDON Pantoprazole Sodium 40 mg 07/30/17 10:00 07/30/17 10:23 Protonix - PO 40 mg DAILY JAYDON Administration Tramadol HCl 50 mg 07/30/17 04:41 07/30/17 16:36 Ultram - PO 50 mg Q8H PRN Administration PAIN ASSESSMENT/PLAN: Pt is a 72 M w/ PMH SCLC (w/ mets to brain, bone, liver not on chemo, last Radiation 2 weeks ago), Prostate CA, HTN, HLD, CAD (s/p stents) #Acute hypoxemic resp failure -Pt was in resp distress in ED. Placed on NIPPV, then intubated. -NS -Cefepime -Dexamethasone -Duonebs -Pulm on board -ID on board -cardio consult placed #SCLC w/ mult mets -0.3 WBCs today -Absolute Neutrophil count 0. Pt placed on isolation -Granix per Heme/onc -Heme/Onc on board #HTN -hold meds for now #HLD -hold meds for now #CAD s/p stents -hold meds for now #Prostate CA -f/u out pt #Sacral lesions -frequent turns -dressing changes -wound culture -wound care #FEN -NS @ 83 -mild hyponatremia -NPO while intubated #PPx -Heparin Sub Q -Protonix Dispo: We will continue to follow the patient. Thank you for this consultative opportunity. Nadir Madsen MD PGY-1 ICU Visit type - Emergency Visit Emergency Visit: No - New Patient This patient is new to me today: Yes Date on this admission: 07/30/17 - Critical Care Critical Care patient: Yes Total Critical Care Time (in minutes): 35 Critical Care Statement: The care of this patient involved high complexity decision making to prevent further life threatening deterioration of the patient 's condition and/or to evaluate & treat vital organ system(s) failure or risk of failure.
[2017-07-30] MEDS: PROPOFOL 100 ML IVPB SCH (19:45)
[2017-07-30] MEDS: HYDROCORTISONE SOD SUCCINATE 100 MG/2 ML VIAL IVPB SCH (20:38)
[2017-07-30 20:39] LABS: MAGNESIUM 1.9 mg/dL (1.8-2.4)
[2017-07-30] MEDS: SODIUM CHLORIDE 1,000 ML IV SCH (20:39)
--- NOTE | 2017-07-30 20:39 | CONSULT ---
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 Briefly, Mr. Castillo has a recent diagnosis of small cell lung CA with known metastases to his brain, bone and liver. Per his girlfriend who is at his bedside he has had progressive decline over the past several weeks but most notably over the past several days. He has been undergoing radiation therapy with his last treatment two weeks ago. He has had poor appetite at home (on an appetite stimulant) and has had weight loss. He has had several hospital admissions per his family for shortness of breath but has never required intubation in the past and is not on home O2. He had a worsening cough over the past several days but family denies any sick contacts. He developed shortness of breath over last night and presented to the ED. In the ED he was febrile per report to 102, tachycardic to 130s (sinus), BP 99/ 84 though RR 40 with SpO2 91%. Initial labs were notable for neutropenia with WBC 0.6, Platelets 103, Lactate 4.6, BNP 521, and Albumin 2.1. CXR showed MARICARMEN mass as well as possible opacity at the left base. While in the ED his hypoxia was progressive and he failed NRB, NIV and ultiamtely required intubation. ID was consulted and he empirically is receiving Vanc/Cefepime and PO Fluc. Post intubation he is now being transferred to ICU for management of acute respiratory failure. In ICU he is sedated on Propofol with BP 80s/50s and HR ST 120s. Vent settings adjusted to 24/450/100/8 with ABG pending. Family updated regarding his condition. Aware of his poor prognosis but would like aggressive measures and will assess his response to ABX and vent support in the coming days. Sputum culture ordered. - History Source History Provided By: Significant Other, Medical Record Limitations to Obtaining History: Intubated - Past Medical History Cardio/Vascular: Yes: CAD (s/p stenting), HTN, Hyperlipdemia Gastrointestinal: Yes: GERD Renal/: Yes: Cancer (Small Cell CA lung w/ mets to liver Prostate cancer), Renal Calculi - Past Surgical History Past Surgical History: Yes: Hernia Repair, Stent - Alcohol/Substance Use Hx Alcohol Use: No History of Substance Use: reports: None - Smoking History Smoking history: Former smoker (55 years, 1 PPD (per chart review)) Have you smoked in the past 12 months: No Aproximately how many cigarettes per day: 0 If you are a former smoker, when did you quit?: unk - Social History Usual Living Arrangement: With Significant Other ADL: Independent 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[employer] History of Recent Travel: No Home Medications - Allergies Allergies/Adverse Reactions: Allergies Allergy/AdvReac Type Severity Reaction Status Date / Time No Known Allergies Allergy Verified 07/29/17 22:50 - Home Medications Home Medications: Ambulatory Orders Tramadol HCl 50 mg PO Q8H PRN 06/18/17 Dexamethasone [Decadron -] 4 mg PO Q6H 07/17/17 Lorazepam 0.5 mg PO DAILY 07/30/17 Family Disease History - Family Disease History Family History: Unable to Obtain (intubated and sedated) Family Disease History: Other: Mother (stroke) Review of Systems Unable to obtain ROS, reason: intubated and sedated Physical Exam Vital Signs: Vital Signs Temperature 98.7 F 07/30/17 18:57 Pulse Rate 125 H 07/30/17 18:57 Respiratory Rate 22 07/30/17 18:57 Blood Pressure 88/58 07/30/17 18:57 O2 Sat by Pulse Oximetry (%) 98 07/30/17 18:10 Constitutional: Yes: Cachectic, Pallor, Thin Eyes: Yes: Conjunctiva Clear, EOM Intact HENT: Yes: Atraumatic, Normocephalic, Other (MM dry) Neck: Yes: Trachea Midline Cardiovascular: Yes: Regular Rate and Rhythm, Tachycardia, S1, S2 Respiratory: Yes: Diminished (Left base with fine rales.), Intubated, Mechanically Ventilated, Tachypnea Gastrointestinal: Yes: Normal Bowel Sounds, Soft, Distention Extremities: Yes: Cool Edema: LLE: Trace, RLE: Trace Peripheral Pulses WNL: Yes Integumentary: Yes: Pressure Ulcer (saccral pressure ulcer), Venous Stasis Changes Neurological: Yes: Other (Sedated. RASS -2.) Labs: CBC, BMP 07/30/17 07:56 07/30/17 07:56 Hepatic Panel Total Bilirubin 0.3 mg/dL (0.2-1.0) D 07/30/17 07:56 AST 41 U/L (15-37) H 07/30/17 07:56 ALT 38 U/L (12-78) 07/30/17 07:56 Alkaline Phosphatase 70 U/L (45-117) 07/30/17 07:56 Albumin 1.8 g/dl (3.4-5.0) L 07/30/17 07:56 Home Medication List Medication Instructions Recorded Confirmed Type Tramadol HCl 50 mg PO Q8H PRN 06/18/17 07/30/17 History Dexamethasone [Decadron -] 4 mg PO Q6H 07/17/17 07/30/17 History Lorazepam 0.5 mg PO DAILY 07/30/17 07/30/17 History Active Medications Generic Name Dose Route Start Last Admin Trade Name Freq PRN Reason Stop Dose Admin Acetaminophen 650 mg 07/30/17 04:43 Tylenol - PO Q6H PRN FEVER OR PAIN Albuterol/Ipratropium 1 amp 07/30/17 04:47 Duoneb - NEB Q6H PRN SHORTNESS OF BREATH Aspirin 81 mg 07/30/17 10:00 07/30/17 10:23 Ecotrin - PO 81 mg DAILY JAYDON Administration Cefepime HCl 1 gm 07/31/17 02:00 Maxipime 1gm Ivpb Pre-Docked IVPB Q8H-IV JAYDON Chlorhexidine Gluconate 1 applic 07/30/17 22:00 07/30/17 21:01 Hibiclens For Decolonization - TP 1 applic HS JAYDON Administration Dexamethasone 4 mg 07/30/17 06:00 07/30/17 20:41 Decadron - PO Not Given Q6HPO JAYDON Fluconazole 10 mg 07/30/17 10:00 Diflucan - PO DAILY JAYDON Heparin Sodium (Porcine) 5,000 unit 07/30/17 19:00 07/30/17 20:59 Heparin - SQ 5,000 unit TID JAYDON Administration Hydrocortisone Sodium Succinate 100 mg 07/30/17 18:00 11/06/17 20:38 Solu-Cortef - IVPB 100 mg Q8H-IV JAYDON Administration Propofol 100 mls @ 1.647 mls/hr 07/30/17 19:00 07/30/17 19:45 Diprivan - IVPB 1.647 mls/hr TITR JAYDON Administration Protocol 5 MCG/KG/MIN Sodium Chloride 1,000 mls @ 83 mls/hr 07/30/17 19:30 07/30/17 20:39 Normal Saline - IV Not Given ASDIR JAYDON Mupirocin 1 applic 07/30/17 22:00 07/30/17 21:00 Bactroban Ointment (For Decolonization) - NS 08/04/17 21:59 1 applic BID JAYDON Administration Pantoprazole Sodium 40 mg 07/30/17 10:00 07/30/17 10:23 Protonix - PO 40 mg DAILY JAYDON Administration Tramadol HCl 50 mg 07/30/17 04:41 07/30/17 16:36 Ultram - PO 50 mg Q8H PRN Administration PAIN MICRO Data Blood 07/29: pending Urine 07/30: pending Sputum 07/30: ordered No Prior MICRO Data in chart Imaging - Results Chest X-ray: Report Reviewed, Image Reviewed EKG: Pending Problem List - Problems (1) Acute hypoxemic respiratory failure Code(s): J96.01 - ACUTE RESPIRATORY FAILURE WITH HYPOXIA (2) Sepsis Code(s): A41.9 - SEPSIS, UNSPECIFIED ORGANISM Assessment/Plan This is a 72-year-old gentleman with PMH HTN, HLD, CAD (s/p stent), GERD, prostate CA and recently diagnosed metastatic small cell lung CA who presents to the ED with cough and SOB with progressive hypoxemic respiratory failure requiring intubation found to be neutropenic presumably in the setting of HCAP vs. progression of underlying disease. Pulm: Hypoxemic respiratory failure requiring intubation c/f HCAP given recent increased cough and SOB +/- progression of underlying metastatic small cell lung CA vs. PE -Continue Vent support -LTVV as able, IBW: 65 kg -ABG and CXR PRN -Propofol and Fent PRN for sedation for vent synchrony/SOB -ABX as below -LE duplex ID: Neutropenic sepsis presumably in the setting of HCAP with report of cough and SOB -ID consulted and following, appreciate -Vanc, Cefepime Fluc -Sputum sample -Trend fever and WBC curve CV: Hypotension presumably vasodialtory in the setting of sedation as well as hypovolemia given poor PO intake prior to admission with elevated lactate 4.6; Hx HTN, HLD, CAD s/p stents -Continuous telemetry -1L NS now -Hold home anti-HTNs -Hydrocort 100 q 8 (on decadron at home?) -Continue ASA -ECG -Trend lactate Renal: Cr 1 (unkown baseline) likely mildly elevated in the setting of sepsis and dehydration with elevated lactate -Marquez for strict Is and Os -IVF resuscitation -Trend Cr and BUN -If Cr continues to rise will check renal US and urine lytes GI: NPO for now, Hx of GERD -NPO while still quite hypoxic -Nutrition when able -Continue Protonix Heme: Thrombocytopenia (unknown baseline) and neutropenia likely in the setting of metastatic small cell lung CA -Trend CBC and coags -If platelets fall below 50 hold DVT ppx and ASA -[facility] Endo: No active issues -FS -AISS as needed PPX: Protonix Hep sq for DVT ppx Venodynes Total CC Time Spent: 35 mins AURELIA Murphy
--- NOTE | 2017-07-30 20:57 | CONSULT ---
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, leptomeningeal, spinal cord, who presents to the emergency department with cough x "a few days" and shortness of breath since "around 4-5 hours ago, this evening." Patient's girlfriend is at bedside and states that his last radiation therapy was "two weeks ago" .Girlfriend reports that patient was prescribed "some medicine to make him cough up stuff, and his coughing has gotten worse since." Patient is alert and awake but not answering questions secondary to shortness of breath and weakness; PAST MEDICAL HISTORY: CAD HTN HLD Prostate cancer kidney stones FAMILY HISTORY: mother-stroke SOCIAL HISTORY: 1 pack daily smoking hx x 50+ years SURGICAL HISTORY: hernia repair, cardiac stents ALLERGIES: No known drug allergies Past History - Past Medical History Allergies/Adverse Reactions: Allergies Allergy/AdvReac Type Severity Reaction Status Date / Time No Known Allergies Allergy Verified 07/29/17 22:50 Home Medications: Ambulatory Orders Tramadol HCl 50 mg PO Q8H PRN 06/18/17 Dexamethasone [Decadron -] 4 mg PO Q6H 07/17/17 Lorazepam 0.5 mg PO DAILY 07/30/17 - Vital Signs Febrile, hypotensive,resp. distress onBIPAP Cor: RSR, No murmurs, No gallops Lungs: Clear to P&A Abd: Soft, Normal bowel sounds, Ext:No significant edema Labs/Meds reviewed A/P 72 y/o male with extensive stage high grade neuroendocrine cancer, with leptomeningeal mets, brain, spinal cord mets,liver mets. S/P RT to brain/spinal cord--completed on 07/16. On steroids.Patient comes in with pneumonia/severe sepsis. Seen in the ER. discussed with his fiance and daughter . discussed with Dr. [place]coa. Broad spectrum antibiotics. Natacha rojas. ICU management Family aware of poor prognosis
[2017-07-30] MEDS: HEPARIN NA (PORCINE) 5,000 UNITS/ML 1ML VIAL SQ SCH (20:59)
[2017-07-30] MEDS: MUPIROCIN 2% TOPICAL OINTMENT FOR DECOLONIZATION NS SCH (21:00)
[2017-07-30] MEDS: CHLORHEXIDINE GLUCONATE 4% CLEANSER FOR DECOLONIZATION TP SCH (21:01)
[2017-07-30 21:24] LABS: ANION GAP 10 (8-16); CO2 21 mmol/L (21-32); CREATININE 0.7 mg/dL (0.7-1.3); GLUCOSE,RANDOM 133 mg/dL (74-106)
[2017-07-30 21:35] LABS: CALCIUM 6.8 mg/dL (8.5-10.1)
[2017-07-30] MEDS ORDERED: CALCIUM GLUCONATE 10% - 1,000 MG/10 ML VIAL IVPB ONE (21:46)
--- NOTE | 2017-07-30 22:14 | CONS ---
DATE OF CONSULTATION: 07/30/2017 REASON FOR CONSULTATION: Metastatic small cell lung cancer with hypoxemic respiratory failure and sepsis. HISTORY OF PRESENT ILLNESS: The patient is a 72-year-old gentleman with a history of extensive high-grade neuroendocrine, small cell carcinoma of the left upper lobe with metastases to the bone, lymph nodes, liver, brain, spinal cord, and associated leptomeningeal involvement, who completed palliative radiation therapy to the brain and spine almost 2 weeks ago. He tolerated the treatment with a mild esophagitis that was managed with Magic Mouthwash and Diflucan. He also had a dermatitis that was managed with topical emollient. He was placed on a Decadron taper and has not had a followup with Medical Oncology for chemotherapy as yet. His recent history is notable for a productive cough for 2-3 days and shortness of breath with chills for less than 1 day. He had no hemoptysis or chest pain. In the emergency room, he was noted to be hypoxemic, neutropenic, and febrile. He was begun on IV antibiotics and is receiving oxygen on BiPAP, awaiting ICU admission. History is obtained from the chart and his family. PAST MEDICAL HISTORY: Coronary artery disease status post stent, GERD, hyperlipidemia, hypertension, nephrolithiasis, hernia repair. ALLERGIES: No known drug allergies. CURRENT MEDICATIONS: Decadron, cefepime, Zosyn, vancomycin, Ativan. SOCIAL HISTORY: He lives with his fiance in [place]. He has a 18-[id number]-pfvt smoking history, having quit a few years ago. He was born in [facility]. 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 FAMILY HISTORY: Denies. REVIEW OF SYSTEMS: As noted above. PHYSICAL EXAMINATION: He is evaluated in the emergency department. General: Acutely ill [facility] gentleman in moderate respiratory distress. His sons and daughter are present. Vital Signs: Temperature 98.9, blood pressure 116/65, pulse 135, respiratory rate 40, SaO2 of 89% on BiPAP. HEENT: Radiation associated alopecia. Dry mucous membranes. Anicteric sclerae. BiPAP mask in place. Unable to speak more than a few words, and in fact, communicates with his family by writing on a notepad. Neck: No JVD. Chest: Decreased breath sounds on the left. Uses accessory muscles. Abdomen: Distended but soft, nontender Extremities: No edema. Skin: Radiation dermatitis, erythema, hyperpigmentation, and dry desquamation in the lower back. RADIOLOGIC DATA: Chest x-ray: Left upper lobe, possible infiltrate in the left base. LABORATORY DATA: WBC is 0.3, hemoglobin 12.9, platelets 65,000. IMPRESSION: 1. Extensive stage small cell lung cancer with diffuse metastatic disease involving the bone, liver, brain, spinal cord, leptomeningeal spread status post palliative whole-brain radiation therapy and spine radiotherapy completed 2 weeks ago. 2. Hypoxemic respiratory failure secondary to pneumonia, possibly post obstructive versus malignancy. 3. Sepsis/neutropenia. 4. 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 RECOMMENDATION: 1. Continue wound care to the lower back radiation dermatitis. 2. Would decrease Decadron to 4 mg every 8 hours to facilitate management of infection. 3. Continue ICU management, antibiotics, and pulmonary/supportive care. 4. He may need intubation in the near future. 5. Pulmonary and ID followup. 6. CT of the chest when stable. Thank you for asking me to see this patient. MARIA FERNANDA GREY M.D. [id number] MTDD
[2017-07-30 22:20] LABS: ARTERIAL BLD GAS O2 SATURATION 95.7 % (90-98.9); ARTERIAL BLOOD GAS BASE EXCESS -5.9 meq/l (-2-2); ARTERIAL BLOOD GAS HCO3 19.9 meq/L (22-26); ARTERIAL BLOOD GAS PO2 87.1 mmHg (70-100); ARTERIAL BLOOD GAS pH 7.29 (7.35-7.45)
[2017-07-30 22:22] LABS: ALLENS TEST POSITIVE; ART PUNCT SITE RIGHT RADIAL; LPM/O2% 100; PT. ON O2? YES; TYPE OF O2 VENT
[2017-07-30 22:23] LABS: VENT RATE 24; VT/PRESS 450
[2017-07-30] MEDS: FENTANYL INJECTION 500 MCG in DEXTROSE 5%-WATER - 90 ML IJ SCH (23:05)
--- NOTE | 2017-07-30 23:15 | HP ---
Admitting History and Physical - Admission History of Present Illness: Pt is a 72 y/o male w/ resp distress on BIPAP and cannot give history. Pt has a PMH significant for HTN, HLD, CAD (s/p stent), GERD, prostate CA, kidney stones m. 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 Pt subsequently underwent RT. Pt presented to the ER w/ dry nonproductive cough for a few days associated w/ fever. In the ER pt found to be hypoxic and was put on BIPAP. He was also found to be pancytopenic and elevated lactic acid and was given IV antibxs. Pt subsequently continued to have resp failure and was intubated. History Source: Medical Record 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/lung/bone Prostate cancer), Renal Calculi Musculoskeletal: Yes: Other (Cord compression) - Past Surgical History Past Surgical History: Yes: Hernia Repair, Stent - Smoking History Smoking history: Former smoker (55 years, 1 PPD (per chart review)) Have you smoked in the past 12 months: No Aproximately how many cigarettes per day: 0 If you are a former smoker, when did you quit?: unk - Alcohol/Substance Use Hx Alcohol Use: No History of Substance Use: reports: None - Social History ADL: Independent 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[employer] History of Recent Travel: No Home Medications - Allergies Allergies/Adverse Reactions: Allergies Allergy/AdvReac Type Severity Reaction Status Date / Time No Known Allergies Allergy Verified 07/29/17 22:50 - Home Medications Home Medications: Ambulatory Orders Tramadol HCl 50 mg PO Q8H PRN 06/18/17 Dexamethasone [Decadron -] 4 mg PO Q6H 07/17/17 Lorazepam 0.5 mg PO DAILY 07/30/17 Family Disease History - Family Disease History Family History: Unremarkable Family Disease History: Other: Mother (stroke) Review of Systems Unable to obtain ROS, reason: Resp distress Physical Examination Vital Signs: Vital Signs Temperature 98.7 F 07/30/17 18:57 Pulse Rate 125 H 07/30/17 18:57 Respiratory Rate 30 H 07/30/17 21:30 Blood Pressure 88/58 07/30/17 18:57 O2 Sat by Pulse Oximetry (%) 98 07/30/17 18:10 HENT: Yes: WNL Neck: Yes: WNL, Supple Cardiovascular: Yes: Tachycardia Respiratory: Yes: Diminished Gastrointestinal: Yes: WNL, Normal Bowel Sounds, Soft Musculoskeletal: Yes: WNL Extremities: Yes: WNL Edema: No ...Motor Strength: WNL Labs: CBC, BMP 07/30/17 07:56 07/30/17 20:00 Problem List - Problems (1) Sepsis Assessment/Plan: Cont IV antibxs ID consult Follow cultures Code(s): A41.9 - SEPSIS, UNSPECIFIED ORGANISM (2) Febrile neutropenia Assessment/Plan: Heme consult called Broad spectrum IV antibxs Follow cbc Code(s): D70.9 - NEUTROPENIA, UNSPECIFIED R50.81 - FEVER PRESENTING WITH CONDITIONS CLASSIFIED ELSEWHERE (3) Acute hypoxemic respiratory failure Assessment/Plan: Pt intubated As per pulmonary Cont nebulizers/IV antibxs ?pneumonia Code(s): J96.01 - ACUTE RESPIRATORY FAILURE WITH HYPOXIA (4) Leptomeningeal metastases Code(s): C79.49 - SECONDARY MALIGNANT NEOPLASM OF OTH PARTS OF NERVOUS SYSTEM (5) Lung cancer Code(s): C34.90 - MALIGNANT NEOPLASM OF UNSP PART OF UNSP BRONCHUS OR LUNG (6) CAD (coronary artery disease) Code(s): I25.10 - ATHSCL HEART DISEASE OF [place] CORONARY ARTERY W/O ANG PCTRS Qualifiers: Coronary Disease-Associated Artery/Lesion type: [place] artery [place] vs. transplanted heart: [place] heart Associated angina: without angina Qualified Code(s): I25.10 - Atherosclerotic heart disease of [place] coronary artery without angina pectoris; I25.10 - Atherosclerotic heart disease of [place] coronary artery without angina pectoris; I25.10 - Atherosclerotic heart disease of [place] coronary artery without angina pectoris
[2017-07-30] MEDS ORDERED: PHENYLEPHRINE HCL 10 MG/1 ML SINGLE DOSE VIAL ONE (23:58)
[2017-07-31] MEDS ORDERED: VASOPRESSIN 50 UNITS in SODIUM CHLORIDE 97.5 ML IVPB SCH
[2017-07-31] MEDS: DEXAMETHASONE 4 MG TABLET (FP) PO SCH (00:15)
[2017-07-31] MEDS: PHENYLEPHRINE HCL 20,000 MCG in SODIUM CHLORIDE 248 ML IVPB SCH ×2 (00:18→05:31)
[2017-07-31] MEDS ORDERED: PT OWN MED DRAWER 7, Y5N ONE ×3 (01:33→21:26)
[2017-07-31 01:45] VITALS: BMI 17.3
[2017-07-31] MEDS: HYDROCORTISONE SOD SUCCINATE 100 MG/2 ML VIAL IVPB SCH (01:53)
[2017-07-31] MEDS: CEFEPIME 1 GM in DEXTROSE 5%-WATER - 100 ML IVPB SCH ×3 (02:00→17:39)
[2017-07-31] MEDS ORDERED: CEFEPIME 1 GM/100 ML BAG PRE-DOCKED IVPB SCH (02:00)
[2017-07-31] MEDS ORDERED: PHENYLEPHRINE HCL 10 MG/1 ML SINGLE DOSE VIAL ONE ×2 (05:16→09:52)
[2017-07-31] MEDS: HEPARIN NA (PORCINE) 5,000 UNITS/ML 1ML VIAL SQ SCH ×3 (05:33→21:56)
--- NOTE | 2017-07-31 07:34 | EKG ---
Test Reason : Blood Pressure : / mmHG Vent. Rate : 153 BPM Atrial Rate : 153 BPM P-R Int : 122 ms QRS Dur : 074 ms QT Int : 262 ms P-R-T Axes : 074 068 070 degrees QTc Int : 418 ms SINUS TACHYCARDIA WITH OCCASIONAL PREMATURE VENTRICULAR COMPLEXES MINIMAL VOLTAGE CRITERIA FOR LVH, MAY BE NORMAL VARIANT BORDERLINE ECG WHEN COMPARED WITH ECG OF 17-JUL-2017 01:51, PREMATURE VENTRICULAR COMPLEXES ARE NOW PRESENT VENT. RATE HAS INCREASED BY 76 BPM Confirmed by ELVIRA CLEMONS MD ([id number]) on 07/31/2017 7:34:41 AM Referred By: Confirmed By:ELVIRA CLEMONS MD
[2017-07-31 07:42] LABS: ARTERIAL BLD GAS O2 SATURATION 94.7 % (90-98.9); ARTERIAL BLOOD GAS HCO3 17.6 meq/L (22-26); ARTERIAL BLOOD GAS PO2 78.9 mmHg (70-100); ARTERIAL BLOOD GAS pH 7.29 (7.35-7.45)
[2017-07-31 07:48] LABS: ALLENS TEST POSITIVE; ART PUNCT SITE LEFT RADIAL; LPM/O2% 100; MECH. VENT. Y; PT. ON O2? YES; TYPE OF O2 MECH VENT; VT/PRESS 450
[2017-07-31 07:49] LABS: VENT RATE 35
[2017-07-31 07:56] LABS: ALBUMIN 1.4 g/dl (3.4-5.0); ANION GAP 10 (8-16); CALCIUM 7.3 mg/dL (8.5-10.1); CO2 20 mmol/L (21-32); GLUCOSE,RANDOM 145 mg/dL (74-106)
[2017-07-31 08:00] LABS: ALK PHOS 69 U/L (45-117); BILIRUBIN,TOTAL 0.5 mg/dL (0.2-1.0); SGPT/ALT 84 U/L (12-78); TOT PROT 4.9 g/dl (6.4-8.2)
[2017-07-31 08:26] LABS: SGOT/AST 92 U/L (15-37)
--- NOTE | 2017-07-31 08:56 | PN ---
Progress Note, Physician Chief Complaint: Seen and examined in ICU, respiratory failure. Recent admission here for pleural effusion and lung mass, please refer to our Consult from that recent admission. Briefly, 72 y/o male w/ resp distress on BIPAP and cannot give history. Pt has a PMH significant for HTN, HLD, CAD (s/p stent), GERD, prostate CA, kidney stones m. 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 Pt subsequently underwent RT. Pt presented to the ER w/ dry nonproductive cough for a few days associated w/ fever. In the ER pt found to be hypoxic and was put on BIPAP. He was also found to be pancytopenic and elevated lactic acid and was given IV antibxs. Pt subsequently continued to have resp failure and was intubated. History of Present Illness: TELE: Sinus tachycardia Intubated, AC Mode On pressors. - Current Medication List Current Medications: Active Medications Acetaminophen (Tylenol -) 650 mg PO Q6H PRN PRN Reason: FEVER OR PAIN Albuterol/Ipratropium (Duoneb -) 1 amp NEB Q6H PRN PRN Reason: SHORTNESS OF BREATH Aspirin (Ecotrin -) 81 mg PO DAILY [facility] Last Admin: 07/30/17 10:23 Dose: 81 mg Chlorhexidine Gluconate (Hibiclens For Decolonization -) 1 applic TP HS [facility] Last Admin: 07/30/17 21:01 Dose: 1 applic Dexamethasone Sodium Phosphate (Decadron Injection -) 4 mg IVPUSH Q8H-IV JAYDON Fluconazole (Diflucan -) 10 mg PO DAILY [facility] Heparin Sodium (Porcine) (Heparin -) 5,000 unit SQ TID [facility] Last Admin: 07/31/17 05:33 Dose: 5,000 unit Propofol (Diprivan -) 100 mls @ 1.647 mls/hr IVPB TITR JAYDON; 5 MCG/KG/MIN PRN Reason: Protocol Last Admin: 07/30/17 19:45 Dose: 1.647 mls/hr Sodium Chloride (Normal Saline -) 1,000 mls @ 83 mls/hr IV ASDIR [facility] Last Admin: 07/30/17 20:39 Dose: Not Given Fentanyl 500 mcg/ Dextrose 100 mls @ 5 mls/hr IJ TITR JAYDON PRN Reason: 25 MCG/HR Stop: 07/31/17 22:29 Last Admin: 07/30/17 23:05 Dose: 5 mls/hr Phenylephrine HCl 20,000 mcg/ (Sodium Chloride) 250 mls @ 37.5 mls/hr IVPB ASDIR JAYDON; 50 MCG/MIN PRN Reason: Protocol Last Admin: 07/31/17 05:31 Dose: 75 mls/hr Cefepime HCl 1 gm/ Dextrose 100 mls @ 200 mls/hr IVPB Q8H-IV JAYDON Last Admin: 07/31/17 02:00 Dose: 200 mls/hr Mupirocin (Bactroban Ointment (For Decolonization) -) 1 applic NS BID JAYDON Stop: 08/04/17 21:59 Last Admin: 07/30/17 21:00 Dose: 1 applic Pantoprazole Sodium (Protonix -) 40 mg PO DAILY JAYDON Last Admin: 07/30/17 10:23 Dose: 40 mg Tramadol HCl (Ultram -) 50 mg PO Q8H PRN PRN Reason: PAIN Last Admin: 07/30/17 16:36 Dose: 50 mg - Objective Vital Signs: Vital Signs Temperature 98.2 F 07/31/17 06:00 Pulse Rate 126 H 07/31/17 06:00 Respiratory Rate 35 H 07/31/17 06:30 Blood Pressure 90/69 07/31/17 06:00 O2 Sat by Pulse Oximetry (%) 98 07/30/17 18:10 Constitutional: Yes: Other (+ ETT) Cardiovascular: Yes: Regular Rate and Rhythm, Tachycardia Respiratory: Yes: Other (= breath sounds b/l) Gastrointestinal: Yes: Soft Edema: No Neurological: Yes: Other (sedated on ventilator) Labs: CBC, BMP 07/30/17 07:56 07/31/17 05:28 INR, PTT INR 1.12 (0.82-1.09) 07/29/17 23:12 Microbiology 07/29/17 23:25 Blood - Peripheral Venous Blood Culture - Preliminary NO GROWTH OBTAINED AFTER 24 HOURS, INCUBATION TO CONTINUE FOR 4 DAYS. 07/29/17 23:12 Blood - Peripheral Venous Blood Culture - Preliminary NO GROWTH OBTAINED AFTER 24 HOURS, INCUBATION TO CONTINUE FOR 4 DAYS. Laboratory Tests 06/24/17 06/27/17 07/29/17 07:30 06:10 23:12 WBC 15.2 H D RBC Plt Count INR 1.12 ABG pH ABG pCO2 at Pt Temp ABG O2 Sat (Measured) Oxygen Flow Rate Vent Rate Sodium 135 L Potassium 4.7 BUN Creatinine 1.0 Calcium Magnesium 2.5 H Total Bilirubin AST ALT Alkaline Phosphatase 07/30/17 07/31/17 07/31/17 07:56 05:28 06:00 WBC 0.3 L* D RBC 4.37 Plt Count 65 L D INR ABG pH 7.29 L ABG pCO2 at Pt Temp 38.2 ABG O2 Sat (Measured) 94.7 Oxygen Flow Rate 100 Vent Rate 35 Sodium 132 L Potassium 5.4 H D BUN 21 H Creatinine 1.0 D Calcium 7.3 L Magnesium Total Bilirubin 0.5 D AST 92 H D ALT 84 H D Alkaline Phosphatase 69 - ....Imaging Chest X-ray: Report Reviewed, Image Reviewed EKG: Image Reviewed Assessment/Plan IMP: Acute respiratory failure Metastatic small cell lung cancer Pancytopenia CAD s/p PCI several years ago REC: Critically ill with guarded prognosis. Hold antiplatelet agents. Supportive care: vent support/pressors/ abx as per ICU team. Advanced directives to be determined.
[2017-07-31] MEDS ORDERED: SODIUM CHLORIDE 500 ML IV STA (09:13)
[2017-07-31] MEDS: MUPIROCIN 2% TOPICAL OINTMENT FOR DECOLONIZATION NS SCH ×2 (09:33→21:57)
[2017-07-31] MEDS: DEXAMETHASONE SOD PHOSPHATE 4 MG/1 ML VIAL IVPUSH SCH ×2 (09:34→17:39)
[2017-07-31 09:45] LABS: MCH 29.2 pg (25.7-33.7); MCHC 32.7 g/dl (32.0-35.9); MEAN CELL VOLUME 89.3 fl (80-96); PLATELET COUNT 60 K/MM3 (134-434); RDW 16.1 % (11.9-15.9)
[2017-07-31 10:00] LABS: ANION GAP 13 (8-16); CALCIUM 7.6 mg/dL (8.5-10.1); CO2 18 mmol/L (21-32); CREATININE 1.1 mg/dL (0.7-1.3); GLUCOSE,RANDOM 142 mg/dL (74-106); MAGNESIUM 2.2 mg/dL (1.8-2.4)
--- NOTE | 2017-07-31 10:03 | PN ---
Progress Note (short form) - Note Progress Note: events noted pt seen and examined. unresponsive O/E: Intubated On presoors Unresponsive coarse breath sounds Abdomen benign no LE edema CBC, BMP 07/31/17 09:30 07/31/17 09:20 Temp Pulse Resp BP Pulse Ox 98.2 F 111 H 35 H 71/56 99 07/31/17 06:00 07/31/17 09:42 07/31/17 09:43 07/31/17 08:05 07/31/17 09:42 Current Medications Generic Name Dose Route Start Last Admin Trade Name Freq PRN Reason Stop Dose Admin Acetaminophen 650 mg 07/30/17 04:43 Tylenol - PO Q6H PRN FEVER OR PAIN Albuterol/Ipratropium 1 amp 07/30/17 04:47 Duoneb - NEB Q6H PRN SHORTNESS OF BREATH Aspirin 81 mg 07/30/17 10:00 07/30/17 10:23 Ecotrin - PO 81 mg DAILY JAYDON Administration Chlorhexidine Gluconate 1 applic 07/30/17 22:00 07/30/17 21:01 Hibiclens For Decolonization - TP 1 applic HS JAYDON Administration Dexamethasone Sodium Phosphate 4 mg 07/31/17 10:00 07/31/17 09:34 Decadron Injection - IVPUSH 4 mg Q8H-IV JAYDON Administration Fluconazole 10 mg 07/30/17 10:00 Diflucan - PO DAILY JAYDON Heparin Sodium (Porcine) 5,000 unit 07/30/17 19:00 07/31/17 05:33 Heparin - SQ 5,000 unit TID JAYDON Administration Propofol 100 mls @ 1.647 mls/hr 07/30/17 19:00 07/30/17 19:45 Diprivan - IVPB 1.647 mls/hr TITR JAYDON Administration Protocol 5 MCG/KG/MIN Sodium Chloride 1,000 mls @ 83 mls/hr 07/30/17 19:30 07/30/17 20:39 Normal Saline - IV Not Given ASDIR JAYDON Fentanyl 500 mcg/ Dextrose 100 mls @ 5 mls/hr 07/30/17 22:30 07/30/17 23:05 IJ 07/31/17 22:29 5 mls/hr TITR JAYDON Administration 25 MCG/HR Phenylephrine HCl 20,000 mcg/ 250 mls @ 37.5 mls/hr 07/30/17 23:45 07/31/17 05: 31 Sodium Chloride IVPB 75 mls/hr ASDIR JAYDON Administration Protocol 50 MCG/MIN Cefepime HCl 1 gm/ Dextrose 100 mls @ 200 mls/hr 07/31/17 02:00 07/31/17 09:33 IVPB 200 mls/hr Q8H-IV JAYDON Administration Sodium Chloride 500 mls @ 500 mls/hr 07/31/17 09:13 07/31/17 09:34 Normal Saline - IV 07/31/17 10:12 500 mls/hr ASDIR STA Administration Mupirocin 1 applic 07/30/17 22:00 07/31/17 09:33 Bactroban Ointment (For Decolonization) - NS 08/04/17 21:59 1 applic BID JAYDON Administration Pantoprazole Sodium 40 mg 07/30/17 10:00 07/30/17 10:23 Protonix - PO 40 mg DAILY JAYDON Administration Tbo-Filgrastim 300 mcg 07/31/17 10:00 Granix - SQ DAILY JAYDON Tramadol HCl 50 mg 07/30/17 04:41 07/30/17 16:36 Ultram - PO 50 mg Q8H PRN Administration PAIN Metastatic high Grade Neuroendocrine (mets to multiple sites including Leptomeningeal disease) Septic shock PNA severe neutropenia Thrombocytopenia Broad spectrum antibiotics to be continued Neupogen support. ordered for daily for now no other products needed ICU management appreciated prognosis guarded
--- NOTE | 2017-07-31 10:15 | PN ---
Physical Exam: SUBJECTIVE: Patient seen and examined at bedside. he is intubated and sedated. OBJECTIVE: Vital Signs Period Temp Pulse Resp BP Sys/Rogers Pulse Ox Last 24 Hr 98.2 F-99.4 F 111-135 14-45 71-116/42-89 77-99 GENERAL: sedated intubated. HEAD: Normal with no signs of trauma. EYES: conjunctiva clear. EARS, NOSE, THROAT: dry mucous membranes. LUNGS: Diminished breath. No wheezes, and no crackles. No accessory muscle use. HEART:Distant heart sound, without murmur, rub or gallop. ABDOMEN: Soft, nontender, not distended, normoactive bowel sounds, LOWER EXTREMITIES: warm, well-perfused. No calf tenderness. No peripheral edema. NEUROLOGICAL: No focal deficit, Normal speech. gait not observed. Laboratory Results - last 24 hr 07/30/17 07/30/17 07/30/17 07:56 10:21 19:45 WBC 0.3 L* D Corrected WBC (auto) 0.23 RBC 4.37 Hgb 12.9 Hct 38.7 MCV 88.5 MCH 29.4 MCHC 33.2 RDW 15.9 Plt Count 65 L D MPV 7.9 D Total Counted 20 Neutrophils % Neutrophils % (Manual) 35 L D Band Neuts % (Manual) 10 D Lymphocytes % Lymphocytes % (Manual) 20 D Monocytes % (Manual) 20 H* D Nucleated RBC % 30 H* D Platelet Estimate Decreased Puncture Site Left radial ABG pH 7.37 ABG pCO2 at Pt Temp 33.9 L ABG pO2 at Pt Temp 55.2 L ABG HCO3 19.3 L ABG O2 Sat (Measured) 86.4 L ABG O2 Content 17.3 ABG Base Excess -4.6 L Richard Test Positive O2 Delivery Device Bipap Oxygen Flow Rate 45% Vent Mode S/t Vent Rate 14 Mechanical Rate Bipap PEEP 0.0 Pressure Support Vent [id number] Sodium Potassium Chloride Carbon Dioxide Anion Gap BUN Creatinine Creat Clearance w eGFR Random Glucose Lactic Acid Calcium Phosphorus 4.0 Magnesium 1.9 D Total Bilirubin AST ALT Alkaline Phosphatase Total Protein Albumin 07/30/17 07/30/17 07/30/17 19:45 20:00 22:00 WBC Corrected WBC (auto) RBC Hgb Hct MCV MCH MCHC RDW Plt Count MPV Total Counted Neutrophils % Neutrophils % (Manual) Band Neuts % (Manual) Lymphocytes % Lymphocytes % (Manual) Monocytes % (Manual) Nucleated RBC % Platelet Estimate Puncture Site Right radial ABG pH 7.29 L ABG pCO2 at Pt Temp 42.4 D ABG pO2 at Pt Temp 87.1 D ABG HCO3 19.9 L ABG O2 Sat (Measured) 95.7 ABG O2 Content 15.5 ABG Base Excess -5.9 L Richard Test Positive O2 Delivery Device Vent Oxygen Flow Rate 100 Vent Mode A/c Vent Rate 24 Mechanical Rate PEEP 8.0 Pressure Support Vent 450 Sodium 134 L Potassium 3.9 Chloride 103 Carbon Dioxide 21 Anion Gap 10 BUN 19 H Creatinine 0.7 D Creat Clearance w eGFR Random Glucose 133 H Lactic Acid 1.8 Calcium 6.8 L* Phosphorus Magnesium Total Bilirubin AST ALT Alkaline Phosphatase Total Protein Albumin 07/31/17 07/31/17 07/31/17 05:28 06:00 09:30 WBC Corrected WBC (auto) RBC 4.05 Hgb 11.8 Hct 36.2 MCV 89.3 MCH 29.2 MCHC 32.7 RDW 16.1 H Plt Count 60 L MPV 8.0 Total Counted Neutrophils % No Result Required. Neutrophils % (Manual) Band Neuts % (Manual) Lymphocytes % No Result Required. Lymphocytes % (Manual) Monocytes % (Manual) Nucleated RBC % Platelet Estimate Puncture Site Left radial ABG pH 7.29 L ABG pCO2 at Pt Temp 38.2 ABG pO2 at Pt Temp 78.9 ABG HCO3 17.6 L ABG O2 Sat (Measured) 94.7 ABG O2 Content 17.3 ABG Base Excess -8.0 L Richard Test Positive O2 Delivery Device Mech vent Oxygen Flow Rate 100 Vent Mode Y Vent Rate 35 Mechanical Rate Y PEEP 8.0 Pressure Support Vent 450 Sodium 132 L Potassium 5.4 H D Chloride 102 Carbon Dioxide 20 L Anion Gap 10 BUN 21 H Creatinine 1.0 D Creat Clearance w eGFR > 60 Random Glucose 145 H Lactic Acid Calcium 7.3 L Phosphorus Magnesium Total Bilirubin 0.5 D AST 92 H D ALT 84 H D Alkaline Phosphatase 69 Total Protein 4.9 L Albumin 1.4 L D Active Medications Generic Name Dose Route Start Last Admin Trade Name Freq PRN Reason Stop Dose Admin Acetaminophen 650 mg 07/30/17 04:43 Tylenol - PO Q6H PRN FEVER OR PAIN Albuterol/Ipratropium 1 amp 07/30/17 04:47 Duoneb - NEB Q6H PRN SHORTNESS OF BREATH Aspirin 81 mg 07/30/17 10:00 07/30/17 10:23 Ecotrin - PO 81 mg DAILY JAYDON Administration Chlorhexidine Gluconate 1 applic 07/30/17 22:00 07/30/17 21:01 Hibiclens For Decolonization - TP 1 applic HS JAYDON Administration Dexamethasone Sodium Phosphate 4 mg 07/31/17 10:00 07/31/17 09:34 Decadron Injection - IVPUSH 4 mg Q8H-IV JAYDON Administration Fluconazole 10 mg 07/30/17 10:00 Diflucan - PO DAILY JAYDON Heparin Sodium (Porcine) 5,000 unit 07/30/17 19:00 07/31/17 05:33 Heparin - SQ 5,000 unit TID JAYDON Administration Propofol 100 mls @ 1.647 mls/hr 07/30/17 19:00 07/30/17 19:45 Diprivan - IVPB 1.647 mls/hr TITR JAYDON Administration Protocol 5 MCG/KG/MIN Sodium Chloride 1,000 mls @ 83 mls/hr 07/30/17 19:30 07/30/17 20:39 Normal Saline - IV Not Given ASDIR JAYDON Fentanyl 500 mcg/ Dextrose 100 mls @ 5 mls/hr 07/30/17 22:30 07/30/17 23:05 IJ 07/31/17 22:29 5 mls/hr TITR JAYDON Administration 25 MCG/HR Phenylephrine HCl 20,000 mcg/ 250 mls @ 37.5 mls/hr 07/30/17 23:45 07/31/17 05: 31 Sodium Chloride IVPB 75 mls/hr ASDIR JAYDON Administration Protocol 50 MCG/MIN Cefepime HCl 1 gm/ Dextrose 100 mls @ 200 mls/hr 07/31/17 02:00 07/31/17 09:33 IVPB 200 mls/hr Q8H-IV JAYDON Administration Mupirocin 1 applic 07/30/17 22:00 07/31/17 09:33 Bactroban Ointment (For Decolonization) - NS 08/04/17 21:59 1 applic BID JAYDON Administration Pantoprazole Sodium 40 mg 07/30/17 10:00 07/30/17 10:23 Protonix - PO 40 mg DAILY JAYDON Administration Tbo-Filgrastim 300 mcg 07/31/17 10:00 Granix - SQ DAILY JAYDON Tramadol HCl 50 mg 07/30/17 04:41 07/30/17 16:36 Ultram - PO 50 mg Q8H PRN Administration PAIN CBC, BMP 07/31/17 09:30 Microbiology 07/29/17 23:12 Blood - Peripheral Venous Blood Culture - Preliminary NO GROWTH OBTAINED AFTER 24 HOURS, INCUBATION TO CONTINUE FOR 4 DAYS. 07/29/17 23:25 Blood - Peripheral Venous Blood Culture - Preliminary NO GROWTH OBTAINED AFTER 24 HOURS, INCUBATION TO CONTINUE FOR 4 DAYS. ASSESSMENT/PLAN: # Acute Hypoxic hypercabniec respiratory failure # Metastatic small cell lung Cancer Left upper lob S/P RT , spread to liver, bone, brain # possible obstructive Pneumonia LLL # Sepsis likely 2/2 obstructive pneumonia # leukopenia and neutropenia # HTN # HLD Plan : * Admit to ICU * sedated intubated * broad spectrum abx Vanco and Cefepime per ID * IV fluids , * pressors * F/U ABGs * Repeat Chest x-ray * blood cx and Urine cx No growth over 24 hour * Repeat CBC, BMP * Very poor prognosis (family aware) * Abdominal X ray negative for colitis or obstruction * Duoneb * Neupogen support. ordered for daily * Neutropenic isolation precaution * Hold ASA due to low platlets , transfuse if drop below 50, hold hep prophylaxis if drop below 50 * dexamethazone 4 mg IVBp Q 8 hr . Visit type - Emergency Visit Emergency Visit: Yes ED Registration Date: 07/30/17 Care time: The patient presented to the Emergency Department on the above date and was hospitalized for further evaluation of their emergent condition. - New Patient This patient is new to me today: No - Critical Care Critical Care patient: Yes Total Critical Care Time (in minutes): 40 Critical Care Statement: The care of this patient involved high complexity decision making to prevent further life threatening deterioration of the patient 's condition and/or to evaluate & treat vital organ system(s) failure or risk of failure.
[2017-07-31] MEDS: ASPIRIN COATED 81 MG TABLET.EC PO SCH (11:08)
[2017-07-31] MEDS: PANTOPRAZOLE 40 MG TABLET (FP) PO SCH (11:08)
[2017-07-31] MEDS: PANTOPRAZOLE SODIUM 40 MG VIAL IVPUSH SCH (11:13)
[2017-07-31 11:55] LABS: NUCLEATED RED BLOOD CELL 28 % (0-0)
[2017-07-31 11:58] LABS: TOTAL CELLS COUNTED 100
[2017-07-31 11:59] LABS: METAMYELOCYTE 10 % (0-2); MYELOCYTE 8 % (0-2)
[2017-07-31 12:00] LABS: WHITE BLOOD COUNT 1.2 K/mm3 (4.0-10.0)
--- NOTE | 2017-07-31 12:56 | PN ---
Teaching Attending Note Name of Resident: Paulina Alvarez ATTENDING PHYSICIAN STATEMENT I saw and evaluated the patient. I reviewed the resident's note and discussed the case with the resident. I agree with the resident's findings and plan as documented. SUBJECTIVE: Pt seen and examined in the ICU. Events overnight noted. Now intubated on phenylephrine gtt. Vented on volume assist control with 100% FiO2, PEEP 8. OBJECTIVE: Last Vital Signs Temp Pulse Resp BP Pulse Ox 98.2 F 105 H 35 H 79/62 99 07/31/17 06:00 07/31/17 12:01 07/31/17 12:05 07/31/17 12:01 07/31/17 09:42 Intake & Output 07/29/17 07/29/17 07/30/17 07/31/17 00:59 23:59 23:59 23:59 Intake Total 137 440 Output Total 500 Balance 137 -60 Weight 125 lb 6 oz Gen: intubated, sedated Heart: tachycardic, regular Lung: scattered rhonchi Abd: soft, nontender Ext: no edema Back: stage 2-3 sacral ulcers CBC, BMP 07/31/17 09:30 07/31/17 09:20 Active Medications Acetaminophen (Tylenol -) 650 mg PO Q6H PRN PRN Reason: FEVER OR PAIN Albuterol/Ipratropium (Duoneb -) 1 amp NEB Q6H PRN PRN Reason: SHORTNESS OF BREATH Aspirin (Ecotrin -) 81 mg PO DAILY [facility] Last Admin: 07/31/17 11:08 Dose: Not Given Chlorhexidine Gluconate (Hibiclens For Decolonization -) 1 applic TP HS [facility] Last Admin: 07/30/17 21:01 Dose: 1 applic Dexamethasone Sodium Phosphate (Decadron Injection -) 4 mg IVPUSH Q8H-IV JAYDON Last Admin: 07/31/17 09:34 Dose: 4 mg Fluconazole (Diflucan -) 10 mg PO DAILY JAYDON Heparin Sodium (Porcine) (Heparin -) 5,000 unit SQ TID JAYDON Last Admin: 07/31/17 05:33 Dose: 5,000 unit Propofol (Diprivan -) 100 mls @ 1.647 mls/hr IVPB TITR JAYDON; 5 MCG/KG/MIN PRN Reason: Protocol Last Admin: 07/30/17 19:45 Dose: 1.647 mls/hr Sodium Chloride (Normal Saline -) 1,000 mls @ 83 mls/hr IV ASDIR JAYDON Last Admin: 07/30/17 20:39 Dose: Not Given Fentanyl 500 mcg/ Dextrose 100 mls @ 5 mls/hr IJ TITR JAYDON PRN Reason: 25 MCG/HR Stop: 07/31/17 22:29 Last Admin: 07/30/17 23:05 Dose: 5 mls/hr Phenylephrine HCl 20,000 mcg/ (Sodium Chloride) 250 mls @ 37.5 mls/hr IVPB ASDIR JAYDON; 50 MCG/MIN PRN Reason: Protocol Last Admin: 07/31/17 05:31 Dose: 75 mls/hr Cefepime HCl 1 gm/ Dextrose 100 mls @ 200 mls/hr IVPB Q8H-IV JAYDON Last Admin: 07/31/17 09:33 Dose: 200 mls/hr Mupirocin (Bactroban Ointment (For Decolonization) -) 1 applic NS BID JAYDON Stop: 08/04/17 21:59 Last Admin: 07/31/17 09:33 Dose: 1 applic Pantoprazole Sodium (Protonix -) 40 mg PO DAILY JAYDON Last Admin: 07/31/17 11:08 Dose: Not Given Pantoprazole Sodium (Protonix Iv) 40 mg IVPUSH DAILY JAYDON Last Admin: 07/31/17 11:13 Dose: 40 mg Tbo-Filgrastim (Granix -) 300 mcg SQ DAILY JAYDON Tramadol HCl (Ultram -) 50 mg PO Q8H PRN PRN Reason: PAIN Last Admin: 07/30/17 16:36 Dose: 50 mg ASSESSMENT AND PLAN: Acute Hypoxic Respiratory Failure Metastatic Small Cell Ca Pneumonia Neutropenic Septic Shock Thrombocytopenia Lactic Acidosis improved CAD Prostate Ca - broad spectrum antibiotic coverage per ID - f/u cultures - placed central line - IVF resuscitation to keep CVP 8-12 - change phenylephrine to levophed, titrate to maintain MAP >65 - taper FiO2 to keep SpO2 >90% - filgrastim - monitor CBC - monitor coags, fibrinogen level - continue decadron - DVT/GI prophylaxis - ICU monitoring - prognosis guarded critical care time spent in reviewing chart, evaluating patient and formulating plan 45 min
[2017-07-31] MEDS ORDERED: NOREPINEPHRINE BITARTRATE 4 MG/4 ML ML IV ONE ×2 (13:12→20:44)
--- NOTE | 2017-07-31 13:18 | PROC ---
<Paulina Alvarez - Last Filed: 07/31/17 13:15> Central Line Insertion Indication: Vasopressor Risks and Benefits Explained: Yes (explained to health care proxy) Consent on Chart: Yes Central Line: Triple Lumen Catheter Anesthesia: 1% Lidocaine Sterile Technique: Yes Ultrasound Guided Assistance: Yes Position: Right Internal Jugular Post Insertion: Yes: Chest X-Ray Ordered Sterile Dressing Applied: Yes Remarks: Supervised by Dr. Stroud <Eron Stroud MD - Last Filed: 07/31/17 13:24> Procedure Note Procedure: I supervised and was present during the entire procedure. Eron Stroud MD
[2017-07-31] MEDS: NOREPINEPHRINE BITARTRATE 8,000 MCG in DEXTROSE 5%-WATER - 492 ML IV SCH ×2 (14:15→21:59)
--- NOTE | 2017-07-31 15:31 | PN ---
Progress Note, Physician History of Present Illness: continues to be sedated and intubated still critical central line placed - Current Medication List Current Medications: Active Medications Acetaminophen (Tylenol -) 650 mg PO Q6H PRN PRN Reason: FEVER OR PAIN Albuterol/Ipratropium (Duoneb -) 1 amp NEB Q6H PRN PRN Reason: SHORTNESS OF BREATH Aspirin (Ecotrin -) 81 mg PO DAILY [facility] Last Admin: 07/31/17 11:08 Dose: Not Given Chlorhexidine Gluconate (Hibiclens For Decolonization -) 1 applic TP HS [facility] Last Admin: 07/30/17 21:01 Dose: 1 applic Dexamethasone Sodium Phosphate (Decadron Injection -) 4 mg IVPUSH Q8H-IV [facility] Last Admin: 07/31/17 09:34 Dose: 4 mg Fluconazole (Diflucan -) 10 mg PO DAILY [facility] Heparin Sodium (Porcine) (Heparin -) 5,000 unit SQ TID [facility] Last Admin: 07/31/17 13:38 Dose: 5,000 unit Propofol (Diprivan -) 100 mls @ 1.647 mls/hr IVPB TITR JAYDON; 5 MCG/KG/MIN PRN Reason: Protocol Last Admin: 07/30/17 19:45 Dose: 1.647 mls/hr Sodium Chloride (Normal Saline -) 1,000 mls @ 83 mls/hr IV ASDIR [facility] Last Admin: 07/30/17 20:39 Dose: Not Given Fentanyl 500 mcg/ Dextrose 100 mls @ 5 mls/hr IJ TITR JAYDON PRN Reason: 25 MCG/HR Stop: 07/31/17 22:29 Last Admin: 07/30/17 23:05 Dose: 5 mls/hr Cefepime HCl 1 gm/ Dextrose 100 mls @ 200 mls/hr IVPB Q8H-IV [facility] Last Admin: 07/31/17 09:33 Dose: 200 mls/hr Norepinephrine Bitartrate 8, (000 mcg/ Dextrose) 500 mls @ 18.75 mls/hr IV TITR JAYDON; 5 MCG/MIN PRN Reason: Protocol Mupirocin (Bactroban Ointment (For Decolonization) -) 1 applic NS BID [facility] Stop: 08/04/17 21:59 Last Admin: 07/31/17 09:33 Dose: 1 applic Pantoprazole Sodium (Protonix -) 40 mg PO DAILY [facility] Last Admin: 07/31/17 11:08 Dose: Not Given Pantoprazole Sodium (Protonix Iv) 40 mg IVPUSH DAILY [facility] Last Admin: 07/31/17 11:13 Dose: 40 mg Tbo-Filgrastim (Granix -) 300 mcg SQ DAILY [facility] Tramadol HCl (Ultram -) 50 mg PO Q8H PRN PRN Reason: PAIN Last Admin: 07/30/17 16:36 Dose: 50 mg - Objective Vital Signs: Vital Signs Temperature 97.6 F 07/31/17 14:26 Pulse Rate 120 H 07/31/17 14:26 Respiratory Rate 22 07/31/17 14:26 Blood Pressure 97/78 07/31/17 14:26 O2 Sat by Pulse Oximetry (%) 99 07/31/17 09:42 Constitutional: Yes: Other Cardiovascular: Yes: Regular Rate and Rhythm Respiratory: Yes: Intubated, Mechanically Ventilated, Poor Air Entry Gastrointestinal: Yes: Normal Bowel Sounds, Soft, Other (og in place) Musculoskeletal: Yes: WNL Extremities: Yes: WNL Neurological: Yes: Other Psychiatric: Yes: Other Labs: CBC, BMP 07/31/17 09:30 07/31/17 09:20 INR, PTT INR 1.12 (0.82-1.09) 07/29/17 23:12 Assessment/Plan 72 yo M with significant PMH of HTN, HLD, CAD (s/p cardiac stents), GERD and prostate cancer, kidney stones, and 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
--- NOTE | 2017-07-31 15:43 | PN ---
Progress Note (short form) - Note Progress Note: OG tube placed. Taped at 50 at the lip. CXR ordered to confirm placement. pt is stable following placement.
--- NOTE | 2017-07-31 16:01 | PN ---
Physical Exam: SUBJECTIVE: Patient seen and examined at bedside. 24 hr events Pt received 1000 cc bolus for hypotension. Was started on propofol, and on phenylephrine since BP 78/20. Today Phenylephrine was increased to 200 and pt bolused with 500cc additional NS. D/t pt's BP instability, additional pressors needed- central line placed today in R IJ, to allow for levophed. Vent settings: A/C 35/450/100% OBJECTIVE: Vital Signs Period Temp Pulse Resp BP Sys/Rogers Pulse Ox Last 24 Hr 97.6 F-99.4 F 105-135 14-45 71-116/42-89 77-99 GENERAL: The patient is intubated and sedated on propofol. HEAD: Normal with no signs of trauma. EYES: PERRL, sclera anicteric, conjunctiva clear. NECK: Trachea midline, supple. R IJ access* LUNGS: rhonchi appreciated b/l, coarse breath sounds HEART: tachycardic rate and rhythm, S1, S2 without murmur, rub or gallop. ABDOMEN: Soft, nontender, nondistended, normoactive bowel sounds, no guarding, no rebound EXTREMITIES: 2+ dorsalis pedis pulses, cool RLE, LLE NEUROLOGICAL: difficult to assess as pt sedated Laboratory Results - last 24 hr 07/30/17 07/30/17 07/30/17 19:45 19:45 20:00 WBC Corrected WBC (auto) RBC Hgb Hct MCV MCH MCHC RDW Plt Count MPV Total Counted Neutrophils % Neutrophils % (Manual) Band Neuts % (Manual) Lymphocytes % Lymphocytes % (Manual) Monocytes % (Manual) Eosinophils % (Manual) Myelocytes % (Man) Nucleated RBC % Puncture Site ABG pH ABG pCO2 at Pt Temp ABG pO2 at Pt Temp ABG HCO3 ABG O2 Sat (Measured) ABG O2 Content ABG Base Excess Richard Test O2 Delivery Device Oxygen Flow Rate Vent Mode Vent Rate Mechanical Rate PEEP Pressure Support Vent Sodium 134 L Potassium 3.9 Chloride 103 Carbon Dioxide 21 Anion Gap 10 BUN 19 H Creatinine 0.7 D Creat Clearance w eGFR Random Glucose 133 H Lactic Acid 1.8 Calcium 6.8 L* Phosphorus 4.0 Magnesium 1.9 D Total Bilirubin AST ALT Alkaline Phosphatase Total Protein Albumin 07/30/17 07/31/17 07/31/17 22:00 05:28 06:00 WBC Corrected WBC (auto) RBC Hgb Hct MCV MCH MCHC RDW Plt Count MPV Total Counted Neutrophils % Neutrophils % (Manual) Band Neuts % (Manual) Lymphocytes % Lymphocytes % (Manual) Monocytes % (Manual) Eosinophils % (Manual) Myelocytes % (Man) Nucleated RBC % Puncture Site Right radial Left radial ABG pH 7.29 L 7.29 L ABG pCO2 at Pt Temp 42.4 D 38.2 ABG pO2 at Pt Temp 87.1 D 78.9 ABG HCO3 19.9 L 17.6 L ABG O2 Sat (Measured) 95.7 94.7 ABG O2 Content 15.5 17.3 ABG Base Excess -5.9 L -8.0 L Richard Test Positive Positive O2 Delivery Device Vent Mech vent Oxygen Flow Rate 100 100 Vent Mode A/c Y Vent Rate 24 35 Mechanical Rate Y PEEP 8.0 8.0 Pressure Support Vent 450 450 Sodium 132 L Potassium 5.4 H D Chloride 102 Carbon Dioxide 20 L Anion Gap 10 BUN 21 H Creatinine 1.0 D Creat Clearance w eGFR > 60 Random Glucose 145 H Lactic Acid Calcium 7.3 L Phosphorus Magnesium Total Bilirubin 0.5 D AST 92 H D ALT 84 H D Alkaline Phosphatase 69 Total Protein 4.9 L Albumin 1.4 L D 07/31/17 07/31/17 09:20 09:30 WBC 1.2 L* D Corrected WBC (auto) 0.94 RBC 4.05 Hgb 11.8 Hct 36.2 MCV 89.3 MCH 29.2 MCHC 32.7 RDW 16.1 H Plt Count 60 L MPV 8.0 Total Counted 100 Neutrophils % No Result Required. Neutrophils % (Manual) 22 L D Band Neuts % (Manual) 18 H D Lymphocytes % No Result Required. Lymphocytes % (Manual) 18 Monocytes % (Manual) 22 H* Eosinophils % (Manual) 2 Myelocytes % (Man) 8 H Nucleated RBC % 28 H* Puncture Site ABG pH ABG pCO2 at Pt Temp ABG pO2 at Pt Temp ABG HCO3 ABG O2 Sat (Measured) ABG O2 Content ABG Base Excess Richard Test O2 Delivery Device Oxygen Flow Rate Vent Mode Vent Rate Mechanical Rate PEEP Pressure Support Vent Sodium 133 L Potassium 4.6 Chloride 102 Carbon Dioxide 18 L Anion Gap 13 BUN 23 H Creatinine 1.1 Creat Clearance w eGFR Random Glucose 142 H Lactic Acid Calcium 7.6 L Phosphorus 5.0 H D Magnesium 2.2 Total Bilirubin AST ALT Alkaline Phosphatase Total Protein Albumin Active Medications Generic Name Dose Route Start Last Admin Trade Name Kurt PRN Reason Stop Dose Admin Acetaminophen 650 mg 07/30/17 04:43 Tylenol - PO Q6H PRN FEVER OR PAIN Albuterol/Ipratropium 1 amp 07/30/17 04:47 Duoneb - NEB Q6H PRN SHORTNESS OF BREATH Aspirin 81 mg 07/30/17 10:00 07/31/17 11:08 Ecotrin - PO Not Given DAILY JAYDON Chlorhexidine Gluconate 1 applic 07/30/17 22:00 07/30/17 21:01 Hibiclens For Decolonization - TP 1 applic HS JAYDON Administration Dexamethasone Sodium Phosphate 4 mg 07/31/17 10:00 07/31/17 09:34 Decadron Injection - IVPUSH 4 mg Q8H-IV JAYDON Administration Fluconazole 10 mg 07/30/17 10:00 Diflucan - PO DAILY JAYDON Heparin Sodium (Porcine) 5,000 unit 07/30/17 19:00 07/31/17 13:38 Heparin - SQ 5,000 unit TID JAYDON Administration Propofol 100 mls @ 1.647 mls/hr 07/30/17 19:00 07/30/17 19:45 Diprivan - IVPB 1.647 mls/hr TITR JAYDON Administration Protocol 5 MCG/KG/MIN Sodium Chloride 1,000 mls @ 83 mls/hr 07/30/17 19:30 07/30/17 20:39 Normal Saline - IV Not Given ASDIR JAYDON Fentanyl 500 mcg/ Dextrose 100 mls @ 5 mls/hr 07/30/17 22:30 07/30/17 23:05 IJ 07/31/17 22:29 5 mls/hr TITR JAYDON Administration 25 MCG/HR Cefepime HCl 1 gm/ Dextrose 100 mls @ 200 mls/hr 07/31/17 02:00 07/31/17 09:33 IVPB 200 mls/hr Q8H-IV JAYDON Administration Norepinephrine Bitartrate 8, 500 mls @ 18.75 mls/hr 07/31/17 14:15 000 mcg/ Dextrose IV TITR JAYDON Protocol 5 MCG/MIN Mupirocin 1 applic 07/30/17 22:00 07/31/17 09:33 Bactroban Ointment (For Decolonization) - NS 08/04/17 21:59 1 applic BID JAYDON Administration Pantoprazole Sodium 40 mg 07/30/17 10:00 07/31/17 11:08 Protonix - PO Not Given DAILY JAYDON Pantoprazole Sodium 40 mg 07/31/17 11:00 07/31/17 11:13 Protonix Iv IVPUSH 40 mg DAILY JAYDON Administration Tbo-Filgrastim 300 mcg 07/31/17 11:00 Granix - SQ DAILY JAYDON Tramadol HCl 50 mg 07/30/17 04:41 07/30/17 16:36 Ultram - PO 50 mg Q8H PRN Administration PAIN ASSESSMENT/PLAN: 72 y/o M with PMH SCLC (recent RT, on steroids), with mets to liver, brain, bone , HLD, HTN, CAD with stents, prostate CA, kidney stones, who presented to the ED with SOB and cough. Since pt was in resp distress, he was intubated and admitted to the ICU. PULM #Acute hypoxemic respiratory failure -in respiratory distress while in ED, currently sedated on vent -Continue cefepime (Today is Day1), fluconazole -Continue duonebs 1 amp q6h PRN -Decadron 4mg IVP q8h -F/u CXR tomorrow HEME ONC #SCLC with multiple mets -WBC count 1.2, neutropenic. Pt on contact precautions -Continue Filgrastim 300 mcg SQ daily, as per heme onc -F/u coags, fibrinogen levels ID #Septic shock 2/2 neutropenia -phenylephrine changed to levophed -Central line placed today (07/31/17) -Goal to keep MAP >65 -Goal CVP 8-12 -IVF resuscitation as needed -F/u troponins, trend -F/u lactate GI -OG tube placed (07/31/17) by CCU evening team -placement confirmed by CXR Renal #Hyponatremia -last level 132, will follow closely -pt on NS fluids -F/u BMP #Hyperkalemia -last level 5.4 -F/u EKG, will need to give calcium gluconate if needs memb stabilization -Will f/u BMP #Prophylaxis DVT: heparin 5000 U SQ TID GI: Protonix 40mg IVP qd #F/E/N NS 83 mls/hr Will monitor electrolytes currently on regular diet Dispo Continued management in ICU d/t pressor support Visit type - Emergency Visit Emergency Visit: No - New Patient This patient is new to me today: Yes Date on this admission: 07/31/17 - Critical Care Critical Care patient: Yes Total Critical Care Time (in minutes): 42 Critical Care Statement: The care of this patient involved high complexity decision making to prevent further life threatening deterioration of the patient 's condition and/or to evaluate & treat vital organ system(s) failure or risk of failure.
[2017-07-31] MEDS ORDERED: VANCOMYCIN 1,000 MG in DEXTROSE 5%-WATER - 250 ML IVPB ONE (16:04)
[2017-07-31] MEDS: TBO-FILGRASTIM 300 MCG/0.5 ML DISP.SYRINGE SQ SCH (17:38)
[2017-07-31] MEDS: FENTANYL INJECTION 500 MCG in DEXTROSE 5%-WATER - 90 ML IJ SCH (17:41)
--- NOTE | 2017-07-31 19:09 | EKG ---
Test Reason : Blood Pressure : / mmHG Vent. Rate : 104 BPM Atrial Rate : 104 BPM P-R Int : 112 ms QRS Dur : 088 ms QT Int : 298 ms P-R-T Axes : 078 067 053 degrees QTc Int : 391 ms SINUS TACHYCARDIA POSSIBLE LEFT ATRIAL ENLARGEMENT ST ELEVATION, CONSIDER EARLY REPOLARIZATION, PERICARDITIS, OR INJURY NONSPECIFIC ST AND T WAVE ABNORMALITY ABNORMAL ECG WHEN COMPARED WITH ECG OF 29-JUL-2017 23:35, PREMATURE VENTRICULAR COMPLEXES ARE NO LONGER PRESENT ST ELEVATION HAS REPLACED ST DEPRESSION IN INFERIOR LEADS ST ELEVATION HAS REPLACED ST DEPRESSION IN LATERAL LEADS REPEAT EKG IF CLINICALLY INDICATED Confirmed by TOVA PETIT MD ([id number]) on 07/31/2017 7:09:01 PM Referred By: FREDY ALONZO DR Confirmed By:TOVA PETIT MD
[2017-07-31] MEDS: CHLORHEXIDINE GLUCONATE 4% CLEANSER FOR DECOLONIZATION TP SCH (21:58)
--- NOTE | 2017-07-31 22:40 | PN ---
Progress Note, Physician - Current Medication List Current Medications: Active Medications Acetaminophen (Tylenol -) 650 mg PO Q6H PRN PRN Reason: FEVER OR PAIN Albuterol/Ipratropium (Duoneb -) 1 amp NEB Q6H PRN PRN Reason: SHORTNESS OF BREATH Aspirin (Ecotrin -) 81 mg PO DAILY [facility] Last Admin: 07/31/17 11:08 Dose: Not Given Chlorhexidine Gluconate (Hibiclens For Decolonization -) 1 applic TP HS [facility] Last Admin: 07/31/17 21:58 Dose: 1 applic Dexamethasone Sodium Phosphate (Decadron Injection -) 4 mg IVPUSH Q8H-IV [facility] Last Admin: 07/31/17 17:39 Dose: 4 mg Fluconazole (Diflucan -) 10 mg PO DAILY [facility] Heparin Sodium (Porcine) (Heparin -) 5,000 unit SQ TID [facility] Last Admin: 07/31/17 21:56 Dose: 5,000 unit Propofol (Diprivan -) 100 mls @ 1.647 mls/hr IVPB TITR JAYDON; 5 MCG/KG/MIN PRN Reason: Protocol Last Admin: 07/30/17 19:45 Dose: 1.647 mls/hr Sodium Chloride (Normal Saline -) 1,000 mls @ 83 mls/hr IV ASDIR [facility] Last Admin: 07/30/17 20:39 Dose: Not Given Cefepime HCl 1 gm/ Dextrose 100 mls @ 200 mls/hr IVPB Q8H-IV [facility] Last Admin: 07/31/17 17:39 Dose: 200 mls/hr Norepinephrine Bitartrate 8, (000 mcg/ Dextrose) 500 mls @ 18.75 mls/hr IV TITR JAYDON; 5 MCG/MIN PRN Reason: Protocol Last Admin: 07/31/17 21:59 Dose: 56 mls/hr Mupirocin (Bactroban Ointment (For Decolonization) -) 1 applic NS BID [facility] Stop: 08/04/17 21:59 Last Admin: 07/31/17 21:57 Dose: 1 applic Pantoprazole Sodium (Protonix Iv) 40 mg IVPUSH DAILY [facility] Last Admin: 07/31/17 11:13 Dose: 40 mg Tbo-Filgrastim (Granix -) 300 mcg SQ DAILY [facility] Last Admin: 11/07/17 17:38 Dose: 300 mcg Tramadol HCl (Ultram -) 50 mg PO Q8H PRN PRN Reason: PAIN Last Admin: 07/30/17 16:36 Dose: 50 mg - Objective Vital Signs: Vital Signs Temperature 98.8 F 07/31/17 18:00 Pulse Rate 117 H 07/31/17 21:59 Respiratory Rate 35 H 07/31/17 19:18 Blood Pressure 104/81 07/31/17 21:59 O2 Sat by Pulse Oximetry (%) 99 07/31/17 09:42 Labs: CBC, BMP 07/31/17 09:30 07/31/17 09:20 INR, PTT INR 1.12 (0.82-1.09) 07/29/17 23:12 Problem List - Problems (1) Sepsis Code(s): A41.9 - SEPSIS, UNSPECIFIED ORGANISM (2) Febrile neutropenia Code(s): D70.9 - NEUTROPENIA, UNSPECIFIED R50.81 - FEVER PRESENTING WITH CONDITIONS CLASSIFIED ELSEWHERE (3) Acute hypoxemic respiratory failure Code(s): J96.01 - ACUTE RESPIRATORY FAILURE WITH HYPOXIA (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 transplanted heart: [place] heart Associated angina: without angina Qualified Code(s): I25.10 - Atherosclerotic heart disease of [place] coronary artery without angina pectoris; I25.10 - Atherosclerotic heart disease of [place] coronary artery without angina pectoris; I25.10 - Atherosclerotic heart disease of [place] coronary artery without angina pectoris
[2017-08-01] MEDS: DEXAMETHASONE SOD PHOSPHATE 4 MG/1 ML VIAL IVPUSH SCH ×3 (02:52→17:10)
[2017-08-01] MEDS: CEFEPIME 1 GM in DEXTROSE 5%-WATER - 100 ML IVPB SCH ×3 (02:52→17:09)
[2017-08-01] MEDS: SODIUM CHLORIDE 1,000 ML IV SCH ×2 (03:00→17:11)
[2017-08-01] MEDS: PROPOFOL 100 ML IVPB SCH ×2 (03:01→19:30)
[2017-08-01 07:28] LABS: ALBUMIN 1.1 g/dl (3.4-5.0); ALK PHOS 62 U/L (45-117); ANION GAP 10 (8-16); BILIRUBIN,TOTAL 0.3 mg/dL (0.2-1.0); CALCIUM 7.1 mg/dL (8.5-10.1); CO2 19 mmol/L (21-32); CREATININE 0.8 mg/dL (0.7-1.3); GLUCOSE,RANDOM 187 mg/dL (74-106); MAGNESIUM 2.2 mg/dL (1.8-2.4); PHOSPHOROUS 2.4 mg/dL (2.5-4.9); SGOT/AST 46 U/L (15-37); SGPT/ALT 62 U/L (12-78); TOT PROT 4.2 g/dl (6.4-8.2); TROPONIN I 0.02 ng/ml (0.00-0.05)
[2017-08-01] MEDS: HEPARIN NA (PORCINE) 5,000 UNITS/ML 1ML VIAL SQ SCH ×2 (07:44→14:23)
[2017-08-01 07:58] LABS: ARTERIAL BLD GAS O2 SATURATION 97.9 % (90-98.9); ARTERIAL BLOOD GAS BASE EXCESS -5.9 meq/l (-2-2); ARTERIAL BLOOD GAS HCO3 18.4 meq/L (22-26); ARTERIAL BLOOD GAS pH 7.36 (7.35-7.45)
[2017-08-01 08:00] LABS: ALLENS TEST POSITIVE; ART PUNCT SITE RIGHT RADIAL; LPM/O2% 60; PT. ON O2? YES; TYPE OF O2 MEC VENT
[2017-08-01 08:01] LABS: MECH. VENT. YES; VENT RATE 35; VT/PRESS 450
[2017-08-01 08:17] LABS: MCH 29.9 pg (25.7-33.7); MEAN CELL VOLUME 87.7 fl (80-96); MEAN PLT VOLUME 8.3 fl (7.5-11.1); PLATELET COUNT 39 K/MM3 (134-434); RDW 16.3 % (11.9-15.9)
--- NOTE | 2017-08-01 08:28 | PN ---
Progress Note, Physician Chief Complaint: remains intubated, not much clinical change TELE: Sinus tach - Current Medication List Current Medications: Active Medications Acetaminophen (Tylenol -) 650 mg PO Q6H PRN PRN Reason: FEVER OR PAIN Albuterol/Ipratropium (Duoneb -) 1 amp NEB Q6H PRN PRN Reason: SHORTNESS OF BREATH Aspirin (Ecotrin -) 81 mg PO DAILY [facility] Last Admin: 07/31/17 11:08 Dose: Not Given Chlorhexidine Gluconate (Hibiclens For Decolonization -) 1 applic TP HS [facility] Last Admin: 07/31/17 21:58 Dose: 1 applic Dexamethasone Sodium Phosphate (Decadron Injection -) 4 mg IVPUSH Q8H-IV [facility] Last Admin: 08/01/17 02:52 Dose: 4 mg Fluconazole (Diflucan -) 10 mg PO DAILY [facility] Heparin Sodium (Porcine) (Heparin -) 5,000 unit SQ TID [facility] Last Admin: 08/01/17 07:44 Dose: 5,000 unit Propofol (Diprivan -) 100 mls @ 1.647 mls/hr IVPB TITR JAYDON; 5 MCG/KG/MIN PRN Reason: Protocol Last Admin: 08/01/17 03:01 Dose: 21.25 mcg/kg/min, 7 mls/hr Sodium Chloride (Normal Saline -) 1,000 mls @ 83 mls/hr IV ASDIR [facility] Last Admin: 08/01/17 03:00 Dose: 83 mls/hr Cefepime HCl 1 gm/ Dextrose 100 mls @ 200 mls/hr IVPB Q8H-IV [facility] Last Admin: 08/01/17 02:52 Dose: 200 mls/hr Norepinephrine Bitartrate 8, (000 mcg/ Dextrose) 500 mls @ 18.75 mls/hr IV TITR JAYDON; 5 MCG/MIN PRN Reason: Protocol Last Admin: 07/31/17 21:59 Dose: 14.93 mcg/min, 56 mls/hr Mupirocin (Bactroban Ointment (For Decolonization) -) 1 applic NS BID [facility] Stop: 08/04/17 21:59 Last Admin: 07/31/17 21:57 Dose: 1 applic Pantoprazole Sodium (Protonix Iv) 40 mg IVPUSH DAILY [facility] Last Admin: 07/31/17 11:13 Dose: 40 mg Tbo-Filgrastim (Granix -) 300 mcg SQ DAILY [facility] Last Admin: 07/31/17 17:38 Dose: 300 mcg Tramadol HCl (Ultram -) 50 mg PO Q8H PRN PRN Reason: PAIN Last Admin: 07/30/17 16:36 Dose: 50 mg - Objective Vital Signs: Vital Signs Temperature 98.2 F 08/01/17 06:00 Pulse Rate 115 H 08/01/17 06:00 Respiratory Rate 35 H 08/01/17 06:30 Blood Pressure 123/85 08/01/17 06:00 O2 Sat by Pulse Oximetry (%) 99 07/31/17 21:30 Constitutional: Yes: No Distress Cardiovascular: Yes: Regular Rate and Rhythm Respiratory: Yes: Other (= breath sounds b/l) Gastrointestinal: Yes: Soft Edema: No Neurological: Yes: Other (sedated on propofol) Labs: CBC, BMP 08/01/17 07:20 08/01/17 06:00 INR, PTT INR 1.12 (0.82-1.09) 07/29/17 23:12 Fibrinogen 1150.0 mg/dL (238-498) H 08/01/17 07:20 Microbiology 07/29/17 23:25 Blood - Peripheral Venous Blood Culture - Preliminary NO GROWTH OBTAINED AFTER 48 HOURS, INCUBATION TO CONTINUE FOR 3 DAYS. 07/29/17 23:12 Blood - Peripheral Venous Blood Culture - Preliminary NO GROWTH OBTAINED AFTER 48 HOURS, INCUBATION TO CONTINUE FOR 3 DAYS. Laboratory Tests 08/01/17 08/01/17 06:00 07:20 WBC 2.3 L D Hgb 9.4 L D Plt Count 39 L D Sodium 137 Potassium 3.8 Creatinine 0.8 D Troponin I 0.02 D - ....Imaging EKG: Image Reviewed Assessment/Plan Assessment/Plan IMP: Acute respiratory failure Metastatic small cell lung cancer Pancytopenia CAD s/p PCI several years ago REC: Critically ill with guarded prognosis. Hold antiplatelet agents. Supportive care: vent support/pressors/ abx as per ICU team.
--- NOTE | 2017-08-01 08:35 | PN ---
Progress Note (short form) - Note Progress Note: Wound Care Consult - Gordon Moeller DO Called to eval 72 yo male with sacral ulcer. Currently, pt intubated. Last Vital Signs Temp Pulse Resp BP Pulse Ox 98.2 F 115 H 35 H 123/85 99 08/01/17 06:00 08/01/17 06:00 08/01/17 06:30 08/01/17 06:00 07/31/17 21:30 CBC, BMP 08/01/17 07:20 08/01/17 06:00 Back/skin: stage 1 pressure sore. No fluctuance/bogginess/induration/drainage/ foul odor Assessment: ST1 pressure sore. Pancytopenia. Respiratory failure Plan: 1. Frequent repositioning 2. Pad all pressure points to prevent further tissue breakdown 3. Place optifoam dressing to sacrum 4. Monitor platelets, wbc, h/h 5. No surgical intervention On behalf of Gordon Moeller, thank you for the opportunity to participate in your patient's care
[2017-08-01] MEDS ORDERED: PT OWN MED DRAWER 7, Y5N ONE ×2 (09:29→16:49)
[2017-08-01] MEDS: ASPIRIN COATED 81 MG TABLET.EC PO SCH (09:52)
[2017-08-01] MEDS: MUPIROCIN 2% TOPICAL OINTMENT FOR DECOLONIZATION NS SCH ×2 (09:52→21:03)
[2017-08-01] MEDS: PANTOPRAZOLE SODIUM 40 MG VIAL IVPUSH SCH (09:53)
[2017-08-01] MEDS: TBO-FILGRASTIM 300 MCG/0.5 ML DISP.SYRINGE SQ SCH (09:56)
--- NOTE | 2017-08-01 11:12 | PN ---
Progress Note (short form) - Note Progress Note: pt seen and examined. not much change from yesterday As per RN, theres some decreased pressor requirement O/E: Intubated On presoors Unresponsive coarse breath sounds Abdomen benign no LE edema Last Vital Signs Temp Pulse Resp BP Pulse Ox 98.2 F 102 H 35 H 104/82 93 L 08/01/17 06:00 08/01/17 10:52 08/01/17 10:05 08/01/17 10:00 08/01/17 10:52 CBC, BMP 08/01/17 07:20 08/01/17 06:00 Current Medications Generic Name Dose Route Start Last Admin Trade Name Freq PRN Reason Stop Dose Admin Acetaminophen 650 mg 07/30/17 04:43 Tylenol - PO Q6H PRN FEVER OR PAIN Albuterol/Ipratropium 1 amp 07/30/17 04:47 Duoneb - NEB Q6H PRN SHORTNESS OF BREATH Aspirin 81 mg 07/30/17 10:00 08/01/17 09:52 Ecotrin - PO 81 mg DAILY JAYDON Administration Chlorhexidine Gluconate 1 applic 07/30/17 22:00 07/31/17 21:58 Hibiclens For Decolonization - TP 1 applic HS JAYDON Administration Dexamethasone Sodium Phosphate 4 mg 07/31/17 10:00 08/01/17 09:51 Decadron Injection - IVPUSH 4 mg Q8H-IV JAYDON Administration Fluconazole 10 mg 07/30/17 10:00 Diflucan - PO DAILY JAYDON Heparin Sodium (Porcine) 5,000 unit 07/30/17 19:00 08/01/17 07:44 Heparin - SQ 5,000 unit TID JAYDON Administration Propofol 100 mls @ 1.647 mls/hr 07/30/17 19:00 08/01/17 03:01 Diprivan - IVPB 21.25 mcg/kg/min TITR JAYDON 7 mls/hr Protocol Administration 5 MCG/KG/MIN Sodium Chloride 1,000 mls @ 83 mls/hr 07/30/17 19:30 08/01/17 03:00 Normal Saline - IV 83 mls/hr ASDIR JAYDON Administration Cefepime HCl 1 gm/ Dextrose 100 mls @ 200 mls/hr 07/31/17 02:00 08/01/17 09: 52 IVPB 200 mls/hr Q8H-IV JAYDON Administration Norepinephrine Bitartrate 8, 500 mls @ 18.75 mls/hr 07/31/17 14:15 07/31/17 21:59 000 mcg/ Dextrose IV 14.93 mcg/min TITR JAYDON 56 mls/hr Protocol Administration 5 MCG/MIN Mupirocin 1 applic 07/30/17 22:00 08/01/17 09:52 Bactroban Ointment (For Decolonization) - NS 08/04/17 21:59 1 applic BID JAYDON Administration Pantoprazole Sodium 40 mg 07/31/17 11:00 08/01/17 09:53 Protonix Iv IVPUSH 40 mg DAILY JAYDON Administration Tbo-Filgrastim 300 mcg 07/31/17 11:00 08/01/17 09:56 Granix - SQ 300 mcg DAILY JAYDON Administration Tramadol HCl 50 mg 07/30/17 04:41 07/30/17 16:36 Ultram - PO 50 mg Q8H PRN Administration PAIN 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 d/w GARDENIA
--- NOTE | 2017-08-01 11:47 | PN ---
Progress Note, Physician History of Present Illness: continues to be intubated sedated neutropenia starting to resolve remaining afebrile - Current Medication List Current Medications: Active Medications Acetaminophen (Tylenol -) 650 mg PO Q6H PRN PRN Reason: FEVER OR PAIN Albuterol/Ipratropium (Duoneb -) 1 amp NEB Q6H PRN PRN Reason: SHORTNESS OF BREATH Aspirin (Ecotrin -) 81 mg PO DAILY [facility] Last Admin: 08/01/17 09:52 Dose: 81 mg Chlorhexidine Gluconate (Hibiclens For Decolonization -) 1 applic TP HS [facility] Last Admin: 07/31/17 21:58 Dose: 1 applic Dexamethasone Sodium Phosphate (Decadron Injection -) 4 mg IVPUSH Q8H-IV [facility] Last Admin: 08/01/17 09:51 Dose: 4 mg Fluconazole (Diflucan -) 10 mg PO DAILY [facility] Heparin Sodium (Porcine) (Heparin -) 5,000 unit SQ TID [facility] Last Admin: 08/01/17 07:44 Dose: 5,000 unit Propofol (Diprivan -) 100 mls @ 1.647 mls/hr IVPB TITR JAYDON; 5 MCG/KG/MIN PRN Reason: Protocol Last Admin: 08/01/17 03:01 Dose: 21.25 mcg/kg/min, 7 mls/hr Sodium Chloride (Normal Saline -) 1,000 mls @ 83 mls/hr IV ASDIR [facility] Last Admin: 08/01/17 03:00 Dose: 83 mls/hr Cefepime HCl 1 gm/ Dextrose 100 mls @ 200 mls/hr IVPB Q8H-IV [facility] Last Admin: 08/01/17 09:52 Dose: 200 mls/hr Norepinephrine Bitartrate 8, (000 mcg/ Dextrose) 500 mls @ 18.75 mls/hr IV TITR JAYDON; 5 MCG/MIN PRN Reason: Protocol Last Admin: 07/31/17 21:59 Dose: 14.93 mcg/min, 56 mls/hr Mupirocin (Bactroban Ointment (For Decolonization) -) 1 applic NS BID [facility] Stop: 08/04/17 21:59 Last Admin: 08/01/17 09:52 Dose: 1 applic Pantoprazole Sodium (Protonix Iv) 40 mg IVPUSH DAILY [facility] Last Admin: 08/01/17 09:53 Dose: 40 mg Tbo-Filgrastim (Granix -) 300 mcg SQ DAILY [facility] Last Admin: 08/01/17 09:56 Dose: 300 mcg Tramadol HCl (Ultram -) 50 mg PO Q8H PRN PRN Reason: PAIN Last Admin: 07/30/17 16:36 Dose: 50 mg - Objective Vital Signs: Vital Signs Temperature 98.9 F 08/01/17 10:00 Pulse Rate 102 H 08/01/17 10:52 Respiratory Rate 35 H 08/01/17 10:05 Blood Pressure 104/82 08/01/17 10:00 O2 Sat by Pulse Oximetry (%) 93 L 08/01/17 10:52 Constitutional: Yes: Other Eyes: Yes: Conjunctiva Clear Cardiovascular: Yes: Regular Rate and Rhythm, Tachycardia Respiratory: Yes: Intubated, Mechanically Ventilated, Rhonchi Gastrointestinal: Yes: Normal Bowel Sounds, Soft, Other (og tube in place) Musculoskeletal: Yes: WNL Extremities: Yes: WNL Neurological: Yes: Other Psychiatric: Yes: Other Labs: CBC, BMP 08/01/17 07:20 08/01/17 06:00 INR, PTT INR 1.12 (0.82-1.09) 07/29/17 23:12 Fibrinogen 1150.0 mg/dL (238-498) H 08/01/17 07:20 Assessment/Plan patient stable r/o colitis lethargy abd distension resp failure plan conitnue abx resp support wbc improving monitor for fevers patients overall condition is poor rest as per icu cc time 40 min
--- NOTE | 2017-08-01 12:05 | PN ---
Teaching Attending Note Name of Resident: Paulina Alvarez ATTENDING PHYSICIAN STATEMENT I saw and evaluated the patient. I reviewed the resident's note and discussed the case with the resident. I agree with the resident's findings and plan as documented. SUBJECTIVE: Pt seen and examined in the ICU. Remains intubated, sedated on levophed gtt. Vented on volume assist control with 60% FiO2, PEEP 8. OBJECTIVE: Last Vital Signs Temp Pulse Resp BP Pulse Ox 98.9 F 102 H 35 H 104/82 93 L 08/01/17 10:00 08/01/17 10:52 08/01/17 10:05 08/01/17 10:00 08/01/17 10:52 Intake & Output 07/29/17 07/30/17 07/31/17 08/01/17 23:59 23:59 23:59 23:59 Intake Total 137 2630 1970 Output Total 2300 1100 Balance 137 330 870 Weight 125 lb 6 oz 132 lb 14.4 oz Gen: intubated, sedated Heart: tachycardic, regular Lung: scattered rhonchi Abd: soft, nontender Ext: no edema CBC, BMP 08/01/17 07:20 08/01/17 06:00 Active Medications Acetaminophen (Tylenol -) 650 mg PO Q6H PRN PRN Reason: FEVER OR PAIN Albuterol/Ipratropium (Duoneb -) 1 amp NEB Q6H PRN PRN Reason: SHORTNESS OF BREATH Aspirin (Ecotrin -) 81 mg PO DAILY [facility] Last Admin: 08/01/17 09:52 Dose: 81 mg Chlorhexidine Gluconate (Hibiclens For Decolonization -) 1 applic TP HS [facility] Last Admin: 07/31/17 21:58 Dose: 1 applic Dexamethasone Sodium Phosphate (Decadron Injection -) 4 mg IVPUSH Q8H-IV [facility] Last Admin: 08/01/17 09:51 Dose: 4 mg Fluconazole (Diflucan -) 10 mg PO DAILY [facility] Heparin Sodium (Porcine) (Heparin -) 5,000 unit SQ TID [facility] Last Admin: 08/01/17 07:44 Dose: 5,000 unit Propofol (Diprivan -) 100 mls @ 1.647 mls/hr IVPB TITR [facility]AYDON; 5 MCG/KG/MIN PRN Reason: Protocol Last Admin: 08/01/17 03:01 Dose: 21.25 mcg/kg/min, 7 mls/hr Sodium Chloride (Normal Saline -) 1,000 mls @ 83 mls/hr IV ASDIR [facility] Last Admin: 08/01/17 03:00 Dose: 83 mls/hr Cefepime HCl 1 gm/ Dextrose 100 mls @ 200 mls/hr IVPB Q8H-IV [facility] Last Admin: 08/01/17 09:52 Dose: 200 mls/hr Norepinephrine Bitartrate 8, (000 mcg/ Dextrose) 500 mls @ 18.75 mls/hr IV TITR [facility]AYDON; 5 MCG/MIN PRN Reason: Protocol Last Admin: 07/31/17 21:59 Dose: 14.93 mcg/min, 56 mls/hr Mupirocin (Bactroban Ointment (For Decolonization) -) 1 applic NS BID [facility] Stop: 08/04/17 21:59 Last Admin: 08/01/17 09:52 Dose: 1 applic Pantoprazole Sodium (Protonix Iv) 40 mg IVPUSH DAILY [facility] Last Admin: 08/01/17 09:53 Dose: 40 mg Tbo-Filgrastim (Granix -) 300 mcg SQ DAILY [facility] Last Admin: 08/01/17 09:56 Dose: 300 mcg Tramadol HCl (Ultram -) 50 mg PO Q8H PRN PRN Reason: PAIN Last Admin: 07/30/17 16:36 Dose: 50 mg ASSESSMENT AND PLAN: Acute Hypoxic Respiratory Failure Metastatic Small Cell Ca Pneumonia Neutropenic Septic Shock Thrombocytopenia Lactic Acidosis improved CAD Prostate Ca - broad spectrum antibiotic coverage per ID - f/u cultures - IVF to keep CVP 8-12 - titrate levophed gtt to maintain MAP >65 - taper FiO2 to keep SpO2 >90% - filgrastim - monitor CBC - monitor coags, fibrinogen level - continue decadron - DVT/GI prophylaxis - ICU monitoring - prognosis guarded critical care time spent in reviewing chart, evaluating patient and formulating plan 40 min
[2017-08-01 12:28] LABS: METAMYELOCYTE 6 % (0-2); MYELOCYTE 16 % (0-2); TOTAL CELLS COUNTED 100
[2017-08-01 12:30] LABS: WHITE BLOOD COUNT 2.3 K/mm3 (4.0-10.0)
[2017-08-01] MEDS ORDERED: PROPOFOL 1,000,000 MCG/100 ML VIAL ONE (12:34)
--- NOTE | 2017-08-01 12:53 | PN ---
Physical Exam: Medicine coverage for Dr. Aguilera SUBJECTIVE: Patient seen and examined. He is intubated, sedated, on levophed OBJECTIVE: Vital Signs Period Temp Pulse Resp BP Sys/Rogers Pulse Ox Last 24 Hr 97.6 F-98.9 F 100-128 24-36 78-123/48-85 93-99 PE Neuro: sedated HEENT: OG tube Pulm: diminished with scattered rhonchi b/l, intuabted, CV: s1 s2 tachycardia no mrg Abd: s nt nd + bs : bro, yellow outpt Ext: b/l hand edema, no le edema Laboratory Results - last 24 hr 08/01/17 08/01/17 08/01/17 06:00 06:00 07:20 WBC 2.3 L D RBC 3.14 L D Hgb 9.4 L D Hct 27.5 L D MCV 87.7 MCH 29.9 MCHC 34.0 RDW 16.3 H Plt Count 39 L D MPV 8.3 Total Counted 100 Neutrophils % No Result Required. Neutrophils % (Manual) 46 D Band Neuts % (Manual) 26 H D Lymphocytes % No Result Required. Lymphocytes % (Manual) 3 L D Monocytes % (Manual) 3 L D Myelocytes % (Man) 16 H D Fibrinogen Puncture Site ABG pH ABG pCO2 at Pt Temp ABG pO2 at Pt Temp ABG HCO3 ABG O2 Sat (Measured) ABG O2 Content ABG Base Excess Richard Test O2 Delivery Device Oxygen Flow Rate Vent Mode Vent Rate Mechanical Rate PEEP Pressure Support Vent Sodium 137 Potassium 3.8 Chloride 108 H Carbon Dioxide 19 L Anion Gap 10 BUN 20 H Creatinine 0.8 D Creat Clearance w eGFR > 60 Random Glucose 187 H D Lactic Acid 2.8 H* Calcium 7.1 L Phosphorus 2.4 L D Magnesium 2.2 Total Bilirubin 0.3 D AST 46 H D ALT 62 D Alkaline Phosphatase 62 Troponin I 0.02 D Total Protein 4.2 L Albumin 1.1 L D 08/01/17 08/01/17 07:20 07:30 WBC RBC Hgb Hct MCV MCH MCHC RDW Plt Count MPV Total Counted Neutrophils % Neutrophils % (Manual) Band Neuts % (Manual) Lymphocytes % Lymphocytes % (Manual) Monocytes % (Manual) Myelocytes % (Man) Fibrinogen 1150.0 H Puncture Site Right radial ABG pH 7.36 ABG pCO2 at Pt Temp 33.6 L ABG pO2 at Pt Temp 102.0 H D ABG HCO3 18.4 L ABG O2 Sat (Measured) 97.9 ABG O2 Content 11.6 L ABG Base Excess -5.9 L Richard Test Positive O2 Delivery Device Mec vent Oxygen Flow Rate 60 Vent Mode A/c Vent Rate 35 Mechanical Rate Yes PEEP 8.0 Pressure Support Vent 450 Sodium Potassium Chloride Carbon Dioxide Anion Gap BUN Creatinine Creat Clearance w eGFR Random Glucose Lactic Acid Calcium Phosphorus Magnesium Total Bilirubin AST ALT Alkaline Phosphatase Troponin I Total Protein Albumin Active Medications Generic Name Dose Route Start Last Admin Trade Name Freq PRN Reason Stop Dose Admin Acetaminophen 650 mg 07/30/17 04:43 Tylenol - PO Q6H PRN FEVER OR PAIN Albuterol/Ipratropium 1 amp 07/30/17 04:47 Duoneb - NEB Q6H PRN SHORTNESS OF BREATH Aspirin 81 mg 07/30/17 10:00 08/01/17 09:52 Ecotrin - PO 81 mg DAILY [facility] Administration Chlorhexidine Gluconate 1 applic 07/30/17 22:00 07/31/17 21:58 Hibiclens For Decolonization - TP 1 applic HS [facility] Administration Dexamethasone Sodium Phosphate 4 mg 07/31/17 10:00 08/01/17 09:51 Decadron Injection - IVPUSH 4 mg Q8H-IV [facility] Administration Fluconazole 10 mg 07/30/17 10:00 Diflucan - PO DAILY [facility] Heparin Sodium (Porcine) 5,000 unit 07/30/17 19:00 08/01/17 07:44 Heparin - SQ 5,000 unit TID [facility] Administration Propofol 100 mls @ 1.647 mls/hr 07/30/17 19:00 08/01/17 03:01 Diprivan - IVPB 21.25 mcg/kg/min TITR [facility] 7 mls/hr Protocol Administration 5 MCG/KG/MIN Sodium Chloride 1,000 mls @ 83 mls/hr 07/30/17 19:30 08/01/17 03:00 Normal Saline - IV 83 mls/hr ASDIR J[facility]DON Administration Cefepime HCl 1 gm/ Dextrose 100 mls @ 200 mls/hr 07/31/17 02:00 08/01/17 09: 52 IVPB 200 mls/hr Q8H-IV [facility]DON Administration Norepinephrine Bitartrate 8, 500 mls @ 18.75 mls/hr 07/31/17 14:15 07/31/17 21:59 000 mcg/ Dextrose IV 14.93 mcg/min TITR J[facility]DON 56 mls/hr Protocol Administration 5 MCG/MIN Mupirocin 1 applic 07/30/17 22:00 08/01/17 09:52 Bactroban Ointment (For Decolonization) - NS 08/04/17 21:59 1 applic BID [facility] Administration Pantoprazole Sodium 40 mg 07/31/17 11:00 08/01/17 09:53 Protonix Iv IVPUSH 40 mg DAILY [facility] Administration Tbo-Filgrastim 300 mcg 07/31/17 11:00 08/01/17 09:56 Granix - SQ 300 mcg DAILY [facility] Administration Tramadol HCl 50 mg 07/30/17 04:41 07/30/17 16:36 Ultram - PO 50 mg Q8H PRN Administration PAIN Microbiology 07/29/17 23:12 Blood Culture - Preliminary Blood - Peripheral Venous NO GROWTH OBTAINED AFTER 48 HOURS, INCUBATION TO CONTINUE FOR 3 DAYS. 07/29/17 23:25 Blood Culture - Preliminary Blood - Peripheral Venous NO GROWTH OBTAINED AFTER 48 HOURS, INCUBATION TO CONTINUE FOR 3 DAYS. 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 Plan: 1. Acute Hypoxic Respiratory Failure - Continue mechanical ventilation - Maintain sedation - Titrate fio2 to keep goal spo2 >90% 2. Neutropenic septic shock due to PNA - Elevated lactic level - Maintain IVF for goal CVP 8-12 - Continue levophed, keep MAP >65 - Cefepime/vanco/fluconazole per ID 3. PNA - see above 4. 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 Thrombocytopenia - Due to above - Stop ASA - Stop Heparin sq - Fibrinogin high, moves against DIC 6. Severe neutropenia - WBC with rise today - Granix daily, discontinue possibly today? - Heme following 7. Prostate CA 8. CAD s/p PCI - Stop ASA - Visit type - Emergency Visit Emergency Visit: Yes ED Registration Date: 07/30/17 Care time: The patient presented to the Emergency Department on the above date and was hospitalized for further evaluation of their emergent condition. - New Patient This patient is new to me today: Yes Date on this admission: 08/01/17 - Critical Care Critical Care patient: Yes Total Critical Care Time (in minutes): 37 Critical Care Statement: The care of this patient involved high complexity decision making to prevent further life threatening deterioration of the patient 's condition and/or to evaluate & treat vital organ system(s) failure or risk of failure. - Discharge Referral Referred to [facility] No
[2017-08-01 14:01] LABS: INR 1.07 (0.82-1.09); PROTHROMBIN TIME (PATIENT) 12.1 SEC (9.98-11.88)
[2017-08-01 14:04] LABS: ACTIVATED PTT 27.3 SECONDS (26.9-34.4)
--- NOTE | 2017-08-01 16:04 | PN ---
Physical Exam: SUBJECTIVE: Patient seen and examined at bedside. 24 hr events -No acute events overnight -afebrile Today -pt resting comfortably, on vent, sedated -On levophed -daughter at bedside, brought his living will. seeks to discuss GOC OBJECTIVE: Vital Signs Period Temp Pulse Resp BP Sys/Rogers Pulse Ox Last 24 Hr 98.2 F-98.9 F 102-128 18-35 99-123/60-85 93-99 GENERAL: The patient is intubated and sedated on propofol. HEAD: Normal with no signs of trauma. EYES: PERRL, sclera anicteric, conjunctiva clear. NECK: Trachea midline, supple. R IJ access* LUNGS: rhonchi appreciated b/l HEART: tachycardic rate and rhythm, S1, S2 without murmur, rub or gallop. ABDOMEN: Soft, nontender, nondistended, normoactive bowel sounds, no guarding, no rebound EXTREMITIES: 2+ dorsalis pedis pulses NEUROLOGICAL: difficult to assess as pt sedated Laboratory Results - last 24 hr 08/01/17 08/01/17 08/01/17 06:00 06:00 07:20 WBC 2.3 L D RBC 3.14 L D Hgb 9.4 L D Hct 27.5 L D MCV 87.7 MCH 29.9 MCHC 34.0 RDW 16.3 H Plt Count 39 L D MPV 8.3 Total Counted 100 Neutrophils % No Result Required. Neutrophils % (Manual) 46 D Band Neuts % (Manual) 26 H D Lymphocytes % No Result Required. Lymphocytes % (Manual) 3 L D Monocytes % (Manual) 3 L D Myelocytes % (Man) 16 H D PT with INR INR PTT (Actin FS) Fibrinogen Puncture Site ABG pH ABG pCO2 at Pt Temp ABG pO2 at Pt Temp ABG HCO3 ABG O2 Sat (Measured) ABG O2 Content ABG Base Excess Richard Test O2 Delivery Device Oxygen Flow Rate Vent Mode Vent Rate Mechanical Rate PEEP Pressure Support Vent Sodium 137 Potassium 3.8 Chloride 108 H Carbon Dioxide 19 L Anion Gap 10 BUN 20 H Creatinine 0.8 D Creat Clearance w eGFR > 60 Random Glucose 187 H D Lactic Acid 2.8 H* Calcium 7.1 L Phosphorus 2.4 L D Magnesium 2.2 Total Bilirubin 0.3 D AST 46 H D ALT 62 D Alkaline Phosphatase 62 Troponin I 0.02 D Total Protein 4.2 L Albumin 1.1 L D 08/01/17 08/01/17 08/01/17 07:20 07:30 13:25 WBC RBC Hgb Hct MCV MCH MCHC RDW Plt Count MPV Total Counted Neutrophils % Neutrophils % (Manual) Band Neuts % (Manual) Lymphocytes % Lymphocytes % (Manual) Monocytes % (Manual) Myelocytes % (Man) PT with INR 12.10 H INR 1.07 PTT (Actin FS) 27.3 D Fibrinogen 1150.0 H Puncture Site Right radial ABG pH 7.36 ABG pCO2 at Pt Temp 33.6 L ABG pO2 at Pt Temp 102.0 H D ABG HCO3 18.4 L ABG O2 Sat (Measured) 97.9 ABG O2 Content 11.6 L ABG Base Excess -5.9 L Richard Test Positive O2 Delivery Device Mec vent Oxygen Flow Rate 60 Vent Mode A/c Vent Rate 35 Mechanical Rate Yes PEEP 8.0 Pressure Support Vent 450 Sodium Potassium Chloride Carbon Dioxide Anion Gap BUN Creatinine Creat Clearance w eGFR Random Glucose Lactic Acid Calcium Phosphorus Magnesium Total Bilirubin AST ALT Alkaline Phosphatase Troponin I Total Protein Albumin Active Medications Generic Name Dose Route Start Last Admin Trade Name Freq PRN Reason Stop Dose Admin Acetaminophen 650 mg 07/30/17 04:43 Tylenol - PO Q6H PRN FEVER OR PAIN Albuterol/Ipratropium 1 amp 07/30/17 04:47 Duoneb - NEB Q6H PRN SHORTNESS OF BREATH Bacitracin/Polymyxin B Sulfate 1 applic 08/01/17 15:00 Polysporin Ointment - TP DAILY [facility] Chlorhexidine Gluconate 1 applic 07/30/17 22:00 07/31/17 21:58 Hibiclens For Decolonization - TP 1 applic HS [facility] Administration Dexamethasone Sodium Phosphate 4 mg 07/31/17 10:00 08/01/17 09:51 Decadron Injection - IVPUSH 4 mg Q8H-IV [facility] Administration Fluconazole 10 mg 07/30/17 10:00 Diflucan - PO DAILY [facility] Propofol 100 mls @ 1.647 mls/hr 07/30/17 19:00 08/01/17 12:45 Diprivan - IVPB 42.51 mcg/kg/min TITR J[facility]DON 14 mls/hr Protocol Titration 5 MCG/KG/MIN Sodium Chloride 1,000 mls @ 83 mls/hr 07/30/17 19:30 08/01/17 03:00 Normal Saline - IV 83 mls/hr ASDIR JAYDON Administration Cefepime HCl 1 gm/ Dextrose 100 mls @ 200 mls/hr 07/31/17 02:00 08/01/17 09: 52 IVPB 200 mls/hr Q8H-IV [facility] Administration Norepinephrine Bitartrate 8, 500 mls @ 18.75 mls/hr 07/31/17 14:15 07/31/17 21:59 000 mcg/ Dextrose IV 14.93 mcg/min TITR J[facility]DON 56 mls/hr Protocol Administration 5 MCG/MIN Mupirocin 1 applic 07/30/17 22:00 08/01/17 09:52 Bactroban Ointment (For Decolonization) - NS 08/04/17 21:59 1 applic BID [facility] Administration Pantoprazole Sodium 40 mg 07/31/17 11:00 08/01/17 09:53 Protonix Iv IVPUSH 40 mg DAILY [facility] Administration Tbo-Filgrastim 300 mcg 07/31/17 11:00 08/01/17 09:56 Granix - SQ 300 mcg DAILY [facility] Administration ASSESSMENT/PLAN: 72 y/o M with PMH SCLC (recent RT, on steroids), with mets to liver, brain, bone , HLD, HTN, CAD with stents, prostate CA, kidney stones, who presented to the ED with SOB and cough. Since pt was in resp distress, he was intubated and admitted to the ICU. PULM #Acute hypoxemic respiratory failure -in respiratory distress while in ED, currently sedated on vent -Continue cefepime (Today is Day2), fluconazole -Continue duonebs 1 amp q6h PRN -Decadron 4mg IVP q8h -F/u CXR tomorrow HEME ONC #SCLC with multiple mets -WBC count 2.3, neutropenic. Pt on contact precautions -Continue Filgrastim 300 mcg SQ daily, as per heme onc -F/u coags, fibrinogen levels- pending ID #Septic shock 2/2 neutropenia -phenylephrine changed to levophed -Central line placed (07/31/17) -Goal to keep MAP >65 -Goal CVP 8-12 -IVF resuscitation as needed -F/u troponins, trend -lactate 2.8 GI -OG tube placed (07/31/17) by CCU evening team -placement confirmed by CXR DERM -sloughing of skin on back - continue bacitracin application Renal #Hyponatremia-resolved #Hyperkalemia- resolved Palliative -visited by daughter today, who brought his living will. To discuss GOC with Criss. #Prophylaxis DVT: heparin 5000 U SQ TID GI: Protonix 40mg IVP qd #F/E/N NS 83 mls/hr Will monitor electrolytes osmolite feeds Dispo Continued management in ICU d/t pressor support Visit type - Emergency Visit Emergency Visit: No - New Patient This patient is new to me today: No - Critical Care Critical Care patient: Yes Total Critical Care Time (in minutes): 42 Critical Care Statement: The care of this patient involved high complexity decision making to prevent further life threatening deterioration of the patient 's condition and/or to evaluate & treat vital organ system(s) failure or risk of failure.
[2017-08-01] MEDS: BACITRACIN/POLYMYXIN B SULFATE 15 GM TUBE TP SCH (17:10)
[2017-08-01] MEDS: CHLORHEXIDINE GLUCONATE 4% CLEANSER FOR DECOLONIZATION TP SCH (21:03)
[2017-08-02] MEDS: DEXAMETHASONE SOD PHOSPHATE 4 MG/1 ML VIAL IVPUSH SCH ×3 (01:13→17:03)
[2017-08-02] MEDS: SODIUM CHLORIDE 1,000 ML IV SCH ×2 (01:13→19:30)
[2017-08-02] MEDS: CEFEPIME 1 GM in DEXTROSE 5%-WATER - 100 ML IVPB SCH ×3 (01:13→17:02)
[2017-08-02 06:52] LABS: INR 1.04 (0.82-1.09); PROTHROMBIN TIME (PATIENT) 11.7 SEC (9.98-11.88)
[2017-08-02 06:55] LABS: ACTIVATED PTT 29.4 SECONDS (26.9-34.4)
[2017-08-02 07:30] LABS: ALK PHOS 68 U/L (45-117); ANION GAP 8 (8-16); BILIRUBIN,TOTAL 0.3 mg/dL (0.2-1.0); CALCIUM 7.3 mg/dL (8.5-10.1); CO2 23 mmol/L (21-32); CREATININE 0.8 mg/dL (0.7-1.3); GLUCOSE,RANDOM 163 mg/dL (74-106); MCH 29.7 pg (25.7-33.7); MCHC 33.4 g/dl (32.0-35.9); MEAN CELL VOLUME 88.8 fl (80-96); MEAN PLT VOLUME 8.4 fl (7.5-11.1); RDW 16.8 % (11.9-15.9); SGOT/AST 41 U/L (15-37); SGPT/ALT 50 U/L (12-78); TOT PROT 3.9 g/dl (6.4-8.2); WHITE BLOOD COUNT 4.8 K/mm3 (4.0-10.0)
[2017-08-02 07:38] LABS: ALBUMIN 0.9 g/dl (3.4-5.0)
[2017-08-02 07:41] LABS: ARTERIAL BLOOD GAS BASE EXCESS -2.6 meq/l (-2-2); ARTERIAL BLOOD GAS HCO3 20.6 meq/L (22-26); ARTERIAL BLOOD GAS pH 7.44 (7.35-7.45)
[2017-08-02 07:43] LABS: PLATELET COUNT 28 K/MM3 (134-434)
[2017-08-02 07:43] LABS: ALLENS TEST POSITIVE; ART PUNCT SITE RIGHT RADIAL; LPM/O2% 40; PT. ON O2? YES; TYPE OF O2 VENT
[2017-08-02 07:44] LABS: MECH. VENT. YES; VENT RATE 26; VT/PRESS 450
[2017-08-02] MEDS ORDERED: POTASSIUM CHLORIDE ORAL LIQUID 20 MEQ/15 ML PO ONE (08:30)
[2017-08-02] MEDS ORDERED: PT OWN MED DRAWER 7, Y5N ONE ×4 (08:40→16:51)
--- NOTE | 2017-08-02 08:53 | PN ---
Progress Note, Physician History of Present Illness: remains intubated TELE: NSR with frequent APCs - Current Medication List Current Medications: Active Medications Acetaminophen (Tylenol -) 650 mg PO Q6H PRN PRN Reason: FEVER OR PAIN Albuterol/Ipratropium (Duoneb -) 1 amp NEB Q6H PRN PRN Reason: SHORTNESS OF BREATH Bacitracin/Polymyxin B Sulfate (Polysporin Ointment -) 1 applic TP DAILY [facility] Last Admin: 08/01/17 17:10 Dose: 1 applic Chlorhexidine Gluconate (Hibiclens For Decolonization -) 1 applic TP HS [facility] Last Admin: 08/01/17 21:03 Dose: 1 applic Dexamethasone Sodium Phosphate (Decadron Injection -) 4 mg IVPUSH Q8H-IV [facility] Last Admin: 08/02/17 01:13 Dose: 4 mg Fluconazole (Diflucan -) 10 mg PO DAILY J[facility]DON Propofol (Diprivan -) 100 mls @ 1.647 mls/hr IVPB TITR JAYDON; 5 MCG/KG/MIN PRN Reason: Protocol Last Titration: 08/02/17 06:27 Dose: 40 mcg/kg/min, 13.172 mls/hr Sodium Chloride (Normal Saline -) 1,000 mls @ 83 mls/hr IV ASDIR JAYDON Last Admin: 08/02/17 01:13 Dose: 83 mls/hr Cefepime HCl 1 gm/ Dextrose 100 mls @ 200 mls/hr IVPB Q8H-IV [facility] Last Admin: 08/02/17 01:13 Dose: 200 mls/hr Norepinephrine Bitartrate 8, (000 mcg/ Dextrose) 500 mls @ 18.75 mls/hr IV TITR JAYDON; 5 MCG/MIN PRN Reason: Protocol Last Titration: 08/01/17 20:00 Dose: 0 mcg/min, 0 mls/hr Mupirocin (Bactroban Ointment (For Decolonization) -) 1 applic NS BID J[facility]DON Stop: 08/04/17 21:59 Last Admin: 08/01/17 21:03 Dose: 1 applic Pantoprazole Sodium (Protonix Iv) 40 mg IVPUSH DAILY [facility] Last Admin: 08/01/17 09:53 Dose: 40 mg Tbo-Filgrastim (Granix -) 300 mcg SQ DAILY [facility] Last Admin: 08/01/17 09:56 Dose: 300 mcg - Objective Vital Signs: Vital Signs Temperature 98.9 F 08/02/17 06:00 Pulse Rate 102 H 08/02/17 07:47 Respiratory Rate 22 08/02/17 07:47 Blood Pressure 112/85 08/02/17 07:47 O2 Sat by Pulse Oximetry (%) 98 08/01/17 20:23 Constitutional: Yes: No Distress Cardiovascular: Yes: Tachycardia Respiratory: Yes: Other (= breath sounds b/l) Gastrointestinal: Yes: Soft (mild distension) Edema: No Labs: CBC, BMP 08/02/17 06:10 08/02/17 06:10 INR, PTT INR 1.04 (0.82-1.09) 08/02/17 06:10 Fibrinogen 1150.0 mg/dL (238-498) H 08/01/17 07:20 Laboratory Tests 08/02/17 08/02/17 08/02/17 06:10 06:10 07:30 WBC 4.8 D Hgb 8.5 L Plt Count 28 L* D ABG pH 7.44 ABG pCO2 at Pt Temp 31.0 L ABG pO2 at Pt Temp 66.0 L D Oxygen Flow Rate 40 Vent Mode A/c Sodium 144 Potassium 3.0 L D Creatinine 0.8 - ....Imaging EKG: Image Reviewed Assessment/Plan IMP: Acute respiratory failure Metastatic small cell lung cancer Pancytopenia CAD s/p PCI several years ago REC: Critically ill with guarded/poor prognosis. Hold antiplatelet agents. Supportive care: vent support/pressors/ abx as per ICU team.
[2017-08-02] MEDS: PANTOPRAZOLE SODIUM 40 MG VIAL IVPUSH SCH ×2 (09:22→10:00)
[2017-08-02] MEDS: MUPIROCIN 2% TOPICAL OINTMENT FOR DECOLONIZATION NS SCH ×2 (09:23→21:24)
[2017-08-02] MEDS: FLUCONAZOLE 50 MG TABLET PO SCH (10:00)
[2017-08-02] MEDS: PROPOFOL 100 ML IVPB SCH ×2 (10:57→18:30)
[2017-08-02] MEDS: TBO-FILGRASTIM 300 MCG/0.5 ML DISP.SYRINGE SQ SCH (12:44)
[2017-08-02] MEDS: BACITRACIN/POLYMYXIN B SULFATE 15 GM TUBE TP SCH (12:44)
--- NOTE | 2017-08-02 13:16 | PN ---
Progress Note (short form) - Note Progress Note: PAtient seen and examined intubated/sedated Last Vital Signs Temp Pulse Resp BP Pulse Ox 98.5 F 114 H 35 H 124/87 93 L 08/02/17 10:00 08/02/17 10:00 08/02/17 11:36 08/02/17 10:00 08/02/17 11:54 Cor: RSR, No murmurs, No gallops Lungs: Clear to P&A Abd: Soft, Normal bowel sounds, No organomegaly Ext:No significant edema Abnormal Lab Results 08/01/17 08/02/17 08/02/17 13:25 06:10 06:10 RBC 2.88 L Hgb 8.5 L Hct 25.5 L RDW 16.8 H Plt Count 28 L* D PT with INR 12.10 H ABG pCO2 at Pt Temp ABG pO2 at Pt Temp ABG HCO3 ABG O2 Content ABG Base Excess Potassium 3.0 L D Chloride 113 H Random Glucose 163 H Calcium 7.3 L AST 41 H Total Protein 3.9 L Albumin 0.9 L 08/02/17 07:30 RBC Hgb Hct RDW Plt Count PT with INR ABG pCO2 at Pt Temp 31.0 L ABG pO2 at Pt Temp 66.0 L D ABG HCO3 20.6 L ABG O2 Content 10.9 L ABG Base Excess -2.6 L Potassium Chloride Random Glucose Calcium AST Total Protein Albumin Active Medications Generic Name Dose Route Start Last Admin Trade Name Freq PRN Reason Stop Dose Admin Acetaminophen 650 mg 07/30/17 04:43 Tylenol - PO Q6H PRN FEVER OR PAIN Albuterol/Ipratropium 1 amp 07/30/17 04:47 Duoneb - NEB Q6H PRN SHORTNESS OF BREATH Bacitracin/Polymyxin B Sulfate 1 applic 08/01/17 15:00 08/02/17 12:44 Polysporin Ointment - TP 1 applic DAILY JAYDON Administration Chlorhexidine Gluconate 1 applic 07/30/17 22:00 08/01/17 21:03 Hibiclens For Decolonization - TP 1 applic HS JAYDON Administration Dexamethasone Sodium Phosphate 4 mg 07/31/17 10:00 08/02/17 09:16 Decadron Injection - IVPUSH 4 mg Q8H-IV JAYDON Administration Fluconazole 10 mg 07/30/17 10:00 Diflucan - PO DAILY JAYDON Propofol 100 mls @ 1.647 mls/hr 07/30/17 19:00 08/02/17 10:57 Diprivan - IVPB 40 mcg/kg/min TITR JAYDON 13.172 mls/hr Protocol Administration 5 MCG/KG/MIN Sodium Chloride 1,000 mls @ 83 mls/hr 07/30/17 19:30 08/02/17 01:13 Normal Saline - IV 83 mls/hr ASDIR JAYDON Administration Cefepime HCl 1 gm/ Dextrose 100 mls @ 200 mls/hr 07/31/17 02:00 08/02/17 12: 15 IVPB 200 mls/hr Q8H-IV JAYDON Administration Norepinephrine Bitartrate 8, 500 mls @ 18.75 mls/hr 07/31/17 14:15 08/01/17 20:00 000 mcg/ Dextrose IV 0 mcg/min TITR JAYDON 0 mls/hr Protocol Titration 5 MCG/MIN Mupirocin 1 applic 07/30/17 22:00 08/02/17 09:23 Bactroban Ointment (For Decolonization) - NS 08/04/17 21:59 1 applic BID JAYDON Administration Pantoprazole Sodium 40 mg 07/31/17 11:00 08/02/17 09:22 Protonix Iv IVPUSH Not Given DAILY JAYDON Tbo-Filgrastim 300 mcg 07/31/17 11:00 08/02/17 12:44 Granix - SQ 300 mcg DAILY JAYDON Administration A/P 72 y/o patient with extenisive small cell lung cancer,brain/leptomeningeal/ liver mets. Patient came in with pneumonia/sepsis/shock off pressors hemodynamically improved WBC improved --stop granix thrombocytopenia--ongoing infection? recheck CBC Transfuse monodonor platelets if <20,000 resp. status tenuous discussed overall goals of care with fiance at the bed side. Awaiting arrival of other family members
[2017-08-02 13:39] LABS: PLATELET ESTIMATE MARKEDLY DECREASED (NORMAL)
--- NOTE | 2017-08-02 13:57 | PN ---
Teaching Attending Note Name of Resident: Paulina Alvarez ATTENDING PHYSICIAN STATEMENT I saw and evaluated the patient. I reviewed the resident's note and discussed the case with the resident. I agree with the resident's findings and plan as documented. SUBJECTIVE: Pt seen and examined in the ICU. Remains intubated, sedated. Off pressors. Held sedation but became tachypneic with abdominal breathing almost immediately. No further fevers. OBJECTIVE: Last Vital Signs Temp Pulse Resp BP Pulse Ox 98.5 F 114 H 35 H 124/87 93 L 08/02/17 10:00 08/02/17 10:00 08/02/17 11:36 08/02/17 10:00 08/02/17 11:54 Intake & Output 07/30/17 07/31/17 08/01/17 08/02/17 23:59 23:59 23:59 23:59 Intake Total 137 2630 3608 1660 Output Total 2300 3300 1400 Balance 137 330 308 260 Weight 125 lb 6 oz 132 lb 14.4 oz 135 lb 1 oz Gen: intubated, sedated Heart: tachycardic, regular Lung: scattered rhonchi Abd: soft, nontender Ext: + edema CBC, BMP 08/02/17 06:10 08/02/17 06:10 Active Medications Acetaminophen (Tylenol -) 650 mg PO Q6H PRN PRN Reason: FEVER OR PAIN Albuterol/Ipratropium (Duoneb -) 1 amp NEB Q6H PRN PRN Reason: SHORTNESS OF BREATH Bacitracin/Polymyxin B Sulfate (Polysporin Ointment -) 1 applic TP DAILY JAYDON Last Admin: 08/02/17 12:44 Dose: 1 applic Chlorhexidine Gluconate (Hibiclens For Decolonization -) 1 applic TP HS JAYDON Last Admin: 08/01/17 21:03 Dose: 1 applic Dexamethasone Sodium Phosphate (Decadron Injection -) 4 mg IVPUSH Q8H-IV JAYDON Last Admin: 08/02/17 09:16 Dose: 4 mg Fluconazole (Diflucan -) 10 mg PO DAILY JAYDON Propofol (Diprivan -) 100 mls @ 1.647 mls/hr IVPB TITR JAYDON; 5 MCG/KG/MIN PRN Reason: Protocol Last Admin: 08/02/17 10:57 Dose: 40 mcg/kg/min, 13.172 mls/hr Sodium Chloride (Normal Saline -) 1,000 mls @ 83 mls/hr IV ASDIR JAYDON Last Admin: 08/02/17 01:13 Dose: 83 mls/hr Cefepime HCl 1 gm/ Dextrose 100 mls @ 200 mls/hr IVPB Q8H-IV JAYDON Last Admin: 08/02/17 12:15 Dose: 200 mls/hr Norepinephrine Bitartrate 8, (000 mcg/ Dextrose) 500 mls @ 18.75 mls/hr IV TITR JAYDON; 5 MCG/MIN PRN Reason: Protocol Last Titration: 08/01/17 20:00 Dose: 0 mcg/min, 0 mls/hr Mupirocin (Bactroban Ointment (For Decolonization) -) 1 applic NS BID [facility] Stop: 08/04/17 21:59 Last Admin: 08/02/17 09:23 Dose: 1 applic Pantoprazole Sodium (Protonix Iv) 40 mg IVPUSH DAILY [facility] Last Admin: 08/02/17 09:22 Dose: Not Given Tbo-Filgrastim (Granix -) 300 mcg SQ DAILY [facility] Last Admin: 08/02/17 12:44 Dose: 300 mcg ASSESSMENT AND PLAN: Acute Hypoxic Respiratory Failure Metastatic Small Cell Ca Pneumonia Neutropenic Septic Shock Thrombocytopenia Lactic Acidosis improved CAD Prostate Ca - broad spectrum antibiotic coverage per ID - f/u cultures - IVF to keep CVP 8-12 - replete lytes - taper FiO2 to keep SpO2 >90% - continue filgrastim per heme/onc - monitor CBC - monitor coags, fibrinogen level - continue decadron - hold sedation in AM to assess mental status - spontaneous breathing trials when mental status improved - enteral feeds - DVT/GI prophylaxis - continue ICU monitoring - prognosis remains guarded critical care time spent in reviewing chart, evaluating patient and formulating plan 38 min
--- NOTE | 2017-08-02 15:57 | PN ---
Physical Exam: SUBJECTIVE: Patient seen and examined at bedside. 24 hr events -afebrile -no acute events overnight Today -off pressors -intubated, vented on A/c RR 26/450 TV/40% FiO2/5 PEEP -visited by julee, spoke to her about GOC. Stated that in his will, he writes that he is essentially full code. His children want him to be DNR. OBJECTIVE: Vital Signs Period Temp Pulse Resp BP Sys/Rogers Pulse Ox Last 24 Hr 98.3 F-100.2 F 88-121 18-36 94-142/65-97 93-98 GENERAL: The patient is intubated, vented HEAD: Normal with no signs of trauma. EYES: PERRL, sclera anicteric, conjunctiva clear. NECK: Trachea midline, supple. R IJ access* LUNGS: rhonchi appreciated b/l HEART: tachycardic rate and rhythm, S1, S2 without murmur, rub or gallop. ABDOMEN: Soft, nontender, nondistended, normoactive bowel sounds, no guarding, no rebound EXTREMITIES: 2+ dorsalis pedis pulses NEUROLOGICAL: difficult to assess as pt sedated Laboratory Results - last 24 hr 08/02/17 08/02/17 08/02/17 06:10 06:10 06:10 WBC 4.8 D RBC 2.88 L Hgb 8.5 L Hct 25.5 L MCV 88.8 MCH 29.7 MCHC 33.4 RDW 16.8 H Plt Count 28 L* D MPV 8.4 Platelet Estimate Markedly decreased Platelet Comment No clumping noted PT with INR 11.70 INR 1.04 PTT (Actin FS) 29.4 Puncture Site ABG pH ABG pCO2 at Pt Temp ABG pO2 at Pt Temp ABG HCO3 ABG O2 Sat (Measured) ABG O2 Content ABG Base Excess Richard Test O2 Delivery Device Oxygen Flow Rate Vent Mode Vent Rate Mechanical Rate PEEP Pressure Support Vent Sodium 144 Potassium 3.0 L D Chloride 113 H Carbon Dioxide 23 D Anion Gap 8 BUN 18 Creatinine 0.8 Creat Clearance w eGFR > 60 Random Glucose 163 H Calcium 7.3 L Total Bilirubin 0.3 AST 41 H ALT 50 Alkaline Phosphatase 68 Total Protein 3.9 L Albumin 0.9 L 08/02/17 07:30 WBC RBC Hgb Hct MCV MCH MCHC RDW Plt Count MPV Platelet Estimate Platelet Comment PT with INR INR PTT (Actin FS) Puncture Site Right radial ABG pH 7.44 ABG pCO2 at Pt Temp 31.0 L ABG pO2 at Pt Temp 66.0 L D ABG HCO3 20.6 L ABG O2 Sat (Measured) 94.0 ABG O2 Content 10.9 L ABG Base Excess -2.6 L Richard Test Positive O2 Delivery Device Vent Oxygen Flow Rate 40 Vent Mode A/c Vent Rate 26 Mechanical Rate Yes PEEP 5.0 Pressure Support Vent 450 Sodium Potassium Chloride Carbon Dioxide Anion Gap BUN Creatinine Creat Clearance w eGFR Random Glucose Calcium Total Bilirubin AST ALT Alkaline Phosphatase Total Protein Albumin Active Medications Generic Name Dose Route Start Last Admin Trade Name Freq PRN Reason Stop Dose Admin Acetaminophen 650 mg 07/30/17 04:43 Tylenol - PO Q6H PRN FEVER OR PAIN Albuterol/Ipratropium 1 amp 07/30/17 04:47 Duoneb - NEB Q6H PRN SHORTNESS OF BREATH Bacitracin/Polymyxin B Sulfate 1 applic 08/01/17 15:00 08/02/17 12:44 Polysporin Ointment - TP 1 applic DAILY JAYDON Administration Chlorhexidine Gluconate 1 applic 07/30/17 22:00 08/01/17 21:03 Hibiclens For Decolonization - TP 1 applic HS JAYDON Administration Dexamethasone Sodium Phosphate 4 mg 07/31/17 10:00 08/02/17 09:16 Decadron Injection - IVPUSH 4 mg Q8H-IV JAYDON Administration Fluconazole 10 mg 07/30/17 10:00 Diflucan - PO DAILY JAYDON Propofol 100 mls @ 1.647 mls/hr 07/30/17 19:00 08/02/17 10:57 Diprivan - IVPB 40 mcg/kg/min TITR JAYDON 13.172 mls/hr Protocol Administration 5 MCG/KG/MIN Sodium Chloride 1,000 mls @ 83 mls/hr 07/30/17 19:30 08/02/17 01:13 Normal Saline - IV 83 mls/hr ASDIR JAYDON Administration Cefepime HCl 1 gm/ Dextrose 100 mls @ 200 mls/hr 07/31/17 02:00 08/02/17 12: 15 IVPB 200 mls/hr Q8H-IV JAYDON Administration Norepinephrine Bitartrate 8, 500 mls @ 18.75 mls/hr 07/31/17 14:15 08/01/17 20:00 000 mcg/ Dextrose IV 0 mcg/min TITR JAYDON 0 mls/hr Protocol Titration 5 MCG/MIN Mupirocin 1 applic 07/30/17 22:00 08/02/17 09:23 Bactroban Ointment (For Decolonization) - NS 08/04/17 21:59 1 applic BID JAYDON Administration Pantoprazole Sodium 40 mg 07/31/17 11:00 08/02/17 09:22 Protonix Iv IVPUSH Not Given DAILY JAYDON Tbo-Filgrastim 300 mcg 07/31/17 11:00 08/02/17 12:44 Granix - SQ 300 mcg DAILY JAYDON Administration ASSESSMENT/PLAN: 72 y/o M with PMH SCLC (recent RT, on steroids), with mets to liver, brain, bone , HLD, HTN, CAD with stents, prostate CA, kidney stones, who presented to the ED with SOB and cough. Since pt was in resp distress, he was intubated and admitted to the ICU. PULM #Acute hypoxemic respiratory failure -in respiratory distress while in ED, currently intubated and vented -Sedation vacations in AM -spontaneous breathing trials as tolerated -Continue cefepime (Today is Day3), fluconazole -Continue duonebs 1 amp q6h PRN -Decadron 4mg IVP q8h -F/u CXR tomorrow HEME ONC #SCLC with multiple mets -WBC count 4.8, neutropenic. Pt on contact precautions -Continue Filgrastim 300 mcg SQ daily, as per heme onc -F/u coags, fibrinogen levels- pending ID #Septic shock 2/2 neutropenia -phenylephrine changed to levophed - however currently off pressors (08/02) -Central line placed (07/31/17) -Goal to keep MAP >65 -Goal CVP 8-12 -IVF resuscitation as needed -F/u troponins, trend -lactate 2.8 GI -OG tube placed (07/31/17) by CCU evening team -placement confirmed by CXR DERM -sloughing of skin on back - continue bacitracin application Renal #Hyponatremia-resolved #Hypokalemia -latest K: 3 -repleted with 40 mEq KCl Palliative spoke to julee- stated that he would essentially want full code. His children want him to be DNR because they do not want to see their father like this. She was also seen by Criss. #Prophylaxis DVT: heparin 5000 U SQ TID GI: Protonix 40mg IVP qd #F/E/N NS 83 mls/hr Will monitor electrolytes osmolite feeds Dispo Continued management in ICU d/t pressor support Visit type - Emergency Visit Emergency Visit: No - New Patient This patient is new to me today: No - Critical Care Critical Care patient: Yes Total Critical Care Time (in minutes): 32 Critical Care Statement: The care of this patient involved high complexity decision making to prevent further life threatening deterioration of the patient 's condition and/or to evaluate & treat vital organ system(s) failure or risk of failure.
--- NOTE | 2017-08-02 17:29 | PN ---
Progress Note (short form) - Note Progress Note: Medicine coverage for Dr. Aguilera Subjective: The patient was seen and examined in the ICU, he remains intubated and sedated. He is off pressors. He became tachypneic with abdominal breathing. Tmax 100.2 Current Medications Generic Name Dose Route Start Last Admin Trade Name Freq PRN Reason Stop Dose Admin Acetaminophen 650 mg 07/30/17 04:43 Tylenol - PO Q6H PRN FEVER OR PAIN Albuterol/Ipratropium 1 amp 07/30/17 04:47 Duoneb - NEB Q6H PRN SHORTNESS OF BREATH Bacitracin/Polymyxin B Sulfate 1 applic 08/01/17 15:00 08/02/17 12:44 Polysporin Ointment - TP 1 applic DAILY JAYDON Administration Chlorhexidine Gluconate 1 applic 07/30/17 22:00 08/01/17 21:03 Hibiclens For Decolonization - TP 1 applic HS JAYDON Administration Dexamethasone Sodium Phosphate 4 mg 07/31/17 10:00 08/02/17 09:16 Decadron Injection - IVPUSH 4 mg Q8H-IV JAYDON Administration Fluconazole 10 mg 07/30/17 10:00 Diflucan - PO DAILY JAYDON Propofol 100 mls @ 1.647 mls/hr 07/30/17 19:00 08/02/17 10:57 Diprivan - IVPB 40 mcg/kg/min TITR JAYDON 13.172 mls/hr Protocol Administration 5 MCG/KG/MIN Sodium Chloride 1,000 mls @ 83 mls/hr 07/30/17 19:30 08/02/17 01:13 Normal Saline - IV 83 mls/hr ASDIR JAYDON Administration Cefepime HCl 1 gm/ Dextrose 100 mls @ 200 mls/hr 07/31/17 02:00 08/02/17 12: 15 IVPB 200 mls/hr Q8H-IV JAYDON Administration Norepinephrine Bitartrate 8, 500 mls @ 18.75 mls/hr 07/31/17 14:15 08/01/17 20:00 000 mcg/ Dextrose IV 0 mcg/min TITR JAYDON 0 mls/hr Protocol Titration 5 MCG/MIN Mupirocin 1 applic 07/30/17 22:00 08/02/17 09:23 Bactroban Ointment (For Decolonization) - NS 08/04/17 21:59 1 applic BID JAYDON Administration Pantoprazole Sodium 40 mg 07/31/17 11:00 08/02/17 09:22 Protonix Iv IVPUSH Not Given DAILY JAYDON Tbo-Filgrastim 300 mcg 07/31/17 11:00 08/02/17 12:44 Granix - SQ 300 mcg DAILY JAYDON Administration Objective: Vital Signs Period Temp Pulse Resp BP Sys/Rogers Pulse Ox Last 24 Hr 98.3 F-100.2 F 88-121 18-36 94-142/65-97 93-98 Physical Exam: General: Intubated, sedated Lungs: Scattered rhonchi throughout Heart: Tachycardia, S1S2 Abd: Soft, non-tender, non-distended. Normoactive bowel sounds Ext: Warm, well-perfused. No edema CBCD WBC 4.8 K/mm3 (4.0-10.0) D 08/02/17 06:10 RBC 2.88 M/mm3 (4.00-5.60) L 08/02/17 06:10 Hgb 8.5 GM/dL (11.7-16.9) L 08/02/17 06:10 Hct 25.5 % (35.4-49) L 08/02/17 06:10 MCV 88.8 fl (80-96) 08/02/17 06:10 MCHC 33.4 g/dl (32.0-35.9) 08/02/17 06:10 RDW 16.8 % (11.9-15.9) H 08/02/17 06:10 Plt Count 28 K/MM3 (134-434) L* D 08/02/17 06:10 MPV 8.4 fl (7.5-11.1) 08/02/17 06:10 CMP Sodium 144 mmol/L (136-145) 08/02/17 06:10 Potassium 3.0 mmol/L (3.5-5.1) L D 08/02/17 06:10 Chloride 113 mmol/L (98-107) H 08/02/17 06:10 Carbon Dioxide 23 mmol/L (21-32) D 08/02/17 06:10 Anion Gap 8 (8-16) 08/02/17 06:10 BUN 18 mg/dL (7-18) 08/02/17 06:10 Creatinine 0.8 mg/dL (0.7-1.3) 08/02/17 06:10 Creat Clearance w eGFR > 60 (>60) 08/02/17 06:10 Random Glucose 163 mg/dL (74-106) H 08/02/17 06:10 Calcium 7.3 mg/dL (8.5-10.1) L 08/02/17 06:10 Total Bilirubin 0.3 mg/dL (0.2-1.0) 08/02/17 06:10 AST 41 U/L (15-37) H 08/02/17 06:10 ALT 50 U/L (12-78) 08/02/17 06:10 Alkaline Phosphatase 68 U/L (45-117) 08/02/17 06:10 Total Protein 3.9 g/dl (6.4-8.2) L 08/02/17 06:10 Albumin 0.9 g/dl (3.4-5.0) L 08/02/17 06:10 CARDIAC ENZYMES Creatine Kinase 157 IU/L (39-308) 07/29/17 23:25 Troponin I 0.02 ng/ml (0.00-0.05) D 08/01/17 06:00 Assessment: This is a 72 year old male with PMHx of HTN, HLD, CAD (s/p cardiac stents), GERD and prostate cancer, kidney stones, 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 Severe neutropenia - WBC increasing - Granix discontinued 08/01 - Heme following 7. Prostate CA 8. CAD s/p PCI - Stop ASA 2/2 severe thrombocytopenia Visit type - Emergency Visit Emergency Visit: Yes ED Registration Date: 07/30/17 Care time: The patient presented to the Emergency Department on the above date and was hospitalized for further evaluation of their emergent condition. - New Patient This patient is new to me today: Yes Date on this admission: 08/02/17 - Critical Care Critical Care patient: Yes Total Critical Care Time (in minutes): 45 Critical Care Statement: The care of this patient involved high complexity decision making to prevent further life threatening deterioration of the patient 's condition and/or to evaluate & treat vital organ system(s) failure or risk of failure.
[2017-08-02 17:40] LABS: TOTAL CELLS COUNTED 100
[2017-08-02 17:41] LABS: METAMYELOCYTE 2 % (0-2); NUCLEATED RED BLOOD CELL 5 % (0-0); PLATELET COMMENTS NO CLUMPING; PLATELET ESTIMATE DECREASED
--- NOTE | 2017-08-02 17:45 | PN ---
Progress Note, Physician History of Present Illness: patient continues to be sedated and intubated spiking fevers off of pressors other events noted - Current Medication List Current Medications: Active Medications Acetaminophen (Tylenol -) 650 mg PO Q6H PRN PRN Reason: FEVER OR PAIN Albuterol/Ipratropium (Duoneb -) 1 amp NEB Q6H PRN PRN Reason: SHORTNESS OF BREATH Bacitracin/Polymyxin B Sulfate (Polysporin Ointment -) 1 applic TP DAILY JAYDON Last Admin: 08/02/17 12:44 Dose: 1 applic Chlorhexidine Gluconate (Hibiclens For Decolonization -) 1 applic TP HS JAYDON Last Admin: 08/01/17 21:03 Dose: 1 applic Dexamethasone Sodium Phosphate (Decadron Injection -) 4 mg IVPUSH Q8H-IV JAYDON Last Admin: 08/02/17 17:03 Dose: 4 mg Fluconazole (Diflucan -) 10 mg PO DAILY JAYDON Propofol (Diprivan -) 100 mls @ 1.647 mls/hr IVPB TITR JAYDON; 5 MCG/KG/MIN PRN Reason: Protocol Last Admin: 08/02/17 10:57 Dose: 40 mcg/kg/min, 13.172 mls/hr Sodium Chloride (Normal Saline -) 1,000 mls @ 83 mls/hr IV ASDIR JAYDON Last Admin: 08/02/17 01:13 Dose: 83 mls/hr Cefepime HCl 1 gm/ Dextrose 100 mls @ 200 mls/hr IVPB Q8H-IV JAYDON Last Admin: 08/02/17 17:02 Dose: 200 mls/hr Norepinephrine Bitartrate 8, (000 mcg/ Dextrose) 500 mls @ 18.75 mls/hr IV TITR JAYDON; 5 MCG/MIN PRN Reason: Protocol Last Titration: 08/01/17 20:00 Dose: 0 mcg/min, 0 mls/hr Mupirocin (Bactroban Ointment (For Decolonization) -) 1 applic NS BID JAYDON Stop: 08/04/17 21:59 Last Admin: 08/02/17 09:23 Dose: 1 applic Pantoprazole Sodium (Protonix Iv) 40 mg IVPUSH DAILY JAYDON Last Admin: 08/02/17 09:22 Dose: Not Given - Objective Vital Signs: Vital Signs Temperature 100.2 F H 08/02/17 14:00 Pulse Rate 121 H 08/02/17 14:00 Respiratory Rate 32 H 08/02/17 17:33 Blood Pressure 131/97 08/02/17 14:00 O2 Sat by Pulse Oximetry (%) 93 L 08/02/17 11:54 Constitutional: Yes: Other Cardiovascular: Yes: Regular Rate and Rhythm, Tachycardia, S1, S2 Respiratory: Yes: Intubated, Mechanically Ventilated Gastrointestinal: Yes: Normal Bowel Sounds, Soft, Other Musculoskeletal: Yes: WNL Extremities: Yes: WNL Neurological: Yes: Other Labs: CBC, BMP 08/02/17 06:10 08/02/17 06:10 INR, PTT INR 1.04 (0.82-1.09) 08/02/17 06:10 Fibrinogen 1150.0 mg/dL (238-498) H 08/01/17 07:20 Assessment/Plan e Acute Hypoxic Respiratory Failure Metastatic Small Cell Ca Pneumonia Neutropenic Septic Shock Thrombocytopenia Lactic Acidosis improved CAD Prostate Ca wbc in normal range plan conitnue abx resp support wbc improved monitor for fevers patients overall condition is poor if spikes fever again pls culture rest as per icu cc time 40 min
[2017-08-02 18:49] LABS: MCH 29.9 pg (25.7-33.7); MCHC 34.4 g/dl (32.0-35.9); MEAN CELL VOLUME 86.9 fl (80-96); MEAN PLT VOLUME 9.3 fl (7.5-11.1); RDW 16.6 % (11.9-15.9)
[2017-08-02 19:36] LABS: PLATELET COUNT 29 K/MM3 (134-434)
[2017-08-02 20:18] LABS: TOTAL CELLS COUNTED 100
[2017-08-02 20:19] LABS: METAMYELOCYTE 3 % (0-2); MICROCYTOSIS 1+; MYELOCYTE 6 % (0-2); PLATELET COMMENTS NO CLUMPING; PLATELET ESTIMATE DECREASED; TOXIC GRANULATION 2+
[2017-08-02] MEDS: CHLORHEXIDINE GLUCONATE 4% CLEANSER FOR DECOLONIZATION TP SCH (21:23)
[2017-08-03] MEDS: CEFEPIME 1 GM in DEXTROSE 5%-WATER - 100 ML IVPB SCH ×3 (01:36→17:34)
[2017-08-03] MEDS: DEXAMETHASONE SOD PHOSPHATE 4 MG/1 ML VIAL IVPUSH SCH ×3 (01:36→17:34)
[2017-08-03] MEDS: SODIUM CHLORIDE 1,000 ML IV SCH (04:00)
[2017-08-03 06:05] LABS: MCH 30.3 pg (25.7-33.7); MCHC 34.5 g/dl (32.0-35.9); MEAN CELL VOLUME 87.9 fl (80-96); MEAN PLT VOLUME 9.7 fl (7.5-11.1); RDW 16.7 % (11.9-15.9); WHITE BLOOD COUNT 6.8 K/mm3 (4.0-10.0)
[2017-08-03 06:27] LABS: ANION GAP 9 (8-16); CALCIUM 7.2 mg/dL (8.5-10.1); CO2 24 mmol/L (21-32); CREATININE 0.8 mg/dL (0.7-1.3); GLUCOSE,RANDOM 185 mg/dL (74-106); MAGNESIUM 2.2 mg/dL (1.8-2.4); PHOSPHOROUS 1.6 mg/dL (2.5-4.9)
[2017-08-03 06:31] LABS: PLATELET COUNT 28 K/MM3 (134-434)
[2017-08-03 08:26] LABS: ARTERIAL BLD GAS O2 SATURATION 96.7 % (90-98.9); ARTERIAL BLOOD GAS BASE EXCESS -2.6 meq/l (-2-2); ARTERIAL BLOOD GAS PO2 81.5 mmHg (70-100); ARTERIAL BLOOD GAS pH 7.42 (7.35-7.45)
[2017-08-03 08:27] LABS: ALLENS TEST POSITIVE; ART PUNCT SITE RIGHT RADIAL; LPM/O2% 50; MECH. VENT. YES; PT. ON O2? YES; TYPE OF O2 VENT
[2017-08-03 08:28] LABS: VENT RATE 26; VT/PRESS 450
[2017-08-03] MEDS ORDERED: POTASSIUM CHLORIDE ORAL LIQUID 20 MEQ/15 ML PO ONE (08:30)
[2017-08-03 08:47] LABS: PLATELET ESTIMATE DECREASED (NORMAL)
[2017-08-03] MEDS ORDERED: PT OWN MED DRAWER 7, Y5N ONE ×2 (08:55→17:05)
[2017-08-03] MEDS: MUPIROCIN 2% TOPICAL OINTMENT FOR DECOLONIZATION NS SCH ×2 (08:59→21:50)
[2017-08-03] MEDS: PANTOPRAZOLE SODIUM 40 MG VIAL IVPUSH SCH (09:00)
[2017-08-03] MEDS: BACITRACIN/POLYMYXIN B SULFATE 15 GM TUBE TP SCH (09:05)
--- NOTE | 2017-08-03 09:47 | PN ---
Progress Note, Physician Chief Complaint: intubated TELE: NSR, sinus tach and APCs - Current Medication List Current Medications: Active Medications Acetaminophen (Tylenol -) 650 mg PO Q6H PRN PRN Reason: FEVER OR PAIN Albuterol/Ipratropium (Duoneb -) 1 amp NEB Q6H PRN PRN Reason: SHORTNESS OF BREATH Bacitracin/Polymyxin B Sulfate (Polysporin Ointment -) 1 applic TP DAILY JAYDON Last Admin: 08/03/17 09:05 Dose: 1 applic Chlorhexidine Gluconate (Hibiclens For Decolonization -) 1 applic TP HS JAYDON Last Admin: 08/02/17 21:23 Dose: 1 applic Dexamethasone Sodium Phosphate (Decadron Injection -) 4 mg IVPUSH Q8H-IV JAYDON Last Admin: 08/03/17 08:59 Dose: 4 mg Fluconazole (Diflucan -) 10 mg PO DAILY JAYDON Propofol (Diprivan -) 100 mls @ 1.647 mls/hr IVPB TITR JAYDON; 5 MCG/KG/MIN PRN Reason: Protocol Last Admin: 08/02/17 18:30 Dose: 40 mcg/kg/min, 13.172 mls/hr Sodium Chloride (Normal Saline -) 1,000 mls @ 83 mls/hr IV ASDIR JAYDON Last Admin: 08/03/17 04:00 Dose: 83 mls/hr Cefepime HCl 1 gm/ Dextrose 100 mls @ 200 mls/hr IVPB Q8H-IV JAYDON Last Admin: 08/03/17 09:02 Dose: 200 mls/hr Norepinephrine Bitartrate 8, (000 mcg/ Dextrose) 500 mls @ 18.75 mls/hr IV TITR JAYDON; 5 MCG/MIN PRN Reason: Protocol Last Titration: 08/01/17 20:00 Dose: 0 mcg/min, 0 mls/hr Mupirocin (Bactroban Ointment (For Decolonization) -) 1 applic NS BID JAYDON Stop: 08/04/17 21:59 Last Admin: 08/03/17 08:59 Dose: 1 applic Pantoprazole Sodium (Protonix Iv) 40 mg IVPUSH DAILY JAYDON Last Admin: 08/03/17 09:00 Dose: 40 mg - Objective Vital Signs: Vital Signs Temperature 98.1 F 08/03/17 08:00 Pulse Rate 110 H 08/03/17 08:00 Respiratory Rate 34 H 08/03/17 08:00 Blood Pressure 137/100 08/03/17 08:00 O2 Sat by Pulse Oximetry (%) 95 08/02/17 21:00 Constitutional: Yes: No Distress, Other (+ ETT) Cardiovascular: Yes: Regular Rate and Rhythm Respiratory: Yes: Other (= breath sounds) Gastrointestinal: Yes: Soft Edema: No Neurological: Yes: Other (on propofol) Labs: CBC, BMP 08/03/17 05:45 08/03/17 05:45 INR, PTT INR 1.04 (0.82-1.09) 08/02/17 06:10 Fibrinogen 1150.0 mg/dL (238-498) H 08/01/17 07:20 Microbiology 07/30/17 07:40 Sputum - Endotrachea Suction/Ventilator Sputum Culture - Preliminary Presumptive Mssa (Pbp2a Neg) Laboratory Tests 08/02/17 08/03/17 08/03/17 17:15 05:45 05:45 WBC 6.8 Hgb 8.7 L Plt Count 28 L* ABG pH ABG pCO2 at Pt Temp ABG pO2 at Pt Temp ABG HCO3 ABG O2 Sat (Measured) Sodium 145 Potassium 3.3 L BUN 21 H Creatinine 0.8 Lactic Acid 2.4 H* Magnesium 2.2 08/03/17 07:35 WBC Hgb Plt Count ABG pH 7.42 ABG pCO2 at Pt Temp 33.3 L ABG pO2 at Pt Temp 81.5 D ABG HCO3 21.0 L ABG O2 Sat (Measured) 96.7 Sodium Potassium BUN Creatinine Lactic Acid Magnesium - ....Imaging EKG: Image Reviewed Assessment/Plan IMP: Acute respiratory failure Metastatic small cell lung cancer Pancytopenia CAD s/p PCI several years ago REC: Critically ill with guarded/poor prognosis. Hold antiplatelet agents. Supportive care: vent support/pressors/ abx as per ICU team.
[2017-08-03] MEDS: PROPOFOL 100 ML IVPB SCH ×2 (10:58→18:31)
--- NOTE | 2017-08-03 11:08 | PN ---
Progress Note (short form) - Note Progress Note: Medicine coverage for Dr. Aguilera Subjective: The patient was seen and examined in the ICU, he remains intubated and sedated. He is still off pressors Current Medications Generic Name Dose Route Start Last Admin Trade Name Freq PRN Reason Stop Dose Admin Acetaminophen 650 mg 07/30/17 04:43 Tylenol - PO Q6H PRN FEVER OR PAIN Albuterol/Ipratropium 1 amp 07/30/17 04:47 Duoneb - NEB Q6H PRN SHORTNESS OF BREATH Bacitracin/Polymyxin B Sulfate 1 applic 08/01/17 15:00 08/02/17 12:44 Polysporin Ointment - TP 1 applic DAILY JAYDON Administration Chlorhexidine Gluconate 1 applic 07/30/17 22:00 08/01/17 21:03 Hibiclens For Decolonization - TP 1 applic HS JAYDON Administration Dexamethasone Sodium Phosphate 4 mg 07/31/17 10:00 08/02/17 09:16 Decadron Injection - IVPUSH 4 mg Q8H-IV JAYDON Administration Fluconazole 10 mg 07/30/17 10:00 Diflucan - PO DAILY JAYDON Propofol 100 mls @ 1.647 mls/hr 07/30/17 19:00 08/02/17 10:57 Diprivan - IVPB 40 mcg/kg/min TITR JAYDON 13.172 mls/hr Protocol Administration 5 MCG/KG/MIN Sodium Chloride 1,000 mls @ 83 mls/hr 07/30/17 19:30 08/02/17 01:13 Normal Saline - IV 83 mls/hr ASDIR JAYDON Administration Cefepime HCl 1 gm/ Dextrose 100 mls @ 200 mls/hr 07/31/17 02:00 08/02/17 12: 15 IVPB 200 mls/hr Q8H-IV JAYDON Administration Norepinephrine Bitartrate 8, 500 mls @ 18.75 mls/hr 07/31/17 14:15 08/01/17 20:00 000 mcg/ Dextrose IV 0 mcg/min TITR JAYDON 0 mls/hr Protocol Titration 5 MCG/MIN Mupirocin 1 applic 07/30/17 22:00 08/02/17 09:23 Bactroban Ointment (For Decolonization) - NS 08/04/17 21:59 1 applic BID JAYDON Administration Pantoprazole Sodium 40 mg 07/31/17 11:00 08/02/17 09:22 Protonix Iv IVPUSH Not Given DAILY JAYDON Tbo-Filgrastim 300 mcg 07/31/17 11:00 08/02/17 12:44 Granix - SQ 300 mcg DAILY JAYDON Administration Objective: Vital Signs Period Temp Pulse Resp BP Sys/Rogers Pulse Ox Last 24 Hr 97.2 F-100.2 F 96-121 21-35 104-148/73-100 95-96 Physical Exam: General: Intubated, sedated, turns head to name Lungs: Scattered rhonchi throughout Heart: Tachycardia, S1S2 Abd: Soft, non-tender, non-distended. Normoactive bowel sounds Ext: Warm, well-perfused. No edema CBCD WBC 6.8 K/mm3 (4.0-10.0) 08/03/17 05:45 RBC 2.87 M/mm3 (4.00-5.60) L 08/03/17 05:45 Hgb 8.7 GM/dL (11.7-16.9) L 08/03/17 05:45 Hct 25.2 % (35.4-49) L 08/03/17 05:45 MCV 87.9 fl (80-96) 08/03/17 05:45 MCHC 34.5 g/dl (32.0-35.9) 08/03/17 05:45 RDW 16.7 % (11.9-15.9) H 08/03/17 05:45 Plt Count 28 K/MM3 (134-434) L* 08/03/17 05:45 MPV 9.7 fl (7.5-11.1) 08/03/17 05:45 CMP Sodium 145 mmol/L (136-145) 08/03/17 05:45 Potassium 3.3 mmol/L (3.5-5.1) L 08/03/17 05:45 Chloride 112 mmol/L (98-107) H 08/03/17 05:45 Carbon Dioxide 24 mmol/L (21-32) 08/03/17 05:45 Anion Gap 9 (8-16) 08/03/17 05:45 BUN 21 mg/dL (7-18) H 08/03/17 05:45 Creatinine 0.8 mg/dL (0.7-1.3) 08/03/17 05:45 Creat Clearance w eGFR > 60 (>60) 08/02/17 06:10 Random Glucose 185 mg/dL (74-106) H 08/03/17 05:45 Calcium 7.2 mg/dL (8.5-10.1) L 08/03/17 05:45 Total Bilirubin 0.3 mg/dL (0.2-1.0) 08/02/17 06:10 AST 41 U/L (15-37) H 08/02/17 06:10 ALT 50 U/L (12-78) 08/02/17 06:10 Alkaline Phosphatase 68 U/L (45-117) 08/02/17 06:10 Total Protein 3.9 g/dl (6.4-8.2) L 08/02/17 06:10 Albumin 0.9 g/dl (3.4-5.0) L 08/02/17 06:10 CARDIAC ENZYMES Creatine Kinase 157 IU/L (39-308) 07/29/17 23:25 Troponin I 0.02 ng/ml (0.00-0.05) D 08/01/17 06:00 Microbiology 07/30/17 07:40 Sputum - Endotrachea Suction/Ventilator Sputum Culture - Final Staphylococcus Aureus 07/29/17 23:12 Blood - Peripheral Venous Blood Culture - Preliminary NO GROWTH OBTAINED AFTER 96 HOURS, INCUBATION TO CONTINUE FOR 1 DAYS. 07/29/17 23:25 Blood - Peripheral Venous Blood Culture - Preliminary NO GROWTH OBTAINED AFTER 96 HOURS, INCUBATION TO CONTINUE FOR 1 DAYS. 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 - Continue decadron 4mg IVPB q8hr 4) Thrombocytopenia - Due to above - Transfuse if platelets <20,000 5) Severe neutropenia - Resolved - Granix discontinued 08/01 - Heme following 6) Prostate CA 7) CAD s/p PCI - Continue to hold ASA 2/2 severe thrombocytopenia 8) F/E/N: - Hypophosphatemia: replete - Hypokalemia: replete - Tube feeds 9) Prophylaxis: - SCDs bilaterally - Hold all chemical DVT prophylaxis 2/2 severe thrombocytopenia 10) Dispo: - Requires continued ICU care - Continued palliative care discussion regarding withdrawal of care CODE STATUS: FULL CODE Visit type - Emergency Visit Emergency Visit: Yes ED Registration Date: 07/30/17 Care time: The patient presented to the Emergency Department on the above date and was hospitalized for further evaluation of their emergent condition. - New Patient This patient is new to me today: No - Critical Care Critical Care patient: Yes Total Critical Care Time (in minutes): 45 Critical Care Statement: The care of this patient involved high complexity decision making to prevent further life threatening deterioration of the patient 's condition and/or to evaluate & treat vital organ system(s) failure or risk of failure.
--- NOTE | 2017-08-03 12:22 | PN ---
Progress Note (short form) - Note Progress Note: Patient seen and examined intubated Cor: RSR, No murmurs, No gallops Lungs: caorse+ Abd: Soft, Normal bowel sounds, No organomegaly Ext:No significant edema ?turns to his name when called. Last Vital Signs Temp Pulse Resp BP Pulse Ox 98.1 F 114 H 34 H 135/90 96 08/03/17 08:00 08/03/17 10:57 08/03/17 11:47 08/03/17 10:00 08/03/17 10:57 Current Medications Generic Name Dose Route Start Last Admin Trade Name Freq PRN Reason Stop Dose Admin Acetaminophen 650 mg 07/30/17 04:43 Tylenol - PO Q6H PRN FEVER OR PAIN Albuterol/Ipratropium 1 amp 07/30/17 04:47 Duoneb - NEB Q6H PRN SHORTNESS OF BREATH Bacitracin/Polymyxin B Sulfate 1 applic 08/01/17 15:00 08/03/17 09:05 Polysporin Ointment - TP 1 applic DAILY JAYDON Administration Chlorhexidine Gluconate 1 applic 07/30/17 22:00 08/02/17 21:23 Hibiclens For Decolonization - TP 1 applic HS JAYDON Administration Dexamethasone Sodium Phosphate 4 mg 07/31/17 10:00 08/03/17 08:59 Decadron Injection - IVPUSH 4 mg Q8H-IV JAYDON Administration Fluconazole 10 mg 07/30/17 10:00 Diflucan - PO DAILY JAYDON Propofol 100 mls @ 1.647 mls/hr 07/30/17 19:00 08/03/17 12:08 Diprivan - IVPB 40 mcg/kg/min TITR JAYDON 13.172 mls/hr Protocol Titration 5 MCG/KG/MIN Sodium Chloride 1,000 mls @ 83 mls/hr 07/30/17 19:30 08/03/17 04:00 Normal Saline - IV 83 mls/hr ASDIR JAYDON Administration Cefepime HCl 1 gm/ Dextrose 100 mls @ 200 mls/hr 07/31/17 02:00 08/03/17 09: 02 IVPB 200 mls/hr Q8H-IV JAYDON Administration Norepinephrine Bitartrate 8, 500 mls @ 18.75 mls/hr 07/31/17 14:15 08/01/17 20:00 000 mcg/ Dextrose IV 0 mcg/min TITR JAYDON 0 mls/hr Protocol Titration 5 MCG/MIN Mupirocin 1 applic 07/30/17 22:00 08/03/17 08:59 Bactroban Ointment (For Decolonization) - NS 08/04/17 21:59 1 applic BID JAYDON Administration Pantoprazole Sodium 40 mg 07/31/17 11:00 08/03/17 09:00 Protonix Iv IVPUSH 40 mg DAILY JAYDON Administration CBC, BMP 08/03/17 05:45 08/03/17 05:45 72 y/o patient with extenisive small cell lung cancer,brain/leptomeningeal/ liver mets. Patient came in with pneumonia/sepsis/shock off pressors hemodynamically improved WBC improved thrombocytopenia--ongoing infection likely Transfuse monodonor platelets if <20,000 remains intubated Talked to Georgiana ( HCP)
--- NOTE | 2017-08-03 13:19 | PN ---
Physical Exam: SUBJECTIVE: Patient seen and examined at bedside. 24 hr events -sedated on propofol -afebrile, no acute events overnight -off pressors Today -pt has less abdominal breathing- improved -propofol decreased to 40 from 50 -wrist restraints needed as pt agitated -otherwise, vented on A/C: 26RR/450 TV/40% Fi02/PEEP 5 OBJECTIVE: Vital Signs Period Temp Pulse Resp BP Sys/Rogers Pulse Ox Last 24 Hr 97.2 F-100.2 F 96-121 21-35 104-148/73-100 95-96 GENERAL: The patient is intubated, vented HEAD: Normal with no signs of trauma. EYES: PERRL, sclera anicteric, conjunctiva clear. NECK: Trachea midline, supple. R IJ access* LUNGS: rhonchi appreciated b/l HEART: regular rate and rhythm, S1, S2 without murmur, rub or gallop. ABDOMEN: Soft, nontender, nondistended, normoactive bowel sounds, no guarding, no rebound EXTREMITIES: 2+ dorsalis pedis pulses NEUROLOGICAL: difficult to assess as pt sedated, however more interactive today Laboratory Results - last 24 hr 08/02/17 08/02/17 08/02/17 06:10 06:10 17:15 WBC RBC Hgb Hct MCV MCH MCHC RDW Plt Count MPV Total Counted 100 Neutrophils % Neutrophils % (Manual) 65.0 D Band Neutrophils % 31.0 Lymphocytes % Lymphocytes % (Manual) 0.0 L Monocytes % Monocytes % (Manual) 2 L Eosinophils % Eosinophils % (Manual) Basophils % Basophils % (Manual) Myelocytes % (Man) Promyelocytes % (Man) Blast Cells % (Manual) Nucleated RBC % 5 H Metamyelocytes 2 D Hypersegmented Neuts Plasma Cells Smudge Cells Other Cell Type Hypochromia Toxic Granulation Dohle Bodies Luisa Rods Platelet Estimate Markedly decreased Decreased Platelet Comment No clumping noted No clumping RBC Morphology Polychromasia Poikilocytosis Basophilic Stippling Anisocytosis Microcytosis Macrocytosis Spherocytes Siderocytes Sickle Cells Target Cells Tear Drop Cells Ovalocytes Stomatocytes Helmet Cells [place] Bodies [place] Rings Kylah Cells Acanthocytes (Spur) Rouleaux Fragmented RBCs Schistocytes Anticoagulation Therapy Puncture Site ABG pH ABG pCO2 at Pt Temp ABG pO2 at Pt Temp ABG HCO3 ABG O2 Sat (Measured) ABG O2 Content ABG Base Excess Richard Test O2 Delivery Device Oxygen Flow Rate Vent Mode Vent Rate Mechanical Rate PEEP Pressure Support Vent Sodium Potassium Chloride Carbon Dioxide Anion Gap BUN Creatinine Random Glucose Lactic Acid 2.4 H* Calcium Phosphorus Magnesium 08/02/17 08/02/17 08/03/17 18:33 18:33 05:45 WBC 7.0 D 6.8 RBC 3.18 L 2.87 L Hgb 9.5 L D 8.7 L Hct 27.7 L 25.2 L MCV 86.9 87.9 MCH 29.9 30.3 MCHC 34.4 34.5 RDW 16.6 H 16.7 H Plt Count 29 L* 28 L* MPV 9.3 D 9.7 Total Counted 100 Neutrophils % No Result Required. 66.0 D Neutrophils % (Manual) 69.0 Band Neutrophils % 19.0 Lymphocytes % No Result Required. 4.0 L D Lymphocytes % (Manual) 3.0 L D Monocytes % 0.0 L D Monocytes % (Manual) Eosinophils % Wire Technician Eosinophils % (Manual) Basophils % Wire Technician Basophils % (Manual) Myelocytes % (Man) 6 H D Promyelocytes % (Man) Blast Cells % (Manual) Nucleated RBC % Metamyelocytes 3 H D Hypersegmented Neuts Plasma Cells Smudge Cells Other Cell Type Hypochromia Toxic Granulation 2+ Dohle Bodies 1+ Luisa Rods Platelet Estimate Decreased Decreased Platelet Comment No clumping No clumping noted RBC Morphology Polychromasia Poikilocytosis Basophilic Stippling Anisocytosis Microcytosis 1+ Macrocytosis Spherocytes Siderocytes Sickle Cells Target Cells Tear Drop Cells Ovalocytes Stomatocytes Helmet Cells [place] Bodies [employer] [place] Rings Kylah Cells Acanthocytes (Spur) Rouleaux Fragmented RBCs Schistocytes Anticoagulation Therapy Puncture Site ABG pH ABG pCO2 at Pt Temp ABG pO2 at Pt Temp ABG HCO3 ABG O2 Sat (Measured) ABG O2 Content ABG Base Excess Richard Test O2 Delivery Device Oxygen Flow Rate Vent Mode Vent Rate Mechanical Rate PEEP Pressure Support Vent Sodium Potassium Chloride Carbon Dioxide Anion Gap BUN Creatinine Random Glucose Lactic Acid Calcium Phosphorus Magnesium 08/03/17 08/03/17 08/03/17 05:45 05:45 07:35 WBC RBC Hgb Hct MCV MCH MCHC RDW Plt Count MPV Total Counted Cancelled Neutrophils % Neutrophils % (Manual) Cancelled Band Neutrophils % Cancelled Lymphocytes % Lymphocytes % (Manual) Cancelled Monocytes % Monocytes % (Manual) Cancelled Eosinophils % Eosinophils % (Manual) Cancelled Basophils % Basophils % (Manual) Cancelled Myelocytes % (Man) Cancelled Promyelocytes % (Man) Cancelled Blast Cells % (Manual) Cancelled Nucleated RBC % Cancelled Metamyelocytes Cancelled Hypersegmented Neuts Cancelled Plasma Cells Cancelled Smudge Cells Cancelled Other Cell Type Cancelled Hypochromia Cancelled Toxic Granulation Cancelled Dohle Bodies Cancelled Luisa Rods Cancelled Platelet Estimate Cancelled Platelet Comment Cancelled RBC Morphology Polychromasia Cancelled Poikilocytosis Cancelled Basophilic Stippling Cancelled Anisocytosis Cancelled Microcytosis Cancelled Macrocytosis Cancelled Spherocytes Cancelled Siderocytes Cancelled Sickle Cells Cancelled Target Cells Cancelled Tear Drop Cells Cancelled Ovalocytes Cancelled Stomatocytes Cancelled Helmet Cells Cancelled [place] Bodies Cancelled [place] Rings Cancelled Kylah Cells Cancelled Acanthocytes (Spur) Cancelled Rouleaux Cancelled Fragmented RBCs Cancelled Schistocytes Cancelled Anticoagulation Therapy Y Puncture Site Right radial ABG pH 7.42 ABG pCO2 at Pt Temp 33.3 L ABG pO2 at Pt Temp 81.5 D ABG HCO3 21.0 L ABG O2 Sat (Measured) 96.7 ABG O2 Content 9.6 L* ABG Base Excess -2.6 L Richard Test Positive O2 Delivery Device Vent Oxygen Flow Rate 50 Vent Mode A/c Vent Rate 26 Mechanical Rate Yes PEEP 5.0 Pressure Support Vent 450 Sodium 145 Potassium 3.3 L Chloride 112 H Carbon Dioxide 24 Anion Gap 9 BUN 21 H Creatinine 0.8 Random Glucose 185 H Lactic Acid Calcium 7.2 L Phosphorus 1.6 L D Magnesium 2.2 Active Medications Generic Name Dose Route Start Last Admin Trade Name Freq PRN Reason Stop Dose Admin Acetaminophen 650 mg 07/30/17 04:43 Tylenol - PO Q6H PRN FEVER OR PAIN Albuterol/Ipratropium 1 amp 07/30/17 04:47 Duoneb - NEB Q6H PRN SHORTNESS OF BREATH Bacitracin/Polymyxin B Sulfate 1 applic 08/01/17 15:00 08/03/17 09:05 Polysporin Ointment - TP 1 applic DAILY JAYDON Administration Chlorhexidine Gluconate 1 applic 07/30/17 22:00 08/02/17 21:23 Hibiclens For Decolonization - TP 1 applic HS JAYDON Administration Dexamethasone Sodium Phosphate 4 mg 07/31/17 10:00 08/03/17 08:59 Decadron Injection - IVPUSH 4 mg Q8H-IV JAYDON Administration Fluconazole 10 mg 07/30/17 10:00 Diflucan - PO DAILY JAYDON Propofol 100 mls @ 1.647 mls/hr 07/30/17 19:00 08/03/17 12:08 Diprivan - IVPB 40 mcg/kg/min TITR JAYDON 13.172 mls/hr Protocol Titration 5 MCG/KG/MIN Sodium Chloride 1,000 mls @ 83 mls/hr 07/30/17 19:30 08/03/17 04:00 Normal Saline - IV 83 mls/hr ASDIR JAYDON Administration Cefepime HCl 1 gm/ Dextrose 100 mls @ 200 mls/hr 07/31/17 02:00 08/03/17 09: 02 IVPB 200 mls/hr Q8H-IV JAYDON Administration Norepinephrine Bitartrate 8, 500 mls @ 18.75 mls/hr 07/31/17 14:15 08/01/17 20:00 000 mcg/ Dextrose IV 0 mcg/min TITR JAYDON 0 mls/hr Protocol Titration 5 MCG/MIN Mupirocin 1 applic 07/30/17 22:00 08/03/17 08:59 Bactroban Ointment (For Decolonization) - NS 08/04/17 21:59 1 applic BID JAYDON Administration Pantoprazole Sodium 40 mg 07/31/17 11:00 08/03/17 09:00 Protonix Iv IVPUSH 40 mg DAILY JAYDON Administration ASSESSMENT/PLAN: 72 y/o M with PMH SCLC (recent RT, on steroids), with mets to liver, brain, bone , HLD, HTN, CAD with stents, prostate CA, kidney stones, who presented to the ED with SOB and cough. Since pt was in resp distress, he was intubated and admitted to the ICU. PULM #Acute hypoxemic respiratory failure -in respiratory distress while in ED, currently intubated and vented -Sedation vacations in AM -spontaneous breathing trials as tolerated -Continue cefepime (Today is Day4), fluconazole -Continue duonebs 1 amp q6h PRN -Decadron 4mg IVP q8h -F/u CXR tomorrow HEME ONC #SCLC with multiple mets -WBC count 6.8, neutropenic. Pt on contact precautions -Continue Filgrastim 300 mcg SQ daily, as per heme onc -Fibrinogen level: 1150 (elevated) #anemia -drop in Hb from 9.5 to 8.7 (yesterday) -will continue to follow CBC ID #Septic shock 2/2 neutropenia -phenylephrine changed to levophed - however currently off pressors (08/02) -Central line placed (07/31/17) -Goal to keep MAP >65 -Goal CVP 8-12 -IVF resuscitation as needed -F/u troponins, trend -lactate 2.8 GI -OG tube placed (07/31/17) by CCU evening team -placement confirmed by CXR DERM -sloughing of skin on back - continue bacitracin application Renal #Hyponatremia-resolved #Hypokalemia -latest K: 3.3 -repleted with 40 mEq KCl Palliative spoke to julee- stated that he would essentially want full code. His children want him to be DNR because they do not want to see their father like this. She was also seen by Criss. Today, no updates- #Prophylaxis DVT: heparin 5000 U SQ TID GI: Protonix 40mg IVP qd #F/E/N NS 83 mls/hr Will monitor electrolytes osmolite feeds Dispo off pressors, however prognosis is poor. continued ICU management Visit type - Emergency Visit Emergency Visit: No - New Patient This patient is new to me today: No - Critical Care Critical Care patient: Yes Total Critical Care Time (in minutes): 40 Critical Care Statement: The care of this patient involved high complexity decision making to prevent further life threatening deterioration of the patient 's condition and/or to evaluate & treat vital organ system(s) failure or risk of failure.
--- NOTE | 2017-08-03 13:21 | PN ---
Teaching Attending Note Name of Resident: Paulina Alvarez ATTENDING PHYSICIAN STATEMENT I saw and evaluated the patient. I reviewed the resident's note and discussed the case with the resident. I agree with the resident's findings and plan as documented. SUBJECTIVE: Patient seen and examined in the ICU. Remains intubated, sedated. Off pressors. Intake & Output 07/31/17 08/01/17 08/02/17 08/03/17 23:59 23:59 23:59 23:59 Intake Total 2630 3608 2820 1744 Output Total 2300 3300 2100 400 Balance 330 592 336 4316 Weight 125 lb 6 oz 132 lb 14.4 oz 135 lb 1 oz 136 lb 9.6 oz Last Vital Signs Temp Pulse Resp BP Pulse Ox 98.1 F 120 H 35 H 131/96 96 08/03/17 08:00 08/03/17 12:00 08/03/17 12:00 08/03/17 12:00 08/03/17 10:57 Active Medications Acetaminophen (Tylenol -) 650 mg PO Q6H PRN PRN Reason: FEVER OR PAIN Albuterol/Ipratropium (Duoneb -) 1 amp NEB Q6H PRN PRN Reason: SHORTNESS OF BREATH Bacitracin/Polymyxin B Sulfate (Polysporin Ointment -) 1 applic TP DAILY JAYDON Last Admin: 08/03/17 09:05 Dose: 1 applic Chlorhexidine Gluconate (Hibiclens For Decolonization -) 1 applic TP HS JAYDON Last Admin: 08/02/17 21:23 Dose: 1 applic Dexamethasone Sodium Phosphate (Decadron Injection -) 4 mg IVPUSH Q8H-IV [facility]DON Last Admin: 08/03/17 08:59 Dose: 4 mg Fluconazole (Diflucan -) 10 mg PO DAILY JAYDON Propofol (Diprivan -) 100 mls @ 1.647 mls/hr IVPB TITR JAYDON; 5 MCG/KG/MIN PRN Reason: Protocol Last Titration: 08/03/17 12:08 Dose: 40 mcg/kg/min, 13.172 mls/hr Sodium Chloride (Normal Saline -) 1,000 mls @ 83 mls/hr IV ASDIR JAYDON Last Admin: 08/03/17 04:00 Dose: 83 mls/hr Cefepime HCl 1 gm/ Dextrose 100 mls @ 200 mls/hr IVPB Q8H-IV [facility]AYDON Last Admin: 08/03/17 09:02 Dose: 200 mls/hr Mupirocin (Bactroban Ointment (For Decolonization) -) 1 applic NS BID JAYDON Stop: 08/04/17 21:59 Last Admin: 08/03/17 08:59 Dose: 1 applic Pantoprazole Sodium (Protonix Iv) 40 mg IVPUSH DAILY [facility]DON Last Admin: 08/03/17 09:00 Dose: 40 mg Gen: intubated, sedated Heart: tachycardic, regular Lung: scattered rhonchi Abd: soft, nontender Ext: + edema Laboratory Results - last 24 hr 08/02/17 08/02/17 08/02/17 06:10 06:10 17:15 WBC RBC Hgb Hct MCV MCH MCHC RDW Plt Count MPV Total Counted 100 Neutrophils % Neutrophils % (Manual) 65.0 D Band Neutrophils % 31.0 Lymphocytes % Lymphocytes % (Manual) 0.0 L Monocytes % Monocytes % (Manual) 2 L Eosinophils % Eosinophils % (Manual) Basophils % Basophils % (Manual) Myelocytes % (Man) Promyelocytes % (Man) Blast Cells % (Manual) Nucleated RBC % 5 H Metamyelocytes 2 D Hypersegmented Neuts Plasma Cells Smudge Cells Other Cell Type Hypochromia Toxic Granulation Dohle Bodies Luisa Rods Platelet Estimate Markedly decreased Decreased Platelet Comment No clumping noted No clumping RBC Morphology Polychromasia Poikilocytosis Basophilic Stippling Anisocytosis Microcytosis Macrocytosis Spherocytes Siderocytes Sickle Cells Target Cells Tear Drop Cells Ovalocytes Stomatocytes Helmet Cells Ceron-Wabeno Bodies Rotan Rings [place] Cells Acanthocytes (Spur) Rouleaux Fragmented RBCs Schistocytes Anticoagulation Therapy Puncture Site ABG pH ABG pCO2 at Pt Temp ABG pO2 at Pt Temp ABG HCO3 ABG O2 Sat (Measured) ABG O2 Content ABG Base Excess Richard Test O2 Delivery Device Oxygen Flow Rate Vent Mode Vent Rate Mechanical Rate PEEP Pressure Support Vent Sodium Potassium Chloride Carbon Dioxide Anion Gap BUN Creatinine Random Glucose Lactic Acid 2.4 H* Calcium Phosphorus Magnesium 08/02/17 08/02/17 08/03/17 18:33 18:33 05:45 WBC 7.0 D 6.8 RBC 3.18 L 2.87 L Hgb 9.5 L D 8.7 L Hct 27.7 L 25.2 L MCV 86.9 87.9 MCH 29.9 30.3 MCHC 34.4 34.5 RDW 16.6 H 16.7 H Plt Count 29 L* 28 L* MPV 9.3 D 9.7 Total Counted 100 Neutrophils % No Result Required. 66.0 D Neutrophils % (Manual) 69.0 Band Neutrophils % 19.0 Lymphocytes % No Result Required. 4.0 L D Lymphocytes % (Manual) 3.0 L D Monocytes % 0.0 L D Monocytes % (Manual) Eosinophils % [place] Eosinophils % (Manual) Basophils % [place] Basophils % (Manual) Myelocytes % (Man) 6 H D Promyelocytes % (Man) Blast Cells % (Manual) Nucleated RBC % Metamyelocytes 3 H D Hypersegmented Neuts Plasma Cells Smudge Cells Other Cell Type Hypochromia Toxic Granulation 2+ Dohle Bodies 1+ Luisa Rods Platelet Estimate Decreased Decreased Platelet Comment No clumping No clumping noted RBC Morphology Polychromasia Poikilocytosis Basophilic Stippling Anisocytosis Microcytosis 1+ Macrocytosis Spherocytes Siderocytes Sickle Cells Target Cells Tear Drop Cells Ovalocytes Stomatocytes Helmet Cells Ceron-Wabeno Bodies Rotan Rings [place] Cells Acanthocytes (Spur) Rouleaux Fragmented RBCs Schistocytes Anticoagulation Therapy Puncture Site ABG pH ABG pCO2 at Pt Temp ABG pO2 at Pt Temp ABG HCO3 ABG O2 Sat (Measured) ABG O2 Content ABG Base Excess Richard Test O2 Delivery Device Oxygen Flow Rate Vent Mode Vent Rate Mechanical Rate PEEP Pressure Support Vent Sodium Potassium Chloride Carbon Dioxide Anion Gap BUN Creatinine Random Glucose Lactic Acid Calcium Phosphorus Magnesium 08/03/17 08/03/17 08/03/17 05:45 05:45 07:35 WBC RBC Hgb Hct MCV MCH MCHC RDW Plt Count MPV Total Counted Cancelled Neutrophils % Neutrophils % (Manual) Cancelled Band Neutrophils % Cancelled Lymphocytes % Lymphocytes % (Manual) Cancelled Monocytes % Monocytes % (Manual) Cancelled Eosinophils % Eosinophils % (Manual) Cancelled Basophils % Basophils % (Manual) Cancelled Myelocytes % (Man) Cancelled Promyelocytes % (Man) Cancelled Blast Cells % (Manual) Cancelled Nucleated RBC % Cancelled Metamyelocytes Cancelled Hypersegmented Neuts Cancelled Plasma Cells Cancelled Smudge Cells Cancelled Other Cell Type Cancelled Hypochromia Cancelled Toxic Granulation Cancelled Dohle Bodies Cancelled Luisa Rods Cancelled Platelet Estimate Cancelled Platelet Comment Cancelled RBC Morphology Polychromasia Cancelled Poikilocytosis Cancelled Basophilic Stippling Cancelled Anisocytosis Cancelled Microcytosis Cancelled Macrocytosis Cancelled Spherocytes Cancelled Siderocytes Cancelled Sickle Cells Cancelled Target Cells Cancelled Tear Drop Cells Cancelled Ovalocytes Cancelled Stomatocytes Cancelled Helmet Cells Cancelled Ceron-Wabeno Bodies Cancelled Rotan Rings Cancelled Kylah Cells Cancelled Acanthocytes (Spur) Cancelled Rouleaux Cancelled Fragmented RBCs Cancelled Schistocytes Cancelled Anticoagulation Therapy Y Puncture Site Right radial ABG pH 7.42 ABG pCO2 at Pt Temp 33.3 L ABG pO2 at Pt Temp 81.5 D ABG HCO3 21.0 L ABG O2 Sat (Measured) 96.7 ABG O2 Content 9.6 L* ABG Base Excess -2.6 L Richard Test Positive O2 Delivery Device Vent Oxygen Flow Rate 50 Vent Mode A/c Vent Rate 26 Mechanical Rate Yes PEEP 5.0 Pressure Support Vent 450 Sodium 145 Potassium 3.3 L Chloride 112 H Carbon Dioxide 24 Anion Gap 9 BUN 21 H Creatinine 0.8 Random Glucose 185 H Lactic Acid Calcium 7.2 L Phosphorus 1.6 L D Magnesium 2.2 ASSESSMENT AND PLAN: Acute Hypoxic Respiratory Failure Metastatic Small Cell Ca Pneumonia Neutropenic Septic Shock Thrombocytopenia Lactic Acidosis improved CAD Prostate Ca - broad spectrum antibiotic coverage per ID - IVF to keep CVP 8-12 - replete lytes - taper FiO2 to keep SpO2 >90% - continue filgrastim per heme/onc - monitor CBC - monitor coags, fibrinogen level - continue decadron - hold sedation in AM to assess mental status - spontaneous breathing trials when mental status improved - enteral feeds - DVT/GI prophylaxis - continue ICU monitoring - prognosis remains poor Dr Zheng Critical care time spent in reviewing chart, evaluating patient and formulating plan - 36 minutes.
[2017-08-03] MEDS ORDERED: NAPH,MB-DB/K PH,MBDB POWDER PACKET PO ONE (14:15)
[2017-08-03] MEDS ORDERED: AMINO ACIDS/PROTEIN HYDROLYS 30 ML LIQUID.PKT PO SCH (16:30)
--- NOTE | 2017-08-03 16:33 | PN ---
Progress Note, Physician History of Present Illness: patient continues to be intubated low grade fever - Current Medication List Current Medications: Active Medications Acetaminophen (Tylenol -) 650 mg PO Q6H PRN PRN Reason: FEVER OR PAIN Albuterol/Ipratropium (Duoneb -) 1 amp NEB Q6H PRN PRN Reason: SHORTNESS OF BREATH Amino Acids (Prosource No Carb Liquid Pkt) 30 ml PO BID@0800,1730 [facility] Bacitracin/Polymyxin B Sulfate (Polysporin Ointment -) 1 applic TP DAILY J[facility]DON Last Admin: 08/03/17 09:05 Dose: 1 applic Chlorhexidine Gluconate (Hibiclens For Decolonization -) 1 applic TP HS JAYDON Last Admin: 08/02/17 21:23 Dose: 1 applic Dexamethasone Sodium Phosphate (Decadron Injection -) 4 mg IVPUSH Q8H-IV [facility]DON Last Admin: 08/03/17 08:59 Dose: 4 mg Fluconazole (Diflucan -) 100 mg PO DAILY JAYDON Propofol (Diprivan -) 100 mls @ 1.647 mls/hr IVPB TITR JAYDON; 5 MCG/KG/MIN PRN Reason: Protocol Last Titration: 08/03/17 12:08 Dose: 40 mcg/kg/min, 13.172 mls/hr Sodium Chloride (Normal Saline -) 1,000 mls @ 83 mls/hr IV ASDIR JAYDON Last Admin: 08/03/17 04:00 Dose: 83 mls/hr Cefepime HCl 1 gm/ Dextrose 100 mls @ 200 mls/hr IVPB Q8H-IV [facility]DON Last Admin: 08/03/17 09:02 Dose: 200 mls/hr Mupirocin (Bactroban Ointment (For Decolonization) -) 1 applic NS BID JAYDON Stop: 08/04/17 21:59 Last Admin: 08/03/17 08:59 Dose: 1 applic Pantoprazole Sodium (Protonix Iv) 40 mg IVPUSH DAILY [facility]DON Last Admin: 08/03/17 09:00 Dose: 40 mg - Objective Vital Signs: Vital Signs Temperature 99 F 08/03/17 14:00 Pulse Rate 116 H 08/03/17 14:00 Respiratory Rate 33 H 08/03/17 14:15 Blood Pressure 144/95 08/03/17 14:00 O2 Sat by Pulse Oximetry (%) 96 08/03/17 10:57 Constitutional: Yes: Other Cardiovascular: Yes: Regular Rate and Rhythm Respiratory: Yes: Intubated, Mechanically Ventilated Gastrointestinal: Yes: Normal Bowel Sounds, Soft Musculoskeletal: Yes: WNL Edema: LLE: Trace, RLE: Trace Neurological: Yes: Other Labs: CBC, BMP 08/03/17 05:45 08/03/17 05:45 INR, PTT INR 1.04 (0.82-1.09) 08/02/17 06:10 Fibrinogen 1150.0 mg/dL (238-498) H 08/01/17 07:20 Assessment/Plan e Acute Hypoxic Respiratory Failure Metastatic Small Cell Ca Pneumonia Neutropenic Septic Shock Thrombocytopenia Lactic Acidosis improved CAD Prostate Ca wbc in normal range plan conitnue abx resp support wbc improved low grade fever cc time 40 min
[2017-08-03 17:20] LABS: BASOPHIL 0.2 % (0-2.0); MCH 30.6 pg (25.7-33.7); MCHC 35.1 g/dl (32.0-35.9); MEAN CELL VOLUME 87.4 fl (80-96); MEAN PLT VOLUME 10.3 fl (7.5-11.1); NEUTROPHILS 98.5 % (42.8-82.8); RDW 16.6 % (11.9-15.9)
[2017-08-03] MEDS: AMINO ACIDS/PROTEIN HYDROLYS 30 ML LIQUID.PKT PO SCH (17:34)
[2017-08-03] MEDS: ACETAMINOPHEN 325 MG TABLET (FP) PO PRN (17:34)
[2017-08-03 17:43] LABS: PLATELET COUNT 42 K/MM3 (134-434)
[2017-08-03] MEDS: FLUCONAZOLE 50 MG TABLET PO SCH (18:33)
[2017-08-03] MEDS: CHLORHEXIDINE GLUCONATE 4% CLEANSER FOR DECOLONIZATION TP SCH (21:50)
[2017-08-04] MEDS: CEFEPIME 1 GM in DEXTROSE 5%-WATER - 100 ML IVPB SCH ×3 (02:42→17:51)
[2017-08-04] MEDS: DEXAMETHASONE SOD PHOSPHATE 4 MG/1 ML VIAL IVPUSH SCH ×3 (02:42→17:51)
[2017-08-04] MEDS: SODIUM CHLORIDE 1,000 ML IV SCH ×2 (06:00→17:50)
[2017-08-04] MEDS: PROPOFOL 100 ML IVPB SCH ×5 (06:00→19:30)
[2017-08-04 06:31] LABS: MCH 29.9 pg (25.7-33.7); MCHC 34.6 g/dl (32.0-35.9); MEAN CELL VOLUME 86.4 fl (80-96); MEAN PLT VOLUME 9.8 fl (7.5-11.1); PLATELET COUNT 44 K/MM3 (134-434); RDW 16.4 % (11.9-15.9); WHITE BLOOD COUNT 9.8 K/mm3 (4.0-10.0)
[2017-08-04 06:57] LABS: ANION GAP 12 (8-16); CALCIUM 7.1 mg/dL (8.5-10.1); CO2 21 mmol/L (21-32); CREATININE 0.8 mg/dL (0.7-1.3); GLUCOSE,RANDOM 142 mg/dL (74-106); PHOSPHOROUS 1.4 mg/dL (2.5-4.9)
--- NOTE | 2017-08-04 07:53 | PN ---
Progress Note, Physician Chief Complaint: counts improving Remains intubated. - Current Medication List Current Medications: Active Medications Acetaminophen (Tylenol -) 650 mg PO Q6H PRN PRN Reason: FEVER OR PAIN Last Admin: 08/03/17 17:34 Dose: 650 mg Amino Acids (Prosource No Carb Liquid Pkt) 30 ml PO BID@0800,1730 [facility] Last Admin: 08/03/17 17:34 Dose: 30 ml Bacitracin/Polymyxin B Sulfate (Polysporin Ointment -) 1 applic TP DAILY JAYDON Last Admin: 08/03/17 09:05 Dose: 1 applic Chlorhexidine Gluconate (Hibiclens For Decolonization -) 1 applic TP HS JAYDON Last Admin: 08/03/17 21:50 Dose: 1 applic Dexamethasone Sodium Phosphate (Decadron Injection -) 4 mg IVPUSH Q8H-IV JAYDON Last Admin: 08/04/17 02:42 Dose: 4 mg Fluconazole (Diflucan -) 100 mg PO DAILY JAYDON Propofol (Diprivan -) 100 mls @ 1.647 mls/hr IVPB TITR JAYDON; 5 MCG/KG/MIN PRN Reason: Protocol Last Admin: 08/04/17 06:00 Dose: 50 mcg/kg/min, 16.466 mls/hr Sodium Chloride (Normal Saline -) 1,000 mls @ 83 mls/hr IV ASDIR JAYDON Last Admin: 08/04/17 06:00 Dose: 83 mls/hr Cefepime HCl 1 gm/ Dextrose 100 mls @ 200 mls/hr IVPB Q8H-IV JAYDON Last Admin: 08/04/17 02:42 Dose: 200 mls/hr Mupirocin (Bactroban Ointment (For Decolonization) -) 1 applic NS BID JAYDON Stop: 08/04/17 21:59 Last Admin: 08/03/17 21:50 Dose: 1 applic Pantoprazole Sodium (Protonix Iv) 40 mg IVPUSH DAILY [facility] Last Admin: 08/03/17 09:00 Dose: 40 mg - Objective Vital Signs: Vital Signs Temperature 99.9 F H 08/04/17 06:00 Pulse Rate 116 H 08/04/17 06:00 Respiratory Rate 31 H 08/04/17 07:22 Blood Pressure 99/72 08/04/17 06:00 O2 Sat by Pulse Oximetry (%) 95 11/10/17 20:14 Constitutional: Yes: Other (ETT) Cardiovascular: Yes: Regular Rate and Rhythm Respiratory: Yes: Other (= breath sounds b/l) Gastrointestinal: Yes: Soft Edema: No Labs: CBC, BMP 08/04/17 06:05 08/04/17 06:05 INR, PTT INR 1.04 (0.82-1.09) 08/02/17 06:10 Fibrinogen 1150.0 mg/dL (238-498) H 08/01/17 07:20 Laboratory Tests 08/04/17 08/04/17 06:05 06:05 WBC 9.8 Hgb 8.8 L D Plt Count 44 L Sodium 145 Potassium 3.5 Creatinine 0.8 Phosphorus 1.4 L Magnesium 2.0 - ....Imaging EKG: Image Reviewed (TELE: Roque CHAMBERLAIN) Assessment/Plan IMP: Acute respiratory failure Metastatic small cell lung cancer Pancytopenia CAD s/p PCI several years ago REC: Critically ill with guarded/poor prognosis. Hold antiplatelet agents until Platelet count around 75K Supportive care: vent support/pressors/ abx as per ICU team.
[2017-08-04 08:05] LABS: ARTERIAL BLD GAS O2 SATURATION 96.2 % (90-98.9); ARTERIAL BLOOD GAS BASE EXCESS -1.7 meq/l (-2-2); ARTERIAL BLOOD GAS HCO3 22.4 meq/L (22-26); ARTERIAL BLOOD GAS PO2 81.8 mmHg (70-100); ARTERIAL BLOOD GAS pH 7.39 (7.35-7.45)
[2017-08-04 08:06] LABS: ALLENS TEST POSITIVE; ART PUNCT SITE RIGHT RADIAL; LPM/O2% 60; MECH. VENT. YES; PT. ON O2? YES; TYPE OF O2 VENT; VENT RATE 26; VT/PRESS 450
[2017-08-04] MEDS: AMINO ACIDS/PROTEIN HYDROLYS 30 ML LIQUID.PKT PO SCH ×2 (08:38→17:51)
[2017-08-04 09:16] LABS: METAMYELOCYTE 1 % (0-2); MYELOCYTE 2 % (0-2); NUCLEATED RED BLOOD CELL 1 % (0-0); TOTAL CELLS COUNTED 100
[2017-08-04] MEDS ORDERED: PT OWN MED DRAWER 7, Y5N ONE ×2 (09:16→17:49)
[2017-08-04 09:17] LABS: POLYCHROMASIA 1+
[2017-08-04 09:19] LABS: PLATELET COMMENTS FEW LARGE PLT; PLATELET ESTIMATE SLT DECREASE
[2017-08-04] MEDS: PANTOPRAZOLE SODIUM 40 MG VIAL IVPUSH SCH (09:23)
[2017-08-04] MEDS: MUPIROCIN 2% TOPICAL OINTMENT FOR DECOLONIZATION NS SCH (09:24)
[2017-08-04] MEDS: BACITRACIN/POLYMYXIN B SULFATE 15 GM TUBE TP SCH (09:26)
--- NOTE | 2017-08-04 10:52 | PN ---
Progress Note (short form) - Note Progress Note: PULMONARY/CCM Pt seen and examined in the ICU. Remains intubated, sedated. Off pressors. Vented on volume assist control with 60% FiO2. Last Vital Signs Temp Pulse Resp BP Pulse Ox 99.9 F H 117 H 31 H 136/86 95 08/04/17 06:00 08/04/17 08:00 08/04/17 08:00 08/04/17 08:00 08/03/17 20:14 Intake & Output 08/01/17 08/02/17 08/03/17 08/04/17 23:59 23:59 23:59 23:59 Intake Total 3608 2820 3708 2020 Output Total 3300 2100 1850 700 Balance 583 444 7069 1320 Weight 132 lb 14.4 oz 135 lb 1 oz 136 lb 9.6 oz 137 lb 6 oz Gen: intubated, sedated Heart: tachycardic, regular Lung: scattered rhonchi Abd: soft, nontender Ext: + edema CBC, BMP 08/04/17 06:05 08/04/17 06:05 ABG Results ABG pH 7.39 (7.35-7.45) 08/04/17 07:18 ABG pCO2 at Pt Temp 37.8 mmHg (35-45) 08/04/17 07:18 ABG pO2 at Pt Temp 81.8 mmHg (70-100) 08/04/17 07:18 ABG HCO3 22.4 meq/L (22-26) 08/04/17 07:18 ABG O2 Sat (Measured) 96.2 % (90-98.9) 08/04/17 07:18 ABG O2 Content 10.9 % vol (15-22) L 08/04/17 07:18 ABG Base Excess -1.7 meq/l (-2-2) 08/04/17 07:18 Active Medications Acetaminophen (Tylenol -) 650 mg PO Q6H PRN PRN Reason: FEVER OR PAIN Last Admin: 08/03/17 17:34 Dose: 650 mg Amino Acids (Prosource No Carb Liquid Pkt) 30 ml PO BID@0800,1730 [facility] Last Admin: 08/04/17 08:38 Dose: 30 ml Bacitracin/Polymyxin B Sulfate (Polysporin Ointment -) 1 applic TP DAILY [facility] Last Admin: 08/04/17 09:26 Dose: 1 applic Chlorhexidine Gluconate (Hibiclens For Decolonization -) 1 applic TP HS JAYDON Last Admin: 08/03/17 21:50 Dose: 1 applic Dexamethasone Sodium Phosphate (Decadron Injection -) 4 mg IVPUSH Q8H-IV JAYDON Last Admin: 08/04/17 10:09 Dose: 4 mg Fluconazole (Diflucan -) 100 mg PO DAILY JAYDON Propofol (Diprivan -) 100 mls @ 1.647 mls/hr IVPB TITR JAYDON; 5 MCG/KG/MIN PRN Reason: Protocol Last Admin: 08/04/17 08:38 Dose: 50 mcg/kg/min, 16.466 mls/hr Sodium Chloride (Normal Saline -) 1,000 mls @ 83 mls/hr IV ASDIR JAYDON Last Admin: 08/04/17 06:00 Dose: 83 mls/hr Cefepime HCl 1 gm/ Dextrose 100 mls @ 200 mls/hr IVPB Q8H-IV [facility]DON Last Admin: 08/04/17 09:21 Dose: 200 mls/hr Mupirocin (Bactroban Ointment (For Decolonization) -) 1 applic NS BID JAYDON Stop: 08/04/17 21:59 Last Admin: 08/04/17 09:24 Dose: 1 applic Pantoprazole Sodium (Protonix Iv) 40 mg IVPUSH DAILY [facility] Last Admin: 08/04/17 09:23 Dose: 40 mg A/P Acute Hypoxic Respiratory Failure Metastatic Small Cell Ca Pneumonia Neutropenic Septic Shock Thrombocytopenia Lactic Acidosis improved CAD Prostate Ca - broad spectrum antibiotic coverage per ID - IVF to keep CVP 8-12 - taper FiO2 to keep SpO2 >90% - monitor CBC - monitor coags, fibrinogen level - continue decadron - daily sedation vacations to assess mental status - spontaneous breathing trials when mental status improved - enteral feeds - DVT/GI prophylaxis - continue ICU monitoring - prognosis remains guarded critical care time spent in reviewing chart, evaluating patient and formulating plan 38 min
--- NOTE | 2017-08-04 13:55 | PN ---
Progress Note (short form) - Note Progress Note: Progress Note (short form) - Note Progress Note: Patient seen and examined intubated Cor: RSR, No murmurs, No gallops Lungs: caorse+ Abd: Soft, Normal bowel sounds, No organomegaly Ext:No significant edema ?turns to his name when called. CBC, BMP 08/04/17 06:05 08/04/17 06:05 Vital Signs Period Temp Pulse Resp BP Sys/Rogers Pulse Ox Last 24 Hr 99 F-100.6 F 101-123 23-36 99-144/72-95 95-98 Active Medications Generic Name Dose Route Start Last Admin Trade Name Freq PRN Reason Stop Dose Admin Acetaminophen 650 mg 07/30/17 04:43 08/03/17 17:34 Tylenol - PO 650 mg Q6H PRN Administration FEVER OR PAIN Amino Acids 30 ml 08/03/17 17:30 08/04/17 08:38 Prosource No Carb Liquid Pkt PO 30 ml BID@0800,1730 JAYDON Administration Bacitracin/Polymyxin B Sulfate 1 applic 08/01/17 15:00 08/04/17 09:26 Polysporin Ointment - TP 1 applic DAILY JAYDON Administration Chlorhexidine Gluconate 1 applic 07/30/17 22:00 08/03/17 21:50 Hibiclens For Decolonization - TP 1 applic HS JAYDON Administration Dexamethasone Sodium Phosphate 4 mg 07/31/17 10:00 08/04/17 10:09 Decadron Injection - IVPUSH 4 mg Q8H-IV JAYDON Administration Fluconazole 100 mg 08/03/17 16:29 Diflucan - PO DAILY JAYDON Propofol 100 mls @ 1.647 mls/hr 07/30/17 19:00 08/04/17 08:38 Diprivan - IVPB 50 mcg/kg/min TITR JAYDON 16.466 mls/hr Protocol Administration 5 MCG/KG/MIN Sodium Chloride 1,000 mls @ 83 mls/hr 07/30/17 19:30 08/04/17 06:00 Normal Saline - IV 83 mls/hr ASDIR JAYDON Administration Cefepime HCl 1 gm/ Dextrose 100 mls @ 200 mls/hr 07/31/17 02:00 08/04/17 09: 21 IVPB 200 mls/hr Q8H-IV JAYDON Administration Mupirocin 1 applic 07/30/17 22:00 08/04/17 09:24 Bactroban Ointment (For Decolonization) - NS 08/04/17 21:59 1 applic BID JAYDON Administration Pantoprazole Sodium 40 mg 07/31/17 11:00 08/04/17 09:23 Protonix Iv IVPUSH 40 mg DAILY JAYDON Administration 72 y/o patient with extenisive small cell lung cancer,brain/leptomeningeal/ liver mets. Patient came in with pneumonia/sepsis/shock off pressors hemodynamically improved WBC improved thrombocytopenia--ongoing infection likely Transfuse monodonor platelets if <20,000 remains intubated
--- NOTE | 2017-08-04 17:01 | PN ---
Progress Note, Physician History of Present Illness: continues to be intubated patient responds trying to open eyes off of pressors - Current Medication List Current Medications: Active Medications Acetaminophen (Tylenol -) 650 mg PO Q6H PRN PRN Reason: FEVER OR PAIN Last Admin: 08/03/17 17:34 Dose: 650 mg Amino Acids (Prosource No Carb Liquid Pkt) 30 ml PO BID@0800,1730 [facility] Last Admin: 08/04/17 08:38 Dose: 30 ml Bacitracin/Polymyxin B Sulfate (Polysporin Ointment -) 1 applic TP DAILY [facility]DON Last Admin: 08/04/17 09:26 Dose: 1 applic Chlorhexidine Gluconate (Hibiclens For Decolonization -) 1 applic TP HS JAYODN Last Admin: 08/03/17 21:50 Dose: 1 applic Dexamethasone Sodium Phosphate (Decadron Injection -) 4 mg IVPUSH Q8H-IV [facility]AYDON Last Admin: 08/04/17 10:09 Dose: 4 mg Fluconazole (Diflucan -) 100 mg PO DAILY JAYDON Propofol (Diprivan -) 100 mls @ 1.647 mls/hr IVPB TITR JAYDON; 5 MCG/KG/MIN PRN Reason: Protocol Last Admin: 08/04/17 14:26 Dose: 50 mcg/kg/min, 16.466 mls/hr Sodium Chloride (Normal Saline -) 1,000 mls @ 83 mls/hr IV ASDIR JAYDON Last Admin: 08/04/17 06:00 Dose: 83 mls/hr Cefepime HCl 1 gm/ Dextrose 100 mls @ 200 mls/hr IVPB Q8H-IV [facility]AYDON Last Admin: 08/04/17 09:21 Dose: 200 mls/hr Mupirocin (Bactroban Ointment (For Decolonization) -) 1 applic NS BID JAYDON Stop: 08/04/17 21:59 Last Admin: 08/04/17 09:24 Dose: 1 applic Pantoprazole Sodium (Protonix Iv) 40 mg IVPUSH DAILY [facility] Last Admin: 08/04/17 09:23 Dose: 40 mg - Objective Vital Signs: Vital Signs Temperature 100.3 F H 08/04/17 14:00 Pulse Rate 118 H 08/04/17 16:00 Respiratory Rate 28 H 08/04/17 16:39 Blood Pressure 131/94 08/04/17 16:00 O2 Sat by Pulse Oximetry (%) 98 08/04/17 09:00 Constitutional: Yes: Other Cardiovascular: Yes: Regular Rate and Rhythm, Tachycardia Respiratory: Yes: Intubated, Mechanically Ventilated Gastrointestinal: Yes: Normal Bowel Sounds, Soft Musculoskeletal: Yes: WNL Extremities: Yes: WNL Neurological: Yes: Other Labs: CBC, BMP 08/04/17 06:05 08/04/17 06:05 INR, PTT INR 1.04 (0.82-1.09) 08/02/17 06:10 Fibrinogen 1150.0 mg/dL (238-498) H 08/01/17 07:20 - ....Imaging Chest X-ray: Report Reviewed, Image Reviewed Assessment/Plan e Acute Hypoxic Respiratory Failure Metastatic Small Cell Ca Pneumonia Neutropenic Septic Shock Thrombocytopenia Lactic Acidosis improved CAD Prostate Ca wbc in normal range plan conitnue abx resp support conitnue monitoringd low grade fever cc time 40 min
[2017-08-04] MEDS: ACETAMINOPHEN 325 MG TABLET (FP) PO PRN (17:50)
[2017-08-04] MEDS: CHLORHEXIDINE GLUCONATE 4% CLEANSER FOR DECOLONIZATION TP SCH (21:21)
--- NOTE | 2017-08-04 21:34 | PN ---
Progress Note, Physician - Current Medication List Current Medications: Active Medications Acetaminophen (Tylenol -) 650 mg PO Q6H PRN PRN Reason: FEVER OR PAIN Last Admin: 08/04/17 17:50 Dose: 650 mg Amino Acids (Prosource No Carb Liquid Pkt) 30 ml PO BID@0800,1730 [facility] Last Admin: 08/04/17 17:51 Dose: 30 ml Bacitracin/Polymyxin B Sulfate (Polysporin Ointment -) 1 applic TP DAILY [facility] Last Admin: 08/04/17 09:26 Dose: 1 applic Chlorhexidine Gluconate (Hibiclens For Decolonization -) 1 applic TP HS [facility]AYDON Last Admin: 08/04/17 21:21 Dose: 1 applic Dexamethasone Sodium Phosphate (Decadron Injection -) 4 mg IVPUSH Q8H-IV [facility]DON Last Admin: 08/04/17 17:51 Dose: 4 mg Fluconazole (Diflucan -) 100 mg PO DAILY [facility]DON Propofol (Diprivan -) 100 mls @ 1.647 mls/hr IVPB TITR JAYDON; 5 MCG/KG/MIN PRN Reason: Protocol Last Admin: 08/04/17 19:30 Dose: 50 mcg/kg/min, 16.466 mls/hr Sodium Chloride (Normal Saline -) 1,000 mls @ 83 mls/hr IV ASDIR JAYDON Last Admin: 08/04/17 17:50 Dose: 83 mls/hr Cefepime HCl 1 gm/ Dextrose 100 mls @ 200 mls/hr IVPB Q8H-IV [facility]DON Last Admin: 08/04/17 17:51 Dose: 200 mls/hr Mupirocin (Bactroban Ointment (For Decolonization) -) 1 applic NS BID JAYDON Stop: 08/04/17 21:59 Last Admin: 08/04/17 09:24 Dose: 1 applic Pantoprazole Sodium (Protonix Iv) 40 mg IVPUSH DAILY [facility] Last Admin: 08/04/17 09:23 Dose: 40 mg - Objective Vital Signs: Vital Signs Temperature 100.4 F H 08/04/17 18:00 Pulse Rate 117 H 08/04/17 20:00 Respiratory Rate 29 H 08/04/17 20:48 Blood Pressure 139/98 08/04/17 20:00 O2 Sat by Pulse Oximetry (%) 91 L 08/04/17 20:48 Labs: CBC, BMP 08/04/17 06:05 08/04/17 06:05 INR, PTT INR 1.04 (0.82-1.09) 08/02/17 06:10 Fibrinogen 1150.0 mg/dL (238-498) H 08/01/17 07:20 Problem List - Problems (1) CAD (coronary artery disease) Code(s): I25.10 - ATHSCL HEART DISEASE OF [place] CORONARY ARTERY W/O ANG PCTRS Qualifiers: Coronary Disease-Associated Artery/Lesion type: [place] artery [place] vs. 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
[2017-08-05] MEDS: CEFEPIME 1 GM in DEXTROSE 5%-WATER - 100 ML IVPB SCH ×3 (02:35→17:21)
[2017-08-05] MEDS: DEXAMETHASONE SOD PHOSPHATE 4 MG/1 ML VIAL IVPUSH SCH ×3 (02:45→19:01)
[2017-08-05] MEDS: ACETAMINOPHEN 325 MG TABLET (FP) PO PRN (04:48)
[2017-08-05] MEDS: PROPOFOL 100 ML IVPB SCH ×4 (05:59→21:54)
[2017-08-05 06:41] LABS: MCH 29.1 pg (25.7-33.7); MCHC 33.5 g/dl (32.0-35.9); MEAN CELL VOLUME 86.7 fl (80-96); MEAN PLT VOLUME 9.8 fl (7.5-11.1); PLATELET COUNT 62 K/MM3 (134-434); RDW 16.7 % (11.9-15.9); WHITE BLOOD COUNT 7.1 K/mm3 (4.0-10.0)
[2017-08-05 07:07] LABS: ANION GAP 8 (8-16); CALCIUM 7.4 mg/dL (8.5-10.1); CO2 25 mmol/L (21-32); GLUCOSE,RANDOM 127 mg/dL (74-106); MAGNESIUM 2.1 mg/dL (1.8-2.4)
[2017-08-05 07:10] LABS: ALK PHOS 137 U/L (45-117); BILIRUBIN,TOTAL 0.3 mg/dL (0.2-1.0); CREATININE 0.6 mg/dL (0.7-1.3); PHOSPHOROUS 1.7 mg/dL (2.5-4.9); SGOT/AST 62 U/L (15-37); SGPT/ALT 37 U/L (12-78); TOT PROT 4.4 g/dl (6.4-8.2)
[2017-08-05 07:20] LABS: ALBUMIN 0.9 g/dl (3.4-5.0)
--- NOTE | 2017-08-05 08:41 | PN ---
Progress Note, Physician Chief Complaint: no significant clinical change Intubated History of Present Illness: FEBRILE - Current Medication List Current Medications: Active Medications Acetaminophen (Tylenol -) 650 mg PO Q6H PRN PRN Reason: FEVER OR PAIN Last Admin: 08/05/17 04:48 Dose: 650 mg Amino Acids (Prosource No Carb Liquid Pkt) 30 ml PO BID@0800,1730 [facility] Last Admin: 08/04/17 17:51 Dose: 30 ml Bacitracin/Polymyxin B Sulfate (Polysporin Ointment -) 1 applic TP DAILY [facility]DON Last Admin: 08/04/17 09:26 Dose: 1 applic Chlorhexidine Gluconate (Hibiclens For Decolonization -) 1 applic TP HS [facility]DON Last Admin: 08/04/17 21:21 Dose: 1 applic Dexamethasone Sodium Phosphate (Decadron Injection -) 4 mg IVPUSH Q8H-IV [facility]DNO Last Admin: 08/05/17 02:45 Dose: 4 mg Fluconazole (Diflucan -) 100 mg PO DAILY JAYDON Propofol (Diprivan -) 100 mls @ 1.647 mls/hr IVPB TITR JAYODN; 5 MCG/KG/MIN PRN Reason: Protocol Last Admin: 08/05/17 05:59 Dose: 50 mcg/kg/min, 16.466 mls/hr Sodium Chloride (Normal Saline -) 1,000 mls @ 83 mls/hr IV ASDIR JAYDON Last Admin: 08/04/17 17:50 Dose: 83 mls/hr Cefepime HCl 1 gm/ Dextrose 100 mls @ 200 mls/hr IVPB Q8H-IV [facility]DON Last Admin: 08/05/17 02:35 Dose: 200 mls/hr Pantoprazole Sodium (Protonix Iv) 40 mg IVPUSH DAILY [facility] Last Admin: 08/04/17 09:23 Dose: 40 mg - Objective Vital Signs: Vital Signs Temperature 101.1 F H 08/05/17 06:00 Pulse Rate 123 H 08/05/17 08:00 Respiratory Rate 31 H 08/05/17 08:00 Blood Pressure 124/81 08/05/17 08:00 O2 Sat by Pulse Oximetry (%) 94 L 08/05/17 08:00 Constitutional: Yes: Other (+ ETT) Cardiovascular: Yes: Regular Rate and Rhythm Respiratory: Yes: Other (= breath sounds b/l) Gastrointestinal: Yes: Soft Edema: No Neurological: Yes: Other (sedated on vent) Labs: CBC, BMP 08/05/17 05:40 08/05/17 05:40 INR, PTT INR 1.04 (0.82-1.09) 08/02/17 06:10 Fibrinogen 1150.0 mg/dL (238-498) H 08/01/17 07:20 Laboratory Tests 08/04/17 08/05/17 08/05/17 07:18 05:40 05:40 WBC 7.1 Hgb 9.4 L Hct 28.2 L Plt Count 62 L D ABG pH 7.39 ABG pCO2 at Pt Temp 37.8 ABG pO2 at Pt Temp 81.8 Oxygen Flow Rate 60 Vent Mode A/c Sodium 143 Potassium 3.5 Creatinine 0.6 L D - ....Imaging EKG: Image Reviewed (TELE: Sinus tach) Assessment/Plan IMP: Acute respiratory failure Metastatic small cell lung cancer Pancytopenia, resolving CAD s/p PCI several years ago REC: Critically ill with guarded/poor prognosis. Hold antiplatelet agents until Platelet count around 75K Supportive care: vent support/pressors/ abx as per ICU team.
[2017-08-05] MEDS: SODIUM CHLORIDE 1,000 ML IV SCH (08:55)
[2017-08-05] MEDS ORDERED: PT OWN MED DRAWER 7, Y5N ONE ×2 (09:07→16:29)
[2017-08-05] MEDS: PANTOPRAZOLE SODIUM 40 MG VIAL IVPUSH SCH (09:08)
[2017-08-05] MEDS: AMINO ACIDS/PROTEIN HYDROLYS 30 ML LIQUID.PKT PO SCH ×2 (09:09→16:31)
--- NOTE | 2017-08-05 10:01 | PN ---
Progress Note (short form) - Note Progress Note: PULMONARY/CCM Pt seen and examined in the ICU. Remains intubated, sedated. Off pressors. Vented on volume assist control with 75% FiO2. Febrile overnight. Last Vital Signs Temp Pulse Resp BP Pulse Ox 100.7 F H 118 H 29 H 122/83 94 L 08/05/17 09:17 08/05/17 09:17 08/05/17 09:17 08/05/17 09:17 08/05/17 08:00 Intake & Output 08/02/17 08/03/17 08/04/17 08/05/17 23:59 23:59 23:59 23:59 Intake Total 2820 3708 4140 2120 Output Total 2100 1850 2500 1000 Balance 720 1858 1640 1120 Weight 135 lb 1 oz 136 lb 9.6 oz 137 lb 6 oz 137 lb 12.8 oz Gen: intubated, sedated Heart: tachycardic, regular Lung: scattered rhonchi Abd: soft, nontender Ext: + edema CBC, BMP 08/05/17 05:40 08/05/17 05:40 CXR: worsening congestion Active Medications Acetaminophen (Tylenol -) 650 mg PO Q6H PRN PRN Reason: FEVER OR PAIN Last Admin: 08/05/17 04:48 Dose: 650 mg Amino Acids (Prosource No Carb Liquid Pkt) 30 ml PO BID@0800,1730 [facility] Last Admin: 08/05/17 09:09 Dose: 30 ml Bacitracin/Polymyxin B Sulfate (Polysporin Ointment -) 1 applic TP DAILY [facility]DON Last Admin: 08/04/17 09:26 Dose: 1 applic Chlorhexidine Gluconate (Hibiclens For Decolonization -) 1 applic TP HS J[facility]DON Last Admin: 08/04/17 21:21 Dose: 1 applic Dexamethasone Sodium Phosphate (Decadron Injection -) 4 mg IVPUSH Q8H-IV [facility]DON Last Admin: 08/05/17 09:07 Dose: 4 mg Fluconazole (Diflucan -) 100 mg PO DAILY JAYDON Propofol (Diprivan -) 100 mls @ 1.647 mls/hr IVPB TITR JAYDON; 5 MCG/KG/MIN PRN Reason: Protocol Last Admin: 08/05/17 05:59 Dose: 50 mcg/kg/min, 16.466 mls/hr Sodium Chloride (Normal Saline -) 1,000 mls @ 83 mls/hr IV ASDIR [facility] Last Admin: 08/05/17 08:55 Dose: 83 mls/hr Cefepime HCl 1 gm/ Dextrose 100 mls @ 200 mls/hr IVPB Q8H-IV [facility] Last Admin: 08/05/17 09:08 Dose: 200 mls/hr Pantoprazole Sodium (Protonix Iv) 40 mg IVPUSH DAILY [facility] Last Admin: 08/05/17 09:08 Dose: 40 mg A/P Acute Hypoxic Respiratory Failure Metastatic Small Cell Ca Pneumonia Neutropenic Septic Shock Thrombocytopenia Lactic Acidosis improved CAD Prostate Ca - broad spectrum antibiotic coverage per ID - IVF to keep CVP 8-12 - taper FiO2 to keep SpO2 >90% - monitor CBC - continue decadron - d/c IVF - lasix today - daily sedation vacations to assess mental status - spontaneous breathing trials when mental status improved - enteral feeds - DVT/GI prophylaxis - continue ICU monitoring - prognosis remains guarded critical care time spent in reviewing chart, evaluating patient and formulating plan 38 min
[2017-08-05] MEDS ORDERED: FUROSEMIDE 40 MG/4 ML INJECTABLE VIAL IVPUSH ONE (10:04)
[2017-08-05 10:21] LABS: TOTAL CELLS COUNTED 100
[2017-08-05 10:22] LABS: METAMYELOCYTE 2 % (0-2); MYELOCYTE 2 % (0-2)
[2017-08-05 10:23] LABS: PLATELET ESTIMATE DECREASED
[2017-08-05] MEDS: NAPH,MB-DB/K PH,MBDB POWDER PACKET PO SCH ×3 (12:01→21:54)
[2017-08-05] MEDS: BACITRACIN/POLYMYXIN B SULFATE 15 GM TUBE TP SCH (12:02)
--- NOTE | 2017-08-05 12:56 | PN ---
Progress Note, Physician History of Present Illness: continues to sedated and intubated spiking low grade fevers - Current Medication List Current Medications: Active Medications Acetaminophen (Tylenol -) 650 mg PO Q6H PRN PRN Reason: FEVER OR PAIN Last Admin: 08/05/17 04:48 Dose: 650 mg Amino Acids (Prosource No Carb Liquid Pkt) 30 ml PO BID@0800,1730 [facility] Last Admin: 08/05/17 09:09 Dose: 30 ml Bacitracin/Polymyxin B Sulfate (Polysporin Ointment -) 1 applic TP DAILY JAYDON Last Admin: 08/05/17 12:02 Dose: 1 applic Chlorhexidine Gluconate (Hibiclens For Decolonization -) 1 applic TP HS JAYDON Last Admin: 08/04/17 21:21 Dose: 1 applic Dexamethasone Sodium Phosphate (Decadron Injection -) 4 mg IVPUSH Q8H-IV [facility]DON Last Admin: 08/05/17 09:07 Dose: 4 mg Fluconazole (Diflucan -) 100 mg PO DAILY JAYDON Propofol (Diprivan -) 100 mls @ 1.647 mls/hr IVPB TITR JAYDON; 5 MCG/KG/MIN PRN Reason: Protocol Last Admin: 08/05/17 11:57 Dose: 50 mcg/kg/min, 16.466 mls/hr Cefepime HCl 1 gm/ Dextrose 100 mls @ 200 mls/hr IVPB Q8H-IV [facility]DON Last Admin: 08/05/17 09:08 Dose: 200 mls/hr Pantoprazole Sodium (Protonix Iv) 40 mg IVPUSH DAILY [facility] Last Admin: 08/05/17 09:08 Dose: 40 mg Potassium Phos/Sodium Phos (Phos-Nak Packet -) 2 packet PO TID JAYDON Stop: 08/05/17 22:01 Last Admin: 08/05/17 12:01 Dose: 2 packet - Objective Vital Signs: Vital Signs Temperature 100.5 F H 08/05/17 10:37 Pulse Rate 122 H 08/05/17 12:00 Respiratory Rate 27 H 08/05/17 12:00 Blood Pressure 145/98 08/05/17 12:00 O2 Sat by Pulse Oximetry (%) 94 L 08/05/17 08:00 Constitutional: Yes: Other Cardiovascular: Yes: Regular Rate and Rhythm Respiratory: Yes: Intubated, Mechanically Ventilated Gastrointestinal: Yes: Normal Bowel Sounds, Soft Musculoskeletal: Yes: Other Extremities: Yes: Other Neurological: Yes: Other Labs: CBC, BMP 08/05/17 05:40 08/05/17 05:40 INR, PTT INR 1.04 (0.82-1.09) 08/02/17 06:10 Fibrinogen 1150.0 mg/dL (238-498) H 08/01/17 07:20 Assessment/Plan e Acute Hypoxic Respiratory Failure Metastatic Small Cell Ca Pneumonia Neutropenic Septic Shock Thrombocytopenia Lactic Acidosis improved CAD Prostate Ca wbc normal plan conitnue abx resp support conitnue monitoringd low grade fever if patient cpontinues to spike will broaden coverage tomorrow cc time 40 min
--- NOTE | 2017-08-05 14:22 | PN ---
Progress Note (short form) - Note Progress Note: Progress Note (short form) - Note Progress Note: Patient seen and examined intubated Cor: RSR, No murmurs, No gallops Lungs: caorse+ Abd: Soft, Normal bowel sounds, No organomegaly Ext:No significant edema Vital Signs Period Temp Pulse Resp BP Sys/Rogers Pulse Ox Last 24 Hr 100.3 F-101.1 F 114-123 20-34 105-145/70-98 91-94 Active Medications Generic Name Dose Route Start Last Admin Trade Name Freq PRN Reason Stop Dose Admin Acetaminophen 650 mg 07/30/17 04:43 08/05/17 04:48 Tylenol - PO 650 mg Q6H PRN Administration FEVER OR PAIN Amino Acids 30 ml 08/03/17 17:30 08/05/17 09:09 Prosource No Carb Liquid Pkt PO 30 ml BID@0800,1730 JAYDON Administration Bacitracin/Polymyxin B Sulfate 1 applic 08/01/17 15:00 08/05/17 12:02 Polysporin Ointment - TP 1 applic DAILY JAYDON Administration Chlorhexidine Gluconate 1 applic 07/30/17 22:00 08/04/17 21:21 Hibiclens For Decolonization - TP 1 applic HS JAYDON Administration Dexamethasone Sodium Phosphate 4 mg 07/31/17 10:00 08/05/17 09:07 Decadron Injection - IVPUSH 4 mg Q8H-IV JAYDON Administration Fluconazole 100 mg 08/03/17 16:29 Diflucan - PO DAILY JAYDON Propofol 100 mls @ 1.647 mls/hr 07/30/17 19:00 08/05/17 11:57 Diprivan - IVPB 50 mcg/kg/min TITR JAYDON 16.466 mls/hr Protocol Administration 5 MCG/KG/MIN Cefepime HCl 1 gm/ Dextrose 100 mls @ 200 mls/hr 07/31/17 02:00 08/05/17 09: 08 IVPB 200 mls/hr Q8H-IV JAYDON Administration Pantoprazole Sodium 40 mg 07/31/17 11:00 08/05/17 09:08 Protonix Iv IVPUSH 40 mg DAILY JAYDON Administration Potassium Phos/Sodium Phos 2 packet 08/05/17 10:15 08/05/17 12:01 Phos-Nak Packet - PO 08/05/17 22:01 2 packet TID JAYDON Administration CBC, BMP 08/05/17 05:40 08/05/17 05:40 72 y/o patient with extenisive small cell lung cancer,brain/leptomeningeal/ liver mets. Patient came in with pneumonia/sepsis/shock off pressors hemodynamically improved WBC improved thrombocytopenia--likley due to ongoing sepsis Transfuse monodonor platelets if <20,000 remains intubated poor prognosis
[2017-08-05] MEDS ORDERED: fentaNYL CITRATE 250 MCG/5 ML VIAL ONE (16:54)
[2017-08-05] MEDS: FENTANYL INJECTION 500 MCG in SODIUM CHLORIDE 90 ML IVPB SCH (17:00)
[2017-08-05] MEDS ORDERED: FENTANYL INJECTION 500 MCG in DEXTROSE 5%-WATER - 90 ML IVPB SCH (18:45)
[2017-08-05] MEDS ORDERED: FLUCONAZOLE 50 MG TABLET PO SCH (19:30)
[2017-08-05] MEDS: CHLORHEXIDINE GLUCONATE 4% CLEANSER FOR DECOLONIZATION TP SCH (21:54)
--- NOTE | 2017-08-05 22:26 | PN ---
Progress Note, Physician History of Present Illness: Pt intubated - Current Medication List Current Medications: Active Medications Acetaminophen (Tylenol -) 650 mg PO Q6H PRN PRN Reason: FEVER OR PAIN Last Admin: 08/05/17 04:48 Dose: 650 mg Amino Acids (Prosource No Carb Liquid Pkt) 30 ml PO BID@0800,1730 [facility] Last Admin: 08/05/17 16:31 Dose: 30 ml Bacitracin/Polymyxin B Sulfate (Polysporin Ointment -) 1 applic TP DAILY JAYDON Last Admin: 08/05/17 12:02 Dose: 1 applic Chlorhexidine Gluconate (Hibiclens For Decolonization -) 1 applic TP HS [facility] Last Admin: 08/05/17 21:54 Dose: 1 applic Dexamethasone Sodium Phosphate (Decadron Injection -) 4 mg IVPUSH Q8H-IV [facility] Last Admin: 08/05/17 19:01 Dose: 4 mg Fluconazole (Diflucan -) 100 mg PO DAILY JAYDON Propofol (Diprivan -) 100 mls @ 1.647 mls/hr IVPB TITR JAYDON; 5 MCG/KG/MIN PRN Reason: Protocol Last Admin: 08/05/17 21:54 Dose: 50 mcg/kg/min, 16.466 mls/hr Cefepime HCl 1 gm/ Dextrose 100 mls @ 200 mls/hr IVPB Q8H-IV [facility] Last Admin: 08/05/17 17:21 Dose: 200 mls/hr Fentanyl 500 mcg/ Sodium (Chloride) 100 mls @ 10 mls/hr IVPB TITR JAYDON; 50 MCG/ HR PRN Reason: Protocol Last Admin: 08/05/17 17:00 Dose: 10 mls/hr Pantoprazole Sodium (Protonix Iv) 40 mg IVPUSH DAILY [facility] Last Admin: 08/05/17 09:08 Dose: 40 mg - Objective Vital Signs: Vital Signs Temperature 100.3 F H 08/05/17 17:20 Pulse Rate 114 H 08/05/17 19:00 Respiratory Rate 26 H 08/05/17 21:52 Blood Pressure 97/61 08/05/17 19:00 O2 Sat by Pulse Oximetry (%) 92 L 08/05/17 21:52 Cardiovascular: Yes: WNL, Regular Rate and Rhythm Respiratory: Yes: Diminished Gastrointestinal: Yes: WNL, Normal Bowel Sounds, Soft Labs: CBC, BMP 08/05/17 05:40 08/05/17 05:40 INR, PTT INR 1.04 (0.82-1.09) 08/02/17 06:10 Fibrinogen 1150.0 mg/dL (238-498) H 08/01/17 07:20 Problem List - Problems (1) Acute hypoxemic respiratory failure Assessment/Plan: Pt intubated Cont nebulizers/IV antibxs ?pneumonia Code(s): J96.01 - ACUTE RESPIRATORY FAILURE WITH HYPOXIA (2) Febrile neutropenia Assessment/Plan: Cont IV antibxs As per ID Code(s): D70.9 - NEUTROPENIA, UNSPECIFIED; R50.81 - FEVER PRESENTING WITH CONDITIONS CLASSIFIED ELSEWHERE (3) Sepsis Assessment/Plan: Cont IV antibxs Poor prognosis Plts cont to decrease Code(s): A41.9 - SEPSIS, UNSPECIFIED ORGANISM (4) Lung cancer Code(s): C34.90 - MALIGNANT NEOPLASM OF UNSP PART OF UNSP BRONCHUS OR LUNG (5) Leptomeningeal metastases Code(s): C79.49 - SECONDARY MALIGNANT NEOPLASM OF OTH PARTS OF NERVOUS SYSTEM (6) CAD (coronary artery disease) Code(s): I25.10 - ATHSCL HEART DISEASE OF [place] CORONARY ARTERY W/O ANG PCTRS Qualifiers: Coronary Disease-Associated Artery/Lesion type: [place] artery [place] vs. transplanted heart: [place] heart Associated angina: without angina Qualified Code(s): I25.10 - Atherosclerotic heart disease of [place] coronary artery without angina pectoris
[2017-08-06] MEDS ORDERED: fentaNYL CITRATE 250 MCG/5 ML VIAL ONE ×4 (01:06→21:35)
[2017-08-06] MEDS: CEFEPIME 1 GM in DEXTROSE 5%-WATER - 100 ML IVPB SCH ×3 (02:17→17:04)
[2017-08-06] MEDS: DEXAMETHASONE SOD PHOSPHATE 4 MG/1 ML VIAL IVPUSH SCH ×3 (02:17→17:05)
[2017-08-06 06:21] LABS: BASOPHIL 0.1 % (0-2.0); EOSINOPHIL 0.4 % (0-4.5); MCH 30.2 pg (25.7-33.7); MCHC 34.9 g/dl (32.0-35.9); MEAN CELL VOLUME 86.6 fl (80-96); MEAN PLT VOLUME 10.5 fl (7.5-11.1); NEUTROPHILS 97.4 % (42.8-82.8); PLATELET COUNT 92 K/MM3 (134-434); RDW 16.8 % (11.9-15.9); WHITE BLOOD COUNT 7.5 K/mm3 (4.0-10.0)
[2017-08-06 07:03] LABS: ANION GAP 12 (8-16); CALCIUM 7.2 mg/dL (8.5-10.1); CO2 24 mmol/L (21-32); CREATININE 0.8 mg/dL (0.7-1.3); GLUCOSE,RANDOM 289 mg/dL (74-106); MAGNESIUM 2.1 mg/dL (1.8-2.4); PHOSPHOROUS 2.4 mg/dL (2.5-4.9); SGOT/AST 75 U/L (15-37); SGPT/ALT 36 U/L (12-78)
[2017-08-06 07:05] LABS: ALK PHOS 152 U/L (45-117); BILIRUBIN,TOTAL 0.2 mg/dL (0.2-1.0); TOT PROT 4.3 g/dl (6.4-8.2)
[2017-08-06 07:51] LABS: ALBUMIN 0.8 g/dl (3.4-5.0)
[2017-08-06] MEDS ORDERED: PT OWN MED DRAWER 7, Y5N ONE ×2 (09:35→16:42)
[2017-08-06] MEDS: AMINO ACIDS/PROTEIN HYDROLYS 30 ML LIQUID.PKT PO SCH ×2 (09:40→16:47)
[2017-08-06] MEDS: FLUCONAZOLE 100 MG TABLET (UD) PO SCH (09:40)
[2017-08-06] MEDS: PROPOFOL 100 ML IVPB SCH ×3 (09:41→21:56)
[2017-08-06] MEDS: NAPH,MB-DB/K PH,MBDB POWDER PACKET NGT SCH ×2 (10:15→21:55)
[2017-08-06] MEDS: BACITRACIN/POLYMYXIN B SULFATE 15 GM TUBE TP SCH (10:16)
--- NOTE | 2017-08-06 11:18 | PN ---
Progress Note, Physician History of Present Illness: seen and examined today in nad. intubated, mechanically ventilated, minimally responsive. - Current Medication List Current Medications: Active Medications Acetaminophen (Tylenol -) 650 mg PO Q6H PRN PRN Reason: FEVER OR PAIN Last Admin: 08/05/17 04:48 Dose: 650 mg Amino Acids (Prosource No Carb Liquid Pkt) 30 ml PO BID@0800,1730 [facility] Last Admin: 08/06/17 09:40 Dose: 30 ml Bacitracin/Polymyxin B Sulfate (Polysporin Ointment -) 1 applic TP DAILY [facility]DON Last Admin: 08/06/17 10:16 Dose: 1 applic Chlorhexidine Gluconate (Hibiclens For Decolonization -) 1 applic TP HS [facility] Last Admin: 08/05/17 21:54 Dose: 1 applic Dexamethasone Sodium Phosphate (Decadron Injection -) 4 mg IVPUSH Q8H-IV [facility] Last Admin: 08/06/17 09:40 Dose: 4 mg Fluconazole (Diflucan -) 100 mg PO DAILY [facility] Last Admin: 08/06/17 09:40 Dose: 100 mg Propofol (Diprivan -) 100 mls @ 1.647 mls/hr IVPB TITR JAYDON; 5 MCG/KG/MIN PRN Reason: Protocol Last Admin: 08/06/17 09:41 Dose: 50 mcg/kg/min, 16.466 mls/hr Cefepime HCl 1 gm/ Dextrose 100 mls @ 200 mls/hr IVPB Q8H-IV [facility] Last Admin: 08/06/17 09:40 Dose: 200 mls/hr Fentanyl 500 mcg/ Sodium (Chloride) 100 mls @ 10 mls/hr IVPB TITR JAYDON; 50 MCG/ HR PRN Reason: Protocol Last Admin: 08/05/17 17:00 Dose: 10 mls/hr Insulin Aspart (Novolog Vial Sliding Scale -) 1 vial SQ ACHS JAYDON PRN Reason: Protocol Pantoprazole Sodium (Protonix Iv) 40 mg IVPUSH DAILY [facility] Last Admin: 08/05/17 09:08 Dose: 40 mg Potassium Phos/Sodium Phos (Phos-Nak Packet -) 1 packet NGT BID [facility] Stop: 08/06/17 22:01 Last Admin: 08/06/17 10:15 Dose: 1 packet - Objective Vital Signs: Vital Signs Temperature 100.1 F H 08/06/17 10:00 Pulse Rate 119 H 08/06/17 10:00 Respiratory Rate 30 H 08/06/17 10:11 Blood Pressure 95/68 08/06/17 10:00 O2 Sat by Pulse Oximetry (%) 91 L 08/06/17 10:28 Constitutional: Yes: No Distress, Calm HENT: Yes: Atraumatic, Normocephalic Cardiovascular: Yes: Tachycardia, S1, S2. No: Regular Rate and Rhythm, Bradycardia, Pulse Irregular, Bruit, JVD, Gallop, Murmur, Rub, S3, S4, Varicosities Respiratory: Yes: Diminished, Intubated, Mechanically Ventilated, Rhonchi. No: Rales, Wheezes Gastrointestinal: Yes: Normal Bowel Sounds, Soft Edema: RUE: Trace Peripheral Pulses WNL: Yes Neurological: No: Alert, Oriented Psychiatric: No: Alert, Oriented Labs: CBC, BMP 08/06/17 06:00 08/06/17 06:00 INR, PTT INR 1.04 (0.82-1.09) 08/02/17 06:10 Fibrinogen 1150.0 mg/dL (238-498) H 08/01/17 07:20 - ....Imaging Chest X-ray: Report Reviewed, Image Reviewed EKG: Report Reviewed, Image Reviewed Other: Report Reviewed, Image Reviewed (tele-nsr, sinus tach, pvcs, no sig arrhythmias) Assessment/Plan IMP: Acute respiratory failure Metastatic small cell lung cancer Pancytopenia, resolving CAD s/p PCI several years ago REC: Critically ill with guarded/poor prognosis. Hold antiplatelet agents until safe to resume, platelet count has improved Supportive care: vent support/pressors/ abx as per ICU team. Sinus tachycardia secondary to respiratory failure, sepsis, malignancy
[2017-08-06] MEDS: PANTOPRAZOLE SODIUM 40 MG VIAL IVPUSH SCH (11:46)
[2017-08-06] MEDS ORDERED: FUROSEMIDE 40 MG/4 ML INJECTABLE VIAL IVPUSH ONE (11:59)
[2017-08-06] MEDS: FENTANYL INJECTION 500 MCG in SODIUM CHLORIDE 90 ML IVPB SCH ×2 (12:11→21:56)
[2017-08-06] MEDS ORDERED: INSULIN (NOVOLOG) ASPART 100 UNITS/ML 10ML VIAL ONE ×4 (12:45→17:03)
[2017-08-06] MEDS: INSULIN SLIDING SCALE (NOVOLOG) 1 VIAL SQ SCH ×3 (12:46→21:58)
--- NOTE | 2017-08-06 14:46 | PN ---
Teaching Attending Note Name of Resident: Reginaldo Felipe ATTENDING PHYSICIAN STATEMENT I saw and evaluated the patient. I reviewed the resident's note and discussed the case with the resident. I agree with the resident's findings and plan as documented. SUBJECTIVE: Pt seen and examined in the ICU. Remains intubated, sedated. Oxygen requirements worsening. OBJECTIVE: Last Vital Signs Temp Pulse Resp BP Pulse Ox 99.8 F H 130 H 32 H 81/70 91 L 08/06/17 13:51 08/06/17 13:51 08/06/17 14:05 08/06/17 13:51 08/06/17 10:28 Intake & Output 08/03/17 08/04/17 08/05/17 08/06/17 23:59 23:59 23:59 23:59 Intake Total 3708 4140 4132 1367 Output Total 1850 2500 3000 500 Balance 1858 1640 1132 867 Weight 136 lb 9.6 oz 137 lb 6 oz 137 lb 12.8 oz 138 lb 1.6 oz Gen: intubated, sedated Heart: tachycardic, regular Lung: scattered rhonchi Abd: soft, nontender Ext: upper extremity edema CBC, BMP 08/06/17 06:00 08/06/17 06:00 Active Medications Acetaminophen (Tylenol -) 650 mg PO Q6H PRN PRN Reason: FEVER OR PAIN Last Admin: 08/05/17 04:48 Dose: 650 mg Amino Acids (Prosource No Carb Liquid Pkt) 30 ml PO BID@0800,1730 [facility] Last Admin: 08/06/17 09:40 Dose: 30 ml Bacitracin/Polymyxin B Sulfate (Polysporin Ointment -) 1 applic TP DAILY [facility] Last Admin: 08/06/17 10:16 Dose: 1 applic Chlorhexidine Gluconate (Hibiclens For Decolonization -) 1 applic TP HS [facility] Last Admin: 08/05/17 21:54 Dose: 1 applic Dexamethasone Sodium Phosphate (Decadron Injection -) 4 mg IVPUSH Q8H-IV [facility] Last Admin: 08/06/17 09:40 Dose: 4 mg Fluconazole (Diflucan -) 100 mg PO DAILY [facility] Last Admin: 08/06/17 09:40 Dose: 100 mg Propofol (Diprivan -) 100 mls @ 1.647 mls/hr IVPB TITR JAYDON; 5 MCG/KG/MIN PRN Reason: Protocol Last Admin: 08/06/17 09:41 Dose: 50 mcg/kg/min, 16.466 mls/hr Cefepime HCl 1 gm/ Dextrose 100 mls @ 200 mls/hr IVPB Q8H-IV [facility] Last Admin: 08/06/17 09:40 Dose: 200 mls/hr Fentanyl 500 mcg/ Sodium (Chloride) 100 mls @ 10 mls/hr IVPB TITR JAYDON; 50 MCG/ HR PRN Reason: Protocol Last Admin: 08/06/17 12:11 Dose: 10 mls/hr Insulin Aspart (Novolog Vial Sliding Scale -) 1 vial SQ ACHS JAYDON PRN Reason: Protocol Last Admin: 08/06/17 12:46 Dose: 8 units Pantoprazole Sodium (Protonix Iv) 40 mg IVPUSH DAILY [facility] Last Admin: 08/06/17 11:46 Dose: 40 mg Potassium Phos/Sodium Phos (Phos-Nak Packet -) 1 packet NGT BID [facility]AYDON Stop: 08/06/17 22:01 Last Admin: 08/06/17 10:15 Dose: 1 packet ASSESSMENT AND PLAN: Acute Hypoxic Respiratory Failure Metastatic Small Cell Ca Pneumonia ARDS Neutropenic Septic Shock Thrombocytopenia Lactic Acidosis improved CAD Prostate Ca - broad spectrum antibiotic coverage per ID - IVF to keep CVP 8-12 - taper FiO2 to keep SpO2 >90% - monitor CBC - continue decadron - lasix today - not a candidate for weaning due to increasing oxygen requirements - enteral feeds - DVT/GI prophylaxis - continue ICU monitoring - prognosis remains guarded - continue discussions regarding goals of care critical care time spent in reviewing chart, evaluating patient and formulating plan 38 min
--- NOTE | 2017-08-06 15:50 | PN ---
Physical Exam: SUBJECTIVE: Patient seen and examined. sedated and intubated. no new event overnight. OBJECTIVE: Vital Signs Period Temp Pulse Resp BP Sys/Rogers Pulse Ox Last 24 Hr 98.4 F-100.3 F 102-130 26-32 81-106/59-70 90-92 GENERAL: The patient is intubated, vented HEAD: Normal with no signs of trauma. EYES: PERRL, conjunctiva clear. NECK: Trachea midline, supple. R IJ access* LUNGS: rhonchi appreciated b/l HEART: s1s2 normal ABDOMEN: Soft, nontender, nondistended, normoactive bowel sounds, no guarding, no rebound EXTREMITIES: no edema Laboratory Results - last 24 hr 08/06/17 08/06/17 06:00 06:00 WBC 7.5 RBC 2.80 L Hgb 8.5 L Hct 24.3 L MCV 86.6 MCH 30.2 MCHC 34.9 RDW 16.8 H Plt Count 92 L D MPV 10.5 Neutrophils % 97.4 H Lymphocytes % 1.3 L D Monocytes % 0.8 L Eosinophils % 0.4 D Basophils % 0.1 Sodium 140 Potassium 3.5 Chloride 104 Carbon Dioxide 24 Anion Gap 12 BUN 35 H D Creatinine 0.8 D Creat Clearance w eGFR > 60 Random Glucose 289 H D Calcium 7.2 L Phosphorus 2.4 L D Magnesium 2.1 Total Bilirubin 0.2 D AST 75 H D ALT 36 Alkaline Phosphatase 152 H Total Protein 4.3 L Albumin 0.8 L Active Medications Generic Name Dose Route Start Last Admin Trade Name Freq PRN Reason Stop Dose Admin Acetaminophen 650 mg 07/30/17 04:43 08/05/17 04:48 Tylenol - PO 650 mg Q6H PRN Administration FEVER OR PAIN Amino Acids 30 ml 08/03/17 17:30 08/06/17 09:40 Prosource No Carb Liquid Pkt PO 30 ml BID@0800,1730 JAYDON Administration Bacitracin/Polymyxin B Sulfate 1 applic 08/01/17 15:00 08/06/17 10:16 Polysporin Ointment - TP 1 applic DAILY [facility]AYDON Administration Chlorhexidine Gluconate 1 applic 07/30/17 22:00 08/05/17 21:54 Hibiclens For Decolonization - TP 1 applic HS [facility]AYDON Administration Dexamethasone Sodium Phosphate 4 mg 07/31/17 10:00 11/13/17 09:40 Decadron Injection - IVPUSH 4 mg Q8H-IV [facility]DON Administration Fluconazole 100 mg 08/05/17 19:58 08/06/17 09:40 Diflucan - PO 100 mg DAILY JAYDON Administration Propofol 100 mls @ 1.647 mls/hr 07/30/17 19:00 08/06/17 09:41 Diprivan - IVPB 50 mcg/kg/min TITR JAYDON 16.466 mls/hr Protocol Administration 5 MCG/KG/MIN Cefepime HCl 1 gm/ Dextrose 100 mls @ 200 mls/hr 07/31/17 02:00 08/06/17 09: 40 IVPB 200 mls/hr Q8H-IV [facility]DON Administration Fentanyl 500 mcg/ Sodium 100 mls @ 10 mls/hr 08/06/17 18:45 08/06/17 12:11 Chloride IVPB 10 mls/hr TITR JAYDON Administration Protocol 50 MCG/HR Insulin Aspart 1 vial 08/06/17 11:00 08/06/17 12:46 Novolog Vial Sliding Scale - SQ 8 units ACHS JAYDON Administration Protocol Pantoprazole Sodium 40 mg 07/31/17 11:00 08/06/17 11:46 Protonix Iv IVPUSH 40 mg DAILY [facility]DON Administration Potassium Phos/Sodium Phos 1 packet 08/06/17 10:00 08/06/17 10:15 Phos-Nak Packet - NGT 08/06/17 22:01 1 packet BID JAYDON Administration ASSESSMENT/PLAN: Acute Hypoxic Respiratory Failure Metastatic Small Cell Ca Pneumonia ARDS Neutropenic Septic Shock Thrombocytopenia Lactic Acidosis improved CAD Prostate Ca Plan - broad spectrum antibiotic coverage per ID, on flucon and cefepime - IVF to keep CVP 8-12 - taper FiO2 to keep SpO2 >90% - monitor vitals - monitor intake/ output. - monitor CBC - continue decadron - lasix today - not a candidate for weaning due to increasing oxygen requirements - enteral feeds - DVT/GI prophylaxis, platelets increased so will start him on sq hep for prophylaxis - Patinet is DNR - monitor electrolytes, hypophosphatemia Visit type - Emergency Visit Emergency Visit: Yes ED Registration Date: 07/30/17 Care time: The patient presented to the Emergency Department on the above date and was hospitalized for further evaluation of their emergent condition. - New Patient This patient is new to me today: No - Critical Care Critical Care patient: Yes Total Critical Care Time (in minutes): 45 Critical Care Statement: The care of this patient involved high complexity decision making to prevent further life threatening deterioration of the patient 's condition and/or to evaluate & treat vital organ system(s) failure or risk of failure.
[2017-08-06] MEDS: HEPARIN NA (PORCINE) 5,000 UNITS/ML 1ML VIAL SQ SCH ×2 (16:46→21:55)
[2017-08-06] MEDS ORDERED: INSULIN REGULAR HUMAN 100 UNITS/ML *VIAL IVPUSH ONE (16:47)
--- NOTE | 2017-08-06 17:00 | PN ---
Progress Note, Physician History of Present Illness: continues to sedated and intubated still with some spike - Current Medication List Current Medications: Active Medications Acetaminophen (Tylenol -) 650 mg PO Q6H PRN PRN Reason: FEVER OR PAIN Last Admin: 08/05/17 04:48 Dose: 650 mg Amino Acids (Prosource No Carb Liquid Pkt) 30 ml PO BID@0800,1730 [facility] Last Admin: 08/06/17 16:47 Dose: 30 ml Bacitracin/Polymyxin B Sulfate (Polysporin Ointment -) 1 applic TP DAILY [facility] Last Admin: 08/06/17 10:16 Dose: 1 applic Chlorhexidine Gluconate (Hibiclens For Decolonization -) 1 applic TP HS [facility] Last Admin: 08/05/17 21:54 Dose: 1 applic Dexamethasone Sodium Phosphate (Decadron Injection -) 4 mg IVPUSH Q8H-IV [facility] Last Admin: 08/06/17 09:40 Dose: 4 mg Fluconazole (Diflucan -) 100 mg PO DAILY [facility] Last Admin: 08/06/17 09:40 Dose: 100 mg Heparin Sodium (Porcine) (Heparin -) 5,000 unit SQ BID [facility] Last Admin: 08/06/17 16:46 Dose: 5,000 unit Propofol (Diprivan -) 100 mls @ 1.647 mls/hr IVPB TITR [facility]; 5 MCG/KG/MIN PRN Reason: Protocol Last Admin: 08/06/17 16:48 Dose: 50 mcg/kg/min, 16.466 mls/hr Cefepime HCl 1 gm/ Dextrose 100 mls @ 200 mls/hr IVPB Q8H-IV [facility] Last Admin: 08/06/17 09:40 Dose: 200 mls/hr Fentanyl 500 mcg/ Sodium (Chloride) 100 mls @ 10 mls/hr IVPB TITR [facility]; 50 MCG/ HR PRN Reason: Protocol Last Admin: 08/06/17 12:11 Dose: 10 mls/hr Insulin Aspart (Novolog Vial Sliding Scale -) 1 vial SQ ACHS [facility] PRN Reason: Protocol Last Admin: 08/06/17 16:45 Dose: 12 units Insulin Human Regular (Novolin R Vial *For Ivpush Or Iv Drip Only*) 12 units IVPUSH ONCE ONE Stop: 08/06/17 16:48 Pantoprazole Sodium (Protonix Iv) 40 mg IVPUSH DAILY [facility] Last Admin: 08/06/17 11:46 Dose: 40 mg Potassium Phos/Sodium Phos (Phos-Nak Packet -) 1 packet NGT BID [facility] Stop: 08/06/17 22:01 Last Admin: 08/06/17 10:15 Dose: 1 packet - Objective Vital Signs: Vital Signs Temperature 99.8 F H 08/06/17 14:00 Pulse Rate 128 H 08/06/17 15:00 Respiratory Rate 28 H 08/06/17 15:00 Blood Pressure 84/60 08/06/17 15:00 O2 Sat by Pulse Oximetry (%) 91 L 08/06/17 10:28 Constitutional: Yes: Other Cardiovascular: Yes: Regular Rate and Rhythm, Tachycardia Respiratory: Yes: Intubated, Mechanically Ventilated Gastrointestinal: Yes: Normal Bowel Sounds, Soft, Other Musculoskeletal: Yes: WNL Extremities: Yes: WNL Neurological: Yes: Other Psychiatric: Yes: Other Labs: CBC, BMP 08/06/17 06:00 08/06/17 06:00 INR, PTT INR 1.04 (0.82-1.09) 08/02/17 06:10 Fibrinogen 1150.0 mg/dL (238-498) H 08/01/17 07:20 Assessment/Plan e Acute Hypoxic Respiratory Failure Metastatic Small Cell Ca Pneumonia Neutropenic Septic Shock Thrombocytopenia Lactic Acidosis improved CAD Prostate Ca plan continue abx resp support continue monitoring low grade fever watch for fever cc time 40 min
[2017-08-06 19:26] LABS: ANION GAP 12 (8-16); CO2 25 mmol/L (21-32); CREATININE 1.2 mg/dL (0.7-1.3)
[2017-08-06 19:28] LABS: GLUCOSE,RANDOM 355 mg/dL (74-106)
[2017-08-06] MEDS: CHLORHEXIDINE GLUCONATE 4% CLEANSER FOR DECOLONIZATION TP SCH (21:55)
--- NOTE | 2017-08-06 22:10 | PN ---
Progress Note, Physician History of Present Illness: Pt remains intubated w/ poor prognosis - Current Medication List Current Medications: Active Medications Acetaminophen (Tylenol -) 650 mg PO Q6H PRN PRN Reason: FEVER OR PAIN Last Admin: 08/05/17 04:48 Dose: 650 mg Amino Acids (Prosource No Carb Liquid Pkt) 30 ml PO BID@0800,1730 [facility] Last Admin: 08/06/17 16:47 Dose: 30 ml Bacitracin/Polymyxin B Sulfate (Polysporin Ointment -) 1 applic TP DAILY [facility] Last Admin: 08/06/17 10:16 Dose: 1 applic Chlorhexidine Gluconate (Hibiclens For Decolonization -) 1 applic TP HS [facility] Last Admin: 08/06/17 21:55 Dose: 1 applic Dexamethasone Sodium Phosphate (Decadron Injection -) 4 mg IVPUSH Q8H-IV [facility] Last Admin: 08/06/17 17:05 Dose: 4 mg Fluconazole (Diflucan -) 100 mg PO DAILY [facility] Last Admin: 08/06/17 09:40 Dose: 100 mg Heparin Sodium (Porcine) (Heparin -) 5,000 unit SQ BID [facility] Last Admin: 08/06/17 21:55 Dose: 5,000 unit Propofol (Diprivan -) 100 mls @ 1.647 mls/hr IVPB TITR [facility]; 5 MCG/KG/MIN PRN Reason: Protocol Last Admin: 08/06/17 21:56 Dose: 50 mcg/kg/min, 16.466 mls/hr Cefepime HCl 1 gm/ Dextrose 100 mls @ 200 mls/hr IVPB Q8H-IV [facility] Last Admin: 08/06/17 17:04 Dose: 200 mls/hr Fentanyl 500 mcg/ Sodium (Chloride) 100 mls @ 10 mls/hr IVPB TITR [facility]; 50 MCG/ HR PRN Reason: Protocol Last Admin: 08/06/17 21:56 Dose: 10 mls/hr Insulin Aspart (Novolog Vial Sliding Scale -) 1 vial SQ ACHS [facility] PRN Reason: Protocol Last Admin: 08/06/17 21:58 Dose: 8 units Pantoprazole Sodium (Protonix Iv) 40 mg IVPUSH DAILY [facility] Last Admin: 08/06/17 11:46 Dose: 40 mg - Objective Vital Signs: Vital Signs Temperature 99.8 F H 08/06/17 14:00 Pulse Rate 124 H 08/06/17 21:00 Respiratory Rate 31 H 08/06/17 21:00 Blood Pressure 98/70 08/06/17 21:00 O2 Sat by Pulse Oximetry (%) 91 L 08/06/17 21:00 HENT: Yes: Other (Intubated) Neck: Yes: WNL, Supple Cardiovascular: Yes: WNL, Regular Rate and Rhythm Respiratory: Yes: Diminished, Wheezes Gastrointestinal: Yes: WNL, Normal Bowel Sounds, Soft Labs: CBC, BMP 08/06/17 06:00 08/06/17 17:30 INR, PTT INR 1.04 (0.82-1.09) 08/02/17 06:10 Fibrinogen 1150.0 mg/dL (238-498) H 08/01/17 07:20 Problem List - Problems (1) Acute hypoxemic respiratory failure Assessment/Plan: Pt intubated Cont nebulizers/IV antibxs ?pneumonia Poor prognosis in setting of metastatic lung ca(bone/liver/brain) Code(s): J96.01 - ACUTE RESPIRATORY FAILURE WITH HYPOXIA (2) Febrile neutropenia Assessment/Plan: Cont IV antibxs Follow cultures Follow labs Tmax 100.1 Code(s): D70.9 - NEUTROPENIA, UNSPECIFIED; R50.81 - FEVER PRESENTING WITH CONDITIONS CLASSIFIED ELSEWHERE (3) Sepsis Code(s): A41.9 - SEPSIS, UNSPECIFIED ORGANISM (4) Lung cancer Code(s): C34.90 - MALIGNANT NEOPLASM OF UNSP PART OF UNSP BRONCHUS OR LUNG (5) Leptomeningeal metastases Code(s): C79.49 - SECONDARY MALIGNANT NEOPLASM OF OTH PARTS OF NERVOUS SYSTEM (6) CAD (coronary artery disease) Code(s): I25.10 - ATHSCL HEART DISEASE OF [place] CORONARY ARTERY W/O ANG PCTRS Qualifiers: Coronary Disease-Associated Artery/Lesion type: [place] artery [place] vs. transplanted heart: [place] heart Associated angina: without angina Qualified Code(s): I25.10 - Atherosclerotic heart disease of [place] coronary artery without angina pectoris
[2017-08-07] MEDS: CEFEPIME 1 GM in DEXTROSE 5%-WATER - 100 ML IVPB SCH ×3 (02:00→18:05)
[2017-08-07] MEDS: DEXAMETHASONE SOD PHOSPHATE 4 MG/1 ML VIAL IVPUSH SCH ×3 (03:18→18:05)
[2017-08-07] MEDS: PROPOFOL 100 ML IVPB SCH ×3 (04:00→18:05)
[2017-08-07] MEDS: INSULIN SLIDING SCALE (NOVOLOG) 1 VIAL SQ SCH ×4 (06:16→23:08)
[2017-08-07 06:33] LABS: MCH 29.9 pg (25.7-33.7); MCHC 34.6 g/dl (32.0-35.9); MEAN CELL VOLUME 86.6 fl (80-96); MEAN PLT VOLUME 10.4 fl (7.5-11.1); PLATELET COUNT 103 K/MM3 (134-434); RDW 16.9 % (11.9-15.9); WHITE BLOOD COUNT 9.3 K/mm3 (4.0-10.0)
[2017-08-07 06:55] LABS: GLUCOSE,RANDOM 275 mg/dL (74-106)
[2017-08-07 07:03] LABS: ALK PHOS 173 U/L (45-117); ANION GAP 15 (8-16); BILIRUBIN,TOTAL 0.3 mg/dL (0.2-1.0); CALCIUM 7.4 mg/dL (8.5-10.1); CO2 23 mmol/L (21-32); CREATININE 1.7 mg/dL (0.7-1.3); MAGNESIUM 2.3 mg/dL (1.8-2.4); PHOSPHOROUS 4.1 mg/dL (2.5-4.9); SGOT/AST 88 U/L (15-37); SGPT/ALT 34 U/L (12-78); TOT PROT 4.6 g/dl (6.4-8.2)
[2017-08-07 07:10] LABS: ALBUMIN 0.7 g/dl (3.4-5.0)
--- NOTE | 2017-08-07 08:24 | PN ---
Progress Note, Physician Chief Complaint: remains intubated History of Present Illness: TELE: Sinus tach - Current Medication List Current Medications: Active Medications Acetaminophen (Tylenol -) 650 mg PO Q6H PRN PRN Reason: FEVER OR PAIN Last Admin: 08/05/17 04:48 Dose: 650 mg Amino Acids (Prosource No Carb Liquid Pkt) 30 ml PO BID@0800,1730 [facility] Last Admin: 08/06/17 16:47 Dose: 30 ml Bacitracin/Polymyxin B Sulfate (Polysporin Ointment -) 1 applic TP DAILY [facility] Last Admin: 08/06/17 10:16 Dose: 1 applic Chlorhexidine Gluconate (Hibiclens For Decolonization -) 1 applic TP HS [facility] Last Admin: 08/06/17 21:55 Dose: 1 applic Dexamethasone Sodium Phosphate (Decadron Injection -) 4 mg IVPUSH Q8H-IV [facility] Last Admin: 08/07/17 03:18 Dose: 4 mg Fluconazole (Diflucan -) 100 mg PO DAILY [facility] Last Admin: 08/06/17 09:40 Dose: 100 mg Heparin Sodium (Porcine) (Heparin -) 5,000 unit SQ BID [facility] Last Admin: 08/06/17 21:55 Dose: 5,000 unit Propofol (Diprivan -) 100 mls @ 1.647 mls/hr IVPB TITR [facility]; 5 MCG/KG/MIN PRN Reason: Protocol Last Admin: 08/07/17 04:00 Dose: 50 mcg/kg/min, 16.466 mls/hr Cefepime HCl 1 gm/ Dextrose 100 mls @ 200 mls/hr IVPB Q8H-IV [facility] Last Admin: 08/07/17 02:00 Dose: 200 mls/hr Fentanyl 500 mcg/ Sodium (Chloride) 100 mls @ 10 mls/hr IVPB TITR [facility]DON; 50 MCG/ HR PRN Reason: Protocol Last Admin: 08/06/17 21:56 Dose: 10 mls/hr Insulin Aspart (Novolog Vial Sliding Scale -) 1 vial SQ ACHS [facility] PRN Reason: Protocol Last Admin: 08/07/17 06:16 Dose: 6 units Pantoprazole Sodium (Protonix Iv) 40 mg IVPUSH DAILY [facility] Last Admin: 08/06/17 11:46 Dose: 40 mg - Objective Vital Signs: Vital Signs Temperature 99.8 F H 08/07/17 06:00 Pulse Rate 125 H 08/07/17 07:49 Respiratory Rate 33 H 08/07/17 07:49 Blood Pressure 100/73 08/07/17 07:49 O2 Sat by Pulse Oximetry (%) 91 L 08/06/17 21:00 HENT: Yes: Other (+ ETT) Cardiovascular: Yes: Tachycardia Respiratory: Yes: Other (= breath sounds b/l) Gastrointestinal: Yes: Soft Edema: No Labs: CBC, BMP 08/07/17 06:15 08/07/17 06:15 INR, PTT INR 1.04 (0.82-1.09) 08/02/17 06:10 Fibrinogen 1150.0 mg/dL (238-498) H 08/01/17 07:20 Microbiology 07/30/17 07:40 Sputum - Endotrachea Suction/Ventilator Gram Stain - Final 07/30/17 07:40 Sputum - Endotrachea Suction/Ventilator Sputum Culture - Final Staphylococcus Aureus Laboratory Tests 08/07/17 08/07/17 06:15 06:15 WBC 9.3 Hgb 8.0 L Plt Count 103 L Sodium 139 Potassium 4.1 BUN 58 H D Creatinine 1.7 H D - ....Imaging EKG: Image Reviewed Assessment/Plan Assessment/Plan IMP: Acute respiratory failure Metastatic small cell lung cancer Pancytopenia, resolving CAD s/p PCI several years ago REC: Critically ill with guarded/poor prognosis. Hold antiplatelet agents until safe to resume, platelet count has improved Supportive care: vent support/pressors/ abx as per ICU team. Sinus tachycardia secondary to respiratory failure, sepsis, malignancy and anemia.
[2017-08-07 08:41] LABS: METAMYELOCYTE 11 % (0-2); MYELOCYTE 2 % (0-2)
[2017-08-07] MEDS: AMINO ACIDS/PROTEIN HYDROLYS 30 ML LIQUID.PKT PO SCH ×2 (08:49→16:36)
[2017-08-07] MEDS: PANTOPRAZOLE SODIUM 40 MG VIAL IVPUSH SCH (09:21)
[2017-08-07] MEDS: FLUCONAZOLE 100 MG TABLET (UD) PO SCH (09:22)
[2017-08-07] MEDS: HEPARIN NA (PORCINE) 5,000 UNITS/ML 1ML VIAL SQ SCH ×2 (09:22→22:53)
--- NOTE | 2017-08-07 09:50 | PN ---
Progress Note (short form) - Note Progress Note: Patient seen and examined remains intubated, FiO2 noted to be 90% Genera: Intubated. Cor: tachy Lungs: caorse+ Abd: Soft, Normal bowel sounds, No organomegaly Ext:No significant edema ?turns to his name when called. Last Vital Signs Temp Pulse Resp BP Pulse Ox 99.5 F 127 H 30 H 99/72 91 L 08/07/17 08:00 08/07/17 08:00 08/07/17 08:56 08/07/17 08:00 08/07/17 08:56 CBC, BMP 08/07/17 06:15 08/07/17 06:15 Current Medications Generic Name Dose Route Start Last Admin Trade Name Freq PRN Reason Stop Dose Admin Acetaminophen 650 mg 07/30/17 04:43 08/05/17 04:48 Tylenol - PO 650 mg Q6H PRN Administration FEVER OR PAIN Amino Acids 30 ml 08/03/17 17:30 08/07/17 08:49 Prosource No Carb Liquid Pkt PO 30 ml BID@0800,1730 [facility] Administration Bacitracin/Polymyxin B Sulfate 1 applic 08/01/17 15:00 08/06/17 10:16 Polysporin Ointment - TP 1 applic DAILY [facility] Administration Chlorhexidine Gluconate 1 applic 07/30/17 22:00 08/06/17 21:55 Hibiclens For Decolonization - TP 1 applic HS [facility] Administration Dexamethasone Sodium Phosphate 4 mg 07/31/17 10:00 08/07/17 09:22 Decadron Injection - IVPUSH 4 mg Q8H-IV [facility] Administration Fluconazole 100 mg 08/05/17 19:58 08/07/17 09:22 Diflucan - PO 100 mg DAILY [facility] Administration Heparin Sodium (Porcine) 5,000 unit 08/06/17 16:00 08/07/17 09:22 Heparin - SQ 5,000 unit BID [facility] Administration Propofol 100 mls @ 1.647 mls/hr 07/30/17 19:00 08/07/17 09:19 Diprivan - IVPB 50 mcg/kg/min TITR JAYDON 16.466 mls/hr Protocol Administration 5 MCG/KG/MIN Cefepime HCl 1 gm/ Dextrose 100 mls @ 200 mls/hr 07/31/17 02:00 08/07/17 02: 00 IVPB 200 mls/hr Q8H-IV [facility] Administration Fentanyl 500 mcg/ Sodium 100 mls @ 10 mls/hr 08/06/17 18:45 08/06/17 21:56 Chloride IVPB 10 mls/hr TITR [facility] Administration Protocol 50 MCG/HR Insulin Aspart 1 vial 08/06/17 11:00 08/07/17 06:16 Novolog Vial Sliding Scale - SQ 6 units ACHS [facility] Administration Protocol Pantoprazole Sodium 40 mg 07/31/17 11:00 08/07/17 09:21 Protonix Iv IVPUSH 40 mg DAILY [facility] Administration 72 y/o patient with extenisive small cell lung cancer,brain/leptomeningeal/ liver mets. Patient came in with pneumonia/sepsis/shock Neutropenia resolved Thrombocytopenia improving Anemia: if Hgb continues to trend down, follow regular transfusion guidelines and give PRBC. New onset DUONG remains intubated, failing weaning trials. Prognosis remains guarded in the setting of widespread metastatic disease ( poor prognosis histology SCC) Supportive care. Now DNR. Appreciate Pal care.
[2017-08-07] MEDS: BACITRACIN/POLYMYXIN B SULFATE 15 GM TUBE TP SCH (10:00)
[2017-08-07] MEDS ORDERED: PT OWN MED DRAWER 7, Y5N ONE ×3 (10:15→18:04)
[2017-08-07] MEDS ORDERED: fentaNYL CITRATE 250 MCG/5 ML VIAL ONE (10:22)
[2017-08-07] MEDS ORDERED: INSULIN (NOVOLOG) ASPART 100 UNITS/ML 10ML VIAL ONE ×5 (12:49→23:07)
[2017-08-07] MEDS: FENTANYL INJECTION 500 MCG in SODIUM CHLORIDE 90 ML IVPB SCH ×2 (13:10→22:53)
--- NOTE | 2017-08-07 13:17 | PN ---
Teaching Attending Note Name of Resident: Reginaldo Felipe ATTENDING PHYSICIAN STATEMENT I saw and evaluated the patient. I reviewed the resident's note and discussed the case with the resident. I agree with the resident's findings and plan as documented. SUBJECTIVE: Pt seen and examined in the ICU. Remains intubated, sedated on high oxygen support. OBJECTIVE: Last Vital Signs Temp Pulse Resp BP Pulse Ox 99.1 F 127 H 20 110/70 91 L 08/07/17 12:00 08/07/17 12:00 08/07/17 12:50 08/07/17 12:00 08/07/17 08:56 Intake & Output 08/04/17 08/05/17 08/06/17 08/07/17 23:59 23:59 23:59 23:59 Intake Total 4140 4132 2721 1274 Output Total 2500 3000 2110 250 Balance 1640 0298 697 2752 Weight 137 lb 6 oz 137 lb 12.8 oz 138 lb 1.6 oz 135 lb 3.2 oz Gen: intubated, sedated, tachypneic Heart: tachycardic, regular Lung: scattered rhonchi Abd: soft, nontender Ext: + edema CBC, BMP 08/07/17 06:15 08/07/17 06:15 Active Medications Acetaminophen (Tylenol -) 650 mg PO Q6H PRN PRN Reason: FEVER OR PAIN Last Admin: 08/05/17 04:48 Dose: 650 mg Amino Acids (Prosource No Carb Liquid Pkt) 30 ml PO BID@0800,1730 [facility] Last Admin: 08/07/17 08:49 Dose: 30 ml Bacitracin/Polymyxin B Sulfate (Polysporin Ointment -) 1 applic TP DAILY [facility] Last Admin: 08/07/17 10:00 Dose: 1 applic Chlorhexidine Gluconate (Hibiclens For Decolonization -) 1 applic TP HS [facility] Last Admin: 08/06/17 21:55 Dose: 1 applic Dexamethasone Sodium Phosphate (Decadron Injection -) 4 mg IVPUSH Q8H-IV [facility] Last Admin: 08/07/17 09:22 Dose: 4 mg Fluconazole (Diflucan -) 100 mg PO DAILY [facility] Last Admin: 08/07/17 09:22 Dose: 100 mg Heparin Sodium (Porcine) (Heparin -) 5,000 unit SQ BID [facility] Last Admin: 08/07/17 09:22 Dose: 5,000 unit Propofol (Diprivan -) 100 mls @ 1.647 mls/hr IVPB TITR [facility]AYDON; 5 MCG/KG/MIN PRN Reason: Protocol Last Admin: 08/07/17 09:19 Dose: 50 mcg/kg/min, 16.466 mls/hr Cefepime HCl 1 gm/ Dextrose 100 mls @ 200 mls/hr IVPB Q8H-IV [facility] Last Admin: 08/07/17 10:00 Dose: 200 mls/hr Fentanyl 500 mcg/ Sodium (Chloride) 100 mls @ 10 mls/hr IVPB TITR [facility]AYDON; 50 MCG/ HR PRN Reason: Protocol Last Admin: 08/07/17 13:10 Dose: 10 mls/hr Insulin Aspart (Novolog Vial Sliding Scale -) 1 vial SQ ACHS [facility] PRN Reason: Protocol Last Admin: 08/07/17 11:08 Dose: 8 units Pantoprazole Sodium (Protonix Iv) 40 mg IVPUSH DAILY [facility] Last Admin: 08/07/17 09:21 Dose: 40 mg ASSESSMENT AND PLAN: Acute Hypoxic Respiratory Failure Metastatic Small Cell Ca Pneumonia ARDS Septic Shock Thrombocytopenia Lactic Acidosis improved CAD Prostate Ca - broad spectrum antibiotic coverage per ID - IVF to keep CVP 8-12 - taper FiO2 to keep SpO2 >90% - monitor CBC - continue decadron - lasix today - not a candidate for weaning due to increasing oxygen requirements - enteral feeds - DVT/GI prophylaxis - continue ICU monitoring - prognosis remains guarded - continue discussions regarding goals of care - recommend compassionate extubation critical care time spent in reviewing chart, evaluating patient and formulating plan 38 min
--- NOTE | 2017-08-07 15:59 | PN ---
Progress Note, Physician History of Present Illness: continues to be intubated patient showing no signs of improvement - Current Medication List Current Medications: Active Medications Acetaminophen (Tylenol -) 650 mg PO Q6H PRN PRN Reason: FEVER OR PAIN Last Admin: 08/05/17 04:48 Dose: 650 mg Amino Acids (Prosource No Carb Liquid Pkt) 30 ml PO BID@0800,1730 [facility] Last Admin: 08/07/17 08:49 Dose: 30 ml Bacitracin/Polymyxin B Sulfate (Polysporin Ointment -) 1 applic TP DAILY [facility] Last Admin: 08/07/17 10:00 Dose: 1 applic Chlorhexidine Gluconate (Hibiclens For Decolonization -) 1 applic TP HS [facility] Last Admin: 08/06/17 21:55 Dose: 1 applic Dexamethasone Sodium Phosphate (Decadron Injection -) 4 mg IVPUSH Q8H-IV [facility] Last Admin: 08/07/17 09:22 Dose: 4 mg Fluconazole (Diflucan -) 100 mg PO DAILY [facility] Last Admin: 08/07/17 09:22 Dose: 100 mg Heparin Sodium (Porcine) (Heparin -) 5,000 unit SQ BID [facility] Last Admin: 08/07/17 09:22 Dose: 5,000 unit Propofol (Diprivan -) 100 mls @ 1.647 mls/hr IVPB TITR [facility]; 5 MCG/KG/MIN PRN Reason: Protocol Last Admin: 08/07/17 09:19 Dose: 50 mcg/kg/min, 16.466 mls/hr Cefepime HCl 1 gm/ Dextrose 100 mls @ 200 mls/hr IVPB Q8H-IV [facility] Last Admin: 08/07/17 10:00 Dose: 200 mls/hr Fentanyl 500 mcg/ Sodium (Chloride) 100 mls @ 10 mls/hr IVPB TITR [facility]; 50 MCG/ HR PRN Reason: Protocol Last Admin: 08/07/17 13:10 Dose: 10 mls/hr Insulin Aspart (Novolog Vial Sliding Scale -) 1 vial SQ ACHS [facility] PRN Reason: Protocol Last Admin: 08/07/17 11:08 Dose: 8 units Pantoprazole Sodium (Protonix Iv) 40 mg IVPUSH DAILY [facility] Last Admin: 08/07/17 09:21 Dose: 40 mg - Objective Vital Signs: Vital Signs Temperature 99.0 F 08/07/17 15:00 Pulse Rate 128 H 08/07/17 15:00 Respiratory Rate 32 H 08/07/17 15:00 Blood Pressure 101/73 08/07/17 15:00 O2 Sat by Pulse Oximetry (%) 91 L 08/07/17 08:56 Constitutional: Yes: Other Cardiovascular: Yes: Regular Rate and Rhythm, Tachycardia Respiratory: Yes: Intubated, Mechanically Ventilated Gastrointestinal: Yes: Normal Bowel Sounds, Soft Musculoskeletal: Yes: WNL Extremities: Yes: WNL Neurological: Yes: Other Labs: CBC, BMP 08/07/17 06:15 08/07/17 06:15 INR, PTT INR 1.04 (0.82-1.09) 08/02/17 06:10 Fibrinogen 1150.0 mg/dL (238-498) H 08/01/17 07:20 Assessment/Plan e Acute Hypoxic Respiratory Failure Metastatic Small Cell Ca Pneumonia Neutropenic Septic Shock Thrombocytopenia Lactic Acidosis improved CAD Prostate Ca plan continue abx resp support continue monitoring low grade fever watch for fever patioent not doing well prognosis not good cc time 40 min
--- NOTE | 2017-08-07 21:28 | PN ---
Progress Note, Physician History of Present Illness: Pt remains intubated w/ poor prognosis - Current Medication List Current Medications: Active Medications Acetaminophen (Tylenol -) 650 mg PO Q6H PRN PRN Reason: FEVER OR PAIN Last Admin: 08/05/17 04:48 Dose: 650 mg Amino Acids (Prosource No Carb Liquid Pkt) 30 ml PO BID@0800,1730 [facility] Last Admin: 08/07/17 16:36 Dose: 30 ml Bacitracin/Polymyxin B Sulfate (Polysporin Ointment -) 1 applic TP DAILY [facility] Last Admin: 08/07/17 10:00 Dose: 1 applic Chlorhexidine Gluconate (Hibiclens For Decolonization -) 1 applic TP HS [facility] Last Admin: 08/06/17 21:55 Dose: 1 applic Dexamethasone Sodium Phosphate (Decadron Injection -) 4 mg IVPUSH Q8H-IV [facility] Last Admin: 08/07/17 18:05 Dose: 4 mg Fluconazole (Diflucan -) 100 mg PO DAILY [facility] Last Admin: 08/07/17 09:22 Dose: 100 mg Heparin Sodium (Porcine) (Heparin -) 5,000 unit SQ BID [facility] Last Admin: 08/07/17 09:22 Dose: 5,000 unit Propofol (Diprivan -) 100 mls @ 1.647 mls/hr IVPB TITR [facility]; 5 MCG/KG/MIN PRN Reason: Protocol Last Admin: 08/07/17 18:05 Dose: 50 mcg/kg/min, 16.466 mls/hr Cefepime HCl 1 gm/ Dextrose 100 mls @ 200 mls/hr IVPB Q8H-IV [facility] Last Admin: 08/07/17 18:05 Dose: 200 mls/hr Fentanyl 500 mcg/ Sodium (Chloride) 100 mls @ 10 mls/hr IVPB TITR [facility]; 50 MCG/ HR PRN Reason: Protocol Last Admin: 08/07/17 13:10 Dose: 10 mls/hr Insulin Aspart (Novolog Vial Sliding Scale -) 1 vial SQ ACHS [facility] PRN Reason: Protocol Last Admin: 08/07/17 16:35 Dose: 8 units Pantoprazole Sodium (Protonix Iv) 40 mg IVPUSH DAILY [facility] Last Admin: 08/07/17 09:21 Dose: 40 mg - Objective Vital Signs: Vital Signs Temperature 99.2 F 08/07/17 18:00 Pulse Rate 126 H 08/07/17 18:00 Respiratory Rate 21 08/07/17 19:00 Blood Pressure 100/81 08/07/17 18:00 O2 Sat by Pulse Oximetry (%) 91 L 08/07/17 08:56 HENT: Yes: WNL, Other ((+) ETT) Neck: Yes: WNL, Supple Cardiovascular: Yes: Tachycardia Respiratory: Yes: Diminished Gastrointestinal: Yes: WNL, Normal Bowel Sounds, Soft Edema: No Labs: CBC, BMP 08/07/17 06:15 08/07/17 06:15 INR, PTT INR 1.04 (0.82-1.09) 08/02/17 06:10 Fibrinogen 1150.0 mg/dL (238-498) H 08/01/17 07:20 Problem List - Problems (1) Acute hypoxemic respiratory failure Assessment/Plan: Pt remains intubated Failed weaning trials Cont nebulizers/IV antibxs ?pneumonia Poor prognosis in setting of metastatic lung ca(bone/liver/brain) Code(s): J96.01 - ACUTE RESPIRATORY FAILURE WITH HYPOXIA (2) Sepsis Assessment/Plan: Cont IV antibxs Poor prognosis Plts slightly improved Code(s): A41.9 - SEPSIS, UNSPECIFIED ORGANISM (3) Lung cancer Assessment/Plan: Poor prognosis Code(s): C34.90 - MALIGNANT NEOPLASM OF UNSP PART OF UNSP BRONCHUS OR LUNG (4) Leptomeningeal metastases Code(s): C79.49 - SECONDARY MALIGNANT NEOPLASM OF OTH PARTS OF NERVOUS SYSTEM (5) CAD (coronary artery disease) Code(s): I25.10 - ATHSCL HEART DISEASE OF [place] CORONARY ARTERY W/O ANG PCTRS Qualifiers: Coronary Disease-Associated Artery/Lesion type: [place] artery [place] vs. transplanted heart: [place] heart Associated angina: without angina Qualified Code(s): I25.10 - Atherosclerotic heart disease of [place] coronary artery without angina pectoris (6) Febrile neutropenia Assessment/Plan: WBC normal Resolved Code(s): D70.9 - NEUTROPENIA, UNSPECIFIED; R50.81 - FEVER PRESENTING WITH CONDITIONS CLASSIFIED ELSEWHERE
[2017-08-07] MEDS ORDERED: HEMOQUE TEST 1 EACH EACH ONE (21:33)
[2017-08-07] MEDS: CHLORHEXIDINE GLUCONATE 4% CLEANSER FOR DECOLONIZATION TP SCH (22:53)
[2017-08-08] MEDS: PROPOFOL 100 ML IVPB SCH (01:15)
[2017-08-08] MEDS ORDERED: PT OWN MED DRAWER 7, Y5N ONE (01:49)
[2017-08-08] MEDS: DEXAMETHASONE SOD PHOSPHATE 4 MG/1 ML VIAL IVPUSH SCH (01:53)
[2017-08-08] MEDS: CEFEPIME 1 GM in DEXTROSE 5%-WATER - 100 ML IVPB SCH (01:54)
[2017-08-08 02:11] VITALS: TEMP 99
[2017-08-08 06:20] LABS: MCH 32.6 pg (25.7-33.7); MCHC 36.9 g/dl (32.0-35.9); MEAN CELL VOLUME 88.5 fl (80-96); MEAN PLT VOLUME 10.4 fl (7.5-11.1); PLATELET COUNT 144 K/MM3 (134-434); RDW 17.1 % (11.9-15.9)
[2017-08-08 06:27] VITALS: BP 67/45; PULSE 100
--- NOTE | 2017-08-08 06:37 | HOSP ---
Physical Examination Vital Signs: Called to see 72 yo M with significant PMH of HTN, HLD, CAD (s/p cardiac stents) , GERD and prostate cancer, kidney stones, and recently diagnosed small cell lung cancer w/ metastasis to liver, who was DNR and said to no longer have a heart beat. General Exam: Elderly male with no response to pain Heart: Absent heart sounds Chest: Absent spontaneous breathing Neuro: Pupils fixed and dilated. Absent gag, corneal or doll's eye reflexes Patient was pronounced at 6.20am on 08/08/17 Family unavailable at the time of pronouncement Call Visit type - Emergency Visit Emergency Visit: Yes ED Registration Date: 07/30/17 Care time: The patient presented to the Emergency Department on the above date and was hospitalized for further evaluation of their emergent condition. - New Patient This patient is new to me today: Yes Date on this admission: 08/08/17 - Critical Care Critical Care patient: Yes Total Critical Care Time (in minutes): 15
[2017-08-08 06:40] LABS: ALK PHOS 196 U/L (45-117); ANION GAP 17 (8-16); BILIRUBIN,TOTAL 0.4 mg/dL (0.2-1.0); CO2 20 mmol/L (21-32); CREATININE 3.1 mg/dL (0.7-1.3)
[2017-08-08 06:41] LABS: ALBUMIN 0.6 g/dl (3.4-5.0); SGOT/AST 124 U/L (15-37); TOT PROT 4.3 g/dl (6.4-8.2)
[2017-08-08 06:42] LABS: GLUCOSE,RANDOM 284 mg/dL (74-106); SGPT/ALT 41 U/L (12-78)
[2017-08-08 06:44] LABS: CALCIUM 6.5 mg/dL (8.5-10.1)
[2017-08-08 11:03] LABS: WHITE BLOOD COUNT 12.2 K/mm3 (4.0-10.0)
--- NOTE | 2017-08-08 17:12 | DS ---
Physical Examination Vital Signs: Vital Signs Temperature 99.0 F 08/08/17 02:00 Pulse Rate 100 H 08/08/17 06:00 Respiratory Rate 34 H 08/08/17 06:00 Blood Pressure 67/45 08/08/17 06:00 O2 Sat by Pulse Oximetry (%) 93 L 08/07/17 21:00 Labs: CBC, BMP 08/08/17 06:00 08/08/17 06:00 Discharge Summary Reason For Visit: SEPSIS LUNG CANCER LEPTOMENINGEAL METAST - Instructions Disposition: - Home Medications Comprehensive Discharge Medication List: Ambulatory Orders Tramadol HCl 50 mg PO Q8H PRN 06/18/17 Dexamethasone [Decadron -] 4 mg PO Q6H 07/17/17 Lorazepam 0.5 mg PO DAILY 07/30/17
== END 2017-08-08 06:20 | disposition expired | DRG 870 ==
LOC: JER 22:41 → JERBED 07-30 01:15 → UNDOADMIN 07-30 01:23 → JICU 07-30 18:39
PROVIDERS: ADMIT Internal Medicine; ATTEND Internal Medicine
PROC: 0BH17EZ Insertion of Endotracheal Airway into Trachea, Via Natural or Artificial Opening (ICD-10-PCS; principal; 2017-07-30)
PROC: 5A1955Z Respiratory Ventilation, Greater than 96 Consecutive Hours (ICD-10-PCS; 2017-07-30)
PROC: 5A09357 Assistance with Respiratory Ventilation, Less than 24 Consecutive Hours, Continuous Positive Airway Pressure (ICD-10-PCS; 2017-07-30)
PROC: 05HM33Z Insertion of Infusion Device into Right Internal Jugular Vein, Percutaneous Approach (ICD-10-PCS; 2017-07-31)
PROC: 0DH67UZ Insertion of Feeding Device into Stomach, Via Natural or Artificial Opening (ICD-10-PCS; 2017-07-31)
DX: A41.89 Other specified sepsis (principal); J96.01 Acute respiratory failure with hypoxia; J96.02 Acute respiratory failure with hypercapnia; J18.9 Pneumonia, unspecified organism; R65.21 Severe sepsis with septic shock; C34.90 Malignant neoplasm of unspecified part of unspecified bronchus or lung; C78.7 Secondary malignant neoplasm of liver and intrahepatic bile duct; R64 Cachexia; Z68.1 Body mass index [BMI] 19.9 or less, adult; E87.2 Acidosis; C79.51 Secondary malignant neoplasm of bone; C79.49 Secondary malignant neoplasm of other parts of nervous system; E87.1 Hypo-osmolality and hyponatremia; N17.9 Acute kidney failure, unspecified; I25.10 Atherosclerotic heart disease of native coronary artery without angina pectoris; R50.81 Fever presenting with conditions classified elsewhere; E78.5 Hyperlipidemia, unspecified; K21.9 Gastro-esophageal reflux disease without esophagitis; D70.8 Other neutropenia; L98.8 Other specified disorders of the skin and subcutaneous tissue; E86.0 Dehydration; D69.6 Thrombocytopenia, unspecified; E86.1 Hypovolemia; R14.0 Abdominal distension (gaseous); E87.5 Hyperkalemia; L89.151 Pressure ulcer of sacral region, stage 1; E87.6 Hypokalemia; C61 Malignant neoplasm of prostate; Z87.891 Personal history of nicotine dependence; Z95.5 Presence of coronary angioplasty implant and graft; Z87.442 Personal history of urinary calculi; Z66 Do not resuscitate
CPT/HCPCS: 36415; 36600; 71010-TC; 74020-TC; 80048; 80053; 81003; 82550; 82553; 82803; 82947; 83605; 83735; 83880; 84100; 84484; 85025; 85027; 85384; 85610; 85730; 86850; 86900; 86901; 87040; 87070; 87086; 87186; 87205; 93005; 93010; 93970-TC; 94002; 94660; 99285-25; J1447; J1644